=== PATIENT | female | born 1980 | race Caucasian/White ===

== ENCOUNTER → 2016-10-27 | Outpatient (CLI) | payer BC ==
[~2016-10-27] MED LIST: APIX1TAB3 PO; CYM/30 PO; DIPH-416 PO; DOCU-94 PO; IMD/2 PO; LORA-741 PO; METH5TAB2 PO; METO-157 PO; ONDA8TAB6 PO; PANT40TA PO; POLY335019 PO; POTA10CA28 PO; RXC5 PO; SENN-61 PO; SIME1CAP11 PO; SPIR50TA2 PO; TRAM-10 PO
[2016-10-27 14:41] LABS: BASO % 0.4 %; BASO ABS # 0.04 K/uL (0-0.2); COMPLETE YES; EOS % 6.8 %; HEMATOCRIT 32.3 % (37-47); IG% 0.2 %; LYMPH % 11.1 %; LYMPH ABS # 1.02 K/uL (1.2-3.4); MEAN CELL VOLUME 93.4 fL (80-100); MEAN CORPUSCULAR HEMOGLOBIN 29.2 pg (25-34); MEAN CORPUSCULAR HGB CONC 31.3 g/dl (32-36); MEAN PLATELET VOLUME 10.4 fL (7.4-10.4); NEUT % 70.5 %; PLATELET COUNT 795 K/uL (130-400); RED BLOOD COUNT 3.46 M/uL (4.2-5.4); WHITE BLOOD COUNT 9.22 K/uL (4.8-10.8)
[2016-10-27 14:49] LABS: ALT/SGPT 23 U/L (12-78); BLOOD UREA NITROGEN 21 mg/dl (7-18); BUN/CREATININE RATIO 36.3 (10-20); CALCIUM 10.2 mg/dl (8.5-10.1); CARBON DIOXIDE 25 mmol/L (21-32); CHLORIDE 105 mmol/L (98-107); CREATININE 0.59 mg/dl (0.60-1.20); GLUCOSE 101 mg/dl (70-99); POTASSIUM 4.1 mmol/L (3.5-5.1); SODIUM 138 mmol/L (136-145); TRIGLYCERIDES 104 mg/dl (0-150)
[2016-10-27 14:51] LABS: PROTHROMBIN TIME (PATIENT) 11.1 SECONDS (9.0-12.0)
[2016-10-27 14:52] LABS: ALB/GLOB RATIO 0.5 (0.9-2); ALKALINE PHOSPHATASE 251 U/L (45-117); AST/SGOT 19 U/L (15-37)
[2016-10-29 10:59] LABS: MAGNESIUM 2.4 mg/dl (1.8-2.4); PHOSPHORUS 4.3 mg/dl (2.5-4.9)
== END | disposition home or self-care (01) ==
LOC: C.LABSPEC 13:25
PROVIDERS: ATTEND Internal Medicine Pulmonary Disease
DX: C18.1 Malignant neoplasm of appendix (principal); C78.6 Secondary malignant neoplasm of retroperitoneum and peritoneum

== ENCOUNTER → 2016-11-10 | Outpatient (CLI) | payer BC ==
[2016-11-10 14:14] LABS: BASO % 0.7 %; BASO ABS # 0.06 K/uL (0-0.2); COMPLETE YES; EOS % 5.8 %; HEMATOCRIT 37.6 % (37-47); IG% 0.2 %; LYMPH % 11.1 %; LYMPH ABS # 0.96 K/uL (1.2-3.4); MEAN CELL VOLUME 92.4 fL (80-100); MEAN CORPUSCULAR HEMOGLOBIN 29.2 pg (25-34); MEAN CORPUSCULAR HGB CONC 31.6 g/dl (32-36); MEAN PLATELET VOLUME 10.3 fL (7.4-10.4); MONO % 8.6 %; NEUT % 73.6 %; PLATELET COUNT 666 K/uL (130-400); RED BLOOD COUNT 4.07 M/uL (4.2-5.4); WHITE BLOOD COUNT 8.64 K/uL (4.8-10.8)
[2016-11-10 14:22] LABS: ALT/SGPT 32 U/L (12-78); AST/SGOT 27 U/L (15-37); BLOOD UREA NITROGEN 25 mg/dl (7-18); BUN/CREATININE RATIO 33.9 (10-20); CARBON DIOXIDE 24 mmol/L (21-32); CHLORIDE 103 mmol/L (98-107); CREATININE 0.75 mg/dl (0.60-1.20); GLUCOSE 80 mg/dl (70-99); MAGNESIUM 2.2 mg/dl (1.8-2.4); POTASSIUM 4.5 mmol/L (3.5-5.1); SODIUM 137 mmol/L (136-145)
[2016-11-10 14:23] LABS: INR 1.1 (0.9-1.1); PROTHROMBIN TIME (PATIENT) 11.4 SECONDS (9.0-12.0)
[2016-11-10 14:25] LABS: ALKALINE PHOSPHATASE 231 U/L (45-117); PHOSPHORUS 4.1 mg/dl (2.5-4.9); TRIGLYCERIDES 123 mg/dl (0-150)
== END | disposition home or self-care (01) ==
LOC: C.LABSPEC 13:52
PROVIDERS: ATTEND Internal Medicine Hematology & Oncology
DX: Z85.09 Personal history of malignant neoplasm of other digestive organs (principal); C78.6 Secondary malignant neoplasm of retroperitoneum and peritoneum

== ENCOUNTER 2016-12-22 10:07 | Inpatient (IN) | payer BC ==
[~2016-12-22] VITALS: Ht 167.6 cm; Wt 57.6 kg
[2016-12-22] MEDS ORDERED: MoRPHine SULFATE 4 MG/ML 1 ML CARP\\VIAL IV STA (10:21)
[2016-12-22] MEDS ORDERED: SODIUM CHLORIDE 0.9% 1000ML 1,000 ML IV STA (10:21)
[2016-12-22] MEDS ORDERED: ONDANSETRON INJ 2 MG/ML 2 ML VIAL IV STA (10:21)
[2016-12-22] MEDS ORDERED: OPTIRAY 320 IV PRN (10:30)
[2016-12-22] MEDS ORDERED: APIX1TAB3 PO (10:47)
[2016-12-22] MEDS ORDERED: RXC5 PO (10:47)
[2016-12-22] MEDS ORDERED: LORA-741 PO (10:47)
[2016-12-22] MEDS ORDERED: SPIR50TA2 PO (10:47)
[2016-12-22] MEDS ORDERED: PANT40TA PO (10:47)
[2016-12-22] MEDS ORDERED: CYM/30 PO (10:47)
[2016-12-22] MEDS ORDERED: METO-157 PO (10:47)
[2016-12-22] MEDS ORDERED: TRAM-10 PO (10:47)
--- NOTE | 2016-12-22 11:07 | DIAGNOSTIC IMAGING REPORT ---
CHEST ONE VIEW PORTABLE CLINICAL HISTORY: Tachycardia COMPARISON STUDY: No previous studies for comparison. FINDINGS: The cardiac and mediastinal contours are normal. There is no evidence of focal pulmonary consolidation. There is no evidence of failure. No pleural effusions are visualized.[ There is a right-sided A-Port catheter. IMPRESSION: No active disease in the chest. Electronically signed by: Robbie Schumacher M.D. 12/22/2016 11:06 AM Dictated Date/Time: 12/22/2016 11:05 AM
[2016-12-22 11:30] LABS: HEMATOCRIT 35.3 % (37-47); MEAN CELL VOLUME 89.6 fL (80-100); MEAN CORPUSCULAR HEMOGLOBIN 29.9 pg (25-34); MEAN CORPUSCULAR HGB CONC 33.4 g/dl (32-36); MEAN PLATELET VOLUME 9.6 fL (7.4-10.4); PLATELET COUNT 560 K/uL (130-400); RED BLOOD COUNT 3.94 M/uL (4.2-5.4); WHITE BLOOD COUNT 2.77 K/uL (4.8-10.8)
--- NOTE | 2016-12-22 11:32 | EMERGENCY ROOM VISIT NOTE ---
History Report prepared by Sonya: Lillian Gonzalez Under the Supervision of: Dr. Umesh Pearson M.D. First contact with patient: 10:18 Chief Complaint: CONSTIPATION Stated Complaint: CONSTIPATION X 5 DAYS, N,V X 2 DAYS Nursing Triage Summary: pt to the ED with c/o constipation, last BM was on thursday and it was diarrhea. 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 Positive vomiting (20 episodes), allergic to amoxicillin. Negative falls, travel , hx of diabetes, fevers, chills, urinary symptoms. The pt's last chemotherapy treatment was 11 days ago. The pt is on Eliquis Cymbalta, oxycodone, tramadol, Lorazepam. Source of History: patient Onset: 5 days ago Timing: constant Associated Symptoms: + vomiting, No fevers, No chills, No urinary symptoms Review of Systems See HPI for pertinent positives and negatives. A total of ten systems were reviewed and were otherwise negative. 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 Surgical Problems: (1) H/O oophorectomy (2) H/O splenectomy (3) H/O wisdom tooth extraction (4) HIPEC procedure (5) History of appendectomy (6) History of hysterectomy (7) S/P colon resection Family History no pertinent family history stated Social History Smoking Status: Never Smoker Marital Status: Current/Historical Medications Scheduled Apixaban (Eliquis), 5 MG PO BID Duloxetine Hcl (Cymbalta), 30 MG PO DAILY Metoclopramide (Reglan), 10 MG PO QID Oxycodone HCl (Oxycodone HCl), 5 MG PO HS Pantoprazole (Protonix), 40 MG PO DAILY Spironolactone (Aldactone), 50 MG PO DAILY Scheduled PRN Lorazepam (Ativan), 0.5 MG PO DAILY PRN for Anxiety Tramadol (Ultram), 50 MG PO Q6 PRN for Pain Allergies Coded Allergies: POLLEN (Verified Allergy, Intermediate, SEASONAL, 12/22/16) Amoxicillin (Verified Adverse Reaction, Intermediate, GREEN DIARHHEA, 12/22) Physical Exam Vital Signs Date Time Temp Pulse Resp B/P (MAP) Pulse Ox O2 Delivery O2 Flow Rate FiO2 12/22/16 14:50 104 19 94 12/22/16 14:31 134/84 12/22/16 14:20 111 18 97 12/22/16 14:01 126/70 12/22/16 13:50 104 21 97 12/22/16 13:31 131/81 12/22/16 13:20 99 20 96 12/22/16 13:01 125/72 12/22/16 12:50 101 25 98 12/22/16 12:45 117/68 12/22/16 12:44 103 12/22/16 11:37 102 17 12/22/16 10:10 36.8 128 20 122/83 96 Room Air Physical Exam GENERAL: Awake, alert, well-appearing, NAD. Emaciated. HENT: Normocephalic, atraumatic. EYES: Normal conjunctiva. Sclera non-icteric. NECK: Supple. No nuchal rigidity. FROM. RESPIRATORY: CTAB, no rhonchi, wheezing, crackles CARDIAC: Tachycardic and regular, no MRG ABDOMEN: Soft, NTND, BS+, Pressure in RUQ epigastric and periumbilical .LLQ and LUQ tenderness to palpation. Small hard masses felt near midline incision. MSK: No chest wall TTP, no LE edema. Right chest wall chemoport no erythema or fluctuance. NEURO: GCS 15, CN 2-12 intact, moves all 4s on command SKIN: No rash or jaundice noted. Well healing vertical midline incision consistent with prior laparotomy Medical Decision & Procedures ER Provider Diagnostic Interpretation: Radiology results as stated below per my review and radiologist interpretation: CHEST ONE VIEW PORTABLE FINDINGS: The cardiac and mediastinal contours are normal. There is no evidence of focal pulmonary consolidation. There is no evidence of failure. No pleural effusions are visualized.[ There is a right-sided A-Port catheter. IMPRESSION: No active disease in the chest. Electronically signed by: Robbie Schumacher M.D. CT ABD/PELVIS IV CONTRAST ONLY FINDINGS: Lower chest: The heart is normal in size and configuration, without pericardial effusion. The lung bases and pleural spaces are clear. Liver: The contrast-enhanced liver is normal in size, contour, and attenuation. There is no intrahepatic biliary ductal dilatation. The hepatic veins and portal veins are patent. Gallbladder: Unremarkable. Spleen: Not visualized and presumed surgically absent Pancreas: No pancreatic masses are visualized. There is a suspected pancreatic divisum. The common bile duct is dilated measuring 7.9 mm. Adrenal glands: Unremarkable. Kidneys: There is mild right-sided hydronephrosis and hydroureter. Bowel: Evaluation the bowel is limited given the lack of enteric contrast. There are multiple dilated small bowel loops with air-fluid levels. The patient appears be status post a prior cecal resection. There is a transition zone at the ileocolonic anastomosis. There is a mild amount of stool within the rectosigmoid. Peritoneum: There is no intraperitoneal free air or abdominal ascites. Vasculature: The abdominal aorta is normal in course and caliber. Adenopathy: There are mildly enlarged para-aortic lymph nodes. Pelvic viscera: The patient appears be status post a prior hysterectomy. Skeletal structures: No destructive osseous lesions are seen. IMPRESSION: 1. Difficult study to interpret secondary to the lack of enteric contrast. 2. Dilated small bowel down to the level of the ileocecal colonic anastomosis. A partial small bowel obstruction is suspected 3. Absent spleen 4. Right-sided hydronephrosis and hydroureter 5. Mildly enlarged para-aortic lymph nodes Electronically signed by: Robbie Schumacher M.D. Laboratory Results 12/22/16 11:00 Red Blood Count 3.94, Mean Corpuscular Volume 89.6, Mean Corpuscular Hemoglobin 29.9, Mean Corpuscular Hemoglobin Concent 33.4, Mean Platelet Volume 9.6, Neutrophils (%) (Auto) 36.1, Lymphocytes (%) (Auto) 36.8, Monocytes (%) (Auto) 21.3, Eosinophils (%) (Auto) 4.3, Basophils (%) (Auto) 1.1, Neutrophils # (Auto ) 1.00, Lymphocytes # (Auto) 1.02, Monocytes # (Auto) 0.59, Eosinophils # (Auto ) 0.12, Basophils # (Auto) 0.03 12/22/16 11:00 Test 12/22/16 11:00 12/22/16 11:30 White Blood Count 2.77 K/uL (4.8-10.8) Red Blood Count 3.94 M/uL (4.2-5.4) Hemoglobin 11.8 g/dL (12.0-16.0) Hematocrit 35.3 % (37-47) Mean Corpuscular Volume 89.6 fL (80-100) Mean Corpuscular Hemoglobin 29.9 pg (25-34) Mean Corpuscular Hemoglobin Concent 33.4 g/dl (32-36) Platelet Count 560 K/uL (130-400) Mean Platelet Volume 9.6 fL (7.4-10.4) Neutrophils (%) (Auto) 36.1 % Lymphocytes (%) (Auto) 36.8 % Monocytes (%) (Auto) 21.3 % Eosinophils (%) (Auto) 4.3 % Basophils (%) (Auto) 1.1 % Neutrophils # (Auto) 1.00 K/uL (1.4-6.5) Lymphocytes # (Auto) 1.02 K/uL (1.2-3.4) Monocytes # (Auto) 0.59 K/uL (0.11-0.59) Eosinophils # (Auto) 0.12 K/uL (0-0.5) Basophils # (Auto) 0.03 K/uL (0-0.2) RDW Standard Deviation 55.4 fL (36.4-46.3) RDW Coefficient of Variation 16.8 % (11.5-14.5) Immature Granulocyte % (Auto) 0.4 % Immature Granulocyte # (Auto) 0.01 K/uL (0.00-0.02) Toxic Granulation 1+ Large Platelets 1+ Target Cells 1+ Echinocytes 1+ Anion Gap 12.0 mmol/L (3-11) Est Creatinine Clear Calc Drug Dose 114.8 ml/min Estimated GFR () 134.2 Estimated GFR (Non- 115.8 BUN/Creatinine Ratio 20.0 (10-20) Calcium Level 10.1 mg/dl (8.5-10.1) Total Bilirubin 0.5 mg/dl (0.2-1) Direct Bilirubin 0.2 mg/dl (0-0.2) Aspartate Amino Transf (AST/SGOT) 22 U/L (15-37) Alanine Aminotransferase (ALT/SGPT) 17 U/L (12-78) Alkaline Phosphatase 222 U/L (45-117) Total Protein 7.8 gm/dl (6.4-8.2) Albumin 3.0 gm/dl (3.4-5.0) Lipase 140 U/L (73-393) Urine Color DK YELLOW Urine Appearance CLOUDY (CLEAR) Urine pH 6.0 (4.5-7.5) Urine Specific [place] 1.029 (1.000-1.030) Urine Protein 1+ (NEG) Urine Glucose (UA) NEG (NEG) Urine Ketones 3+ (NEG) Urine Occult Blood NEG (NEG) Urine Nitrite NEG (NEG) Urine Bilirubin NEG (NEG) Urine Urobilinogen NEG (NEG) Urine Leukocyte Esterase NEG (NEG) Urine WBC (Auto) 5-10 /hpf (0-5) Urine RBC (Auto) 0-4 /hpf (0-4) Urine Hyaline Casts (Auto) 1-5 /lpf (0-5) Urine Epithelial Cells (Auto) 20-30 /lpf (0-5) Urine Bacteria (Auto) NEG (NEG) Urine Crystals CALCIUM OXALATE (NONE Urine Mucus PRESENT (NONE PRSENT) Laboratory results reviewed by me Medications Administered Medications (Trade) Dose Ordered Sig/Shani Route Start Time Stop Time Status Last Admin Dose Admin Sodium Chloride 1,000 ml @ 999 mls/hr Q1H1M STAT IV 12/22/16 10:21 12/22/16 11:21 DC 12/22/16 10:21 999 MLS/HR Morphine Sulfate (MoRPHine SULFATE INJ) 4 mg NOW STAT IV 12/22/16 10:21 12/22/16 10:24 DC 12/22/16 11:27 4 MG Ondansetron HCl (Zofran Inj) 4 mg NOW STAT IV 12/22/16 10:21 12/22/16 10:24 DC 12/22/16 11:28 4 MG Hydromorphone HCl (Dilaudid Inj) 0.5 mg NOW STAT IV 12/22/16 13:57 12/22/16 13:58 DC 12/22/16 14:19 0.5 MG ECG Indication: other (constipation) Rhythm: normal sinus (with sinua arhythmia) Findings: other (normal intervals, normal axis, no STS changes or T wave inversions) ED Course 1025: The patient was evaluated in room C8. A complete history and physical exam was performed. 1319: Consult with surgery, they will evaluate the pt. 1339: Discussed the patient's case with Lisa Lopez. The patient will be evaluated for further treatment and disposition. 1345: Upon reexamination, the patient was resting. I discussed the test results and treatment plan with her. The patient will be evaluated for further management. 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 Differential diagnosis: Etiologies such as appendicitis, diverticulitis, PUD, biliary pathology, UTI, pancreatitis, obstruction, mesenteric ischemia, aortic pathology, infections, inflammatory bowel disease, renal colic, as well as others were entertained. Patient's lab work did show mild leukopenia with an absolute neutrophil count of approximately 1000. Patient did have mild hyponatremia as well as elevated alkaline phosphatase me in. Patient's UA did have calcium crystals. Patient's CT the abdomen and pelvis was concerning for a partial small bowel obstruction. A nasogastric tube was ordered. I spoke with the PA of EGS who stated even given her complicated surgical history they are comfortable w/ helping to manage the SBO as consult. I spoke with the medicine team and agree that they would help manage the patient. Patient was admitted. Medication Reconcilliation Current Medication List: was personally reviewed by me Blood Pressure Screening Patient's blood pressure: Normal blood pressure Consults Time Called: 1315 Consulting Physician: Aidan consult Returned Call: [phone] Discussed the patient's case. Additional Consults: Time Called: 1335 Consulted Physician: Lisa Lopez Returned Call: [phone] Additional Comments: Discussed the patient's case. The patient will be evaluated for further treatment and disposition. Impression Primary Impression: Small bowel obstruction Additional Impressions: Abdominal pain Tachycardia Scribe Attestation The scribe's documentation has been prepared under my direction and personally reviewed by me in its entirety. I confirm that the note above accurately reflects all work, treatment, procedures, and medical decision making performed by me. Departure Information Dispostion Being Evaluated By Hospitalist Referrals Kevin García II MD (PCP) Patient Instructions My [facility] Problem Qualifiers Additional Impressions: Abdominal pain Abdominal location: generalized Qualified Codes: R10.84 - Generalized abdominal pain
[2016-12-22 11:48] LABS: CALCIUM 10.1 mg/dl (8.5-10.1); CREATININE 0.61 mg/dl (0.60-1.20); POTASSIUM 3.5 mmol/L (3.5-5.1)
[2016-12-22 11:48] LABS: URINE APPEARANCE CLOUDY (CLEAR); URINE COLOR DK YELLOW; URINE EPITHELIAL CELL AUTO 20-30 /lpf (0-5); URINE NITRITE NEG (NEG); URINE SPECIFIC GRAVITY 1.029 (1.000-1.030); UROBILINOGEN NEG (NEG); ZZUR CULT IF INDIC CLEAN CATCH NO
[2016-12-22 12:00] LABS: MANUAL MICROSCOPIC REQUIRED? NO; REVIEW REQ? YES; URINE BILIRUBIN NEG (NEG)
[2016-12-22 12:01] LABS: URINE MUCUS PRESENT (NONE PRSENT)
[2016-12-22 12:02] LABS: BASO % 1.1 %; BASO ABS # 0.03 K/uL (0-0.2); COMPLETE YES; ECHINOCYTES 1+; EOS % 4.3 %; IG% 0.4 %; LARGE PLATELETS 1+; LYMPH % 36.8 %; LYMPH ABS # 1.02 K/uL (1.2-3.4); MONO % 21.3 %; NEUT % 36.1 %; TARGET CELLS 1+; TOXIC GRANULATION 1+
--- NOTE | 2016-12-22 12:48 | DIAGNOSTIC IMAGING REPORT ---
CT ABD/PELVIS IV CONTRAST ONLY CLINICAL HISTORY: Colon carcinoma. History of partial colectomy. Obstipation. COMPARISON STUDY: None. TECHNIQUE: Following the IV administration of 92 mL of Optiray-320, CT scan of the abdomen and pelvis was performed from the lung bases to the proximal femurs. Images are reviewed in the axial, sagittal, and coronal planes. IV contrast was administered without complication. A dose lowering technique was utilized adhering to the principles of ALARA. CT DOSE: 287.00 mGy.cm FINDINGS: Lower chest: The heart is normal in size and configuration, without pericardial effusion. The lung bases and pleural spaces are clear. Liver: The contrast-enhanced liver is normal in size, contour, and attenuation. There is no intrahepatic biliary ductal dilatation. The hepatic veins and portal veins are patent. Gallbladder: Unremarkable. Spleen: Not visualized and presumed surgically absent Pancreas: No pancreatic masses are visualized. There is a suspected pancreatic divisum. The common bile duct is dilated measuring 7.9 mm. Adrenal glands: Unremarkable. Kidneys: There is mild right-sided hydronephrosis and hydroureter. Bowel: Evaluation the bowel is limited given the lack of enteric contrast. There are multiple dilated small bowel loops with air-fluid levels. The patient appears be status post a prior cecal resection. There is a transition zone at the ileocolonic anastomosis. There is a mild amount of stool within the rectosigmoid. Peritoneum: There is no intraperitoneal free air or abdominal ascites. Vasculature: The abdominal aorta is normal in course and caliber. Adenopathy: There are mildly enlarged para-aortic lymph nodes. Pelvic viscera: The patient appears be status post a prior hysterectomy. Skeletal structures: No destructive osseous lesions are seen. IMPRESSION: 1. Difficult study to interpret secondary to the lack of enteric contrast. 2. Dilated small bowel down to the level of the ileocecal colonic anastomosis. A partial small bowel obstruction is suspected 3. Absent spleen 4. Right-sided hydronephrosis and hydroureter 5. Mildly enlarged para-aortic lymph nodes Electronically signed by: Robbie Schumacher M.D. 12/22/2016 12:47 PM Dictated Date/Time: 12/22/2016 12:37 PM
[2016-12-22] MEDS ORDERED: HYDROmorphone INJ 0.5 MG/0.5 ML SYR IV STA (13:57)
--- NOTE | 2016-12-22 14:44 | Surgery Consultation ---
Consultation Date of Consultation: Dec 22, 2016. Attending Physician: Dr. 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 She is currently receiving chemotherapy every 2 weeks. Last chemotherapy was 11 days ago and is due this . Liana states she had a hysterectomy in April of last year in which they though she had ovarian cancer. She then had her appendix removed and her ovary removed in March of 2012 in which she was diagnosed with appendiceal cancer and then underwent HIPEC surgery in August in which she had part of her colon removed, small bowel, as well as spleen. She unfortunately developed a blood clot in the abdomen post operatively and is now on Eliquis. Liana presented to emergency department today with complaint of constipation for 5 days and vomiting (about 20 episodes). Liana states her last bowel movement was last Thursday and has not passed gas since. She states her last episode of vomiting was last evening around 8-9:00 pm after eating pudding. She states the vomiting has looked like stool. She states she has had a history of bowel obstruction since her HIPEC surgery in which she was admitted to [facility]. She denies of any surgical intervention at that time. She states she has chronic abdominal pain but noticed increasing pain with movements with this episode of constipation and vomiting. Takes Oxycodone at night and tramadol as needed for pain. She states she does not have the urge to have a bowel movement or pass any gas. Does require Colace and Senokot daily to help with bowel movements but then has to take Imodium because of diarrhea. She had a CT scan of abdomen and pelvis without contrast which showed dilated small bowel to the ileocolonic anastomosis consistent with partial small bowel obstruction. Labs revealed n/o leukocytosis H&H stable at 11.8/35.3 Currently rating her abdominal pain a 5/10. No vomiting this morning or since being in the ER. Still has no urge to have a bowel movement or pass any gas. (Tamanna Ibanez PA-C) Past Medical/Surgical History Past Medical History: 1. Appendiceal cancer 2. Blood clot (Tamanna Ibanez PA-C) Social History Smoking Status: Never Smoker Marital Status: (Tamanna Ibanez, SIXTOC) Allergies Coded Allergies: POLLEN (Verified Allergy, Intermediate, SEASONAL, 12/22/16) Amoxicillin (Verified Adverse Reaction, Intermediate, GREEN DIARHHEA, 12/22) Home Medications Scheduled Apixaban (Eliquis), 5 MG PO BID Duloxetine Hcl (Cymbalta), 30 MG PO DAILY Metoclopramide (Reglan), 10 MG PO QID Oxycodone HCl (Oxycodone HCl), 5 MG PO HS Pantoprazole (Protonix), 40 MG PO DAILY Spironolactone (Aldactone), 50 MG PO DAILY Scheduled PRN Lorazepam (Ativan), 0.5 MG PO DAILY PRN for Anxiety Tramadol (Ultram), 50 MG PO Q6 PRN for Pain Current Inpatient Medications Current Inpatient Medications Medications (Trade) Dose Ordered Sig/Shani Route Start Time Stop Time Status Last Admin Dose Admin Ioversol (Optiray 320) 100 ml UD PRN IV 12/22/16 10:30 12/26/16 10:29 (Tamanna Ibanez ., PA-C) Review of Systems Constitutional: + fatigue, No fever, No chills, No sweats Respiratory: No shortness of breath, No dyspnea on exertion Cardiovascular: No chest pain Abdomen: + pain, + nausea, + vomiting, + constipation (no bowel movement since Thursday) Genitourinary - Female: No dysuria Hematologic / Lymphatic: No abnormal bleeding/bruising Integumentary: No rash (Tamanna Ibanez ., PA-C) Physical Exam Date Time Temp Pulse Resp B/P (MAP) Pulse Ox O2 Delivery O2 Flow Rate FiO2 12/22/16 12:45 117/68 12/22/16 12:44 103 12/22/16 11:37 102 17 12/22/16 10:10 36.8 128 20 122/83 96 Room Air General Appearance: no apparent distress, + thin Head: normocephalic, atraumatic Eyes: sclerae normal ENT: hearing grossly normal Neck: trachea midline Respiratory/Chest: lungs clear, normal breath sounds, no respiratory distress, no accessory muscle use Cardiovascular: no murmur, + tachycardia Abdomen/GI: normal bowel sounds, soft (non distended, no rigidity, guarding, rebound, or peritonitis), + pertinent finding (midline laparotomy scar present, small laparoscopic scars present) Back: normal inspection Extremities/Musculoskelatal: normal inspection Neurologic/Psych: alert, normal mood/affect, oriented x 3 Skin: normal color, warm/dry, no rash (Tamanna Ibanez ., ORA) Laboratory Results Last 24 Hours Test 12/22/16 11:00 12/22/16 11:30 White Blood Count 2.77 K/uL Red Blood Count 3.94 M/uL Hemoglobin 11.8 g/dL Hematocrit 35.3 % Mean Corpuscular Volume 89.6 fL Mean Corpuscular Hemoglobin 29.9 pg Mean Corpuscular Hemoglobin Concent 33.4 g/dl Platelet Count 560 K/uL Mean Platelet Volume 9.6 fL Neutrophils (%) (Auto) 36.1 % Lymphocytes (%) (Auto) 36.8 % Monocytes (%) (Auto) 21.3 % Eosinophils (%) (Auto) 4.3 % Basophils (%) (Auto) 1.1 % Neutrophils # (Auto) 1.00 K/uL Lymphocytes # (Auto) 1.02 K/uL Monocytes # (Auto) 0.59 K/uL Eosinophils # (Auto) 0.12 K/uL Basophils # (Auto) 0.03 K/uL RDW Standard Deviation 55.4 fL RDW Coefficient of Variation 16.8 % Immature Granulocyte % (Auto) 0.4 % Immature Granulocyte # (Auto) 0.01 K/uL Toxic Granulation 1+ Large Platelets 1+ Target Cells 1+ Echinocytes 1+ Sodium Level 134 mmol/L Potassium Level 3.5 mmol/L Chloride Level 96 mmol/L Carbon Dioxide Level 26 mmol/L Anion Gap 12.0 mmol/L Blood Urea Nitrogen 12 mg/dl Creatinine 0.61 mg/dl Est Creatinine Clear Calc Drug Dose 114.8 ml/min Estimated GFR () 134.2 Estimated GFR (Non- 115.8 BUN/Creatinine Ratio 20.0 Random Glucose 89 mg/dl Calcium Level 10.1 mg/dl Total Bilirubin 0.5 mg/dl Direct Bilirubin 0.2 mg/dl Aspartate Amino Transf (AST/SGOT) 22 U/L Alanine Aminotransferase (ALT/SGPT) 17 U/L Alkaline Phosphatase 222 U/L Total Protein 7.8 gm/dl Albumin 3.0 gm/dl Lipase 140 U/L Urine Color DK YELLOW Urine Appearance CLOUDY Urine pH 6.0 Urine Specific [place] 1.029 Urine Protein 1+ Urine Glucose (UA) NEG Urine Ketones 3+ Urine Occult Blood NEG Urine Nitrite NEG Urine Bilirubin NEG Urine Urobilinogen NEG Urine Leukocyte Esterase NEG Urine WBC (Auto) 5-10 /hpf Urine RBC (Auto) 0-4 /hpf Urine Hyaline Casts (Auto) 1-5 /lpf Urine Epithelial Cells (Auto) 20-30 /lpf Urine Bacteria (Auto) NEG Urine Crystals CALCIUM OXALATE Urine Mucus PRESENT CT ABD/PELVIS IV CONTRAST ONLY CLINICAL HISTORY: Colon carcinoma. History of partial colectomy. Obstipation. COMPARISON STUDY: None. TECHNIQUE: Following the IV administration of 92 mL of Optiray-320, CT scan of the abdomen and pelvis was performed from the lung bases to the proximal femurs. Images are reviewed in the axial, sagittal, and coronal planes. IV contrast was administered without complication. A dose lowering technique was utilized adhering to the principles of ALARA. CT DOSE: 287.00 mGy.cm FINDINGS: Lower chest: The heart is normal in size and configuration, without pericardial effusion. The lung bases and pleural spaces are clear. Liver: The contrast-enhanced liver is normal in size, contour, and attenuation. There is no intrahepatic biliary ductal dilatation. The hepatic veins and portal veins are patent. Gallbladder: Unremarkable. Spleen: Not visualized and presumed surgically absent Pancreas: No pancreatic masses are visualized. There is a suspected pancreatic divisum. The common bile duct is dilated measuring 7.9 mm. Adrenal glands: Unremarkable. Kidneys: There is mild right-sided hydronephrosis and hydroureter. Bowel: Evaluation the bowel is limited given the lack of enteric contrast. There are multiple dilated small bowel loops with air-fluid levels. The patient appears be status post a prior cecal resection. There is a transition zone at the ileocolonic anastomosis. There is a mild amount of stool within the rectosigmoid. Peritoneum: There is no intraperitoneal free air or abdominal ascites. Vasculature: The abdominal aorta is normal in course and caliber. Adenopathy: There are mildly enlarged para-aortic lymph nodes. Pelvic viscera: The patient appears be status post a prior hysterectomy. Skeletal structures: No destructive osseous lesions are seen. IMPRESSION: 1. Difficult study to interpret secondary to the lack of enteric contrast. 2. Dilated small bowel down to the level of the ileocecal colonic anastomosis. A partial small bowel obstruction is suspected 3. Absent spleen 4. Right-sided hydronephrosis and hydroureter 5. Mildly enlarged para-aortic lymph nodes (Tamanna Ibanez ., PA-C) Assessment & Plan Partial SBO - vitals stable, slightly tachycardia - abdomen soft, nondistended, no guarding, rebound, or rigidity - Ct scan of abdomen and pelvis with IV contrast showing dilated small bowel loops to the level of ileocolonic anastomosis consistent with partial small bowel obstruction Plan: Recommend conservative management at this time. NPO, IV fluids, IV pain management as needed, will hold off on NGT at this time Given patient's surgical history, if conservative management does not allow progression patient will need transfer to Tertiary care for any surgical indication Recommend holding Eliquis and bridging with Heparin given blood clot history continue current medical management will continue to follow Dr. Mcclain has seen and examined patient, agrees with above. (Tamanna Ibanez ., PA-C) I interviewed and examined this patient and reviewed her labs and her radiology studies and i agree with the above note. She has had multiple abdominal procedures and now has a partial SBO. I agree with conservative management for now. If surgical intervention is necessary would recommend [facility] (Jd Mcclain M.D.)
[2016-12-22] MEDS ORDERED: ACETAMINOPHEN 325 MG TAB PO PRN (15:00)
[2016-12-22] MEDS ORDERED: LORAZEPAM 0.5 MG TAB PO PRN (16:15)
[2016-12-22 16:25] VITALS: O2SAT 95
--- NOTE | 2016-12-22 16:41 | History and Physical ---
History & Physical Date & Time of Service: Dec 22, 2016 ~ 14:30 Chief Complaint: Constipation, Nausea, Vomiting Primary Care Physician: Kevin García II MD History of Present Illness 36 year old female who presents to the ER with constipation, nausea, and vomiting. 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 Patient reports her symptoms began 5 days ago. She has not had a bowel movement in 5 days. She also has developed nausea with multiple episodes of vomiting. She reports her emesis looks like stool. She reports vomiting shortly after taking anything by mouth. She has chronic abdominal pain from her large surgery however reports pain has been worse over the past few days. Pain is located on the left and middle parts of her abdomen. She denies any worsening abdominal distention. She denies fever and chills. No chest pain or shortness of breath. She denies lightheadedness, dizziness, diaphoresis, or syncope. No urinary symptoms. In the ER, CT abd/pelvis is showing partial small bowel obstruction. Labs and vitals are stable. She was given IVF, IV morphine, IV Dilaudid, and IV Zofran. Past Medical/Surgical History Medical Problems: (1) Appendix carcinoma Status: Chronic (2) Colic vein thrombosis Status: Chronic (3) Splenic vein thrombosis Status: Chronic Surgical Problems: (1) H/O oophorectomy Status: Chronic (2) H/O splenectomy Status: Chronic (3) H/O wisdom tooth extraction Status: Chronic (4) HIPEC procedure Status: Chronic (5) History of appendectomy Status: Chronic (6) History of hysterectomy Status: Chronic (7) S/P colon resection Status: Chronic Family History FH: HTN (hypertension) MOTHER FH: colon cancer MOTHER Social History Smoking Status: Never Smoker Drug Use: none Allergies Coded Allergies: POLLEN (Verified Allergy, Intermediate, SEASONAL, 12/22/16) Adhesives (Verified Adverse Reaction, Intermediate, irritation, itchiness and reddness, 12/22/16) Amoxicillin (Verified Adverse Reaction, Intermediate, GREEN DIARHHEA, 12/22) Home Medications Scheduled Apixaban (Eliquis), 5 MG PO BID Duloxetine Hcl (Cymbalta), 30 MG PO DAILY Metoclopramide (Reglan), 10 MG PO QID Oxycodone HCl (Oxycodone HCl), 5 MG PO HS Pantoprazole (Protonix), 40 MG PO DAILY Spironolactone (Aldactone), 50 MG PO DAILY Scheduled PRN Lorazepam (Ativan), 0.5 MG PO DAILY PRN for Anxiety Tramadol (Ultram), 50 MG PO Q6 PRN for Pain Review of Systems ROS per HPI, all other systems reviewed and negative Physical Exam Vital Signs Date Time Temp Pulse Resp B/P (MAP) Pulse Ox O2 Delivery O2 Flow Rate FiO2 12/22/16 14:50 104 19 94 12/22/16 14:31 134/84 12/22/16 14:20 111 18 97 12/22/16 14:01 126/70 12/22/16 13:50 104 21 97 12/22/16 13:31 131/81 12/22/16 13:20 99 20 96 12/22/16 13:01 125/72 12/22/16 12:50 101 25 98 12/22/16 12:45 117/68 12/22/16 12:44 103 12/22/16 11:37 102 17 12/22/16 10:10 36.8 128 20 122/83 96 Room Air General Appearance: no apparent distress Head: normocephalic, atraumatic Eyes: normal inspection, sclerae normal ENT: hearing grossly normal Neck: supple, no JVD Respiratory/Chest: lungs clear, normal breath sounds, no respiratory distress Cardiovascular: regular rate, rhythm, no edema, normal peripheral pulses Abdomen/GI: soft, + tenderness (mild left sided and mid abdomen tenderness ), + abnormal bowel sounds (hyperactive in the LUQ, hypoactive in all other quadrants) Extremities/Musculoskelatal: normal inspection, no calf tenderness Neurologic/Psych: no motor/sensory deficits, alert, normal mood/affect, oriented x 3 Skin: normal color, warm/dry Diagnostics Laboratory Results Results Past 24 Hours Test 12/22/16 11:00 12/22/16 11:30 Range/Units White Blood Count 2.77 4.8-10.8 K/uL Red Blood Count 3.94 4.2-5.4 M/uL Hemoglobin 11.8 12.0-16.0 g/dL Hematocrit 35.3 37-47 % Mean Corpuscular Volume 89.6 80-100 fL Mean Corpuscular Hemoglobin 29.9 25-34 pg Mean Corpuscular Hemoglobin Concent 33.4 32-36 g/dl Platelet Count 560 130-400 K/uL Mean Platelet Volume 9.6 7.4-10.4 fL Neutrophils (%) (Auto) 36.1 % Lymphocytes (%) (Auto) 36.8 % Monocytes (%) (Auto) 21.3 % Eosinophils (%) (Auto) 4.3 % Basophils (%) (Auto) 1.1 % Neutrophils # (Auto) 1.00 1.4-6.5 K/uL Lymphocytes # (Auto) 1.02 1.2-3.4 K/uL Monocytes # (Auto) 0.59 0.11-0.59 K/uL Eosinophils # (Auto) 0.12 0-0.5 K/uL Basophils # (Auto) 0.03 0-0.2 K/uL RDW Standard Deviation 55.4 36.4-46.3 fL RDW Coefficient of Variation 16.8 11.5-14.5 % Immature Granulocyte % (Auto) 0.4 % Immature Granulocyte # (Auto) 0.01 0.00-0.02 K/uL Toxic Granulation 1+ Large Platelets 1+ Target Cells 1+ Echinocytes 1+ Sodium Level 134 136-145 mmol/L Potassium Level 3.5 3.5-5.1 mmol/L Chloride Level 96 98-107 mmol/L Carbon Dioxide Level 26 21-32 mmol/L Anion Gap 12.0 3-11 mmol/L Blood Urea Nitrogen 12 7-18 mg/dl Creatinine 0.61 0.60-1.20 mg/dl Est Creatinine Clear Calc Drug Dose 114.8 ml/min Estimated GFR () 134.2 Estimated GFR (Non- 115.8 BUN/Creatinine Ratio 20.0 10-20 Random Glucose 89 70-99 mg/dl Calcium Level 10.1 8.5-10.1 mg/dl Total Bilirubin 0.5 0.2-1 mg/dl Direct Bilirubin 0.2 0-0.2 mg/dl Aspartate Amino Transf (AST/SGOT) 22 15-37 U/L Alanine Aminotransferase (ALT/SGPT) 17 12-78 U/L Alkaline Phosphatase 222 45-117 U/L Total Protein 7.8 6.4-8.2 gm/dl Albumin 3.0 3.4-5.0 gm/dl Lipase 140 73-393 U/L Urine Color DK YELLOW Urine Appearance CLOUDY CLEAR Urine pH 6.0 4.5-7.5 Urine Specific [place] 1.029 1.000-1.030 Urine Protein 1+ NEG Urine Glucose (UA) NEG NEG Urine Ketones 3+ NEG Urine Occult Blood NEG NEG Urine Nitrite NEG NEG Urine Bilirubin NEG NEG Urine Urobilinogen NEG NEG Urine Leukocyte Esterase NEG NEG Urine WBC (Auto) 5-10 0-5 /hpf Urine RBC (Auto) 0-4 0-4 /hpf Urine Hyaline Casts (Auto) 1-5 0-5 /lpf Urine Epithelial Cells (Auto) 20-30 0-5 /lpf Urine Bacteria (Auto) NEG NEG Urine Crystals CALCIUM OXALATE NONE PRSENT Urine Mucus PRESENT NONE PRSENT Diagnostic Radiology CT ABD/PELVIS IMPRESSION: 1. Difficult study to interpret secondary to the lack of enteric contrast. 2. Dilated small bowel down to the level of the ileocecal colonic anastomosis. A partial small bowel obstruction is suspected 3. Absent spleen 4. Right-sided hydronephrosis and hydroureter 5. Mildly enlarged para-aortic lymph nodes CXR IMPRESSION: No active disease in the chest. Impression Assessment and Plan PARTIAL SBO - admit to med/surg - patient presenting with constipation, nausea, and vomiting x 5 days; CT obtained in the ED showing partial small bowel obstruction - patient with history of several abdominal surgeries and HIPEC procedure for appendicial cancer - suspect obstruction is due to adhesions - patient also reports admissions at [facility] for obstructions after surgery however has not required surgical intervention for the obstructions - conservative therapy for now with NPO, IVF, pain control - surgery consult, input appreciated APPENDICIAL CANCER, S/P HIPEC PROCEDURE - currently receiving chemo every 2 weeks (due on 12/25) and also enrolled in immunotherapy trial - follows with Dr. Jd Horton [facility] (oncology) and Dr. Ibarra [facility] David (surgeon) HX MIDDLE COLIC VEIN AND SPLENIC VEIN THROMBOSIS - on Eliquis which needs to be held in the event patient needs an invasive procedure - discussed case with Dr. Horton who advises the patient be bridged with IV Heparin DVT PROPHYLAXIS - on IV Heparin gtt DISPO - In my clinical judgment this beneficiary meets acute admission criteria, established by [facility], that includes being hospitalized through two midnights. Agree with above H and P. Briefly 36F with hx of appendicial cancer s/p HIPEC procedure August 2016 and hxo f sbo presents with constipation and nausea and vomiting for about 5 days and found to have sbo. Denies any fevers or sob. Currently resting comfortably and hemodynamically stable p/e GE not in distress Cvs s1 and s2 heard no murmurs Rs cta b/l no added sounds Abd soft bs very sluggish no distension wet wheeler non focal ext no edema a/p sbo npo, iv fluids antiemetics and iv pain meds monitor on medical floor surgery on board hx of appendical cancer s/p surgery on chemo VTE Prophylaxis VTE Risk Assessment Done? Y/N: Yes Risk Level: Moderate
[2016-12-22 17:20] VITALS: BP 118/60; PULSE 95; TEMP 36.5; Ht 167.6 cm; Wt 57.6 kg
[2016-12-22] MEDS ORDERED: HEPARIN IV LOW DOSE NO BOLUS SCH (18:00)
[2016-12-22] MEDS: MoRPHine SULFATE 4 MG/ML 1 ML CARP\\VIAL IV PRN ×2 (18:10→18:51)
[2016-12-22] MEDS: D5W AND NSS 1,000 ML IV SCH ×2 (19:11→22:50)
[2016-12-22] MEDS: HEPARIN 25,000 UNIT/500ML D5W 500 ML IV PRN ×2 (19:24→23:29)
[2016-12-22 21:49] LABS: INR 1.2 (0.9-1.1); PARTIAL THROMBOPLASTIN RATIO 1.8; PROTHROMBIN TIME (PATIENT) 12.4 SECONDS (9.0-12.0)
[2016-12-22 22:01] LABS: HEMATOCRIT 30.7 % (37-47); MEAN CORPUSCULAR HEMOGLOBIN 30.2 pg (25-34); MEAN CORPUSCULAR HGB CONC 33.6 g/dl (32-36); MEAN PLATELET VOLUME 9.4 fL (7.4-10.4); PLATELET COUNT 537 K/uL (130-400); RED BLOOD COUNT 3.41 M/uL (4.2-5.4); WHITE BLOOD COUNT 3.06 K/uL (4.8-10.8)
[2016-12-22 22:03] LABS: ACANTHOCYTES 1+; COMPLETE YES; EOSINOPHIL % 4.4 %; LARGE PLATELETS 2+; LYMPH ABS # 1.18 K/uL (1.2-3.4); LYMPHOCYTE % 38.5 %; META ABS # 0.03 K/uL (0-0); METAMYELOCYTE % 0.9 %; MYELOCYTE % 0.9 %; NEUTROPHILS % 24.6 %; SCHISTOCYTES OCCASIONAL; TOXIC GRANULATION 1+; VARIANT LYM ABS # 0.08 K/uL; VARIANT LYMPHOCYTE % 2.6 %
[2016-12-22 23:17] VITALS: BP 117/74; PULSE 101; TEMP 36.8; O2SAT 96
[2016-12-22 23:48] LABS: PARTIAL THROMBOPLASTIN RATIO 1.4
[2016-12-23] MEDS: HEPARIN 25,000 UNIT/500ML D5W 500 ML IV PRN ×4 (00:02→23:07)
[2016-12-23] MEDS: MoRPHine SULFATE 4 MG/ML 1 ML CARP\\VIAL IV PRN ×5 (00:05→22:37)
[2016-12-23] MEDS ORDERED: HEPARIN IV BOLUS 4,000 UNIT in SYRINGE 0 ML IV ONE (00:15)
[2016-12-23 06:21] LABS: HEMATOCRIT 31.6 % (37-47); MEAN CORPUSCULAR HEMOGLOBIN 28.8 pg (25-34); MEAN PLATELET VOLUME 9.5 fL (7.4-10.4); PLATELET COUNT 592 K/uL (130-400); RED BLOOD COUNT 3.51 M/uL (4.2-5.4); WHITE BLOOD COUNT 3.38 K/uL (4.8-10.8)
[2016-12-23 06:44] LABS: BUN/CREATININE RATIO 13.6 (10-20); CALCIUM 9.3 mg/dl (8.5-10.1); CREATININE 0.5 mg/dl (0.60-1.20); POTASSIUM 3.2 mmol/L (3.5-5.1)
[2016-12-23] MEDS: D5W AND NSS 1,000 ML IV SCH ×3 (06:44→22:31)
[2016-12-23 07:08] VITALS: BP 108/68; PULSE 81; TEMP 36.6; O2SAT 97
[2016-12-23 07:18] LABS: BASO % 1.5 %; BASO ABS # 0.05 K/uL (0-0.2); COMPLETE YES; ECHINOCYTES 2+; EOS % 4.7 %; IG% 1.5 %; LARGE PLATELETS 2+; LYMPH % 26.3 %; LYMPH ABS # 0.89 K/uL (1.2-3.4); MONO % 31.4 %; NEUT % 34.6 %; POLYCHROMASIA 1+; TARGET CELLS 1+; TOXIC GRANULATION 1+
[2016-12-23] MEDS: PANTOprazole SOD 40 MG TAB PO SCH ×2 (08:34→08:36)
[2016-12-23] MEDS: DULOXETINE (CYMBALTA) 30 MG CAP PO SCH ×2 (08:34→08:36)
--- NOTE | 2016-12-23 08:56 | Surgery Progress Note ---
Surgery Progress Note Date of Service Dec 23, 2016. Subjective Post OP Day: HD # 1 Having some back stiffness Abdominal bloating and pain similar to yesterday having sensation to pass flatus but nothing yet no nausea or vomiting Objective Vital Signs: Date Time Temp Pulse Resp B/P (MAP) Pulse Ox O2 Delivery O2 Flow Rate FiO2 12/23/16 07:08 36.6 81 14 108/68 (81) 97 Room Air 12/23/16 02:22 Room Air 12/22/16 23:17 36.8 101 14 117/74 (88) 96 Room Air 12/22/16 22:45 Room Air 12/22/16 17:20 36.5 95 16 118/60 Room Air 12/22/16 16:25 101 20 95 Room Air 12/22/16 16:01 120/77 12/22/16 15:55 108 12 95 12/22/16 15:31 117/74 12/22/16 15:25 107 16 96 12/22/16 15:01 127/71 12/22/16 14:55 105 11 95 12/22/16 14:50 104 19 94 12/22/16 14:31 134/84 12/22/16 14:20 111 18 97 12/22/16 14:01 126/70 12/22/16 13:50 104 21 97 12/22/16 13:31 131/81 12/22/16 13:20 99 20 96 12/22/16 13:01 125/72 12/22/16 12:50 101 25 98 12/22/16 12:45 117/68 12/22/16 12:44 103 12/22/16 11:37 102 17 12/22/16 10:10 36.8 128 20 122/83 96 Room Air General Appearance: no apparent distress, + thin Head: normocephalic, atraumatic Neck: trachea midline Respiratory/Chest: no respiratory distress, no accessory muscle use Abdomen: soft, + abnormal bowel sounds (hypoactive), + distended (mild), + tenderness (minimal, improved compared to yesterday), + pertinent finding ( midline lapartomy scar and laparoscopic scars present) Laboratory Results: Results Past 24 Hours Test 12/22/16 11:00 12/22/16 11:30 12/22/16 21:09 12/22/16 23:12 Range/Units White Blood Count 2.77 3.06 4.8-10.8 K/uL Red Blood Count 3.94 3.41 4.2-5.4 M/uL Hemoglobin 11.8 10.3 12.0-16.0 g/dL Hematocrit 35.3 30.7 37-47 % Mean Corpuscular Volume 89.6 90.0 80-100 fL Mean Corpuscular Hemoglobin 29.9 30.2 25-34 pg Mean Corpuscular Hemoglobin Concent 33.4 33.6 32-36 g/dl Platelet Count 560 537 130-400 K/uL Mean Platelet Volume 9.6 9.4 7.4-10.4 fL Neutrophils (%) (Auto) 36.1 % Lymphocytes (%) (Auto) 36.8 % Monocytes (%) (Auto) 21.3 % Eosinophils (%) (Auto) 4.3 % Basophils (%) (Auto) 1.1 % Neutrophils # (Auto) 1.00 1.4-6.5 K/uL Lymphocytes # (Auto) 1.02 1.2-3.4 K/uL Monocytes # (Auto) 0.59 0.11-0.59 K/uL Eosinophils # (Auto) 0.12 0-0.5 K/uL Basophils # (Auto) 0.03 0-0.2 K/uL RDW Standard Deviation 55.4 56.0 36.4-46.3 fL RDW Coefficient of Variation 16.8 17.0 11.5-14.5 % Immature Granulocyte % (Auto) 0.4 % Immature Granulocyte # (Auto) 0.01 0.00-0.02 K/uL Toxic Granulation 1+ 1+ Large Platelets 1+ 2+ Target Cells 1+ Echinocytes 1+ Sodium Level 134 136-145 mmol/L Potassium Level 3.5 3.5-5.1 mmol/L Chloride Level 96 98-107 mmol/L Carbon Dioxide Level 26 21-32 mmol/L Anion Gap 12.0 3-11 mmol/L Blood Urea Nitrogen 12 7-18 mg/dl Creatinine 0.61 0.60-1.20 mg/dl Est Creatinine Clear Calc Drug Dose 114.8 ml/min Estimated GFR () 134.2 Estimated GFR (Non- 115.8 BUN/Creatinine Ratio 20.0 10-20 Random Glucose 89 70-99 mg/dl Calcium Level 10.1 8.5-10.1 mg/dl Total Bilirubin 0.5 0.2-1 mg/dl Direct Bilirubin 0.2 0-0.2 mg/dl Aspartate Amino Transf (AST/SGOT) 22 15-37 U/L Alanine Aminotransferase (ALT/SGPT) 17 12-78 U/L Alkaline Phosphatase 222 45-117 U/L Total Protein 7.8 6.4-8.2 gm/dl Albumin 3.0 3.4-5.0 gm/dl Lipase 140 73-393 U/L Urine Color DK YELLOW Urine Appearance CLOUDY CLEAR Urine pH 6.0 4.5-7.5 Urine Specific [place] 1.029 1.000-1.030 Urine Protein 1+ NEG Urine Glucose (UA) NEG NEG Urine Ketones 3+ NEG Urine Occult Blood NEG NEG Urine Nitrite NEG NEG Urine Bilirubin NEG NEG Urine Urobilinogen NEG NEG Urine Leukocyte Esterase NEG NEG Urine WBC (Auto) 5-10 0-5 /hpf Urine RBC (Auto) 0-4 0-4 /hpf Urine Hyaline Casts (Auto) 1-5 0-5 /lpf Urine Epithelial Cells (Auto) 20-30 0-5 /lpf Urine Bacteria (Auto) NEG NEG Urine Crystals CALCIUM OXALATE NONE PRSENT Urine Mucus PRESENT NONE PRSENT Nucleated RBC Absolute Count (auto) 0.06 0-0 K/uL Neutrophils % (Manual) 24.6 % Lymphocytes % (Manual) 38.5 % Variant Lymphocytes % (manual) 2.6 % Monocytes % (Manual) 28.1 % Eosinophils % (Manual) 4.4 % Metamyelocytes % 0.9 % Myelocytes % 0.9 % Nucleated Red Blood Cells % 1.9 % Neutrophils # (Manual) 0.75 1.4-6.5 K/uL Total Absolute Neutrophils 0.75 1.4-6.5 K/uL Lymphocytes # (Manual) 1.18 1.2-3.4 K/uL Absolute Variant Lymphocytes 0.08 K/uL Total Absolute Lymphocytes 1.26 1.2-3.4 K/uL Monocytes # (Manual) 0.86 0.11-0.59 K/uL Eosinophils # (Manual) 0.13 0-0.5 K/uL Metamyelocytes # 0.03 0-0 K/uL Myelocytes # 0.03 0-0 K/uL Acanthocytes 1+ Schistocytes OCCASIONAL Prothrombin Time 12.4 9.0-12.0 SECONDS Prothromb Time International Ratio 1.2 0.9-1.1 Activated Partial Thromboplast Time 45.5 37.1 21.0-31.0 SECONDS Partial Thromboplastin Ratio 1.8 1.4 Test 12/23/16 06:02 Range/Units White Blood Count 3.38 4.8-10.8 K/uL Red Blood Count 3.51 4.2-5.4 M/uL Hemoglobin 10.1 12.0-16.0 g/dL Hematocrit 31.6 37-47 % Mean Corpuscular Volume 90.0 80-100 fL Mean Corpuscular Hemoglobin 28.8 25-34 pg Mean Corpuscular Hemoglobin Concent 32.0 32-36 g/dl Platelet Count 592 130-400 K/uL Mean Platelet Volume 9.5 7.4-10.4 fL Neutrophils (%) (Auto) 34.6 % Lymphocytes (%) (Auto) 26.3 % Monocytes (%) (Auto) 31.4 % Eosinophils (%) (Auto) 4.7 % Basophils (%) (Auto) 1.5 % Neutrophils # (Auto) 1.17 1.4-6.5 K/uL Lymphocytes # (Auto) 0.89 1.2-3.4 K/uL Monocytes # (Auto) 1.06 0.11-0.59 K/uL Eosinophils # (Auto) 0.16 0-0.5 K/uL Basophils # (Auto) 0.05 0-0.2 K/uL RDW Standard Deviation 56.4 36.4-46.3 fL RDW Coefficient of Variation 17.0 11.5-14.5 % Immature Granulocyte % (Auto) 1.5 % Immature Granulocyte # (Auto) 0.05 0.00-0.02 K/uL Nucleated RBC Absolute Count (auto) 0.07 0-0 K/uL Nucleated Red Blood Cells % 2.0 % Toxic Granulation 1+ Large Platelets 2+ Polychromasia 1+ Target Cells 1+ Echinocytes 2+ Activated Partial Thromboplast Time 52.7 21.0-31.0 SECONDS Partial Thromboplastin Ratio 2.0 Sodium Level 140 136-145 mmol/L Potassium Level 3.2 3.5-5.1 mmol/L Chloride Level 105 98-107 mmol/L Carbon Dioxide Level 27 21-32 mmol/L Anion Gap 8.0 3-11 mmol/L Blood Urea Nitrogen 7 7-18 mg/dl Creatinine 0.50 0.60-1.20 mg/dl Est Creatinine Clear Calc Drug Dose 140.1 ml/min Estimated GFR () 143.3 Estimated GFR (Non- 123.6 BUN/Creatinine Ratio 13.6 10-20 Random Glucose 133 70-99 mg/dl Calcium Level 9.3 8.5-10.1 mg/dl Assessment & Plan Partial SBO -vitals stable other than mild tachycardia - no nausea or vomiting - no return of bowel function as of yet - abdomen soft, mildly distended, no rigidity or guarding Plan: Continue conservative management at this time: IV fluids, NPO, and IV pain management as needed Encourage ambulation and OOB to chair when possible Low threshold for transfer to [place] if does not improve by tomorrow, discussed with Dr. Vernon continue medical management Dr. Mcclain has seen and examined patient, agrees with above
[2016-12-23] MEDS: ONDANSETRON INJ 2 MG/ML 2 ML VIAL IV PRN ×2 (09:08→17:53)
[2016-12-23 15:12] VITALS: BP 109/71; PULSE 86; TEMP 36.7; O2SAT 96
--- NOTE | 2016-12-23 16:52 | Progress Note ---
Internal Med Progress Note Date of Service: Dec 23, 2016. Provider Documentation: SUBJECTIVE: not passing gas yet has abdominal discomfort some nausea no fevers no sob OBJECTIVE: Vital Signs-as noted below Exam: General-alert and oriented. Not in distress ENT-normal hearing Neck-no neck masses Lungs-cta b/l no wheezing or crackles Heart-s1 and s2 heard regular rhythm, no murmurs Abdomen-soft bowel sounds sluggish mild tender no distension Extremities no edema no erythema Neuro-alert and oriented moves extremities Lab data as noted below. ASSESSMENT & PLAN: PARTIAL SBO presenting with constipation, nausea, and vomiting x 5 days; CT obtained in the ED showing partial small bowel obstruction History of several abdominal surgeries and HIPEC procedure for appendicial cancer Mostlikely obstruction is due to adhesions - patient also reports admissions at [facility] for obstructions after surgery however has not required surgical intervention for the obstructions On conservative therapy for now with NPO, IVF, pain control Surgery o board and appreciate inputs if no improvement by tomorrow plan to transfer to [facility]. APPENDICIAL CANCER, S/P HIPEC PROCEDURE As per H and P:"currently receiving chemo every 2 weeks (due on 12/25) and also enrolled in immunotherapy trial - follows with Dr. Jd Horton [facility] (oncology) and Dr. Ibarra [facility] David (surgeon) ' HX MIDDLE COLIC VEIN AND SPLENIC VEIN THROMBOSIS on Eliquis which is on hold in the event patient needs an invasive procedure Lisa Fernández discussed case with Dr. Horton who advises the patient be bridged with IV Heparin DVT PROPHYLAXIS on IV Heparin gtt DISPO to be determined if no improvement plan for transfer to [facility]. Vital Signs: Date Time Temp Pulse Resp B/P (MAP) Pulse Ox O2 Delivery O2 Flow Rate FiO2 12/23/16 15:12 36.7 86 17 109/71 (84) 96 Room Air 12/23/16 07:45 Room Air 12/23/16 07:08 36.6 81 14 108/68 (81) 97 Room Air 12/23/16 02:22 Room Air 12/22/16 23:17 36.8 101 14 117/74 (88) 96 Room Air 12/22/16 22:45 Room Air 12/22/16 17:20 36.5 95 16 118/60 Room Air Lab Results: Results Past 24 Hours Test 12/22/16 21:09 12/22/16 23:12 12/23/16 06:02 Range/Units White Blood Count 3.06 3.38 4.8-10.8 K/uL Red Blood Count 3.41 3.51 4.2-5.4 M/uL Hemoglobin 10.3 10.1 12.0-16.0 g/dL Hematocrit 30.7 31.6 37-47 % Mean Corpuscular Volume 90.0 90.0 80-100 fL Mean Corpuscular Hemoglobin 30.2 28.8 25-34 pg Mean Corpuscular Hemoglobin Concent 33.6 32.0 32-36 g/dl Platelet Count 537 592 130-400 K/uL Mean Platelet Volume 9.4 9.5 7.4-10.4 fL RDW Standard Deviation 56.0 56.4 36.4-46.3 fL RDW Coefficient of Variation 17.0 17.0 11.5-14.5 % Nucleated RBC Absolute Count (auto) 0.06 0.07 0-0 K/uL Neutrophils % (Manual) 24.6 % Lymphocytes % (Manual) 38.5 % Variant Lymphocytes % (manual) 2.6 % Monocytes % (Manual) 28.1 % Eosinophils % (Manual) 4.4 % Metamyelocytes % 0.9 % Myelocytes % 0.9 % Nucleated Red Blood Cells % 1.9 2.0 % Neutrophils # (Manual) 0.75 1.4-6.5 K/uL Total Absolute Neutrophils 0.75 1.4-6.5 K/uL Lymphocytes # (Manual) 1.18 1.2-3.4 K/uL Absolute Variant Lymphocytes 0.08 K/uL Total Absolute Lymphocytes 1.26 1.2-3.4 K/uL Monocytes # (Manual) 0.86 0.11-0.59 K/uL Eosinophils # (Manual) 0.13 0-0.5 K/uL Metamyelocytes # 0.03 0-0 K/uL Myelocytes # 0.03 0-0 K/uL Blood Smear Review Toxic Granulation 1+ 1+ Large Platelets 2+ 2+ Acanthocytes 1+ Schistocytes OCCASIONAL Prothrombin Time 12.4 9.0-12.0 SECONDS Prothromb Time International Ratio 1.2 0.9-1.1 Activated Partial Thromboplast Time 45.5 37.1 52.7 21.0-31.0 SECONDS Partial Thromboplastin Ratio 1.8 1.4 2.0 Neutrophils (%) (Auto) 34.6 % Lymphocytes (%) (Auto) 26.3 % Monocytes (%) (Auto) 31.4 % Eosinophils (%) (Auto) 4.7 % Basophils (%) (Auto) 1.5 % Neutrophils # (Auto) 1.17 1.4-6.5 K/uL Lymphocytes # (Auto) 0.89 1.2-3.4 K/uL Monocytes # (Auto) 1.06 0.11-0.59 K/uL Eosinophils # (Auto) 0.16 0-0.5 K/uL Basophils # (Auto) 0.05 0-0.2 K/uL Immature Granulocyte % (Auto) 1.5 % Immature Granulocyte # (Auto) 0.05 0.00-0.02 K/uL Polychromasia 1+ Target Cells 1+ Echinocytes 2+ Sodium Level 140 136-145 mmol/L Potassium Level 3.2 3.5-5.1 mmol/L Chloride Level 105 98-107 mmol/L Carbon Dioxide Level 27 21-32 mmol/L Anion Gap 8.0 3-11 mmol/L Blood Urea Nitrogen 7 7-18 mg/dl Creatinine 0.50 0.60-1.20 mg/dl Est Creatinine Clear Calc Drug Dose 140.1 ml/min Estimated GFR () 143.3 Estimated GFR (Non- 123.6 BUN/Creatinine Ratio 13.6 10-20 Random Glucose 133 70-99 mg/dl Calcium Level 9.3 8.5-10.1 mg/dl
[2016-12-23 23:46] VITALS: BP 101/63; PULSE 91; TEMP 37.1; O2SAT 94
[2016-12-24] MEDS: ONDANSETRON INJ 2 MG/ML 2 ML VIAL IV PRN ×2 (00:44→07:58)
[2016-12-24] MEDS: D5W AND NSS 1,000 ML IV SCH ×3 (06:23→22:24)
[2016-12-24 06:32] LABS: HEMATOCRIT 31.3 % (37-47); MEAN CORPUSCULAR HEMOGLOBIN 29.1 pg (25-34); MEAN CORPUSCULAR HGB CONC 31.9 g/dl (32-36); MEAN PLATELET VOLUME 9.6 fL (7.4-10.4); PLATELET COUNT 637 K/uL (130-400); RED BLOOD COUNT 3.44 M/uL (4.2-5.4); WHITE BLOOD COUNT 4.92 K/uL (4.8-10.8)
[2016-12-24 07:05] VITALS: BP 116/77; PULSE 78; TEMP 36.4; O2SAT 97
[2016-12-24] MEDS: HEPARIN 25,000 UNIT/500ML D5W 500 ML IV PRN ×5 (07:25→23:14)
[2016-12-24] MEDS: MoRPHine SULFATE 4 MG/ML 1 ML CARP\\VIAL IV PRN (08:05)
[2016-12-24 08:28] LABS: PARTIAL THROMBOPLASTIN RATIO 1.9
--- NOTE | 2016-12-24 08:37 | Surgery Progress Note ---
Surgery Progress Note Date of Service Dec 24, 2016. Subjective Post OP Day: HD # 2 + nausea passing gas (two episodes yesterday afternoon, once this morning) no bowel movement Belly still bloated and pain has not ambulated or OOB to chair Objective Vital Signs: Date Time Temp Pulse Resp B/P (MAP) Pulse Ox O2 Delivery O2 Flow Rate FiO2 12/24/16 07:05 36.4 78 14 116/77 (90) 97 Room Air 12/24/16 00:40 Room Air 12/23/16 23:46 37.1 91 14 101/63 (76) 94 Room Air 12/23/16 16:00 Room Air 12/23/16 15:12 36.7 86 17 109/71 (84) 96 Room Air General Appearance: no apparent distress, + thin Head: normocephalic, atraumatic Neck: trachea midline Respiratory/Chest: no respiratory distress, no accessory muscle use Abdomen: normal bowel sounds, soft, no organomegaly, no pulsatile mass, + distended (mild), + tenderness (of the left abdomen, no guarding, rebound, rigidity, or peritonitis), + pertinent finding (midline laparotomy scar and laparoscopic scars present) Laboratory Results: Results Past 24 Hours Test 12/24/16 06:02 12/24/16 07:53 Range/Units White Blood Count 4.92 4.8-10.8 K/uL Red Blood Count 3.44 4.2-5.4 M/uL Hemoglobin 10.0 12.0-16.0 g/dL Hematocrit 31.3 37-47 % Mean Corpuscular Volume 91.0 80-100 fL Mean Corpuscular Hemoglobin 29.1 25-34 pg Mean Corpuscular Hemoglobin Concent 31.9 32-36 g/dl RDW Standard Deviation 57.8 36.4-46.3 fL RDW Coefficient of Variation 17.3 11.5-14.5 % Platelet Count 637 130-400 K/uL Mean Platelet Volume 9.6 7.4-10.4 fL Nucleated RBC Absolute Count (auto) 0.04 0-0 K/uL Nucleated Red Blood Cells % 0.9 % Assessment & Plan Partial SBO -vitals stable other than mild tachycardia -+ nausea, no vomiting - + flatus, no bowel movement - abdomen soft, mildly distended, no rigidity or guarding Plan: Continue conservative management at this time: IV fluids, NPO, and IV pain management as needed Encourage ambulation and OOB to chair when possible, this will help with stimulating the bowel Low threshold for transfer to [place] if does not improve, discussed with Dr. Veronn continue medical management RE-evaluated with Dr. Mcclain at 4:39 pm No further flatus, no bowel movement Has not ambulated Continue conservative management Dr. Mcclain agrees with above
[2016-12-24] MEDS: DULOXETINE (CYMBALTA) 30 MG CAP PO SCH (09:00)
[2016-12-24] MEDS: PANTOprazole SOD 40 MG TAB PO SCH (09:00)
[2016-12-24 12:44] LABS: BUN/CREATININE RATIO 4.8 (10-20); CALCIUM 8.9 mg/dl (8.5-10.1); CREATININE 0.77 mg/dl (0.60-1.20); POTASSIUM 3.1 mmol/L (3.5-5.1)
[2016-12-24 15:27] VITALS: BP 119/77; PULSE 77; TEMP 36.4; O2SAT 97
--- NOTE | 2016-12-24 16:17 | Progress Note ---
Internal Med Progress Note Date of Service: Dec 24, 2016. Provider Documentation: SUBJECTIVE: passed gas today nausea and abdominal pain is better want to wait until tomorrow to see if her symptoms regarding transfer to [facility] no fevers seems comfortable OBJECTIVE: Vital Signs-as noted below Exam: General-alert and oriented. Not in distress ENT-normal hearing Neck-no neck masses Lungs-cta b/l no wheezing or crackles Heart-s1 and s2 heard regular rhythm, no murmurs Abdomen-soft bowel sounds present mild tender no distension Extremities no edema no erythema Neuro-alert and oriented moves extremities Lab data as noted below. ASSESSMENT & PLAN: PARTIAL SBO presenting with constipation, nausea, and vomiting x 5 days; CT obtained in the ED showing partial small bowel obstruction History of several abdominal surgeries and HIPEC procedure for appendicial cancer Mostlikely obstruction is due to adhesions - patient also reports admissions at [facility] for obstructions after surgery however has not required surgical intervention for the obstructions On conservative therapy for now with NPO, IVF, pain control Surgery o board and appreciate inputs slow improvement-passing gas and pain and nausea improving if no improvement by tomorrow plan to transfer to [facility]. APPENDICIAL CANCER, S/P HIPEC PROCEDURE As per H and P:"currently receiving chemo every 2 weeks (due on 12/25) and also enrolled in immunotherapy trial - follows with Dr. Jd Horton [facility] (oncology) and Dr. Ibarra [facility] David (surgeon) ' supposed to get chemo tomorrow- called at [place] regarding chemo and waiting for his call back HX MIDDLE COLIC VEIN AND SPLENIC VEIN THROMBOSIS on Eliquis which is on hold in the event patient needs an invasive procedure Lisa Fernández discussed case with Dr. Horton who advises the patient be bridged with IV Heparin DVT PROPHYLAXIS on IV Heparin gtt DISPO to be determined if no improvement plan for transfer to [facility]. Vital Signs: Date Time Temp Pulse Resp B/P (MAP) Pulse Ox O2 Delivery O2 Flow Rate FiO2 12/24/16 15:27 36.4 77 18 119/77 (91) 97 Room Air 12/24/16 07:50 Room Air 12/24/16 07:05 36.4 78 14 116/77 (90) 97 Room Air 12/24/16 00:40 Room Air 12/23/16 23:46 37.1 91 14 101/63 (76) 94 Room Air Lab Results: Results Past 24 Hours Test 12/24/16 06:02 12/24/16 07:53 Range/Units White Blood Count 4.92 4.8-10.8 K/uL Red Blood Count 3.44 4.2-5.4 M/uL Hemoglobin 10.0 12.0-16.0 g/dL Hematocrit 31.3 37-47 % Mean Corpuscular Volume 91.0 80-100 fL Mean Corpuscular Hemoglobin 29.1 25-34 pg Mean Corpuscular Hemoglobin Concent 31.9 32-36 g/dl RDW Standard Deviation 57.8 36.4-46.3 fL RDW Coefficient of Variation 17.3 11.5-14.5 % Platelet Count 637 130-400 K/uL Mean Platelet Volume 9.6 7.4-10.4 fL Nucleated RBC Absolute Count (auto) 0.04 0-0 K/uL Nucleated Red Blood Cells % 0.9 % Sodium Level 148 136-145 mmol/L Potassium Level 3.1 3.5-5.1 mmol/L Chloride Level 116 98-107 mmol/L Carbon Dioxide Level 26 21-32 mmol/L Anion Gap 6.0 3-11 mmol/L Blood Urea Nitrogen 4 7-18 mg/dl Creatinine 0.77 0.60-1.20 mg/dl Est Creatinine Clear Calc Drug Dose 91.0 ml/min Estimated GFR () 114.3 Estimated GFR (Non- 98.6 BUN/Creatinine Ratio 4.8 10-20 Random Glucose 127 70-99 mg/dl Calcium Level 8.9 8.5-10.1 mg/dl Magnesium Level 2.0 1.8-2.4 mg/dl Activated Partial Thromboplast Time 50.4 21.0-31.0 SECONDS Partial Thromboplastin Ratio 1.9
[2016-12-24] MEDS ORDERED: MoRPHine SULFATE 2 MG/ML CARP IV PRN (19:00)
[2016-12-24 21:22] LABS: PARTIAL THROMBOPLASTIN RATIO 2.2
[2016-12-24 22:43] VITALS: BP 116/72; PULSE 74; TEMP 36.3; O2SAT 97
[2016-12-25 05:27] LABS: PARTIAL THROMBOPLASTIN RATIO 1.3
[2016-12-25] MEDS: HEPARIN 25,000 UNIT/500ML D5W 500 ML IV PRN ×5 (05:59→21:09)
[2016-12-25] MEDS: D5W AND NSS 1,000 ML IV SCH ×2 (05:59→14:11)
[2016-12-25] MEDS ORDERED: HEPARIN IV BOLUS 4,000 UNIT in SYRINGE 0 ML IV ONE (06:00)
[2016-12-25 07:25] VITALS: BP 112/72; PULSE 77; TEMP 36.5; O2SAT 97
--- NOTE | 2016-12-25 09:24 | Surgery Progress Note ---
Surgery Progress Note Date of Service Dec 25, 2016. Subjective Post OP Day: HD # 3 having multiple liquid bowel movements since 8 pm last night crampy abdominal pain no nausea or vomiting no blood in stools Objective Vital Signs: Date Time Temp Pulse Resp B/P (MAP) Pulse Ox O2 Delivery O2 Flow Rate FiO2 12/25/16 08:05 Room Air 12/25/16 07:25 36.5 77 16 112/72 (85) 97 Room Air 12/25/16 00:40 Room Air 12/24/16 22:43 36.3 74 14 116/72 (87) 97 Room Air 12/24/16 16:00 Room Air 12/24/16 15:27 36.4 77 18 119/77 (91) 97 Room Air General Appearance: no apparent distress, + thin Head: normocephalic, atraumatic Neck: trachea midline Respiratory/Chest: no respiratory distress, no accessory muscle use Abdomen: soft, + distended (mild), + tenderness (generalized, no rebound, guarding, or rigidity), + pertinent finding (midline laparotomy scar and laparoscopic scars present) Laboratory Results: Results Past 24 Hours Test 12/24/16 20:45 12/25/16 05:10 Range/Units Activated Partial Thromboplast Time 56.3 33.6 21.0-31.0 SECONDS Partial Thromboplastin Ratio 2.2 1.3 Assessment & Plan Partial SBO- resolving - vitals stable ,afebrile - return of bowel function, liquids stools - No nausea or vomiting - abdomen soft, mildly distended, no rigidity or guarding Plan: Advance diet to clear liquids, if tolerates advance as tolerated Continue pain management as needed Encourage OOB to chair and ambulation continue medical management Discussed with Dr. Mcclain, rounded with Dr. Uribe
[2016-12-25] MEDS: PANTOprazole SOD 40 MG TAB PO SCH (10:12)
[2016-12-25] MEDS: DULOXETINE (CYMBALTA) 30 MG CAP PO SCH (10:12)
[2016-12-25 12:24] LABS: PARTIAL THROMBOPLASTIN RATIO 2.5
[2016-12-25 14:09] LABS: BUN/CREATININE RATIO 1.8 (10-20); CALCIUM 9.1 mg/dl (8.5-10.1); CREATININE 0.65 mg/dl (0.60-1.20); MAGNESIUM 1.6 mg/dl (1.8-2.4); PHOSPHORUS 3.1 mg/dl (2.5-4.9); POTASSIUM 2.6 mmol/L (3.5-5.1)
[2016-12-25] MEDS ORDERED: POTASSIUM CHLORIDE 20 MEQ TABCR PO ONE (15:00)
[2016-12-25] MEDS ORDERED: MAGNESIUM SULFATE 1GM / D5W 1 GM in PREMIXED IN D5W 100 ML IV STA (15:00)
[2016-12-25 15:51] VITALS: BP 131/66; PULSE 98; TEMP 36.6; O2SAT 97
--- NOTE | 2016-12-25 16:52 | Progress Note ---
Internal Med Progress Note Date of Service: Dec 25, 2016. Provider Documentation: SUBJECTIVE: having several bowel movements since last night no abdominal pain or nausea tolerating clears request to advance the diet afebrile OBJECTIVE: Vital Signs-as noted below Exam: General-alert and oriented. Not in distress ENT-normal hearing Neck-no neck masses Lungs-cta b/l no wheezing or crackles Heart-s1 and s2 heard regular rhythm, no murmurs Abdomen-soft bowel sounds present non tender no distension Extremities no edema no erythema Neuro-alert and oriented moves extremities Lab data as noted below. ASSESSMENT & PLAN: PARTIAL SBO presenting with constipation, nausea, and vomiting x 5 days; CT obtained in the ED showing partial small bowel obstruction History of several abdominal surgeries and HIPEC procedure for appendicial cancer Mostlikely obstruction is due to adhesions - patient also reports admissions at [facility] for obstructions after surgery however has not required surgical intervention for the obstructions On conservative therapy for now with NPO, IVF, pain control Surgery o board and appreciate inputs if no improvement tomorrow plan to transfer to [facility]. having bowel movements today and tolerating clears will advance diet to full liquid diet electrolyte abnormalities will replace APPENDICIAL CANCER, S/P HIPEC PROCEDURE As per H and P:"currently receiving chemo every 2 weeks (due on 12/25) and also enrolled in immunotherapy trial - follows with Dr. Jd Horton [facility] (oncology[facility] ' supposed to get chemo today- called at [place] regarding chemo and waiting for his call back HX MIDDLE COLIC VEIN AND SPLENIC VEIN THROMBOSIS on Eliquis which is on hold in the event patient needs an invasive procedure Lisa Fernández discussed case with Dr. Horton who advises the patient be bridged with IV Heparin DVT PROPHYLAXIS on IV Heparin gtt DISPO possible d/c in 1-2 days if no improvement plan for transfer to [facility]. Vital Signs: Date Time Temp Pulse Resp B/P (MAP) Pulse Ox O2 Delivery O2 Flow Rate FiO2 12/25/16 15:51 36.6 98 18 131/66 (87) 97 Room Air 12/25/16 08:05 Room Air 12/25/16 07:25 36.5 77 16 112/72 (85) 97 Room Air 12/25/16 00:40 Room Air 12/24/16 22:43 36.3 74 14 116/72 (87) 97 Room Air Lab Results: Results Past 24 Hours Test 12/24/16 20:45 12/25/16 05:10 12/25/16 11:57 12/25/16 13:09 Range/Units Activated Partial Thromboplast Time 56.3 33.6 66.1 21.0-31.0 SECONDS Partial Thromboplastin Ratio 2.2 1.3 2.5 Sodium Level 144 136-145 mmol/L Potassium Level 2.6 3.5-5.1 mmol/L Chloride Level 109 98-107 mmol/L Carbon Dioxide Level 24 21-32 mmol/L Anion Gap 11.0 3-11 mmol/L Blood Urea Nitrogen 1 7-18 mg/dl Creatinine 0.65 0.60-1.20 mg/dl Est Creatinine Clear Calc Drug Dose 107.8 ml/min Estimated GFR () 131.5 Estimated GFR (Non- 113.4 BUN/Creatinine Ratio 1.8 10-20 Random Glucose 122 70-99 mg/dl Calcium Level 9.1 8.5-10.1 mg/dl Phosphorus Level 3.1 2.5-4.9 mg/dl Magnesium Level 1.6 1.8-2.4 mg/dl
[2016-12-25] MEDS: D5NSS + 20MEQ KCL 1,000 ML IV SCH (16:53)
[2016-12-25] MEDS: POTASSIUM CHLR 10 MEQ / WTR 10 MEQ in PREMIXED WATER 100 ML IV SCH ×3 (16:54→19:07)
[2016-12-25] MEDS: MAGNESIUM OXIDE 400 MG TAB PO SCH (20:34)
[2016-12-25 22:58] VITALS: BP 114/71; PULSE 89; TEMP 36.8; O2SAT 96
[2016-12-26] MEDS: D5NSS + 20MEQ KCL 1,000 ML IV SCH ×2 (02:52→10:57)
[2016-12-26 05:16] LABS: HEMATOCRIT 28.7 % (37-47); MEAN CELL VOLUME 89.4 fL (80-100); MEAN CORPUSCULAR HEMOGLOBIN 29.6 pg (25-34); MEAN CORPUSCULAR HGB CONC 33.1 g/dl (32-36); MEAN PLATELET VOLUME 9.1 fL (7.4-10.4); PLATELET COUNT 681 K/uL (130-400); RED BLOOD COUNT 3.21 M/uL (4.2-5.4)
[2016-12-26 05:26] LABS: PARTIAL THROMBOPLASTIN RATIO 1.5
[2016-12-26 05:43] LABS: BLOOD UREA NITROGEN < 1 mg/dl (7-18); CALCIUM 8.8 mg/dl (8.5-10.1); CARBON DIOXIDE 24 mmol/L (21-32); CHLORIDE 114 mmol/L (98-107); CREATININE 0.64 mg/dl (0.60-1.20); GLUCOSE 124 mg/dl (70-99); MAGNESIUM 1.9 mg/dl (1.8-2.4); POTASSIUM 3.1 mmol/L (3.5-5.1); SODIUM 144 mmol/L (136-145)
[2016-12-26] MEDS ORDERED: HEPARIN IV BOLUS 4,000 UNIT in SYRINGE 0 ML IV ONE (06:00)
[2016-12-26] MEDS: HEPARIN 25,000 UNIT/500ML D5W 500 ML IV PRN ×3 (06:23→13:44)
[2016-12-26 07:22] VITALS: BP 119/73; PULSE 83; TEMP 36.8; O2SAT 99
[2016-12-26 07:56] LABS: ACANTHOCYTES 1+; BASO % 0.7 %; BASO ABS # 0.04 K/uL (0-0.2); COMPLETE YES; ECHINOCYTES 1+; EOS % 2.9 %; HOWELL-JOLLY BODIES 1+; HYPERSEGMENTED POLYS 1+; IG% 8.9 %; LYMPH % 20.7 %; LYMPH ABS # 1.14 K/uL (1.2-3.4); MONO % 21.8 %; TOXIC GRANULATION 1+; VACUOLIZATION 1+
[2016-12-26] MEDS ORDERED: POTASSIUM CHLORIDE 20 MEQ TABCR PO ONE (08:00)
[2016-12-26] MEDS: MAGNESIUM OXIDE 400 MG TAB PO SCH (08:45)
[2016-12-26] MEDS: PANTOprazole SOD 40 MG TAB PO SCH (08:45)
[2016-12-26] MEDS: DULOXETINE (CYMBALTA) 30 MG CAP PO SCH (08:46)
[2016-12-26] MEDS: POTASSIUM CHLR 10 MEQ / WTR 10 MEQ in PREMIXED WATER 100 ML IV SCH ×2 (08:46→09:53)
--- NOTE | 2016-12-26 09:01 | Surgery Progress Note ---
Surgery Progress Note Date of Service Dec 26, 2016. Subjective Patient examined at bedside this morning. Afebrile, vitals stable on room air, no acute events overnight. Denies pain this morning, however states abdomen feels a little bloated. Continues to have flatus, BMs are becoming less frequent. Tolerating regular diet without N/V. Ambulating and voiding without difficulty. Objective Vital Signs: Date Time Temp Pulse Resp B/P (MAP) Pulse Ox O2 Delivery O2 Flow Rate FiO2 12/26/16 08:11 Room Air 12/26/16 07:22 36.8 83 16 119/73 (88) 99 Room Air 12/26/16 00:15 Room Air 12/25/16 22:58 36.8 89 17 114/71 (85) 96 Room Air 12/25/16 15:51 36.6 98 18 131/66 (87) 97 Room Air 12/25/16 15:45 Room Air General Appearance: WD/WN, no apparent distress Head: normocephalic Neck: supple Respiratory/Chest: lungs clear, normal breath sounds, no respiratory distress Cardiovascular: regular rate, rhythm Abdomen: normal bowel sounds, non tender, soft (no rebound / guarding), + distended (mildly) Extremities: normal range of motion Laboratory Results: Results Past 24 Hours Test 12/25/16 11:57 12/25/16 13:09 12/26/16 05:06 Range/Units Activated Partial Thromboplast Time 66.1 39.3 21.0-31.0 SECONDS Partial Thromboplastin Ratio 2.5 1.5 Sodium Level 144 144 136-145 mmol/L Potassium Level 2.6 3.1 3.5-5.1 mmol/L Chloride Level 109 114 98-107 mmol/L Carbon Dioxide Level 24 24 21-32 mmol/L Anion Gap 11.0 6.0 3-11 mmol/L Blood Urea Nitrogen 1 < 1 7-18 mg/dl Creatinine 0.65 0.64 0.60-1.20 mg/dl Est Creatinine Clear Calc Drug Dose 107.8 109.4 ml/min Estimated GFR () 131.5 132.1 Estimated GFR (Non- 113.4 114.0 BUN/Creatinine Ratio 1.8 10-20 Random Glucose 122 124 70-99 mg/dl Calcium Level 9.1 8.8 8.5-10.1 mg/dl Phosphorus Level 3.1 2.5-4.9 mg/dl Magnesium Level 1.6 1.9 1.8-2.4 mg/dl White Blood Count 5.50 4.8-10.8 K/uL Red Blood Count 3.21 4.2-5.4 M/uL Hemoglobin 9.5 12.0-16.0 g/dL Hematocrit 28.7 37-47 % Mean Corpuscular Volume 89.4 80-100 fL Mean Corpuscular Hemoglobin 29.6 25-34 pg Mean Corpuscular Hemoglobin Concent 33.1 32-36 g/dl Platelet Count 681 130-400 K/uL Mean Platelet Volume 9.1 7.4-10.4 fL Neutrophils (%) (Auto) 45.0 % Lymphocytes (%) (Auto) 20.7 % Monocytes (%) (Auto) 21.8 % Eosinophils (%) (Auto) 2.9 % Basophils (%) (Auto) 0.7 % Neutrophils # (Auto) 2.47 1.4-6.5 K/uL Lymphocytes # (Auto) 1.14 1.2-3.4 K/uL Monocytes # (Auto) 1.20 0.11-0.59 K/uL Eosinophils # (Auto) 0.16 0-0.5 K/uL Basophils # (Auto) 0.04 0-0.2 K/uL RDW Standard Deviation 56.7 36.4-46.3 fL RDW Coefficient of Variation 17.3 11.5-14.5 % Immature Granulocyte % (Auto) 8.9 % Immature Granulocyte # (Auto) 0.49 0.00-0.02 K/uL Nucleated RBC Absolute Count (auto) 0.06 0-0 K/uL Nucleated Red Blood Cells % 1.1 % Hypersegmented Polys 1+ Toxic Granulation 1+ Toxic Vacuolation 1+ Bynum-[place] Bodies 1+ Echinocytes 1+ Acanthocytes 1+ Assessment & Plan Liana Farrar is a 36 year old woman with history of appendiceal carcinoma s/p HIPEC who was admitted with a partial small bowel obstruction, now resolving. Plan: Diet as tolerated Pain control as needed Encourage OOB to chair and ambulation Continue medical management per primary team Will continue to follow Leydi Uribe MD 12/26/16
--- NOTE | 2016-12-26 13:47 | Discharge Instructions ---
Discharge Instructions Date of Service Dec 26, 2016. Admission Reason for Admission: Partial Small Bowel Obstruction Discharge Discharge Diagnosis / Problem: PSBO Discharge Goals Goal(s): Decrease discomfort, Improve function Activity Recommendations Activity Limitations: resume your previous activity . Instructions / Follow-Up Instructions / Follow-Up FOLLOWUP WITH FAMILY DOCTOR IN ONE WEEK FOLLOWUP WITH ONCOLOGY SOON POSSIBLE FOR CHEMO LAB: BMP WITH MG LEVELS IN 4-5 DAYS AND FOLLOW RESULTS WITH FAMILY DOCTOR. Current Hospital Diet Patient's current hospital diet: Low Lactose Diet Discharge Diet Recommended Diet: Regular Diet, Low Lactose Diet Pending Studies Studies pending at discharge: no Laboratory Results Lipid Panel Test 11/10/16 11:45 Range/Units Triglycerides Level 123 0-150 mg/dl Medical Emergencies . Who to Call and When: Medical Emergencies: If at any time you feel your situation is an emergency, please call 911 immediately. . Non-Emergent Contact Non-Emergency issues call your: Primary Care Provider . . "Provider Documentation" section prepared by Dave Vernon. . VTE Core Measure Inpt VTE Proph given/why not?: Other Anticoagulation (IV HEPARIN)
[2016-12-26 15:03] VITALS: BP 126/79; PULSE 84; TEMP 36.6; O2SAT 97
[2016-12-26 16:33] VITALS: BP 126/79; PULSE 84; TEMP 36.6; O2SAT 97
--- NOTE | 2016-12-26 16:47 | Progress Note ---
Internal Med Progress Note Date of Service: Dec 26, 2016. Provider Documentation: SUBJECTIVE: tolerating solid food no abdominal pain or nausea afebrile diarrhea improving want to go home OBJECTIVE: Vital Signs-as noted below Exam: General-alert and oriented. Not in distress ENT-normal hearing Neck-no neck masses Lungs-cta b/l no wheezing or crackles Heart-s1 and s2 heard regular rhythm, no murmurs Abdomen-soft bowel sounds present non tender no distension Extremities no edema no erythema Neuro-alert and oriented moves extremities Lab data as noted below. ASSESSMENT & PLAN: PARTIAL SBO presenting with constipation, nausea, and vomiting x 5 days; CT obtained in the ED showing partial small bowel obstruction History of several abdominal surgeries and HIPEC procedure for appendicial cancer Mostlikely obstruction is due to adhesions - patient also reports admissions at [facility] for obstructions after surgery however has not required surgical intervention for the obstructions On conservative therapy for now with NPO, IVF, pain control Surgery o board and appreciate inputs if no improvement tomorrow plan to transfer to [facility]. having bowel movement -started with diarrhea but getting better- c diff negative tolerating solid food discharged to f/u with pcp. electrolyte abnormalities will replace APPENDICIAL CANCER, S/P HIPEC PROCEDURE As per H and P:"currently receiving chemo every 2 weeks (due on 12/25) and also enrolled in immunotherapy trial - follows with Dr. Jd Horton [facility] (oncology) and Dr. Ibarra [facility] David (surgeon) ' supposed to get chemo 12/24/16- called at [place] regarding chemo and was not called back f/u with heme/onco as soon as possible on discharge. HX MIDDLE COLIC VEIN AND SPLENIC VEIN THROMBOSIS on Eliquis which is on hold in the event patient needs an invasive procedure Lisa Fernández discussed case with Dr. Horton who advises the patient be bridged with IV Heparin discharged on eliquis discharged home Vital Signs: Date Time Temp Pulse Resp B/P (MAP) Pulse Ox O2 Delivery O2 Flow Rate FiO2 12/26/16 16:33 36.6 84 18 97 Room Air 12/26/16 15:03 36.6 84 18 126/79 (95) 97 Room Air 12/26/16 08:11 Room Air 12/26/16 07:22 36.8 83 16 119/73 (88) 99 Room Air 12/26/16 00:15 Room Air 12/25/16 22:58 36.8 89 17 114/71 (85) 96 Room Air Lab Results: Results Past 24 Hours Test 12/26/16 05:06 12/26/16 12:21 Range/Units White Blood Count 5.50 4.8-10.8 K/uL Red Blood Count 3.21 4.2-5.4 M/uL Hemoglobin 9.5 12.0-16.0 g/dL Hematocrit 28.7 37-47 % Mean Corpuscular Volume 89.4 80-100 fL Mean Corpuscular Hemoglobin 29.6 25-34 pg Mean Corpuscular Hemoglobin Concent 33.1 32-36 g/dl Platelet Count 681 130-400 K/uL Mean Platelet Volume 9.1 7.4-10.4 fL Neutrophils (%) (Auto) 45.0 % Lymphocytes (%) (Auto) 20.7 % Monocytes (%) (Auto) 21.8 % Eosinophils (%) (Auto) 2.9 % Basophils (%) (Auto) 0.7 % Neutrophils # (Auto) 2.47 1.4-6.5 K/uL Lymphocytes # (Auto) 1.14 1.2-3.4 K/uL Monocytes # (Auto) 1.20 0.11-0.59 K/uL Eosinophils # (Auto) 0.16 0-0.5 K/uL Basophils # (Auto) 0.04 0-0.2 K/uL RDW Standard Deviation 56.7 36.4-46.3 fL RDW Coefficient of Variation 17.3 11.5-14.5 % Immature Granulocyte % (Auto) 8.9 % Immature Granulocyte # (Auto) 0.49 0.00-0.02 K/uL Nucleated RBC Absolute Count (auto) 0.06 0-0 K/uL Nucleated Red Blood Cells % 1.1 % Hypersegmented Polys 1+ Toxic Granulation 1+ Toxic Vacuolation 1+ Bynum-[place] Bodies 1+ Echinocytes 1+ Acanthocytes 1+ Activated Partial Thromboplast Time 39.3 79.0 21.0-31.0 SECONDS Partial Thromboplastin Ratio 1.5 3.0 Sodium Level 144 136-145 mmol/L Potassium Level 3.1 3.5-5.1 mmol/L Chloride Level 114 98-107 mmol/L Carbon Dioxide Level 24 21-32 mmol/L Anion Gap 6.0 3-11 mmol/L Blood Urea Nitrogen < 1 7-18 mg/dl Creatinine 0.64 0.60-1.20 mg/dl Est Creatinine Clear Calc Drug Dose 109.4 ml/min Estimated GFR () 132.1 Estimated GFR (Non- 114.0 BUN/Creatinine Ratio 10-20 Random Glucose 124 70-99 mg/dl Calcium Level 8.8 8.5-10.1 mg/dl Magnesium Level 1.9 1.8-2.4 mg/dl Microbiology Results 12/26/16 C.difficile Toxin B Gene (PCR) - Final, Complete No C. difficile toxin B gene detected
--- NOTE | 2016-12-26 18:05 | Discharge Summary ---
Discharge Summary Date of Service Dec 26, 2016. Discharge Summary Admission Date: Dec 22, 2016 at 14:49 Discharge Date: Dec 26, 2016 Discharge Disposition: Home Principal Diagnosis: PSBO Secondary Diagnoses/Problems: 1) Appendix carcinoma Status: Chronic (2) Colic vein thrombosis Status: Chronic (3) Splenic vein thrombosis Status: Chronic Procedures: CT ABD/PELVIS: 1. Difficult study to interpret secondary to the lack of enteric contrast. 2. Dilated small bowel down to the level of the ileocecal colonic anastomosis. A partial small bowel obstruction is suspected 3. Absent spleen 4. Right-sided hydronephrosis and hydroureter 5. Mildly enlarged para-aortic lymph nodes Consultations: SURGERY Medication Reconciliation Continued Medications: Apixaban (Eliquis) 5 Mg Tab 5 MG PO BID Duloxetine Hcl (Cymbalta) 30 Mg Cap 30 MG PO DAILY Lorazepam (Ativan) 0.5 Mg Tab 0.5 MG PO DAILY PRN for Anxiety Metoclopramide (Reglan) 10 Mg Tab 10 MG PO QID NAUSEA Oxycodone HCl (Oxycodone HCl) 5 Mg Tab 5 MG PO HS Pantoprazole (Protonix) 40 Mg Tab 40 MG PO DAILY Spironolactone (Aldactone) 50 Mg Tab 50 MG PO DAILY Tramadol (Ultram) 50 Mg Tab 50 MG PO Q6 PRN for Pain Admission Information HPI (per Admitting provider): 36 year old female who presents to the ER with constipation, nausea, and vomiting. 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 Patient reports her symptoms began 5 days ago. She has not had a bowel movement in 5 days. She also has developed nausea with multiple episodes of vomiting. She reports her emesis looks like stool. She reports vomiting shortly after taking anything by mouth. She has chronic abdominal pain from her large surgery however reports pain has been worse over the past few days. Pain is located on the left and middle parts of her abdomen. She denies any worsening abdominal distention. She denies fever and chills. No chest pain or shortness of breath. She denies lightheadedness, dizziness, diaphoresis, or syncope. No urinary symptoms. In the ER, CT abd/pelvis is showing partial small bowel obstruction. Labs and vitals are stable. She was given IVF, IV morphine, IV Dilaudid, and IV Zofran. Physical Exam (per Admitting): General Appearance: no apparent distress Head: normocephalic, atraumatic Eyes: normal inspection, sclerae normal ENT: hearing grossly normal Neck: supple, no JVD Respiratory/Chest: lungs clear, normal breath sounds, no respiratory distress Cardiovascular: regular rate, rhythm, no edema, normal peripheral pulses Abdomen/GI: soft, + tenderness (mild left sided and mid abdomen tenderness ) , + abnormal bowel sounds (hyperactive in the LUQ, hypoactive in all other quadrants) Extremities/Musculoskelatal: normal inspection, no calf tenderness Neurologic/Psych: no motor/sensory deficits, alert, normal mood/affect, oriented x 3 Skin: normal color, warm/dry Hospital Course PARTIAL SBO presenting with constipation, nausea, and vomiting x 5 days; CT obtained in the ED showing partial small bowel obstruction History of several abdominal surgeries and HIPEC procedure for appendicial cancer Mostlikely obstruction is due to adhesions - patient also reports admissions at [facility] for obstructions after surgery however has not required surgical intervention for the obstructions On conservative therapy for now with NPO, IVF, pain control Surgery o board and appreciate inputs if no improvement tomorrow plan to transfer to [facility]. having bowel movement -started with diarrhea but getting better- c diff negative tolerating solid food discharged to f/u with pcp. electrolyte abnormalities will replace APPENDICIAL CANCER, S/P HIPEC PROCEDURE As per H and P:"currently receiving chemo every 2 weeks (due on 12/25) and also enrolled in immunotherapy trial - follows with Dr. Jd Horton [facility] (oncology) and Dr. Ibarra [facility] David (surgeon) ' supposed to get chemo 12/24/16- called at [place] regarding chemo and was not called back f/u with heme/onco as soon as possible on discharge. HX MIDDLE COLIC VEIN AND SPLENIC VEIN THROMBOSIS on Eliquis which is on hold in the event patient needs an invasive procedure Lisa Fernández discussed case with Dr. Horton who advises the patient be bridged with IV Heparin discharged on eliquis discharged home Total time spent on discharge = 35MINUTES This includes examination of the patient, discharge planning, medication reconciliation, and communication with other providers. Discharge Instructions Discharge Instructions Date of Service Dec 26, 2016. Admission Reason for Admission: Partial Small Bowel Obstruction Discharge Discharge Diagnosis / Problem: PSBO Discharge Goals Goal(s): Decrease discomfort, Improve function Activity Recommendations Activity Limitations: resume your previous activity . Instructions / Follow-Up Instructions / Follow-Up FOLLOWUP WITH FAMILY DOCTOR IN ONE WEEK FOLLOWUP WITH ONCOLOGY SOON POSSIBLE FOR CHEMO LAB: BMP WITH MG LEVELS IN 4-5 DAYS AND FOLLOW RESULTS WITH FAMILY DOCTOR. Current Hospital Diet Patient's current hospital diet: Low Lactose Diet Discharge Diet Recommended Diet: Regular Diet, Low Lactose Diet Pending Studies Studies pending at discharge: no Laboratory Results Lipid Panel Test 11/10/16 11:45 Range/Units Triglycerides Level 123 0-150 mg/dl Medical Emergencies . Who to Call and When: Medical Emergencies: If at any time you feel your situation is an emergency, please call 911 immediately. . Non-Emergent Contact Non-Emergency issues call your: Primary Care Provider . . "Provider Documentation" section prepared by Dave Vernon. . VTE Core Measure Inpt VTE Proph given/why not?: Other Anticoagulation (IV HEPARIN)
[2017-01-30] MEDS ORDERED: POLY335019 PO (14:23)
[2017-01-30] MEDS ORDERED: METH5TAB2 PO (14:23)
[2017-01-30] MEDS ORDERED: DIPH-416 PO (14:23)
[2017-01-30] MEDS ORDERED: IMD/2 PO (14:23)
[2017-01-30] MEDS ORDERED: POTA10CA28 PO (14:23)
[2017-01-30] MEDS ORDERED: ONDA8TAB6 PO (14:23)
[2017-01-30] MEDS ORDERED: DOCU-94 PO (14:23)
[2017-01-30] MEDS ORDERED: SENN-61 PO (14:23)
[2017-01-30] MEDS ORDERED: SIME1CAP11 PO (14:23)
== END 2016-12-26 16:52 | disposition home or self-care (01) | DRG 389 ==
LOC: C.EDB 10:10 → C.MSN 14:49 → ENRESERV 16:14
PROVIDERS: ADMIT Internal Medicine; ATTEND Internal Medicine
DX: K56.5 Intestinal adhesions [bands] with obstruction (postinfection) (principal); I82.891 Chronic embolism and thrombosis of other specified veins; C18.1 Malignant neoplasm of appendix; Z85.09 Personal history of malignant neoplasm of other digestive organs

== ENCOUNTER → 2017-01-05 | Outpatient (CLI) | payer BC ==
[~2017-01-05] MED LIST changes: +CEPH500C PO; +OXYB5TAB74 PO; +PHEN-876 PO
== END | disposition home or self-care (01) ==
LOC: C.LABSPEC 09:41
PROVIDERS: ATTEND Family Medicine
DX: R19.7 Diarrhea, unspecified (principal)

== ENCOUNTER → 2017-01-09 | Outpatient (CLI) | payer BC ==
[2017-01-09 15:51] LABS: BASO % 0.5 %; BASO ABS # 0.04 K/uL (0-0.2); COMPLETE YES; EOS % 2.5 %; HEMATOCRIT 37.6 % (37-47); IG% 0.5 %; LYMPH % 14.5 %; LYMPH ABS # 1.12 K/uL (1.2-3.4); MEAN CELL VOLUME 92.4 fL (80-100); MEAN CORPUSCULAR HGB CONC 33.5 g/dl (32-36); MEAN PLATELET VOLUME 9.5 fL (7.4-10.4); MONO % 14.5 %; NEUT % 67.5 %; PLATELET COUNT 631 K/uL (130-400); RED BLOOD COUNT 4.07 M/uL (4.2-5.4); WHITE BLOOD COUNT 7.71 K/uL (4.8-10.8)
[2017-01-09 16:13] LABS: ALT/SGPT 24 U/L (12-78); AMYLASE 40 U/L (25-115); BLOOD UREA NITROGEN 9 mg/dl (7-18); BUN/CREATININE RATIO 15.7 (10-20); CALCIUM 10.3 mg/dl (8.5-10.1); CARBON DIOXIDE 28 mmol/L (21-32); CHLORIDE 103 mmol/L (98-107); CREATININE 0.56 mg/dl (0.60-1.20); GLUCOSE 93 mg/dl (70-99); POTASSIUM 3.3 mmol/L (3.5-5.1); SODIUM 139 mmol/L (136-145)
[2017-01-09 16:16] LABS: ALB/GLOB RATIO 0.9 (0.9-2); ALKALINE PHOSPHATASE 215 U/L (45-117); AST/SGOT 32 U/L (15-37)
== END | disposition home or self-care (01) ==
LOC: C.LAB 14:51
PROVIDERS: ATTEND Surgery
DX: Z51.11 Encounter for antineoplastic chemotherapy (principal); Z41.8 Encounter for other procedures for purposes other than remedying health state; C18.9 Malignant neoplasm of colon, unspecified; C79.61 Secondary malignant neoplasm of right ovary; R11.0 Nausea; Z91.89 Other specified personal risk factors, not elsewhere classified; C79.89 Secondary malignant neoplasm of other specified sites; L65.9 Nonscarring hair loss, unspecified; C18.1 Malignant neoplasm of appendix

== ENCOUNTER → 2017-01-29 | Outpatient (CLI) | payer BC ==
[~2017-01-29] MED LIST changes: -CEPH500C PO; -OXYB5TAB74 PO; -PHEN-876 PO
== END | disposition home or self-care (01) ==
LOC: C.FOODA 13:17
PROVIDERS: ATTEND Family Medicine
DX: C18.1 Malignant neoplasm of appendix (principal); R63.4 Abnormal weight loss

== ENCOUNTER 2017-02-09 09:47 | Day surgery (SDC) | payer BC ==
[2017-01-30 14:24] VITALS: BMI 19.0
--- NOTE | 2017-01-30 14:52 | PAT Medication Instructions ---
Service Date Jan 30, 2017. Current Home Medication List Apixaban (Eliquis), 5 MG PO BID Diphenoxylate/Atropine (Lomotil), 1 TAB PO DAILY PRN for PRN Docusate Sodium (Colace), 1 CAP PO BID PRN for PRN Duloxetine Hcl (Cymbalta), 90 MG PO QAM Loperamide Hcl (Imodium), 2 MG PO TID PRN for PRN Lorazepam (Ativan), 0.5 MG PO DAILY PRN for Anxiety Methadone Hcl (Dolophine), 5 MG PO BID Metoclopramide (Reglan), 10 MG PO QID Ondansetron Hcl (Zofran), 8 MG PO BID PRN for Nausea Oxycodone HCl (Oxycodone HCl), 5 MG PO Q2H Pantoprazole (Protonix), 40 MG PO QAM Polyethylene Glycol 3350 (Miralax), 17 GM PO DAILY PRN for PRN Potassium Chloride (Micro-K Ext Rel), 10 MEQ PO BID Senna (Senokot), 1 TAB PO BID PRN for PRN Simethicone (Simethicone), 1 TAB PO BID PRN for PRN Spironolactone (Aldactone), 50 MG PO DAILY Tramadol (Ultram), 50 MG PO Q6 PRN for Pain Medication Instructions For Your Scheduled Surgery - Hold the following medications 5 days prior to surgery per surgeon's instructions: Apixaban (Eliquis), 5 MG PO BID - Hold the following medications the morning of surgery: Senna (Senokot), 1 TAB PO BID PRN for PRN Docusate Sodium (Colace), 1 CAP PO BID PRN for PRN Loperamide Hcl (Imodium), 2 MG PO TID PRN for PRN Simethicone (Simethicone), 1 TAB PO BID PRN for PRN Polyethylene Glycol 3350 (Miralax), 17 GM PO DAILY PRN for PRN Potassium Chloride (Micro-K Ext Rel), 10 MEQ PO BID Diphenoxylate/Atropine (Lomotil), 1 TAB PO DAILY PRN for PRN - Take the following medications the morning of surgery with a sip of water OTHERWISE NOTHING TO EAT OR DRINK AFTER MIDNIGHT: Pantoprazole (Protonix), 40 MG PO QAM Duloxetine Hcl (Cymbalta), 90 MG PO QAM Methadone Hcl (Dolophine), 5 MG PO BID (up to 4 hours prior to surgery) Oxycodone HCl (Oxycodone HCl), 5 MG PO Q2H (up to 4 hours prior to surgery) Tramadol (Ultram), 50 MG PO Q6 PRN for Pain (up to 4 hours prior to surgery) Polyethylene Glycol 3350 (Miralax), 17 GM PO DAILY PRN for PRN (advised by to take AM of surgery) Metoclopramide (Reglan), 10 MG PO QID Ondansetron Hcl (Zofran), 8 MG PO BID PRN for Nausea Lorazepam (Ativan), 0.5 MG PO DAILY PRN for Anxiety - Take the following medications as scheduled the night before surgery: Methadone Hcl (Dolophine), 5 MG PO BID Senna (Senokot), 1 TAB PO BID PRN for PRN Docusate Sodium (Colace), 1 CAP PO BID PRN for PRN Loperamide Hcl (Imodium), 2 MG PO TID PRN for PRN Simethicone (Simethicone), 1 TAB PO BID PRN for PRN Metoclopramide (Reglan), 10 MG PO QID Ondansetron Hcl (Zofran), 8 MG PO BID PRN for Nausea Oxycodone HCl (Oxycodone HCl), 5 MG PO Q2H Potassium Chloride (Micro-K Ext Rel), 10 MEQ PO BID Tramadol (Ultram), 50 MG PO Q6 PRN for Pain Lorazepam (Ativan), 0.5 MG PO DAILY PRN for Anxiety Diphenoxylate/Atropine (Lomotil), 1 TAB PO DAILY PRN for PRN If you have any questions please call us at [phone] or [phone] or [phone]
[2017-01-30 16:13] LABS: URINE COLOR DK YELLOW; URINE EPITHELIAL CELL AUTO >30 /lpf (0-5); URINE NITRITE NEG (NEG); UROBILINOGEN NEG (NEG)
[2017-01-30 16:18] LABS: MANUAL MICROSCOPIC REQUIRED? NO; REVIEW REQ? YES; URINE APPEARANCE CLEAR (CLEAR)
[2017-01-30 16:20] LABS: URINE BILIRUBIN NEG (NEG)
[2017-01-30 16:28] LABS: URINE PATH CASTS 0-3 GRANULAR CASTS /lpf (0)
[~2017-02-09] VITALS: Ht 167.6 cm; Wt 54.3 kg
[~2017-02-09 09:47] MED LIST changes: +CEFAZOLIN 2000 MG/60 ML D5W IV SCH; +LACTATED RINGER'S 1000ML 1,000 ML IV SCH; -SPIR50TA2 PO
[2017-02-09 10:15] VITALS: BP 118/56; PULSE 81; TEMP 37; O2SAT 97; Ht 167.6 cm; Wt 54.3 kg
--- NOTE | 2017-02-09 10:21 | History & Physical Bridge Note ---
H&P Re-Evaluation Bridge Note: I have examined the patient, reviewed the History & Physical and in the interval since the performance of the History & Physical I have noted the following changes of clinical significance: No changes noted
--- NOTE | 2017-02-09 10:23 | [facility] Operative Report ---
Operative Report Operative Date Feb 09, 2017. Pre-Operative Diagnosis Hydronephrosis, Peritoneal Cancer Post-Operative Diagnosis Same Procedure(s) Performed Cysto, Bilateral Retrograde, Right Ureteroscopy, Right Stent placement. Surgeon Gerardo Executive Personal Assistant Surgeon(s) None Estimated Blood Loss Minimal Findings Right area of narrowing at mid ureter, likely extrinsic with moderate hydroureteral nephrosis. No masses or lesions in pelvis. Left clear of obstruction. Specimens None Drains 6x26 Double J Right Anesthesia General Complication(s) None Disposition Recovery Room / PACU Indications Hydronephrosis. Long conversation of risks and benefits. Patient was agreeable and consented. Description of Procedure Patient was consented and brought back to the operating room. Patient was placed under anesthesia in the supine position. Patient was placed into dorsal lithotomy position. Patient was prepped and draped in the regular sterile fashion. A time out was completed. A 30degree Cystoscope was placed into the bladder and the entire bladder was examined. The UO's were identified. The left followed by the right UO was cannulized with a catheter and a retrograde pyelogram was completed. The left appeared clear of obstruction or stricture. No filling defects appreciated. The right had narrowing at the mid to distal ureter with proximal hydroureteronephrosis. A wire was then placed. A flexible ureteroscope was taken over the wire and into the pelvis. The entire pelvis was examined. No masses or lesions appreciated, The scope was slowly removed and the ureter examined. No lesions or masses in the ureter. At the mid to distal ureter near the iliac vessels a considerable narrowing was appreciated that appeared to be external compression. It was able to be easily bypassed with the scope without the need for dilation. No masses or lesions were visalized. At this point, The wire was replaced and the scope removed. With the wire in place, a 6 x 26 Double J stent was placed. It was confirmed with fluoroscopy. With the stent in place, the bladder was emptied. The scope was removed. The patient was cleaned, aroused from anesthesia, and transferred to the pacu in stable condition having tolerated the procedure well with no complications. I was present and participated in all aspects of the procedure. The patient will be monitored in the PACU until transferred. I attest to the content of the Intraoperative Record and any orders documented therein. Any exceptions are noted below.
--- NOTE | 2017-02-09 10:24 | Discharge Instructions ---
Discharge Instructions Date of Service Feb 09, 2017. Admission Reason for Admission: Hydronephrosis Discharge Discharge Diagnosis / Problem: Hydronephrosis Discharge Goals Goal(s): Decrease discomfort, Improve function Activity Recommendations Activity Limitations: resume your previous activity Lifting Limitations: none Exercise/Sports Limitations: none May Resume Sexual Activity: when tolerated . Instructions / Follow-Up Instructions / Follow-Up May have blood in urine. May have discomfort or irritation. Call with any issues or fevers. Current Hospital Diet Hospital Diet(s): Regular Diet Discharge Diet Recommended Diet: Regular Diet Procedures Procedures Performed: Cysto, Bilateral Retrograde, Right URS and Stent Pending Studies Studies pending at discharge: no Laboratory Results Lipid Panel Test 11/10/16 11:45 Range/Units Triglycerides Level 123 0-150 mg/dl Medical Emergencies . Who to Call and When: Medical Emergencies: If at any time you feel your situation is an emergency, please call 911 immediately. . Non-Emergent Contact Non-Emergency issues call your: Primary Care Provider, Urologist Call Non-Emergent contact if: you have a fever, temperature is above 101, temperature is above 101.5, your pain is not controlled, your pain is worsening . . "Provider Documentation" section prepared by Eulalio Carrillo,. . VTE Core Measure Inpt VTE Proph given/why not?: Daryn Serna, SCD's
[2017-02-09 10:45] LABS: BASO % 0.4 %; BASO ABS # 0.01 K/uL (0-0.2); EOS % 12.4 %; HEMATOCRIT 26.9 % (37-47); IG% 0.4 %; LYMPH % 26.9 %; LYMPH ABS # 0.67 K/uL (1.2-3.4); MEAN CELL VOLUME 96.4 fL (80-100); MEAN CORPUSCULAR HEMOGLOBIN 32.6 pg (25-34); MEAN PLATELET VOLUME 9.1 fL (7.4-10.4); MONO % 6.8 %; NEUT % 53.1 %; PLATELET COUNT 618 K/uL (130-400); RED BLOOD COUNT 2.79 M/uL (4.2-5.4); WHITE BLOOD COUNT 2.49 K/uL (4.8-10.8)
[2017-02-09] MEDS ORDERED: FENTANYL CITRATE INJ 50 MCG/1 ML 2 ML VIAL IV PRN (10:45)
[2017-02-09] MEDS ORDERED: ATROPINE SULFATE 0.1 MG/ML 5ML SYR IV PRN ×2 (10:45)
[2017-02-09] MEDS ORDERED: EpHEDrine SULFATE INJ 50 MG/ML AMP IV PRN ×2 (10:45)
[2017-02-09] MEDS ORDERED: ONDANSETRON INJ 2 MG/ML 2 ML VIAL IV PRN (10:45)
[2017-02-09] MEDS ORDERED: MIDAZOLAM HCL 1 MG/ML 2ML VIAL ONE (10:58)
[2017-02-09] MEDS ORDERED: DEXAMETHASONE SOD INJ 4 MG/ML VIAL ONE ×2 (10:58→11:47)
[2017-02-09] MEDS ORDERED: ONDANSETRON INJ 2 MG/ML 2 ML VIAL ONE (10:58)
[2017-02-09] MEDS ORDERED: LIDOCAINE HCL 2% 2 ML VIAL (20MG/ML) ONE (10:58)
[2017-02-09] MEDS ORDERED: PROPOFOL IV EMULSION 10 MG/ML 20 ML VIAL IV ONE (10:58)
[2017-02-09] MEDS ORDERED: FENTANYL CITRATE INJ 50 MCG/1 ML 2 ML VIAL ONE (10:58)
[2017-02-09] MEDS ORDERED: CONRAY 30% 150ML BOTTLE ONE (11:20)
[2017-02-09 11:34] LABS: COMPLETE YES; MEAN CORPUSCULAR HGB CONC 33.8 g/dl (32-36)
[2017-02-09] MEDS ORDERED: PHEN-876 PO (12:34)
[2017-02-09] MEDS ORDERED: CEPH500C PO (12:34)
[2017-02-09] MEDS ORDERED: OXYB5TAB74 PO (12:34)
[2017-02-09] MEDS ORDERED: OXYCODONE/ACETAMINOPHEN 7.5-325 TAB PO PRN (12:45)
--- NOTE | 2017-02-09 12:46 | DIAGNOSTIC IMAGING REPORT ---
RETROGRADE INCLUDES KUB HISTORY: CYSTO, B/L RETROGRADE FLUOROSCOPY TIME: 1 minute and 30 seconds. FINDINGS: 13 fluoroscopic spot images were submitted for review. Retrograde opacification of the bilateral ureters and renal collecting systems. Focal stricture within the distal right ureter. This results in right-sided hydronephrosis. A right ureteral stent was placed and appears to be good position. IMPRESSION: Fluoroscopy provided for evaluation of the distal right ureteral stricture and placement of a right ureteral stent.. Electronically signed by: Vu Sloan M.D. 02/09/2017 12:45 PM Dictated Date/Time: 02/09/2017 12:44 PM
[2017-02-09 13:15] VITALS: BP 120/64; PULSE 74; TEMP 37.1; O2SAT 100
--- NOTE | 2017-02-09 13:23 | Anesthesiology Progress Note ---
Anesthesia Post Op Note Date & Time Feb 09, 2017 at 13:23 Vital Signs Pain Intensity: 3 Vital Signs Past 12 Hours Date Time Temp Pulse Resp B/P (MAP) Pulse Ox O2 Delivery O2 Flow Rate FiO2 02/09/17 13:07 36.3 02/09/17 13:05 122/68 02/09/17 13:02 72 16 97 02/09/17 13:02 72 16 02/09/17 13:00 124/74 02/09/17 12:57 83 15 100 02/09/17 12:57 78 15 02/09/17 12:56 86 15 02/09/17 12:56 85 15 100 02/09/17 12:55 112/92 02/09/17 12:51 76 15 02/09/17 12:51 76 15 99 02/09/17 12:50 122/75 02/09/17 12:46 67 15 100 02/09/17 12:46 68 15 02/09/17 12:45 128/70 02/09/17 12:41 77 18 02/09/17 12:41 76 18 100 02/09/17 12:40 124/80 02/09/17 12:36 82 17 122/99 100 02/09/17 12:36 82 17 02/09/17 12:31 79 16 100 02/09/17 12:31 78 16 02/09/17 12:30 127/73 02/09/17 12:30 78 19 127/73 100 Oxymask 10 02/09/17 12:26 80 20 02/09/17 12:26 82 20 100 02/09/17 12:25 125/73 02/09/17 12:21 78 11 02/09/17 12:21 36.4 77 16 122/60 100 Oxymask 10 02/09/17 12:21 78 11 122/60 100 02/09/17 10:15 37.0 81 16 118/56 (76) 97 Room Air Notes Mental Status: alert / awake / arousable, participated in evaluation Pt Amnestic to Procedure: Yes Nausea / Vomiting: adequately controlled Pain: adequately controlled Airway Patency, RR, SpO2: stable & adequate BP & HR: stable & adequate Hydration State: stable & adequate Anesthetic Complications: no major complications apparent
[2017-02-09 13:45] VITALS: BP 125/73; PULSE 89; O2SAT 98
[2017-02-09 14:13] VITALS: BP 133/68; PULSE 106; TEMP 36.6; O2SAT 99
== END 2017-02-09 14:15 | disposition home or self-care (01) ==
LOC: C.ACU 09:47
PROVIDERS: ATTEND Urology
DX: N13.30 Unspecified hydronephrosis (principal); C48.2 Malignant neoplasm of peritoneum, unspecified; K21.9 Gastro-esophageal reflux disease without esophagitis; Z86.718 Personal history of other venous thrombosis and embolism; Z85.038 Personal history of other malignant neoplasm of large intestine; Z90.710 Acquired absence of both cervix and uterus; Z90.49 Acquired absence of other specified parts of digestive tract; Z80.0 Family history of malignant neoplasm of digestive organs; Z82.49 Family history of ischemic heart disease and other diseases of the circulatory system; Z83.3 Family history of diabetes mellitus

== ENCOUNTER → 2017-03-10 | Outpatient (CLI) | payer BC ==
[~2017-03-10] MED LIST changes: -CEFAZOLIN 2000 MG/60 ML D5W IV SCH; +CEPH500C PO; +DTR/5 PO; -LACTATED RINGER'S 1000ML 1,000 ML IV SCH; +PHEN-876 PO
[2017-03-10 09:32] LABS: BASO % 0.2 %; BASO ABS # 0.01 K/uL (0-0.2); EOS % 1.5 %; HEMATOCRIT 29.3 % (37-47); IG% 1.1 %; LYMPH % 29.6 %; LYMPH ABS # 1.36 K/uL (1.2-3.4); MEAN CORPUSCULAR HEMOGLOBIN 32.4 pg (25-34); MEAN CORPUSCULAR HGB CONC 32.4 g/dl (32-36); MEAN PLATELET VOLUME 10.3 fL (7.4-10.4); MONO % 14.4 %; NEUT % 53.2 %; PLATELET COUNT 583 K/uL (130-400); RED BLOOD COUNT 2.93 M/uL (4.2-5.4); WHITE BLOOD COUNT 4.59 K/uL (4.8-10.8)
[2017-03-10 09:49] LABS: ALT/SGPT 19 U/L (12-78); BLOOD UREA NITROGEN 15 mg/dl (7-18); BUN/CREATININE RATIO 15.3 (10-20); CALCIUM 9.1 mg/dl (8.5-10.1); CARBON DIOXIDE 25 mmol/L (21-32); CHLORIDE 105 mmol/L (98-107); CREATININE 0.98 mg/dl (0.60-1.20); GLUCOSE 82 mg/dl (70-99); POTASSIUM 3.8 mmol/L (3.5-5.1); SODIUM 140 mmol/L (136-145)
[2017-03-10 09:53] LABS: ALKALINE PHOSPHATASE 240 U/L (45-117); AST/SGOT 39 U/L (15-37); FERRITIN 221.4 ng/ml (8.0-388.0); TOTAL IRON BINDING CAPACITY 280 mcg/dl (250-450)
[2017-03-10 09:56] LABS: ANISOCYTOSIS PRESENT; COMPLETE YES; HOWELL-JOLLY BODIES 1+; SCHISTOCYTES 1+; TARGET CELLS 1+; TOXIC GRANULATION 1+; VACUOLIZATION 1+
== END | disposition home or self-care (01) ==
LOC: C.LAB 08:16
PROVIDERS: ATTEND Internal Medicine Hematology & Oncology
DX: Z51.11 Encounter for antineoplastic chemotherapy (principal); C79.61 Secondary malignant neoplasm of right ovary; R11.0 Nausea; Z41.8 Encounter for other procedures for purposes other than remedying health state; Z91.89 Other specified personal risk factors, not elsewhere classified; C79.89 Secondary malignant neoplasm of other specified sites; L65.9 Nonscarring hair loss, unspecified; C18.1 Malignant neoplasm of appendix; D50.9 Iron deficiency anemia, unspecified

== ENCOUNTER → 2017-04-09 | Outpatient (CLI) | payer BC ==
[~2017-04-09] MED LIST changes: +ALPR0.25 PO; +APIX1TAB PO; +CIPR-304 PO; +CRG625 PO; +CYCL10TA6 PO; +DICY20TA10 PO; +DOCU100C31 PO; +DXM/4 PO; +FNTTP25 PO; +HYDR1INJ48 IV; +IBUP600T44 PO; +LORA2CON5 PO; +MORP10SO PO; +ONDA-170 PO; -ONDA8TAB6 PO; +OXGN; +PHEN-1043 PO; +PROC10TA PO; +SIME1CAP37 PO
--- NOTE | 2017-04-10 14:34 | NUR ---
Outpatient Nutrition Assessment Date: 04/09/17 Time In: 1330, Time Out: 1440 Client Name: Liana FarrarDelmis 78 Referring Clinician: Kevin García II MD Site: Nutrition & Culinary Services Dept. at [facility] [address] Nutrition Provider: Aicha Garza, MS, RDN, CSG, LDN, CDE Subjective Info: Reason for Visit: Follow-up for weight loss Client stated Goals: decrease diarrhea & prevent further weight loss Current Eating Pattern: 1 week food log & symptom diary reviewed. Her energy, protein & fluid intake are suboptimal. Dietary Limitations: She is lactose intolerant since her HIPEC surgery & cannot tolerate large portions at meals and/or high fat food choices or high insoluble fiber foods (nuts, beans, dried fruit, etc.). She does not cook & reports her appetite to be fair, though it has improved some since initial RD visit. She c/o occ. abd pain/cramping/stomach gurgling & has diarrhea ~ 3x/day despite taking Imodium BID. Her stool is not foul smelling, is semi-solid (not watery), brown in color and occ foamy. Upon review of food log, it appears that foamy stools occur after a high fat meal. No N/V, no melena, occ. blood streaks with wiping, which client attributes to internal hemorrhoids. Stressors: CA cachexia, fear of eating d/t anticipated diarrhea, "its unpredictable"; she has returned to work FT and c/o anxiety "all the time." She also feels depressed whenever she weighs herself (weekly) at home d/t ongoing wt. loss. Objective Info: Age: 36 y.o female Ht: 66" Current Wt: 106.2# (48.2 kg) 04/09/[address] scale in RD office PMH: Appendix CA s/p CTX, PSBO, colic/splenic vein thrombosis, anemia PSH: s/p MARTIN-BSO, appy, partial colectomy, splenectomy, HIPEC Wt Hx: UBW 165# (before surgery); 127# 12/26/16 (hosp. wt), 117.8# on initial RD visit 01/29/17 Meds & OTC: Eliquis, KCl, Methadone, Imodium PRN, Lorazepam PRN, Duloxetine, Oxycodone PRN, Zofran PRN; Tramadol PRN, PPI & Simethicone PRN; she is also on Bentyl though plans on stopping d/t "it doesn't help." She had been on Megace for several weeks, though she stopped taking d/t "I don't think it was helping." RD reminded client that at our initial visit her appetite was poor; therefore some appetite improvement may be attributed to Megace. She was originally prescribed Marinol, however she never filled Rx d/t "it was too expensive, it cost $200 at the pharmacy." Labs: 03/10/17 BUN 15, Creat 0.98, K+ 3.8, Glu 82, Ca++ 9.1, Fe++ 68, TIBCF 280, transferrin 227, transferrin %sat 22, Ferritin 221.4; B12 591, Fol > 24; CEA 4.8(H), AST 39(H), ALT 19, Alk Phos 240(H), Alb 3.0(L); H/H 9.5/29.3(L), MCV WNL. Assessment: BMI = 17.1 (underweight) IBW = 130# or 59 kg (Hamwi method); Client ~ 82% IBW & 64% UBW Wt Loss = ~20# wt loss in 3 mos (16.5%=significant), overall ~ 59# loss w/in the past 8 mos (35.7%=significant). Energy Intake = < 75% compared to est. energy requirements for > 1 month NFPE findings = severe loss of subcutaneous fat seen in the orbital region + severe loss of muscle mass seen in B/L zoroastrianism region (temporalis muscle) & in the clavicle bone region (pectoralis major, deltoid, trapezius muscles), lips dry & her skin color is pale. Goal Weight: 106.2# weight maintenance Estimated Time to Reach Goal: 1 month Estimated Nutrition Needs: (based on weight from initial RD assessment 53.5 kg) 1)1600 kcal/day or 30 kcal/kg 2)80 g protein/day or 1.5 g protein/kg, (20% est. 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 Her energy intake is < 75% compared to estimated energy needs for > 1 mo. as evidenced by diet hx, significant wt loss of 16.5% in 3 mos & 35.7% in 8 mos. She also has physical signs of severe subcutaneous fat loss seen in the orbital region & severe loss of muscle mass seen in the B/L zoroastrianism & clavicle bone region. Client Plan: 1)Lactose Controlled, low insoluble fiber, high kcal/protein diet w/sml, frequent meals (make every bite count). 2)Try to consume at least 1600 kcal & 80 g protein/day via meals/snacks/nutrition supplements. 3)Avoid high FODMAP foods (handout provided) 4)Discuss re-starting an appetite stimulant with provider (handout provided) ? Oxandrolone 5)Drink min of 6 cups of fluid/day (non-caffeinated). Include an 8 oz. ONS daily (2 oz. QID). 6)Trial UNJURY protein powder supplement (flavored & unflavored sample pkts provided w/recipes) 7)Discuss use of probiotics w/provider (not gummy), i.e. Kids Culturelle chewables or indiv. Powder pkts. 8)Discuss w/GI possible repeat colonoscopy (last one > 1 year ago). 9)Discuss using pancreatic enzymes w/meals & snacks d/t suspected fat malabsorption. 10)Add a chewable MVI w/minerals daily (i.e. Flinstones) for better absorption. 11)Discuss use of 2 g fish oil supplements daily (w/EPA & DHA) w/provider to help reduce gut inflammation 12)Discuss w/GI ? increase of Imodium to TID PRN to slow GI transit time & allow for better nutrient absorption. 13)Consider TPN if the above interventions fail to prevent further wt decline x 1 mo. Goal: Maximize macronutrient & micronutrient intake to maintain body weight, prevent further loss of lean body mass and decrease frequency of diarrhea to help improve QOL. Total Time spent w/client = 70 minutes Plan for follow-up in 1 month (client to schedule appointment & obtain MD referral for follow-up MNT visit
--- NOTE | 2017-04-17 07:33 | CODING QUERY NO DIAGNOSIS ---
TREATMENT RENDERED WITHOUT A DIAGNOSIS Dr. García, To promote full compliance with coding requirements relating to patient care, physician participation is requested in all cases of talent associate uncertainty. Please assist us with providing a diagnosis/symptom for the test(s) below: A diagnosis/symptom was not documented on your Order. A valid diagnosis/symptom is required to bill all insurances. Please remember that we are unable to code a diagnosis of rule out, probable, possible, questionable, or suspected. Tests that require a diagnosis: * OTHER MNT RE-ASSESS/15 MIN (4X) (CPT CODE: 62111) DIAGNOSIS: DATE OF SERVICE: 04/09/17 Provider Signature: Date: Thank you Austin Mayberry [facility] Information Management Once completed, please kindly fax back to [phone] For questions please call [phone]
== END | disposition home or self-care (01) ==
LOC: C.FOODA 13:17
PROVIDERS: ATTEND Family Medicine
DX: R63.4 Abnormal weight loss (principal); C26.9 Malignant neoplasm of ill-defined sites within the digestive system

== ENCOUNTER → 2017-05-25 | Outpatient (CLI) | payer OTHER ==
[~2017-05-25] MED LIST changes: -ALPR0.25 PO; -CRG625 PO; -CYCL10TA6 PO; -DOCU100C31 PO; -DXM/4 PO; -HYDR1INJ48 IV; -IBUP600T44 PO; -LORA2CON5 PO; -MORP10SO PO; -ONDA-170 PO; +ONDA8TAB6 PO; -OXGN; -PHEN-1043 PO; -PROC10TA PO
[2017-05-25 13:15] LABS: BASO % 0.3 %; BASO ABS # 0.04 K/uL (0-0.2); EOS % 3.7 %; EOS ABS # 0.52 K/uL (0-0.5); HEMATOCRIT 24.9 % (37-47); HEMOGLOBIN 7.8 g/dL (12.0-16.0); IG# 0.06 K/uL (0.00-0.02); LYMPH % 4.3 %; MEAN CELL VOLUME 94.7 fL (80-100); MEAN CORPUSCULAR HEMOGLOBIN 29.7 pg (25-34); MEAN CORPUSCULAR HGB CONC 31.3 g/dl (32-36); MEAN PLATELET VOLUME 10.1 fL (7.4-10.4); MONO % 9.4 %; MONO ABS # 1.32 K/uL (0.11-0.59); NEUT % 81.9 %; NEUT ABS # 11.47 K/uL (1.4-6.5); PLATELET COUNT 790 K/uL (130-400); RED CELL DISTRIBUTION WIDTH CV 15.7 % (11.5-14.5); RED CELL DISTRIBUTION WIDTH SD 54.4 fL (36.4-46.3); WHITE BLOOD COUNT 14.01 K/uL (4.8-10.8)
[2017-05-25 15:03] LABS: ALBUMIN 2.9 gm/dl (3.4-5.0); ALT/SGPT 63 U/L (12-78); AST/SGOT 53 U/L (15-37); BLOOD UREA NITROGEN 33 mg/dl (7-18); CALCIUM 9.4 mg/dl (8.5-10.1); CARBON DIOXIDE 25 mmol/L (21-32); GLUCOSE 118 mg/dl (70-99); PHOSPHORUS 3.2 mg/dl (2.5-4.9); POTASSIUM 4.5 mmol/L (3.5-5.1); SODIUM 135 mmol/L (136-145)
[2017-05-25 15:04] LABS: ALKALINE PHOSPHATASE 601 U/L (45-117); TOTAL PROTEIN 7.3 gm/dl (6.4-8.2)
== END | disposition home or self-care (01) ==
LOC: C.LABSPEC 12:19
PROVIDERS: ATTEND Family Medicine
DX: N13.30 Unspecified hydronephrosis (principal); G89.3 Neoplasm related pain (acute) (chronic)

== ENCOUNTER → 2017-06-01 | Outpatient (CLI) | payer OTHER ==
[~2017-06-01] MED LIST changes: +CRG625 PO; +PHEN-1043 PO
[2017-06-01 14:42] LABS: INR 1.1 (0.9-1.1)
[2017-06-01 14:47] LABS: HEMATOCRIT 21.6 % (37-47); HEMOGLOBIN 6.6 g/dL (12.0-16.0); MEAN CELL VOLUME 93.9 fL (80-100); MEAN CORPUSCULAR HEMOGLOBIN 28.7 pg (25-34); MEAN CORPUSCULAR HGB CONC 30.6 g/dl (32-36); MEAN PLATELET VOLUME 9.9 fL (7.4-10.4); NUCLEATED RED BLOOD CELL ABS 0.06 K/uL (0-0); PLATELET COUNT 724 K/uL (130-400); RED CELL DISTRIBUTION WIDTH CV 15.7 % (11.5-14.5); RED CELL DISTRIBUTION WIDTH SD 53.3 fL (36.4-46.3)
[2017-06-01 14:55] LABS: BASO % 0.3 %; BASO ABS # 0.04 K/uL (0-0.2); EOS % 3.4 %; EOS ABS # 0.53 K/uL (0-0.5); IG# 0.09 K/uL (0.00-0.02); LYMPH % 5.3 %; LYMPH ABS # 0.82 K/uL (1.2-3.4); MONO ABS # 1.55 K/uL (0.11-0.59); NEUT % 80.4 %; NEUT ABS # 12.47 K/uL (1.4-6.5)
[2017-06-01 15:08] LABS: ALBUMIN 2.7 gm/dl (3.4-5.0); ALT/SGPT 35 U/L (12-78); AST/SGOT 28 U/L (15-37); BLOOD UREA NITROGEN 30 mg/dl (7-18); CALCIUM 8.7 mg/dl (8.5-10.1); CARBON DIOXIDE 27 mmol/L (21-32); CREATININE 0.62 mg/dl (0.60-1.20); GLUCOSE 103 mg/dl (70-99); POTASSIUM 4.3 mmol/L (3.5-5.1); SODIUM 135 mmol/L (136-145)
[2017-06-01 15:11] LABS: ALKALINE PHOSPHATASE 620 U/L (45-117); TOTAL PROTEIN 6.7 gm/dl (6.4-8.2)
[2017-06-02 10:05] LABS: PHOSPHORUS 3.7 mg/dl (2.5-4.9)
--- NOTE | 2017-06-08 14:06 | CODING QUERY NO DIAGNOSIS ---
TREATMENT RENDERED WITHOUT A VALID PHYSICIAN ORDER To promote full compliance with coding requirements relating to patient care, physician participation is requested in all cases of blindmaker uncertainty. Please assist us with providing a copy of the original physician order for the test(s) below: A valid physician order is required to bill all insurances. Please remember that we are unable to code a diagnosis of rule out, probable, possible, questionable, or suspected. Tests that require a physician order/diagnosis: DOS: 06/01/17 *COMPREHENSIVE METABOLIC PANEL *TRIGLYCERIDES *CBC WITH AUTO DIFFERENTIAL *PROTHROMBIN TIME PROFILE *GAMMA GLUTAMYL TRANSPEPTIDASE *MAGNESIUM *PHOSPHORUS Thank you Sherine [facility] Nutrition Information Management Once completed, please kindly fax back to [phone] For questions please call [phone]
== END | disposition home or self-care (01) ==
LOC: C.LABSPEC 13:31
PROVIDERS: ATTEND Surgery Vascular Surgery
DX: C80.1 Malignant (primary) neoplasm, unspecified (principal); Z88.0 Allergy status to penicillin

== ENCOUNTER → 2017-06-15 | Outpatient (CLI) | payer OTHER ==
[~2017-06-15] MED LIST changes: +ALPR0.25 PO; +CYCL10TA6 PO; +DOCU100C31 PO; +DXM/4 PO; +HYDR1INJ48 IV; +IBUP600T44 PO; +LORA2CON5 PO; +MORP10SO PO; +ONDA-170 PO; -ONDA8TAB6 PO; +OXGN; +PROC1TAB5 PO
[2017-06-15 14:53] LABS: BASO % 0.2 %; BASO ABS # 0.05 K/uL (0-0.2); EOS % 1.6 %; EOS ABS # 0.33 K/uL (0-0.5); HEMATOCRIT 25.8 % (37-47); HEMOGLOBIN 8.1 g/dL (12.0-16.0); IG# 0.57 K/uL (0.00-0.02); LYMPH % 5.1 %; LYMPH ABS # 1.03 K/uL (1.2-3.4); MEAN CELL VOLUME 90.5 fL (80-100); MEAN CORPUSCULAR HEMOGLOBIN 28.4 pg (25-34); MEAN CORPUSCULAR HGB CONC 31.4 g/dl (32-36); MEAN PLATELET VOLUME 10.8 fL (7.4-10.4); MONO % 9.3 %; MONO ABS # 1.88 K/uL (0.11-0.59); NUCLEATED RED BLOOD CELL ABS 0.23 K/uL (0-0); PLATELET COUNT 442 K/uL (130-400); RED CELL DISTRIBUTION WIDTH CV 15.4 % (11.5-14.5); RED CELL DISTRIBUTION WIDTH SD 50.7 fL (36.4-46.3); WHITE BLOOD COUNT 20.16 K/uL (4.8-10.8)
[2017-06-15 15:02] LABS: INR 1.2 (0.9-1.1)
[2017-06-15 15:20] LABS: ALBUMIN 2.6 gm/dl (3.4-5.0); ALT/SGPT 54 U/L (12-78); BLOOD UREA NITROGEN 29 mg/dl (7-18); CALCIUM 9.9 mg/dl (8.5-10.1); CARBON DIOXIDE 27 mmol/L (21-32); CREATININE 0.57 mg/dl (0.60-1.20); GLUCOSE 106 mg/dl (70-99); POTASSIUM 4.4 mmol/L (3.5-5.1); SODIUM 138 mmol/L (136-145)
[2017-06-15 15:35] LABS: ALKALINE PHOSPHATASE 1272 U/L (45-117); AST/SGOT 64 U/L (15-37); TOTAL PROTEIN 6.9 gm/dl (6.4-8.2)
[2017-06-16 16:10] LABS: PHOSPHORUS 4.4 mg/dl (2.5-4.9)
--- NOTE | 2017-07-24 07:04 | CODING QUERY NO DIAGNOSIS ---
Valid Physician Order Needed A valid physician order must be submitted in order to properly bill for the service(s) provided, including date of service(s), valid diagnosis, and physician signature. If these tests are done on a recurring basis the original physican order must be submitted in order to code and bill for the service(s) provided. Please fax us the original, signed physician order so that we may expedite billing to [phone] DOS 06/15/2017 CBC W/AUTOMATED DIFF MAGNESIUM PROTHROMBIN TIME TRIGLYCERIDES GGT [facility] you [facility] Information Management
== END | disposition home or self-care (01) ==
LOC: C.LABSPEC 13:45
PROVIDERS: ATTEND Internal Medicine Pulmonary Disease
DX: C80.1 Malignant (primary) neoplasm, unspecified (principal)

== ENCOUNTER → 2017-06-17 | Outpatient (CLI) | payer OTHER ==
[~2017-06-17] MED LIST changes: -ALPR0.25 PO; -CYCL10TA6 PO; -DOCU100C31 PO; -DXM/4 PO; -HYDR1INJ48 IV; -IBUP600T44 PO; -LORA2CON5 PO; -MORP10SO PO; -ONDA-170 PO; +ONDA8TAB6 PO; -OXGN; -PROC1TAB5 PO
== END | disposition home or self-care (01) ==
LOC: C.LABSPEC 11:12
PROVIDERS: ATTEND Urology
DX: C79.51 Secondary malignant neoplasm of bone (principal)

== ENCOUNTER 2017-06-19 11:47 | Inpatient (IN) | payer OTHER ==
[~2017-06-19] VITALS: Ht 170.2 cm; Wt 62.1 kg
[~2017-06-19 11:47] MED LIST changes: -APIX1TAB PO; -CIPR-304 PO; -CRG625 PO; -DICY20TA10 PO; -FNTTP25 PO; -PHEN-1043 PO; -SIME1CAP37 PO
[2017-06-19] MEDS ORDERED: SODIUM CHLORIDE 0.9% 1000ML 1,000 ML IV STA ×2 (12:20)
[2017-06-19] MEDS ORDERED: HYDROmorphone INJ 0.5 MG/0.5 ML SYR IV STA (12:20)
[2017-06-19] MEDS ORDERED: OPTIRAY 320 IV PRN (12:30)
[2017-06-19] MEDS ORDERED: FNTTP25 PO (12:51)
[2017-06-19] MEDS ORDERED: APIX1TAB PO (12:51)
[2017-06-19] MEDS ORDERED: LORA-741 PO (13:12)
[2017-06-19] MEDS ORDERED: DICY20TA10 PO (13:12)
[2017-06-19] MEDS ORDERED: CIPR-304 PO (13:12)
[2017-06-19] MEDS ORDERED: DTR/5 PO (13:12)
[2017-06-19] MEDS ORDERED: SIME1CAP37 PO (13:12)
[2017-06-19 13:21] LABS: HEMATOCRIT 26.5 % (37-47); HEMOGLOBIN 8.4 g/dL (12.0-16.0); MEAN CORPUSCULAR HEMOGLOBIN 27.9 pg (25-34); MEAN CORPUSCULAR HGB CONC 31.7 g/dl (32-36); MEAN PLATELET VOLUME 10.1 fL (7.4-10.4); NUCLEATED RED BLOOD CELL ABS 0.87 K/uL (0-0); PLATELET COUNT 317 K/uL (130-400); RED CELL DISTRIBUTION WIDTH CV 15.7 % (11.5-14.5); WHITE BLOOD COUNT 21.74 K/uL (4.8-10.8)
[2017-06-19 13:41] LABS: ALBUMIN 2.7 gm/dl (3.4-5.0); CALCIUM 10.5 mg/dl (8.5-10.1); CREATININE 0.75 mg/dl (0.60-1.20); POTASSIUM 4.1 mmol/L (3.5-5.1)
[2017-06-19 13:55] LABS: TOTAL PROTEIN 6.9 gm/dl (6.4-8.2)
[2017-06-19 13:59] LABS: BASO % 0.3 %; BASO ABS # 0.06 K/uL (0-0.2); EOS ABS # 0.21 K/uL (0-0.5); IG# 1.56 K/uL (0.00-0.02); LYMPH % 4.4 %; LYMPH ABS # 0.96 K/uL (1.2-3.4); MONO ABS # 1.95 K/uL (0.11-0.59); NEUT % 78.1 %
[2017-06-19] MEDS ORDERED: HYDROmorphone INJ 1 MG/ML SYR IV STA (13:59)
[2017-06-19] MEDS ORDERED: HYDROCODONE/ACETAMI 10/325 TAB PO STA (13:59)
[2017-06-19] MEDS ORDERED: VANCOMYCIN INJ 1,000 MG in SODIUM CHLORIDE 0.9% 250ML 250 ML IV STA (14:05)
[2017-06-19] MEDS ORDERED: METRONIDAZOLE 500MG / 100ML NSS IV STA (14:05)
[2017-06-19] MEDS ORDERED: CEFEPIME IV 1,000 MG in DEXTROSE 5% 100ML 100 ML IV STA (14:05)
--- NOTE | 2017-06-19 14:10 | EMERGENCY ROOM VISIT NOTE ---
History Report prepared by Sonya: Des Low Under the Supervision of: Dr. Umesh Pearson M.D. First contact with patient: 12:01 Chief Complaint: PAIN (GENERALIZED) Stated Complaint: BACK PAIN History of Present Illness The patient is a 37 year old white female with a past medical history of appendix cancer, colic vein thrombosis, splenic vein thrombosis, s/p oophorectomy, s/p splenectomy, s/p HIPEC procedure, s/p appendectomy, s/p hysterectomy, s/p colon resection who presents to the ED with a cc of worsening generalized pain beginning a week ago. 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 Requesting palliative pain care. Her pain is worsened with movement, eating and defecation. Patient is not currently receiving chemotherapy or radiation treatments. Positive shortness of breath exertion. Shortness of breath began about a week ago. Currently on Eliquis. Negative cough, numbness, or bowel or bladder incontinence. Last normal bowel movement was 1.5 day ago. Source of History: patient Onset: A week ago Position: other (generalized) Quality: other (pain) Timing: worsening Modifying Factors (Worsening): eating, movement, defecation Associated Symptoms: + chest pain, + SOB (with exertion, beginning one week ago), + abdominal pain, + back pain, No cough, No numbness Note: Negative: bowel or bladder incontinence. Review of Systems See HPI for pertinent positives and negatives. A total of ten systems were reviewed and were otherwise negative. 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 Surgical Problems: (1) H/O oophorectomy (2) H/O splenectomy (3) H/O wisdom tooth extraction (4) HIPEC procedure (5) History of appendectomy (6) History of hysterectomy (7) S/P colon resection Family History FH: HTN (hypertension) MOTHER FH: colon cancer MOTHER Social History Smoking Status: Never Smoker Drug Use: none Current/Historical Medications Scheduled Apixaban (Eliquis), 2.5 MG PO BID Ciprofloxacin HCl (Ciprofloxacin), 500 MG PO BID Duloxetine Hcl (Cymbalta), 90 MG PO HS Fentanyl (Fentanyl), 1 PATCH PO Q72H Lorazepam (Ativan), 0.5 MG PO HS Oxycodone HCl (Oxycodone HCl), 5 MG PO Q2H Pantoprazole (Protonix), 40 MG PO QAM Potassium Chloride (Micro-K Ext Rel), 10 MEQ PO BID Senna (Senokot), 2 TAB PO DAILY Simethicone (Simethicone Extra Strengt 125 mg), 2 CAP PO DAILY Scheduled PRN Dicyclomine Hcl (Dicyclomine Hcl), 1 TAB PO QID PRN for Diarrhea Diphenoxylate/Atropine (Lomotil), 1 TAB PO DAILY PRN for PRN Docusate Sodium (Colace), 1 CAP PO BID PRN for PRN Loperamide Hcl (Imodium), 2 MG PO TID PRN for PRN Lorazepam (Ativan), 0.5 MG PO TID PRN for Anxiety Ondansetron Hcl (Zofran), 8 MG PO BID PRN for Nausea Oxybutynin Chloride (Ditropan), 5 MG PO Q8H PRN for PRN Polyethylene Glycol 3350 (Miralax), 17 GM PO DAILY PRN for PRN Tramadol (Ultram), 50 MG PO Q6 PRN for Pain Allergies Coded Allergies: POLLEN (Verified Allergy, Intermediate, SEASONAL, 06/19/17) Adhesives (Verified Adverse Reaction, Intermediate, irritation, itchiness and reddness, 06/19/17) Amoxicillin (Verified Adverse Reaction, Intermediate, GREEN DIARHHEA, 06/19) Physical Exam Vital Signs Date Time Temp Pulse Resp B/P (MAP) Pulse Ox O2 Delivery O2 Flow Rate FiO2 06/19/17 16:38 110 06/19/17 16:20 108 18 124/74 96 Room Air 06/19/17 13:21 99 Room Air 06/19/17 12:19 132 06/19/17 12:01 37.0 130 18 130/75 99 Room Air Physical Exam GENERAL: Awake, alert, chronically ill-appearing, cachectic, NAD HENT: Normocephalic, atraumatic. EYES: Normal conjunctiva. Sclera non-icteric. NECK: Supple. No nuchal rigidity. FROM. RESPIRATORY: CTAB, no rhonchi, wheezing, crackles CARDIAC: RRR, no MRG ABDOMEN: Soft, BS+, midline incisional scars. Mild diffuse TTP. MSK: No chest wall TTP, no LE edema. Port right chest wall. PICC line LUE. NEURO: GCS 15, CN 2-12 intact, moves all 4s on command. 4/5 strength in RLE. 3/ 5 strength in LLE (decreased secondary to pain). No saddle anesthesia. SKIN: No rash or jaundice noted. Medical Decision & Procedures ER Provider Diagnostic Interpretation: Radiology results as stated below per my review and radiologist interpretation: CT ANGIOGRAPHY OF THE CHEST, PULMONARY EMBOLUS PROTOCOL FINDINGS: No pulmonary emboli are identified. The size of the heart is at the upper limits of normal. A right internal jugular [id number] is in place. A left PICC is in place. There are no enlarged thoracic lymph nodes. No consolidation is noted. There is no pneumothorax or pleural effusion. There are no suspicious pulmonary nodules. Note is made of innumerable mixed lytic and blastic lesions within the visualized skeletal structures. There is a mild pathologic fracture of the superior endplate of T9 without retropulsion. There is minimal loss of vertebral body height. Central canal is suboptimally assessed by CT but no definite epidural extension of tumor is noted. There is mild prevertebral tumor at multiple levels. Visualized portions of the upper abdomen demonstrate moderate to severe bilateral hydroureteronephrosis which is partially imaged on this exam. There is mild biliary ductal dilatation. IMPRESSION: 1. No pulmonary emboli identified. 2. Innumerable mixed lytic and blastic skeletal lesions consistent with metastatic disease. Mild T9 pathologic fracture. No retropulsion. No significant epidural extension of tumor by CT. Prevertebral tumor at multiple levels. 3. Severe right and moderate left hydronephrosis, partially imaged on this exam. 4. Mild intrahepatic biliary ductal dilatation. Electronically signed by: Alvaro Gutierrez M.D. 06/19/2017 3:[address] OF THE LUMBAR SPINE WITHOUT CONTRAST FINDINGS: Note is made of severe right and moderate left hydroureteronephrosis. Bilateral ureteral stents are partially imaged. There has been interval development of innumerable mixed lytic and blastic lesions within the visualized skeletal structures and CT of December 14, 2016. An index left sacral lesion measures 2.4 cm. Central canal is suboptimally assessed by CT but there is no definite epidural extension within the lumbar canal. There is suspected slight extension of tumor into the right S2-S3 neural foramen. No definite pathologic fractures identified. IMPRESSION: 1. Interval development of innumerable lytic and blastic skeletal lesions since CT of December 14, 2016 consistent with metastatic disease. No pathologic fracture identified. No epidural extension of tumor within the lumbar spine. Suspected slight extension of tumor into the right S2-S3 neural foramen. 2. Severe right and moderate left hydroureteronephrosis with bilateral ureteral stents partially imaged on this exam. Electronically signed by: Alvaro Gutierrez M.D. 06/19/2017 3:11 PM Laboratory Results 06/19/17 13:00 Red Blood Count 3.01, Mean Corpuscular Volume 88.0, Mean Corpuscular Hemoglobin 27.9, Mean Corpuscular Hemoglobin Concent 31.7, Mean Platelet Volume 10.1, Neutrophils (%) (Auto) 78.1, Lymphocytes (%) (Auto) 4.4, Monocytes (%) (Auto) 9.0, Eosinophils (%) (Auto) 1.0, Basophils (%) (Auto) 0.3, Neutrophils # (Auto) 17.00, Lymphocytes # (Auto) 0.96, Monocytes # (Auto) 1.95, Eosinophils # (Auto) 0.21, Basophils # (Auto) 0.06 06/19/17 13:00 Test 06/19/17 12:20 06/19/17 13:00 White Blood Count 21.74 K/uL (4.8-10.8) Red Blood Count 3.01 M/uL (4.2-5.4) Hemoglobin 8.4 g/dL (12.0-16.0) Hematocrit 26.5 % (37-47) Mean Corpuscular Volume 88.0 fL (80-100) Mean Corpuscular Hemoglobin 27.9 pg (25-34) Mean Corpuscular Hemoglobin Concent 31.7 g/dl (32-36) Platelet Count 317 K/uL (130-400) Mean Platelet Volume 10.1 fL (7.4-10.4) Neutrophils (%) (Auto) 78.1 % Lymphocytes (%) (Auto) 4.4 % Monocytes (%) (Auto) 9.0 % Eosinophils (%) (Auto) 1.0 % Basophils (%) (Auto) 0.3 % Neutrophils # (Auto) 17.00 K/uL (1.4-6.5) Lymphocytes # (Auto) 0.96 K/uL (1.2-3.4) Monocytes # (Auto) 1.95 K/uL (0.11-0.59) Eosinophils # (Auto) 0.21 K/uL (0-0.5) Basophils # (Auto) 0.06 K/uL (0-0.2) RDW Standard Deviation 51.0 fL (36.4-46.3) RDW Coefficient of Variation 15.7 % (11.5-14.5) Immature Granulocyte % (Auto) 7.2 % Immature Granulocyte # (Auto) 1.56 K/uL (0.00-0.02) Nucleated RBC Absolute Count (auto) 0.87 K/uL (0-0) Nucleated Red Blood Cells % 4.0 % Large Platelets 1+ Polychromasia 1+ Target Cells 1+ Bynum-Hyde Bodies 1+ Schistocytes OCCASIONAL Anion Gap 8.0 mmol/L (3-11) Est Creatinine Clear Calc Drug Dose 78.7 ml/min Estimated GFR () 117.2 Estimated GFR (Non- 101.1 BUN/Creatinine Ratio 47.2 (10-20) Lactic Acid Level 1.2 mmol/L (0.4-2.0) Calcium Level 10.5 mg/dl (8.5-10.1) Total Bilirubin 0.3 mg/dl (0.2-1) Aspartate Amino Transf (AST/SGOT) 71 U/L (15-37) Alanine Aminotransferase (ALT/SGPT) 61 U/L (12-78) Alkaline Phosphatase 1542 U/L (45-117) Total Protein 6.9 gm/dl (6.4-8.2) Albumin 2.7 gm/dl (3.4-5.0) Globulin 4.2 gm/dl (2.5-4.0) Albumin/Globulin Ratio 0.6 (0.9-2) Laboratory results reviewed by me Medications Administered Medications (Trade) Dose Ordered Sig/Shani Route Start Time Stop Time Status Last Admin Dose Admin Sodium Chloride 1,000 ml @ 999 mls/hr Q1H1M STAT IV 06/19/17 12:20 06/19/17 13:20 DC 06/19/17 12:20 999 MLS/HR Hydromorphone HCl (Dilaudid Inj) 0.5 mg NOW STAT IV 06/19/17 12:20 06/19/17 12:22 DC 06/19/17 13:17 0.5 MG Sodium Chloride 1,000 ml @ 999 mls/hr Q1H1M STAT IV 06/19/17 12:20 06/19/17 13:20 DC 06/19/17 12:20 999 MLS/HR Hydromorphone HCl (Dilaudid Inj) 1 mg NOW STAT IV 06/19/17 13:59 06/19/17 14:00 DC 06/19/17 14:05 1 MG Acetaminophen/ Hydrocodone Bitart (Burns 10/325 Tab) 1 tab ONE STAT PO 06/19/17 13:59 06/19/17 14:00 DC 06/19/17 15:10 1 TAB Vancomycin HCl 1000 mg/Sodium Chloride 270 ml @ 125 mls/hr NOW STAT IV 06/19/17 14:05 06/19/17 16:14 DC 06/19/17 16:22 125 MLS/HR Cefepime HCl 1000 mg/Dextrose 111 ml @ 200 mls/hr ONE STAT IV 06/19/17 14:05 06/19/17 14:38 DC 06/19/17 15:10 200 MLS/HR Metronidazole (Flagyl / Nss) 500 mg NOW STAT IV 06/19/17 14:05 06/19/17 14:06 DC 06/19/17 15:12 500 MG ECG Per My Interpretation Indication: SOB/dyspnea Rate (beats per minute): 127 Rhythm: sinus tachycardia Findings: no ectopy, other (Normal axis. Normal intervals. ) ED Course 1210: The patient was evaluated in room C4. A complete history and physical exam was performed. 1620: Upon reexamination, the patient was resting comfortably. I discussed the test results and treatment plan with her. The patient will be evaluated for further management. Medical Decision The patient is a 37 year old white female with a past medical history of appendix cancer, colic vein thrombosis, splenic vein thrombosis, s/p oophorectomy, s/p splenectomy, s/p HIPEC procedure, s/p appendectomy, s/p hysterectomy, s/p colon resection who presents to the ED with a cc of worsening generalized pain beginning a week ago. Differential diagnosis: Etiologies such as musculoskeletal, disc herniation, fracture, aortic disease, metastatic disease, cord compression, discitis, infection, renal colic, gastrointestinal, acute exacerbation of chronic back pain, sciatica, cauda equina, cardiac ischemia, aortic dissection, pulmonary embolism, pneumonia, pneumothorax, musculoskeletal, infections, pericarditis, myocarditis, esophageal rupture, gastrointestinal, as well as others were entertained. Patient was seen and evaluated the bedside. Patient does have a history of appendiceal cancer status post HI PEC procedure. Patient is a history of vein thromboses for which she is on apixaban. Patient does have a complaint of some back pain. Patient does not have any neuro deficits but difficulty w/ movements of LLE. Patient's otherwise is fairly well-appearing although is fairly tachycardic. Patient did have a CT PE protocol. Patient's blood work was also completed. Patient does have a white count of 21,000 with left shift. Patient has not had any recent chemo or radiation therapy. Patient was given broad-spectrum antibiotics and blood cultures were drawn. Also of note the patient does seek palliative care initiation given her poor prognosis. I did speak with case reviewer who is helping to facilitate this. Patient was also given 2 L of fluid and the patient was also given some pain medication. Patient does have some chronic anemia and some elevated alk phos. patient CTs were completed. Patient was noted to have numerous and increasing lytic lesions in her back. There was some protrusion into the sacrum. There is no evidence of any cauda equina at least seen on CTs with regard to lesions compressing the canal. Patient CT PE did not show any acute embolus. Given the patient's want for palliative care, leukocytosis with a possible unknown source concerning for possible sepsis the patient was admitted for further evaluation and treatment. Medication Reconcilliation Current Medication List: was personally reviewed by ut Blood Pressure Screening Patient's blood pressure: Elevated blood pressure Blood pressure disposition: Elevated BP felt to be situational Consults Time Called: 1620 Consulting Physician: Denise [facility]new [id number] Returned Call: 1630 Discussed the patient's case. The patient will be evaluated for further treatment and disposition. Impression Primary Impression: Leukocytosis Additional Impressions: Sepsis Tumor, metastatic Back pain Critical Care I have personally spent greater than 40 minutes of critical care time in the direct management of this patient. This includes bedside care, interpretation of diagnostic studies, and testing, discussion with consultants, patient, and family members, and other required patient management activities. This 40 minutes is in excess of all separately billable procedures. Scribe Attestation The scribe's documentation has been prepared under my direction and personally reviewed by me in its entirety. I confirm that the note above accurately reflects all work, treatment, procedures, and medical decision making performed by me. Departure Information Dispostion Being Evaluated By Hospitalist Kevin Joya II MD (PCP) Patient Instructions My [facility] Problem Qualifiers Primary Impression: Leukocytosis Leukocytosis type: bandemia Qualified Codes: D72.825 - Bandemia Additional Impressions: Sepsis Sepsis type: sepsis due to unspecified organism Qualified Codes: A41.9 - Sepsis, unspecified organism Back pain Back pain location: low back pain Chronicity: chronic Back pain laterality : bilateral Sciatica presence: with sciatica Sciatica laterality: bilateral sciatica Qualified Codes: M54.42 - Lumbago with sciatica, left side ; M54.41 - Lumbago with sciatica, right side; G89.29 - Other chronic pain
[2017-06-19] MEDS ORDERED: VANCOMYCIN CONSULT ACTIVE PRN (14:15)
--- NOTE | 2017-06-19 15:12 | DIAGNOSTIC IMAGING REPORT ---
CT OF THE LUMBAR SPINE WITHOUT CONTRAST CLINICAL HISTORY: Back pain. Colon cancer. COMPARISON STUDY: No previous studies for comparison. TECHNIQUE: Axial images of the lumbar spine were obtained without IV contrast. Sagittal and coronal reconstructions were viewed. FINDINGS: Note is made of severe right and moderate left hydroureteronephrosis. Bilateral ureteral stents are partially imaged. There has been interval development of innumerable mixed lytic and blastic lesions within the visualized skeletal structures and CT of December 14, 2016. An index left sacral lesion measures 2.4 cm. Central canal is suboptimally assessed by CT but there is no definite epidural extension within the lumbar canal. There is suspected slight extension of tumor into the right S2-S3 neural foramen. No definite pathologic fractures identified. IMPRESSION: 1. Interval development of innumerable lytic and blastic skeletal lesions since CT of December 14, 2016 consistent with metastatic disease. No pathologic fracture identified. No epidural extension of tumor within the lumbar spine. Suspected slight extension of tumor into the right S2-S3 neural foramen. 2. Severe right and moderate left hydroureteronephrosis with bilateral ureteral stents partially imaged on this exam. Electronically signed by: Alvaro Gutierrez M.D. 06/19/2017 3:11 PM Dictated Date/Time: 06/19/2017 2:55 PM
--- NOTE | 2017-06-19 15:28 | DIAGNOSTIC IMAGING REPORT ---
CT ANGIOGRAPHY OF THE CHEST, PULMONARY EMBOLUS PROTOCOL CLINICAL HISTORY: Chest pain, shortness of breath and tachycardia. History of thrombosis. COMPARISON STUDY: Chest radiograph December 22, 2016. TECHNIQUE: Following IV administration of 93 mL of Optiray-320, helical axial images of the chest were obtained utilizing the pulmonary embolus protocol. Maximal intensity projections and sagittal and coronal reformats were viewed on an independent 3D workstation. IV contrast was administered without complication. A dose lowering technique was utilized adhering to the principles of ALARA. FINDINGS: No pulmonary emboli are identified. The size of the heart is at the upper limits of normal. A right internal jugular [id number] is in place. A left PICC is in place. There are no enlarged thoracic lymph nodes. No consolidation is noted. There is no pneumothorax or pleural effusion. There are no suspicious pulmonary nodules. Note is made of innumerable mixed lytic and blastic lesions within the visualized skeletal structures. There is a mild pathologic fracture of the superior endplate of T9 without retropulsion. There is minimal loss of vertebral body height. Central canal is suboptimally assessed by CT but no definite epidural extension of tumor is noted. There is mild prevertebral tumor at multiple levels. Visualized portions of the upper abdomen demonstrate moderate to severe bilateral hydroureteronephrosis which is partially imaged on this exam. There is mild biliary ductal dilatation. IMPRESSION: 1. No pulmonary emboli identified. 2. Innumerable mixed lytic and blastic skeletal lesions consistent with metastatic disease. Mild T9 pathologic fracture. No retropulsion. No significant epidural extension of tumor by CT. Prevertebral tumor at multiple levels. 3. Severe right and moderate left hydronephrosis, partially imaged on this exam. 4. Mild intrahepatic biliary ductal dilatation. Electronically signed by: Alvaro Gutierrez M.D. 06/19/2017 3:27 PM Dictated Date/Time: 06/19/2017 3:13 PM
[2017-06-19] MEDS ORDERED: ENOXAPARIN 30 MG/0.3 ML SYR SQ SCH (18:30)
[2017-06-19] MEDS ORDERED: MAGNESIUM HYDROXIDE SUSP 30 ML UDC PO PRN (18:30)
[2017-06-19] MEDS ORDERED: ACETAMINOPHEN 325 MG TAB PO PRN (18:30)
[2017-06-19] MEDS ORDERED: ALUMINUM/MAGNESIUM/SIMETH (MAALOX MAX) 30 ML UDC PO PRN (18:30)
[2017-06-19] MEDS ORDERED: LOPERAMIDE HCL 2 MG CAP PO PRN (18:45)
[2017-06-19] MEDS ORDERED: OXYBUTYNIN CHLORIDE 5 MG TAB PO PRN (18:45)
[2017-06-19] MEDS ORDERED: LORAZEPAM 0.5 MG TAB PO PRN (18:45)
[2017-06-19] MEDS ORDERED: DOCUSATE SODIUM 100 MG CAP PO PRN (18:45)
[2017-06-19] MEDS ORDERED: DIPHENOXYLATE/ATROPINE 2.5/0.025MG TAB PO PRN (18:45)
[2017-06-19] MEDS ORDERED: DiphenhydrAMINE HCL 50 MG/ML VIAL IV STA (18:45)
[2017-06-19] MEDS ORDERED: NALOXONE HCL 0.4 MG/1 ML VIAL/CARP IV PRN (18:45)
[2017-06-19] MEDS ORDERED: DICYCLOMINE HCL 20 MG TAB PO PRN (18:45)
[2017-06-19] MEDS ORDERED: ONDANSETRON 8 MG TAB PO PRN (18:45)
[2017-06-19] MEDS: DOCUSATE SODIUM/SENNA 50/8.6MG TAB PO SCH (20:00)
[2017-06-19] MEDS ORDERED: POTASSIUM CHLORIDE 10 MEQ TABCR PO SCH (20:00)
[2017-06-19] MEDS: HYDROmorphone HCL 0.5MG/ML 50 ML CASSETTE IV PRN (20:08)
[2017-06-19] MEDS: CHECK FENTANYL PATCH PLACEMENT SCH (20:14)
[2017-06-19] MEDS: APIXABAN 2.5 MG TAB PO SCH (20:17)
[2017-06-19] MEDS ORDERED: LORAZEPAM 0.5 MG TAB PO SCH (21:00)
[2017-06-19] MEDS ORDERED: DULOXETINE (CYMBALTA) 30 MG CAP PO SCH (21:00)
[2017-06-19 21:15] VITALS: BP 130/76; PULSE 126; TEMP 37; O2SAT 100; BMI 18.0
--- NOTE | 2017-06-19 21:37 | History and Physical ---
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 Follows with a [facility] PCP in [place]. Patient is s/p appendectomy, hysterectomy, oophorectomy, splenectomy and colon resection. Underwent HIPEC procedure in August of 2016, additional chemo (Folfiri) and then an immunotherapy trial ending in Mar 2017. Had a repeat PET scan that showed diffuse metastatic disease in the spine. Back pain is constant and exacerbated by movement and straining. Also endorses pain in her ribs and abdomen. Follows with Dr. Horton at [facility]. Does not feel strong enough to pursue another round of chemo at this time and has been trying to enroll in hospice care for the past week without success. Goal is to get better pain control and if she regains strength , desires to try chemo again. At home, is on tylenol, oxycodone and a fentanyl for pain control. Until recently, this regimen has been sufficient. Also endorses nausea and SOB on exertion over the past week. Denies fever, chills, lightheadedness, headache, visual changes, CP, vomiting, dysuria, constipation, diarrhea or LE swelling. Receives TPN nutrition in addition to soft foods. Last BM was yesterday. Was diagnosed with a UTI on Thursday and is taking cipro. Full code. Past Medical/Surgical History Medical Problems: (1) Appendix carcinoma Status: Chronic (2) Colic vein thrombosis Status: Chronic (3) Mood disorder Status: Chronic (4) Splenic vein thrombosis Status: Chronic Surgical Problems: (1) H/O oophorectomy Status: Chronic (2) H/O splenectomy Status: Chronic (3) H/O wisdom tooth extraction Status: Chronic (4) HIPEC procedure Status: Chronic (5) History of appendectomy Status: Chronic (6) History of hysterectomy Status: Chronic (7) S/P colon resection Status: Chronic Family History FH: HTN (hypertension) MOTHER FH: colon cancer MOTHER Social History Smoking Status: Never Smoker Drug Use: none Marital Status: Housing status: lives with significant other Occupational Status: employed Allergies Coded Allergies: POLLEN (Verified Allergy, Intermediate, SEASONAL, 06/19/17) Adhesives (Verified Adverse Reaction, Intermediate, irritation, itchiness and reddness, 06/19/17) Amoxicillin (Verified Adverse Reaction, Intermediate, GREEN DIARHHEA, 06/19) Home Medications Scheduled Apixaban (Eliquis), 2.5 MG PO BID Ciprofloxacin HCl (Ciprofloxacin), 500 MG PO BID Duloxetine Hcl (Cymbalta), 90 MG PO HS Fentanyl (Fentanyl), 1 PATCH PO Q72H Lorazepam (Ativan), 0.5 MG PO HS Oxycodone HCl (Oxycodone HCl), 5 MG PO Q2H Pantoprazole (Protonix), 40 MG PO QAM Potassium Chloride (Micro-K Ext Rel), 10 MEQ PO BID Senna (Senokot), 2 TAB PO DAILY Simethicone (Simethicone Extra Strengt 125 mg), 2 CAP PO DAILY Scheduled PRN Dicyclomine Hcl (Dicyclomine Hcl), 1 TAB PO QID PRN for Diarrhea Diphenoxylate/Atropine (Lomotil), 1 TAB PO DAILY PRN for PRN Docusate Sodium (Colace), 1 CAP PO BID PRN for PRN Loperamide Hcl (Imodium), 2 MG PO TID PRN for PRN Lorazepam (Ativan), 0.5 MG PO TID PRN for Anxiety Ondansetron Hcl (Zofran), 8 MG PO BID PRN for Nausea Oxybutynin Chloride (Ditropan), 5 MG PO Q8H PRN for PRN Polyethylene Glycol 3350 (Miralax), 17 GM PO DAILY PRN for PRN Tramadol (Ultram), 50 MG PO Q6 PRN for Pain Review of Systems Ten systems reviewed and negative except as noted in the HPI. Physical Exam Vital Signs Date Time Temp Pulse Resp B/P (MAP) Pulse Ox O2 Delivery O2 Flow Rate FiO2 06/19/17 18:18 37.0 120 18 124/74 99 06/19/17 18:15 120 18 124/74 99 Room Air 06/19/17 16:38 110 06/19/17 16:20 108 18 124/74 96 Room Air 06/19/17 13:21 99 Room Air 06/19/17 12:19 132 06/19/17 12:01 37.0 130 18 130/75 99 Room Air General Appearance: + mild distress, + pertinent finding (Cachectic, ill appearing ) Head: normocephalic, atraumatic Eyes: normal inspection, PERRL, sclerae normal ENT: normal ENT inspection, hearing grossly normal, pharynx normal Neck: supple, thyroid normal, trachea midline Respiratory/Chest: chest non-tender, lungs clear, normal breath sounds, no respiratory distress, no accessory muscle use Cardiovascular: no murmur, normal peripheral pulses, + tachycardia Abdomen/GI: soft, no organomegaly, + tenderness (Diffuse TTP without guarding ) Back: normal inspection Extremities/Musculoskelatal: normal inspection, no calf tenderness, no pedal edema, + pertinent finding (PICC line in LUE. A port in chest wall. ) Neurologic/Psych: no motor/sensory deficits, alert, oriented x 3, + depressed affect Skin: normal color, warm/dry Diagnostics Laboratory Results Results Past 24 Hours Test 06/19/17 12:20 06/19/17 13:00 Range/Units White Blood Count 21.74 4.8-10.8 K/uL Red Blood Count 3.01 4.2-5.4 M/uL Hemoglobin 8.4 12.0-16.0 g/dL Hematocrit 26.5 37-47 % Mean Corpuscular Volume 88.0 80-100 fL Mean Corpuscular Hemoglobin 27.9 25-34 pg Mean Corpuscular Hemoglobin Concent 31.7 32-36 g/dl Platelet Count 317 130-400 K/uL Mean Platelet Volume 10.1 7.4-10.4 fL Neutrophils (%) (Auto) 78.1 % Lymphocytes (%) (Auto) 4.4 % Monocytes (%) (Auto) 9.0 % Eosinophils (%) (Auto) 1.0 % Basophils (%) (Auto) 0.3 % Neutrophils # (Auto) 17.00 1.4-6.5 K/uL Lymphocytes # (Auto) 0.96 1.2-3.4 K/uL Monocytes # (Auto) 1.95 0.11-0.59 K/uL Eosinophils # (Auto) 0.21 0-0.5 K/uL Basophils # (Auto) 0.06 0-0.2 K/uL RDW Standard Deviation 51.0 36.4-46.3 fL RDW Coefficient of Variation 15.7 11.5-14.5 % Immature Granulocyte % (Auto) 7.2 % Immature Granulocyte # (Auto) 1.56 0.00-0.02 K/uL Nucleated RBC Absolute Count (auto) 0.87 0-0 K/uL Nucleated Red Blood Cells % 4.0 % Large Platelets 1+ Polychromasia 1+ Target Cells 1+ Bynum-Macdona Bodies 1+ Schistocytes OCCASIONAL Sodium Level 136 136-145 mmol/L Potassium Level 4.1 3.5-5.1 mmol/L Chloride Level 102 98-107 mmol/L Carbon Dioxide Level 27 21-32 mmol/L Anion Gap 8.0 3-11 mmol/L Blood Urea Nitrogen 35 7-18 mg/dl Creatinine 0.75 0.60-1.20 mg/dl Est Creatinine Clear Calc Drug Dose 78.7 ml/min Estimated GFR () 117.2 Estimated GFR (Non- 101.1 BUN/Creatinine Ratio 47.2 10-20 Random Glucose 112 70-99 mg/dl Lactic Acid Level 1.2 0.4-2.0 mmol/L Calcium Level 10.5 8.5-10.1 mg/dl Total Bilirubin 0.3 0.2-1 mg/dl Aspartate Amino Transf (AST/SGOT) 71 15-37 U/L Alanine Aminotransferase (ALT/SGPT) 61 12-78 U/L Alkaline Phosphatase 1542 45-117 U/L Total Protein 6.9 6.4-8.2 gm/dl Albumin 2.7 3.4-5.0 gm/dl Globulin 4.2 2.5-4.0 gm/dl Albumin/Globulin Ratio 0.6 0.9-2 Microbiology Results 06/19/17 Blood Culture, Received Pending 06/19/17 Blood Culture, Received Pending Diagnostic Radiology Lumbar spine CT: IMPRESSION: 1. Interval development of innumerable lytic and blastic skeletal lesions since CT of December 14, 2016 consistent with metastatic disease. No pathologic fracture identified. No epidural extension of tumor within the lumbar spine. Suspected slight extension of tumor into the right S2-S3 neural foramen. 2. Severe right and moderate left hydroureteronephrosis with bilateral ureteral stents partially imaged on this exam. Chest/thorax CTA: IMPRESSION: 1. No pulmonary emboli identified. 2. Innumerable mixed lytic and blastic skeletal lesions consistent with metastatic disease. Mild T9 pathologic fracture. No retropulsion. No significant epidural extension of tumor by CT. Prevertebral tumor at multiple levels. 3. Severe right and moderate left hydronephrosis, partially imaged on this exam. 4. Mild intrahepatic biliary ductal dilatation. EKG Sinus tachycardia at 127 bpm. Possible Left atrial enlargement Impression Assessment and Plan Patient seen in collaboration with Dr. Taylor. Please see attending addendum for assessment and plan. ATTENDING ADDENDUM : pt seen and examined , care co-ordinated with Denise Sánchez PA-C this is an unfortunate 37 yo F with widespread metastatic appendical CA s/p surgery ,aggressive Chemo now with worsening of functional declined , admitted with intractable pain CT of lumber and Thoracic spine shows : Interval development of innumerable lytic and blastic skeletal lesions since CT of December 14, 2016 consistent with metastatic disease. 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 willing for comfort care /hospice NUTRITION : on TPN has PICC line able to eat soft food D/w pt as continuing TPN may have her ineligible for Hospice care understand , they are willing to explore hospice option accepting TPN in future if pt unable to tolerate TPN -having breathing difficulty form fluid overload ,willing to discontinue FULL CODE -needs to re addressed pt is at present Terminal with no reasonable chance for cure /recovery Life expectancy < 3 months -appropriate for Hospice pt falls into sleep in mid conversation due to pain meds will continue to have discussion with while present to address Code status DVT PROPHYLAXIS : High risk /prior hx of DVT on Eliquis DISPOSITION ; pt want to return home as soon as possible ( tomorrow afternoon ) with referral for home hospice pt is counselled due to weekend arrangements of all service for Hospice may not be possible next day -pt verbalized understanding Social service consulted to assist for Hospice care referral Estella Taylor MD Level of Care Med/Surg Resuscitation Status FULL RESUSCITATION VTE Prophylaxis VTE Risk Assessment Done? Y/N: Yes Risk Level: High Given or contraindicated: Other Anticoagulation (ELIQUIS)
[2017-06-19] MEDS ORDERED: MoRPHine SULFATE 5 MG/0.25 ML UDP PO PRN (21:45)
[2017-06-19] MEDS ORDERED: ONDANSETRON 8MG OD TAB PO PRN (21:45)
[2017-06-19] MEDS ORDERED: DiphenhydrAMINE HCL 50 MG/ML VIAL IV PRN (22:30)
--- NOTE | 2017-06-19 22:43 | Progress Note ---
Progress Note Date of Service Jun 19, 2017. Progress Note ATTENDING NOTE : D/w Pt's at bedside wants pt to be comfortable only mentions he and pt had conversation earlier when she was more lucid does not want any heroic measures /no resuscitation Pt's CODE status changed to DNR/DNI ordered for Comfort care only ordered PO Roxanol , SL Ativan PRN no Lab draws or vital checks , change of position only for comfort pt will benefit from Hospital bed and other equipment as need i.e wheel chair , home 02 Social service will be updated
[2017-06-19] MEDS ORDERED: TPN INFUSION IV SCH (23:30)
[2017-06-20] VITALS: O2SAT 100
[2017-06-20] MEDS: ONDANSETRON INJ 2 MG/ML 2 ML VIAL IV PRN ×2 (00:19→21:31)
[2017-06-20] MEDS: SODIUM CHLORIDE 0.9% 1000ML 1,000 ML IV SCH ×2 (00:19→17:24)
[2017-06-20] MEDS ORDERED: SIMETHICONE 80 MG CHEW PO SCH (08:00)
[2017-06-20] MEDS ORDERED: POLYETHYLENE (MIRALAX) 17 GM PACK PO SCH (08:00)
[2017-06-20] MEDS: DOCUSATE SODIUM/SENNA 50/8.6MG TAB PO SCH ×2 (08:00→20:18)
[2017-06-20] MEDS ORDERED: PANTOprazole SOD 40 MG TAB PO SCH (08:00)
[2017-06-20] MEDS: APIXABAN 2.5 MG TAB PO SCH (08:18)
[2017-06-20] MEDS: SENNA 8.6 MG TAB PO SCH (08:27)
[2017-06-20] MEDS: CHECK FENTANYL PATCH PLACEMENT SCH ×2 (08:33→15:21)
[2017-06-20] MEDS: HYDROmorphone HCL 0.5MG/ML 50 ML CASSETTE IV PRN (12:13)
[2017-06-20] MEDS: PANTOprazole SOD 40 MG TAB PO SCH (12:14)
--- NOTE | 2017-06-20 13:41 | Psychiatric Consultation ---
Consultation Date of Consultation Jun 20, 2017. Identifying Data 37-year-old woman with metastatic appendiceal cancer, admitted medically with intractable back and abdomen pain. We're consulted at the patient's request to talk about anxiety and depression. Information is gathered from the patient, her , and the electronic medical record, all are considered to be reliable. Chief Complaint "I have a lot of anxiety.". History of Present Illness The patient is 37-year-old woman with metastatic appendiceal cancer, treatment history is well defined in the admission history and physical. She has undergone multiple treatment modalities and has most recently been diagnosed with metastasis to her spine. She has been on chronic pain medications that over the last week or so have ceased to be effective. While here in the hospital, the patient and her have made a decision to move forward with hospice care. She requested a psychiatric consult to discuss her depression and anxiety. At the time I see the patient she is fatigued but alert and cooperative. She is attempting to eat lunch at the time of the interview. She falls asleep several times during the interview but is easily awakened. She reports that she has been struggling with a lot of anxiety relative to having to make some decisions. She finds making those decisions a difficult endeavor. As above, they recently decided to move forward with hospice care and the progress note indicates that her prognosis is poor, less than 3 months. As her condition has deteriorated, the patient says her mood is getting worse and has actually had thoughts of suicide. She had a specific thought that if there were a gun in the drawer it would be very easy to pick it up and end her life that way. She says she has no access to guns and has not moved forward with any plan or intent for suicide, not wanting to do that to her family and friends who she knows love her. She has not told her of her suicidal thoughts, not wanting to be of further burden to him. He is not present during the first portion of our interview. She said her moods have been "all over the place" from anxious, to fearful, to sad. She says that she tries to keep a happy face on for others so that they are not sad. She has a fear also that if her is required to do even more for her over time that he will abandon her. Her comes to the room jail through the interview and the patient decides that she wants to have him remain. With some help and support she is able to share with him that she has been having suicidal ideation. He is not surprised and has wondered if he would come home one day having found her to have committed suicide. He confirms that there are no guns in the home in part because he himself has been depressed in his lifetime. He worries about medications, that she could potentially overdose. She is tearful during this discussion but he is able to give her reassurance that he is going to be there with her until the end. She has a history of having had suicidal ideation in the past, after a difficult breakup several years ago, when she thought about using her car to commit suicide. We walk carefully through additional difficult points. She has a very difficult relationship with her mother. Her mother herself is going through cancer treatment with stage IV colon cancer. The patient doesn't want to burden her either but also wants to avoid any drama that mother has brought to emotional issues in the past. She does not necessarily want her mother to know the severity of her condition. They also have not specifically talked about the process of burial although they touched base recently asking the question where they would like to be buried. Although her is clearly a very quiet man and tells her that they have an understanding that they love each other and he will be there for her at all times, I gave them encouragement to talk about their secret fears with one another in order to prevent those thoughts from getting distorted. When asked what she thinks we can help her with, she says that she wants to avoid having the "dark thoughts" anymore. Past Psychiatric History Current OP Treatment: no current treatment Prior OP Treatment: therapist Access to a Gun: No Suicide Attempts: No Allergies Allergies: Coded Allergies: POLLEN (Verified Allergy, Intermediate, SEASONAL, 06/19/17) Adhesives (Verified Adverse Reaction, Intermediate, irritation, itchiness and reddness, 06/19/17) Amoxicillin (Verified Adverse Reaction, Intermediate, GREEN DIARHHEA, 06/19) Home Medications Scheduled Apixaban (Eliquis), 2.5 MG PO BID Ciprofloxacin HCl (Ciprofloxacin), 500 MG PO BID Duloxetine Hcl (Cymbalta), 90 MG PO HS Fentanyl (Fentanyl), 1 PATCH PO Q72H Lorazepam (Ativan), 0.5 MG PO HS Oxycodone HCl (Oxycodone HCl), 5 MG PO Q2H Pantoprazole (Protonix), 40 MG PO QAM Potassium Chloride (Micro-K Ext Rel), 10 MEQ PO BID Senna (Senokot), 2 TAB PO DAILY Simethicone (Simethicone Extra Strengt 125 mg), 2 CAP PO DAILY Scheduled PRN Dicyclomine Hcl (Dicyclomine Hcl), 1 TAB PO QID PRN for Diarrhea Diphenoxylate/Atropine (Lomotil), 1 TAB PO DAILY PRN for PRN Docusate Sodium (Colace), 1 CAP PO BID PRN for PRN Loperamide Hcl (Imodium), 2 MG PO TID PRN for PRN Lorazepam (Ativan), 0.5 MG PO TID PRN for Anxiety Ondansetron Hcl (Zofran), 8 MG PO BID PRN for Nausea Oxybutynin Chloride (Ditropan), 5 MG PO Q8H PRN for PRN Polyethylene Glycol 3350 (Miralax), 17 GM PO DAILY PRN for PRN Tramadol (Ultram), 50 MG PO Q6 PRN for Pain Family History FH: HTN (hypertension) MOTHER FH: colon cancer MOTHER Smoking Use Smoking Status: Never Smoker Review of Systems Constitutional: malaise, weakness Eyes: denies: no symptoms, as stated in HPI, eye pain, tearing, itching, redness, discharge, double vision, visual changes, blurred vision, photophobia, other ENT: denies: no symptoms reported, see HPI, ear pain, ear discharge, loss of hearing, tinnitus, nasal pain, nasal congestion, rhinorrhea, epistaxis, sore throat, stidor, throat swelling, mouth pain, mouth swelling, dental pain, gum swelling, other Cardiovascular: reports: palpitations, other Respiratory: denies: no symptoms reported, see HPI, cough, orthopnea, short of breath, stridor, wheezing, sputum production, cyanosis, SANCHEZ, PND, other Gastrointestinal: other (recently on TPN, now stopped with hospice care) Musculoskeletal: other (severe back pain, rated 7/10) Integumentary: denies no symptoms reported, denies see HPI, denies change in color, denies change in hair/nails, denies dryness, denies lesions, denies lumps , denies rash, denies other Neurologic: denies: no symptoms, see HPI, headache, numbness, paresthesias, pre -existing deficit, seizure, tingling, tremors, general weakness, tics, focal weakness, vertigo, lethargy, memory loss, dizziness, other Endocrine: denies: no symptoms, as stated in HPI, cold intolerance, heat intolerance, hair changes, goiter, polydipsia, polyuria, skin changes, other Hematologic / Lymphatic: denies: no symptoms, as stated in HPI, abnormal clotting, adenopathy, anemia, easy bleeding, easy bruising, gums bleeding, petechiae, other Examination Vital Signs Vital Signs Past 12 Hours Date Time Temp Pulse Resp B/P (MAP) Pulse Ox O2 Delivery O2 Flow Rate FiO2 06/20/17 08:00 Room Air Laboratory Results Last 24 Hours Test 06/19/17 20:35 Urine Color RED Urine Appearance CLOUDY Urine pH 6.5 Urine Specific Finley 1.026 Urine Protein 2+ Urine Glucose (UA) NEG Urine Ketones NEG Urine Occult Blood 3+ Urine Nitrite NEG Urine Bilirubin NEG Urine Urobilinogen NEG Urine Leukocyte Esterase SMALL Urine WBC (Auto) >30 /hpf Urine RBC (Auto) >30 /hpf Urine Hyaline Casts (Auto) 0 /lpf Urine Epithelial Cells (Auto) >30 /lpf Urine Bacteria (Auto) NEG Urine Renal Epithelial Cells /lpf Urine Yeast (Auto) Mental Examination During interview pt is: alert and oriented, cooperative Appearance: appropriately dressed, other Eye contact is: good Motor behavior is: other Speech: normal in rate, rhythm & volume Affect: tearful Mood is: depressed, anxious Thought process: goal directed Thought content: reality based without delusions Suicidal thought are: present, Plan: denied, Intent: denied Homicidal thoughts are: denied Hallucinations: denies auditory, denies visual Cognition: memory grossly intact, attention grossly intact, language grossly intact Intelligence estimated to be: average Insight: fair Judgement: fair Impression / Recommendations Impression Reasons 37-year-old woman with metastatic appendiceal cancer, admitted medically with intractable back pain. We are consulted at her request to evaluate depression and anxiety. She clearly is struggling with both and her goal in requesting to see us is to avoid having the dark suicidal thoughts in the future. To that end, I have suggested we increase her Cymbalta to 120 mg daily if she can tolerate this. This will target mood, anxiety and pain. I assisted the patient and her to talk about the suicidal thoughts, have asked her to secure the medications in their home. She also believes she would benefit from having a therapist but will need somebody who can come to her home and so I will have our liaison nurse explore what possibilities exist at this time. She has been using Ativan 0.5 mg 3 times a day when necessary for anxiety and she is concerned about using it regularly, although at this point I see no harm in doing so. We could even consider converting that Klonopin for longer duration of action, however this would likely also increase the risk for respiratory suppression. I have offered to come back to see her at her request at any time she would like. Recommendations (1) depression related to medical condition 06/20 - Although the patient is on hospice, she is requesting help with her suicidal thinking. We will increase Cymbalta to 120 mg daily to see if she can tolerate - Will ask the liaison nurse to explore therapy in her home. - I have asked the to secure all medications to avoid overdose - I am available to return at the patient's request. Dr. Cynthia Gama has personally been involved in the review of this case and development of recommendations.
[2017-06-20] MEDS ORDERED: DEXAMETHASONE 4 MG TAB PO ONE (15:00)
[2017-06-20] MEDS ORDERED: TPN/PPN CONSULT PHARMACY PRN (15:15)
[2017-06-20 16:49] VITALS: BP 111/76; PULSE 128; TEMP 36.7; O2SAT 90
--- NOTE | 2017-06-20 17:46 | Progress Note ---
Medicine Progress Note Date & Time of Visit: Jun 20, 2017 at 17:09. 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 After an initial discussion about looking into Hospice, she was thought to be just comfort measures only. However, this morning she has informed me that she still has questions that are unanswered about possible treatments, and she might still be interested in pursuing those. She was placed on a dilaudid TROUBLE LOCATER overnight which has improved her pain somewhat. She is also on a Fentanyl patch of 25mcg daily. She is on TPN every night which started 3 weeks ago for her upon discharge from [facility] where she was admitted for a "kidney issue" and received her second ureteral stent. Since that time she has had gross hematuria, and recently saw Dr. Carrillo (Urology) as outpatient this last week who put her on Ditropan and some Cipro. The ditropan has caused her severe dry mouth and she was not found to have an infection in her urine so no antibiotics were continued on admission. I have spoken with Dr. Garcia (Radiation Oncology) who will evaluate her on Thursday for palliative XRT to her spine. I have coordinated with Dr. Azar who recommends the addition of Decadron to her daily regimen to help with pain. I have consulted Urology and spoken with Dr. Carrillo regarding his plan for her. I have consulted Mental Health at the patient's own request who increased her Cymbalta to 120mg PO HS from 90mg. I also came back to the room and spoke with her answering all of his questions about the tentative plan. Objective Last 8 Hrs Date Time Temp Pulse Resp B/P (MAP) Pulse Ox O2 Delivery O2 Flow Rate FiO2 06/20/17 16:49 36.7 128 15 111/76 (88) 90 Room Air Physical Exam: GEN: cachectic, in no acute distress, alert and appropriate HEENT: NC/AT, pupils are equal bilaterally, normal sclerae, MM dry CARDIO: tachy rate, S1/2 heard without m/g/r LUNGS: CTA bilaterally, no crackles, rales or wheezes, good diaphragmatic excursion ABD: soft, non-tender, non-distended, no rebound or guarding EXTREMITY: RP and DP palpable 2+ bilat, no LE swelling or edema, extremities are warm and well-perfused N/M: limited exam because of pain. Sensation appears to be intact. Able to move extremities equally and with ease. Gait not assessed. No gross focal deficits. SKIN: warm and dry Laboratory Results: 06/19/17 13:00 Red Blood Count 3.01, Mean Corpuscular Volume 88.0, Mean Corpuscular Hemoglobin 27.9, Mean Corpuscular Hemoglobin Concent 31.7, Mean Platelet Volume 10.1, Neutrophils (%) (Auto) 78.1, Lymphocytes (%) (Auto) 4.4, Monocytes (%) (Auto) 9.0, Eosinophils (%) (Auto) 1.0, Basophils (%) (Auto) 0.3, Neutrophils # (Auto) 17.00, Lymphocytes # (Auto) 0.96, Monocytes # (Auto) 1.95, Eosinophils # (Auto) 0.21, Basophils # (Auto) 0.06 06/19/17 13:00 Test 06/19/17 13:00 06/19/17 20:35 White Blood Count 21.74 K/uL (4.8-10.8) Red Blood Count 3.01 M/uL (4.2-5.4) Hemoglobin 8.4 g/dL (12.0-16.0) Hematocrit 26.5 % (37-47) Mean Corpuscular Volume 88.0 fL (80-100) Mean Corpuscular Hemoglobin 27.9 pg (25-34) Mean Corpuscular Hemoglobin Concent 31.7 g/dl (32-36) Platelet Count 317 K/uL (130-400) Mean Platelet Volume 10.1 fL (7.4-10.4) Neutrophils (%) (Auto) 78.1 % Lymphocytes (%) (Auto) 4.4 % Monocytes (%) (Auto) 9.0 % Eosinophils (%) (Auto) 1.0 % Basophils (%) (Auto) 0.3 % Neutrophils # (Auto) 17.00 K/uL (1.4-6.5) Lymphocytes # (Auto) 0.96 K/uL (1.2-3.4) Monocytes # (Auto) 1.95 K/uL (0.11-0.59) Eosinophils # (Auto) 0.21 K/uL (0-0.5) Basophils # (Auto) 0.06 K/uL (0-0.2) RDW Standard Deviation 51.0 fL (36.4-46.3) RDW Coefficient of Variation 15.7 % (11.5-14.5) Immature Granulocyte % (Auto) 7.2 % Immature Granulocyte # (Auto) 1.56 K/uL (0.00-0.02) Nucleated RBC Absolute Count (auto) 0.87 K/uL (0-0) Nucleated Red Blood Cells % 4.0 % Large Platelets 1+ Polychromasia 1+ Target Cells 1+ [place] Bodies 1+ Schistocytes OCCASIONAL Anion Gap 8.0 mmol/L (3-11) Est Creatinine Clear Calc Drug Dose 78.7 ml/min Estimated GFR () 117.2 Estimated GFR (Non- 101.1 BUN/Creatinine Ratio 47.2 (10-20) Lactic Acid Level 1.2 mmol/L (0.4-2.0) Calcium Level 10.5 mg/dl (8.5-10.1) Total Bilirubin 0.3 mg/dl (0.2-1) Aspartate Amino Transf (AST/SGOT) 71 U/L (15-37) Alanine Aminotransferase (ALT/SGPT) 61 U/L (12-78) Alkaline Phosphatase 1542 U/L (45-117) Total Protein 6.9 gm/dl (6.4-8.2) Albumin 2.7 gm/dl (3.4-5.0) Globulin 4.2 gm/dl (2.5-4.0) Albumin/Globulin Ratio 0.6 (0.9-2) Urine Color RED Urine Appearance CLOUDY (CLEAR) Urine pH 6.5 (4.5-7.5) Urine Specific [place] 1.026 (1.000-1.030) Urine Protein 2+ (NEG) Urine Glucose (UA) NEG (NEG) Urine Ketones NEG (NEG) Urine Occult Blood 3+ (NEG) Urine Nitrite NEG (NEG) Urine Bilirubin NEG (NEG) Urine Urobilinogen NEG (NEG) Urine Leukocyte Esterase SMALL (NEG) Urine WBC (Auto) >30 /hpf (0-5) Urine RBC (Auto) >30 /hpf (0-4) Urine Hyaline Casts (Auto) 0 /lpf (0-5) Urine Epithelial Cells (Auto) >30 /lpf (0-5) Urine Bacteria (Auto) NEG (NEG) Urine Renal Epithelial Cells /lpf (0-5) Urine Yeast (Auto) (NONE PRSENT) Date/Time Source Procedure Growth Status 06/19/17 20:32 Blood Blood Culture Pending Received Last 24 Hours Test 06/19/17 20:35 Urine Color RED Urine Appearance CLOUDY Urine pH 6.5 Urine Specific [place] 1.026 Urine Protein 2+ Urine Glucose (UA) NEG Urine Ketones NEG Urine Occult Blood 3+ Urine Nitrite NEG Urine Bilirubin NEG Urine Urobilinogen NEG Urine Leukocyte Esterase SMALL Urine WBC (Auto) >30 /hpf Urine RBC (Auto) >30 /hpf Urine Hyaline Casts (Auto) 0 /lpf Urine Epithelial Cells (Auto) >30 /lpf Urine Bacteria (Auto) NEG Urine Renal Epithelial Cells /lpf Urine Yeast (Auto) Date/Time Source Procedure Growth Status 06/19/17 20:32 Blood Blood Culture Pending Received Assessment & Plan 37 yo F with 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 After an initial discussion about looking into Hospice, she was thought to be just comfort measures only. However, this morning she has informed me that she still has questions that are unanswered about possible treatments, and she might still be interested in pursuing those. She was placed on a dilaudid TROUBLE LOCATER overnight which has improved her pain somewhat. She is also on a Fentanyl patch of 25mcg daily. She is on TPN every night which started 3 weeks ago for her upon discharge from [facility] where she was admitted for a "kidney issue" and received her second ureteral stent. Since that time she has had gross hematuria, and recently saw Dr. Carrillo (Urology) as outpatient this last week who put her on Ditropan and some Cipro. The ditropan has caused her severe dry mouth and she was not found to have an infection in her urine so no antibiotics were continued on admission. I have spoken with Dr. Garcia (Radiation Oncology) who will evaluate her on Thursday am for palliative XRT to her spine. I have coordinated with Dr. Azar who recommends the addition of Decadron to her daily regimen to help with pain. I have consulted Urology and spoken with Dr. Carrillo regarding his plan for her. I have consulted Mental Health at the patient's own request who increased her Cymbalta to 120mg PO HS from 90mg. I also came back to the room and spoke with her answering all of his questions about the tentative plan. 1. Back pain in setting of spinal mets-Rad Onc consulted to consider palliative XRT, Dilaudid TROUBLE LOCATER continued WITHOUT continuous infusion of 1mg/hr, fentanyl patch removed in setting of narcotic overdosing, Decadron 4mg daily added to regimen. PT has some loose stools at baseline so will DC all scheduled laxatives and just keep a stool softener on board for now. Dr. Azar to see her on Thursday to help with pain regimen. DC'd Pain Management consult. 2. Gross hematuria-poss related to bilateral ureteral stents in setting of Elliquis. No obvious infection is present and patient not on abx as a result. No urine culture was drawn, however. Consulted Urology who had started ditropan to help control possible spasms, however, this is giving her severe dry mouth and was discontinued. [place] is in place for her comfort ([place] trauma may also be contributing to hematuria). 3. Malignant cachexia-pt has been started on TPN through her PICC line, despite having a port in place, and has opted to bring in her TPN from home while hospitalized. Pharmacy is overseeing this. Cont PO intake. Nutrition saw her and recommends considering discontinuing the TPN as it is not consistent with comfort measures. However, the patient is not wishing to be on comfort measures at this time, so will cont for now and look into it going through the port as a way to reduce infection and get the PICC removed. She has expressed that she will only take sponge baths, for instance, because she is so afraid to get the PICC wet or infected and this is definitely affecting her QOL. Cont diet per rehabilitation technician who recommends low fiber and low lactose. 4. Depression/Adjustment reaction-MH was consulted at patient's request and has increased her Cymbalta to 120mg PO HS from 90mg. 5. Anemia-poss multifactorial in setting of known malignancy (ACD) and hematuria. Going to hold Eliquis at this time and monitor closely. 6. Leukocytosis. No signs of infection at this time. Cont to monitor for now. Poss stress response. On steroids likely to increase or remain elevated. DVT proph-Eliquis held in setting of gross hematuria. Full Code Dispo: pending evaluations on Thursday. Мария Martinez DO [facility] Hospitalist Current Inpatient Medications: Current Inpatient Medications Medications (Trade) Dose Ordered Sig/Shani Route Start Time Stop Time Status Last Admin Dose Admin Ioversol (Optiray 320) 125 ml UD PRN IV 06/19/17 12:30 06/23/17 12:29 Al Hydrox/Mg Hydrox/Simethicone (Maalox Max Susp) 15 ml Q4H PRN PO 06/19/17 18:30 07/19/17 18:29 Magnesium Hydroxide (Milk Of Magnesia Susp) 30 ml Q6H PRN PO 06/19/17 18:30 07/19/17 18:29 Polyethylene (Miralax Powder Packet) 17 gm DAILY PO 06/20/17 08:00 07/20/17 08:59 06/19/17 20:14 17 GM Ondansetron HCl (Zofran Inj) 4 mg Q6H PRN IV 06/19/17 18:30 07/19/17 18:29 06/20/17 00:19 4 MG Apixaban (Eliquis Tab) 2.5 mg BID PO 06/19/17 20:00 07/19/17 20:59 06/20/17 08:18 2.5 MG Docusate Sodium (coLACE CAP) 100 mg BID PRN PO 06/19/17 18:45 07/19/17 18:44 Fentanyl (Duragesic Patch) 25 mcg Q3D@2000 TD 06/20/17 20:00 07/04/17 19:59 Senna (Senokot Tab) 17.2 mg DAILY PO 06/20/17 08:00 07/20/17 08:59 06/20/17 08:27 17.2 MG Naloxone HCl (Narcan Inj) 0.1 mg Q5M PRN IV 06/19/17 18:45 07/19/17 18:44 Hydromorphone HCl (Dilaudid Public Health Program Manager) 25 mg PRN PRN IV 06/19/17 18:45 07/03/17 18:44 06/20/17 12:13 25 MG Senna/Docusate Sodium (Senokot S Tab) 1 tab BID PO 06/19/17 20:00 07/19/17 20:59 Sodium Chloride 1,000 ml @ 15 mls/hr Q24H IV 06/19/17 18:33 07/19/17 18:32 06/20/17 00:19 15 MLS/HR Miscellaneous (Fentanyl Patch Remove & Waste) 1 ea Q3D@1959 N/A 06/20/17 19:59 07/20/17 19:58 Miscellaneous Information (Check Fentanyl Patch Placement) 1 ea QS N/A 06/20/17 00:00 07/20/17 00:00 06/20/17 15:21 1 EA Lorazepam (Ativan Tab) 1 mg Q6 PRN SL 06/19/17 21:45 07/19/17 21:44 Lorazepam (Ativan Tab) 0.5 mg Q6 PRN SL 06/19/17 22:00 07/19/17 18:44 Lorazepam (Ativan Tab) 0.5 mg HS SL 06/20/17 21:00 07/19/17 20:59 06/20/17 08:32 0.5 MG Diphenhydramine HCl (Benadryl Inj) 12.5 mg Q8 PRN IV 06/19/17 22:30 07/19/17 22:29 Simethicone (Mylicon Chew Tab) 120 mg DAILY PRN PO 06/20/17 08:00 07/20/17 08:59 Pantoprazole Sodium (Protonix Tab) 40 mg QAM PO 06/20/17 12:00 07/20/17 11:59 06/20/17 12:14 40 MG Heparin Sodium (Porcine) (Heparin 10 Unit/ ml 5 ml Flush) 5 ml PRN PRN FLUSH 06/20/17 11:45 07/20/17 11:44 Heparin Sodium (Porcine) (Heparin 100 Unit/ml 5ml Flush) 5 ml PRN PRN IV 06/20/17 11:45 07/20/17 11:44 Duloxetine HCl (Cymbalta Cap) 120 mg HS PO 06/20/17 21:00 07/20/17 20:59 Dexamethasone (Decadron Tab) 4 mg DAILY PO 06/21/17 08:00 07/21/17 07:59 Miscellaneous Information (Pharmacy Tpn/ Ppn Consult Active) 1 ea UD PRN N/A 06/20/17 15:15 07/20/17 15:14
[2017-06-20] MEDS: FENTANYL 25 MCG/HR TDSY TD SCH (19:23)
[2017-06-20 19:24] VITALS: BP 120/75; PULSE 128; TEMP 36.4; O2SAT 93
[2017-06-20] MEDS: HYDROmorphone INJ 0.5 MG/0.5 ML SYR IV PRN ×3 (19:25→21:23)
[2017-06-20] MEDS: FENTANYL PATCH REMOVE & WASTE SCH (19:52)
[2017-06-20] MEDS ORDERED: FENTANYL PATCH REMOVE & WASTE SCH (19:59)
[2017-06-20] MEDS ORDERED: FENTANYL 25 MCG/HR TDSY TD SCH (20:00)
[2017-06-20] MEDS: LORAZEPAM 0.5 MG TAB SL PRN (20:14)
[2017-06-20] MEDS: DULOXETINE HCL 60 MG CAP PO SCH (20:19)
[2017-06-20] MEDS ORDERED: TPN INFUSION IV SCH (20:30)
[2017-06-20] MEDS ORDERED: DULOXETINE HCL 60 MG CAP PO SCH (21:00)
[2017-06-20] MEDS ORDERED: LORAZEPAM 0.5 MG TAB SL SCH (21:00)
[2017-06-20] MEDS ORDERED: DULOXETINE (CYMBALTA) 30 MG CAP PO SCH (21:00)
[2017-06-20] MEDS: SIMETHICONE 80 MG CHEW PO PRN (21:31)
[2017-06-21] MEDS: CHECK FENTANYL PATCH PLACEMENT SCH ×4 (00:15→23:38)
[2017-06-21] MEDS: HYDROmorphone INJ 0.5 MG/0.5 ML SYR IV PRN ×7 (00:19→09:15)
[2017-06-21] MEDS: LORAZEPAM 1 MG TAB SL PRN ×3 (03:28→19:50)
[2017-06-21 06:14] LABS: CALCIUM 9.9 mg/dl (8.5-10.1); CREATININE 0.87 mg/dl (0.60-1.20); PHOSPHORUS 3.1 mg/dl (2.5-4.9); POTASSIUM 4.2 mmol/L (3.5-5.1)
[2017-06-21] MEDS: PANTOprazole SOD 40 MG TAB PO SCH (07:40)
[2017-06-21] MEDS: DEXAMETHASONE 4 MG TAB PO SCH (07:40)
[2017-06-21] MEDS: SENNA 8.6 MG TAB PO SCH (07:40)
[2017-06-21] MEDS: DOCUSATE SODIUM/SENNA 50/8.6MG TAB PO SCH ×2 (07:40→19:49)
[2017-06-21 07:52] VITALS: BP 124/79; PULSE 126; TEMP 36.8; O2SAT 91
[2017-06-21] MEDS ORDERED: POLYETHYLENE (MIRALAX) 17 GM PACK PO PRN (08:00)
[2017-06-21] MEDS: SIMETHICONE 80 MG CHEW PO PRN ×2 (08:11→19:50)
[2017-06-21 11:12] VITALS: BP 130/82; PULSE 124; TEMP 36.5; O2SAT 90
--- NOTE | 2017-06-21 12:28 | Progress Note ---
Medicine Progress Note Date & Time of Visit: Jun 21, 2017 at 12:18. 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 After an initial discussion about looking into Hospice, she was thought to be just comfort measures only. However, she was made full code as she is still trying to pursue treatments. She was placed on a dilaudid DRAWING BOX TENDER overnight which improved her pain but was too high a dose and was decreased w removal of her Fentanyl patch. This was replaced when she woke up more and pain was uncontrolled overnight but is improving this morning. Eliquis was stopped in setting of anemia and gross hematuria. She is otherwise pretty drowsy from the pain and not making much sense at the moment but appears comfortable. Objective Last 8 Hrs Date Time Temp Pulse Resp B/P (MAP) Pulse Ox O2 Delivery O2 Flow Rate FiO2 06/21/17 11:12 36.5 124 14 130/82 (98) 90 Room Air 06/21/17 08:00 Room Air 06/21/17 07:52 36.8 126 18 124/79 (94) 91 Room Air Physical Exam: GEN: cachectic, in no acute distress, easily arousable but sleepy from medications. HEENT: NC/AT, pupils are equal bilaterally, normal sclerae, MM dry but improved from yesterday CARDIO: tachy rate, S1/2 heard without m/g/r LUNGS: CTA bilaterally, no crackles, rales or wheezes, good diaphragmatic excursion ABD: soft, non-tender, non-distended, no rebound or guarding EXTREMITY: RP and DP palpable 2+ bilat, no LE swelling or edema, extremities are warm and well-perfused N/M: limited exam because of pain. Sensation intact. Able to bend knees but has to use her hands to worm picker her legs. 4/5 strength in legs bilaterally. Gait not assessed. No gross focal deficits. SKIN: warm and dry Laboratory Results: 06/19/17 13:00 Red Blood Count 3.01, Mean Corpuscular Volume 88.0, Mean Corpuscular Hemoglobin 27.9, Mean Corpuscular Hemoglobin Concent 31.7, Mean Platelet Volume 10.1, Neutrophils (%) (Auto) 78.1, Lymphocytes (%) (Auto) 4.4, Monocytes (%) (Auto) 9.0, Eosinophils (%) (Auto) 1.0, Basophils (%) (Auto) 0.3, Neutrophils # (Auto) 17.00, Lymphocytes # (Auto) 0.96, Monocytes # (Auto) 1.95, Eosinophils # (Auto) 0.21, Basophils # (Auto) 0.06 06/21/17 04:57 Test 06/19/17 13:00 06/19/17 20:35 06/21/17 04:57 White Blood Count 21.74 K/uL (4.8-10.8) Red Blood Count 3.01 M/uL (4.2-5.4) Hemoglobin 8.4 g/dL (12.0-16.0) Hematocrit 26.5 % (37-47) Mean Corpuscular Volume 88.0 fL (80-100) Mean Corpuscular Hemoglobin 27.9 pg (25-34) Mean Corpuscular Hemoglobin Concent 31.7 g/dl (32-36) Platelet Count 317 K/uL (130-400) Mean Platelet Volume 10.1 fL (7.4-10.4) Neutrophils (%) (Auto) 78.1 % Lymphocytes (%) (Auto) 4.4 % Monocytes (%) (Auto) 9.0 % Eosinophils (%) (Auto) 1.0 % Basophils (%) (Auto) 0.3 % Neutrophils # (Auto) 17.00 K/uL (1.4-6.5) Lymphocytes # (Auto) 0.96 K/uL (1.2-3.4) Monocytes # (Auto) 1.95 K/uL (0.11-0.59) Eosinophils # (Auto) 0.21 K/uL (0-0.5) Basophils # (Auto) 0.06 K/uL (0-0.2) RDW Standard Deviation 51.0 fL (36.4-46.3) RDW Coefficient of Variation 15.7 % (11.5-14.5) Immature Granulocyte % (Auto) 7.2 % Immature Granulocyte # (Auto) 1.56 K/uL (0.00-0.02) Nucleated RBC Absolute Count (auto) 0.87 K/uL (0-0) Nucleated Red Blood Cells % 4.0 % Large Platelets 1+ Polychromasia 1+ Target Cells 1+ [place] Bodies 1+ Schistocytes OCCASIONAL Lactic Acid Level 1.2 mmol/L (0.4-2.0) Total Bilirubin 0.3 mg/dl (0.2-1) Aspartate Amino Transf (AST/SGOT) 71 U/L (15-37) Alanine Aminotransferase (ALT/SGPT) 61 U/L (12-78) Alkaline Phosphatase 1542 U/L (45-117) Total Protein 6.9 gm/dl (6.4-8.2) Albumin 2.7 gm/dl (3.4-5.0) Globulin 4.2 gm/dl (2.5-4.0) Albumin/Globulin Ratio 0.6 (0.9-2) Urine Color RED Urine Appearance CLOUDY (CLEAR) Urine pH 6.5 (4.5-7.5) Urine Specific [place] 1.026 (1.000-1.030) Urine Protein 2+ (NEG) Urine Glucose (UA) NEG (NEG) Urine Ketones NEG (NEG) Urine Occult Blood 3+ (NEG) Urine Nitrite NEG (NEG) Urine Bilirubin NEG (NEG) Urine Urobilinogen NEG (NEG) Urine Leukocyte Esterase SMALL (NEG) Urine WBC (Auto) >30 /hpf (0-5) Urine RBC (Auto) >30 /hpf (0-4) Urine Hyaline Casts (Auto) 0 /lpf (0-5) Urine Epithelial Cells (Auto) >30 /lpf (0-5) Urine Bacteria (Auto) NEG (NEG) Urine Renal Epithelial Cells /lpf (0-5) Urine Yeast (Auto) (NONE PRSENT) Anion Gap 7.0 mmol/L (3-11) Est Creatinine Clear Calc Drug Dose 72.1 ml/min Estimated GFR () 97.9 Estimated GFR (Non- 84.5 BUN/Creatinine Ratio 53.1 (10-20) Calcium Level 9.9 mg/dl (8.5-10.1) Phosphorus Level 3.1 mg/dl (2.5-4.9) Magnesium Level 2.3 mg/dl (1.8-2.4) Triglycerides Level 129 mg/dl (0-150) Date/Time Source Procedure Growth Status 06/19/17 20:32 Blood Blood Culture - Preliminary NO GROWTH TO DATE. 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 After an initial discussion about looking into Hospice, she was thought to be just comfort measures only. However, she was made full code as she is still trying to pursue treatments. She was placed on a dilaudid DRAWING BOX TENDER overnight which improved her pain but was too high a dose and was decreased w removal of her Fentanyl patch. This was replaced when she woke up more and pain was uncontrolled overnight but is improving this morning. Eliquis was stopped in setting of anemia and gross hematuria. She is otherwise pretty drowsy from the pain and not making much sense at the moment but appears comfortable. 1. Back pain in setting of spinal mets-Rad Onc consulted to consider palliative XRT tomorrow morning, Dilaudid DRAWING BOX TENDER, Fentanyl patch, Decardron. Palliative to see her in am. 2. Gross hematuria-poss related to bilateral ureteral stents in setting of Eliquis. No obvious infection is present and patient not on abx as a result. No urine culture was drawn, however. Consulted Urology who had started ditropan to help control possible spasms, however, this is giving her severe dry mouth and was discontinued. [place] is in place for her comfort ([place] trauma may also be contributing to hematuria). will cont to monitor off Eliquis. 3. 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 Pharmacy is overseeing this. Cont PO intake as tolerated. 4. Depression/Adjustment reaction-MH was consulted at patient's request and has increased her Cymbalta to 120mg PO HS from 90mg. They are also settting her up with mobile psych visits at home. Appreciate involvement. 5. Anemia-poss multifactorial in setting of known malignancy (ACD) and hematuria. Cont to hold Eliquis at this time and monitor closely. 6. Leukocytosis. No signs of infection at this time. Cont to monitor for now. Poss stress response. On steroids likely to increase or remain elevated. DVT proph-Eliquis held in setting of gross hematuria. Full Code Dispo: pending evaluations on Thursday. [facility] Consultants: Urology-[facility] Onc-Jose Ferreira-Doe Current Inpatient Medications: Current Inpatient Medications Medications (Trade) Dose Ordered Sig/Shani Route Start Time Stop Time Status Last Admin Dose Admin Ioversol (Optiray 320) 125 ml UD PRN IV 06/19/17 12:30 06/23/17 12:29 Al Hydrox/Mg Hydrox/Simethicone (Maalox Max Susp) 15 ml Q4H PRN PO 06/19/17 18:30 07/19/17 18:29 Magnesium Hydroxide (Milk Of Magnesia Susp) 30 ml Q6H PRN PO 06/19/17 18:30 07/19/17 18:29 Ondansetron HCl (Zofran Inj) 4 mg Q6H PRN IV 06/19/17 18:30 07/19/17 18:29 06/20/17 21:31 4 MG Apixaban (Eliquis Tab) 2.5 mg BID PO 06/19/17 20:00 07/19/17 20:59 Future Hold 06/20/17 08:18 2.5 MG Docusate Sodium (coLACE CAP) 100 mg BID PRN PO 06/19/17 18:45 07/19/17 18:44 Senna (Senokot Tab) 17.2 mg DAILY PO 06/20/17 08:00 07/20/17 08:59 06/21/17 07:40 17.2 MG Naloxone HCl (Narcan Inj) 0.1 mg Q5M PRN IV 06/19/17 18:45 07/19/17 18:44 Hydromorphone HCl (Dilaudid Wheat Farmer) 25 mg PRN PRN IV 06/19/17 18:45 07/03/17 18:44 06/20/17 12:13 25 MG Senna/Docusate Sodium (Senokot S Tab) 1 tab BID PO 06/19/17 20:00 07/19/17 20:59 06/21/17 07:40 1 TAB Sodium Chloride 1,000 ml @ 15 mls/hr Q24H IV 06/19/17 18:33 07/19/17 18:32 06/20/17 00:19 15 MLS/HR Lorazepam (Ativan Tab) 1 mg Q6 PRN SL 06/19/17 21:45 07/19/17 21:44 06/21/17 09:14 1 MG Lorazepam (Ativan Tab) 0.5 mg Q6 PRN SL 06/19/17 22:00 07/19/17 18:44 06/20/17 20:14 0.5 MG Diphenhydramine HCl (Benadryl Inj) 12.5 mg Q8 PRN IV 06/19/17 22:30 07/19/17 22:29 06/20/17 21:18 12.5 MG Simethicone (Mylicon Chew Tab) 120 mg DAILY PRN PO 06/20/17 08:00 07/20/17 08:59 06/21/17 08:11 120 MG Pantoprazole Sodium (Protonix Tab) 40 mg QAM PO 06/20/17 12:00 07/20/17 11:59 06/21/17 07:40 40 MG Heparin Sodium (Porcine) (Heparin 10 Unit/ ml 5 ml Flush) 5 ml PRN PRN FLUSH 06/20/17 11:45 07/20/17 11:44 06/21/17 09:14 5 ML Heparin Sodium (Porcine) (Heparin 100 Unit/ml 5ml Flush) 5 ml PRN PRN IV 06/20/17 11:45 07/20/17 11:44 Duloxetine HCl (Cymbalta Cap) 120 mg HS PO 06/20/17 21:00 07/20/17 20:59 06/20/17 20:19 120 MG Dexamethasone (Decadron Tab) 4 mg DAILY PO 06/21/17 08:00 07/21/17 07:59 06/21/17 07:40 4 MG Miscellaneous Information (Pharmacy Tpn/ Ppn Consult Active) 1 ea UD PRN N/A 06/20/17 15:15 07/20/17 15:14 Polyethylene (Miralax Powder Packet) 17 gm DAILY PRN PO 06/21/17 08:00 07/20/17 08:59 Fentanyl (Duragesic Patch) 25 mcg Q3D@2000 TD 06/20/17 20:00 07/04/17 19:59 06/20/17 19:23 25 MCG Miscellaneous (Fentanyl Patch Remove & Waste) 1 ea Q3D@1959 N/A 06/20/17 19:59 07/20/17 19:58 Miscellaneous Information (Check Fentanyl Patch Placement) 1 ea QS N/A 06/21/17 00:00 07/21/17 00:00 06/21/17 07:41 1 EA Hydromorphone HCl (Dilaudid Inj) 0.5 mg Q30M PRN IV 06/20/17 19:15 07/04/17 19:14 06/21/17 09:15 0.5 MG
[2017-06-21 15:56] VITALS: BP 130/84; PULSE 123; TEMP 36.6; O2SAT 93
[2017-06-21] MEDS: SODIUM CHLORIDE 0.9% 1000ML 1,000 ML IV SCH (17:44)
--- NOTE | 2017-06-21 18:49 | Urology Consultation ---
History General Date of Service: Jun 21, 2017. 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 Had stents placed in [place] approx 1 month ago. 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 Grove in place now and clearing urine. Dark pink. No clots. Draining well. No major pain. Has severe bone pain being addressed here. Deconditioned and cachetic. Laboratory Labs were reviewed and are within normal limits unless listed below. Labs are available in the chart and at [facility] Problem List Medical Problems: (1) Anemia Status: Acute (2) Back pain Status: Acute (3) Dehydration Status: Acute (4) Leukocytosis Status: Acute (5) Sepsis Status: Acute (6) Tumor, metastatic Status: Acute Past History cancer, pyelonephritis, STD Past Surgical History: colectomy, other (stents) Family History FH: HTN (hypertension) MOTHER FH: colon cancer MOTHER Social History Hx Tobacco Use In Past Year?: No Marital status: Housing status: lives with significant other Occupation status: employed Allergies Coded Allergies: POLLEN (Verified Allergy, Intermediate, SEASONAL, 06/19/17) Adhesives (Verified Adverse Reaction, Intermediate, irritation, itchiness and reddness, 06/19/17) Amoxicillin (Verified Adverse Reaction, Intermediate, GREEN DIARHHEA, 06/19) Medications Home Medications: Home Meds and Scripts Medications Dose Route/Sig Max Daily Dose Days Date Category Dose Instructions Ciprofloxacin (Ciprofloxacin HCl) 500 Mg Tab 500 Mg PO BID 06/19/17 Reported Ditropan (Oxybutynin Chloride) 5 Mg Tab 5 Mg PO Q8H PRN 06/19/17 Reported Dicyclomine Hcl 20 Mg Tab 1 Tab PO QID PRN 06/19/17 Reported Simethicone Extra Strengt 125 mg (Simethicone) 1 Cap Cap 2 Cap PO DAILY 06/19/17 Reported Ativan (Lorazepam) 0.5 Mg Tab 0.5 Mg PO HS 06/19/17 Reported Fentanyl 25 Mcg Tdsy 1 Patch PO Q72H 06/19/17 Reported Eliquis (Apixaban) 2.5 Mg Tab 2.5 Mg PO BID 06/19/17 Reported Miralax (Polyethylene Glycol 3350) 1 17 Gm PO DAILY PRN 01/30/17 Reported Imodium (Loperamide HCl) 2 Mg Cap 2 Mg PO TID PRN 01/30/17 Reported Senokot (Senna) 8.6 Mg Tab 2 Tab PO DAILY 01/30/17 Reported Colace (Docusate Sodium) 100 Mg Cap 1 Cap PO BID PRN 01/30/17 Reported Zofran (Ondansetron HCl) 8 Mg Tab 8 Mg PO BID PRN 01/30/17 Reported Lomotil (Diphenoxylate HCl/Atropine) Tab 1 Tab PO DAILY PRN 01/30/17 Reported Micro-K Ext Rel (Potassium Chloride) 10 Meq Capcr 10 Meq PO BID 01/30/17 Reported Ativan (Lorazepam) 0.5 Mg Tab 0.5 Mg PO TID PRN 12/22/16 Reported Cymbalta (Duloxetine Hcl) 30 Mg Cap 90 Mg PO HS 12/22/16 Reported Oxycodone HCl 5 Mg Tab 5 Mg PO Q2H 12/22/16 Reported ABDOMINAL PAIN Ultram (Tramadol HCl) 50 Mg Tab 50 Mg PO Q6 PRN 12/22/16 Reported Protonix (Pantoprazole Sodium) 40 Mg Tab 40 Mg PO QAM 12/22/16 Reported Inpatient Medications: Current Inpatient Medications Medications (Trade) Dose Ordered Sig/Shani Route Start Time Stop Time Status Last Admin Dose Admin Ioversol (Optiray 320) 125 ml UD PRN IV 06/19/17 12:30 06/23/17 12:29 Al Hydrox/Mg Hydrox/Simethicone (Maalox Max Susp) 15 ml Q4H PRN PO 06/19/17 18:30 07/19/17 18:29 Magnesium Hydroxide (Milk Of Magnesia Susp) 30 ml Q6H PRN PO 06/19/17 18:30 07/19/17 18:29 Ondansetron HCl (Zofran Inj) 4 mg Q6H PRN IV 06/19/17 18:30 07/19/17 18:29 06/20/17 21:31 4 MG Apixaban (Eliquis Tab) 2.5 mg BID PO 06/19/17 20:00 07/19/17 20:59 Future Hold 06/20/17 08:18 2.5 MG Docusate Sodium (coLACE CAP) 100 mg BID PRN PO 06/19/17 18:45 07/19/17 18:44 Senna (Senokot Tab) 17.2 mg DAILY PO 06/20/17 08:00 07/20/17 08:59 06/21/17 07:40 17.2 MG Naloxone HCl (Narcan Inj) 0.1 mg Q5M PRN IV 06/19/17 18:45 07/19/17 18:44 Hydromorphone HCl (Dilaudid Field Services Analyst) 25 mg PRN PRN IV 06/19/17 18:45 07/03/17 18:44 06/20/17 12:13 25 MG Senna/Docusate Sodium (Senokot S Tab) 1 tab BID PO 06/19/17 20:00 07/19/17 20:59 06/21/17 07:40 1 TAB Sodium Chloride 1,000 ml @ 15 mls/hr Q24H IV 06/19/17 18:33 07/19/17 18:32 06/20/17 00:19 15 MLS/HR Lorazepam (Ativan Tab) 1 mg Q6 PRN SL 06/19/17 21:45 07/19/17 21:44 06/21/17 09:14 1 MG Lorazepam (Ativan Tab) 0.5 mg Q6 PRN SL 06/19/17 22:00 07/19/17 18:44 06/20/17 20:14 0.5 MG Diphenhydramine HCl (Benadryl Inj) 12.5 mg Q8 PRN IV 06/19/17 22:30 07/19/17 22:29 06/20/17 21:18 12.5 MG Simethicone (Mylicon Chew Tab) 120 mg DAILY PRN PO 06/20/17 08:00 07/20/17 08:59 06/21/17 08:11 120 MG Pantoprazole Sodium (Protonix Tab) 40 mg QAM PO 06/20/17 12:00 07/20/17 11:59 06/21/17 07:40 40 MG Heparin Sodium (Porcine) (Heparin 10 Unit/ ml 5 ml Flush) 5 ml PRN PRN FLUSH 06/20/17 11:45 07/20/17 11:44 06/21/17 09:14 5 ML Heparin Sodium (Porcine) (Heparin 100 Unit/ml 5ml Flush) 5 ml PRN PRN IV 06/20/17 11:45 07/20/17 11:44 Duloxetine HCl (Cymbalta Cap) 120 mg HS PO 06/20/17 21:00 07/20/17 20:59 06/20/17 20:19 120 MG Dexamethasone (Decadron Tab) 4 mg DAILY PO 06/21/17 08:00 07/21/17 07:59 06/21/17 07:40 4 MG Miscellaneous Information (Pharmacy Tpn/ Ppn Consult Active) 1 ea UD PRN N/A 06/20/17 15:15 07/20/17 15:14 Polyethylene (Miralax Powder Packet) 17 gm DAILY PRN PO 06/21/17 08:00 07/20/17 08:59 Fentanyl (Duragesic Patch) 25 mcg Q3D@2000 TD 06/20/17 20:00 07/04/17 19:59 06/20/17 19:23 25 MCG Miscellaneous (Fentanyl Patch Remove & Waste) 1 ea Q3D@1959 N/A 06/20/17 19:59 07/20/17 19:58 Miscellaneous Information (Check Fentanyl Patch Placement) 1 ea QS N/A 06/21/17 00:00 07/21/17 00:00 06/21/17 17:06 1 EA Hydromorphone HCl (Dilaudid Inj) 0.5 mg Q30M PRN IV 06/20/17 19:15 07/04/17 19:14 06/21/17 09:15 0.5 MG Review of Systems Review of Systems All Other Systems: Reviewed and Negative Additional Comments: All reviewed. Pertinent values in HPI Physical Exam Vital Signs: Vital Signs Past 12 Hours Date Time Temp Pulse Resp B/P (MAP) Pulse Ox O2 Delivery O2 Flow Rate FiO2 06/21/17 16:00 Room Air 06/21/17 15:56 36.6 123 16 130/84 (99) 93 Room Air 06/21/17 11:12 36.5 124 14 130/82 (98) 90 Room Air 06/21/17 08:00 Room Air 06/21/17 07:52 36.8 126 18 124/79 (94) 91 Room Air Physical Exam: General Appearance: WD/WN, no apparent distress, + cachetic Eyes: bilateral eyes normal inspection ENT: normal ENT inspection, hearing grossly normal, pharynx normal Neck: supple, no JVD Respiratory/Chest: no respiratory distress, no accessory muscle use Cardiovascular: regular rate, rhythm Gastrointestinal: Abdomen: diffuse Bladder: normal bladder Extremities: normal range of motion, non-tender, normal inspection, no pedal edema, no calf tenderness Neurologic/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 Met Appendiceal Ca 2. Bone Mets 3. Gross Hematuria 4. Bilateral Obstructive Uropathy, likely external compression. Currently tolerating catheter and stents. Maximizing drainage. Long conversation with patient. Discussed options. Patient dealing with major pain issues. Discussed options to make catheters more tolerable. Patient states she is okay now from bladder end. 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 Will need to have catheter/stents changed regularly at this time. Is considering treatment options vs comfort options. Will follow. Plan to see as outpatient. Call if any new issues or concerns. Imaging and labs reviewed by myself.
[2017-06-21 19:23] VITALS: BP 121/76; PULSE 124; TEMP 36.5; O2SAT 93
[2017-06-21] MEDS: DULOXETINE HCL 60 MG CAP PO SCH (19:50)
[2017-06-21] MEDS ORDERED: TPN INFUSION IV SCH (21:00)
[2017-06-22] VITALS (14 sets, daily range): BP systolic 122–145; BP diastolic 78–97; PULSE 92–139; TEMP 36.4–36.9; O2SAT 89–96; BMI 19.9
[2017-06-22 06:29] LABS: INR 1.2 (0.9-1.1)
[2017-06-22 06:39] LABS: HEMATOCRIT 20.6 % (37-47); HEMOGLOBIN 6.6 g/dL (12.0-16.0); MEAN CORPUSCULAR HEMOGLOBIN 28.2 pg (25-34); MEAN PLATELET VOLUME 10.8 fL (7.4-10.4); NUCLEATED RED BLOOD CELL ABS 1.94 K/uL (0-0); PLATELET COUNT 274 K/uL (130-400); RED CELL DISTRIBUTION WIDTH CV 16.6 % (11.5-14.5); RED CELL DISTRIBUTION WIDTH SD 53.3 fL (36.4-46.3); WHITE BLOOD COUNT 35.78 K/uL (4.8-10.8)
[2017-06-22 06:41] LABS: CALCIUM 10.9 mg/dl (8.5-10.1); CREATININE 0.87 mg/dl (0.60-1.20); POTASSIUM 4.2 mmol/L (3.5-5.1)
[2017-06-22] MEDS: ONDANSETRON INJ 2 MG/ML 2 ML VIAL IV PRN (07:25)
[2017-06-22] MEDS: HYDROmorphone INJ 0.5 MG/0.5 ML SYR IV PRN ×4 (07:32→14:10)
[2017-06-22] MEDS: CHECK FENTANYL PATCH PLACEMENT SCH ×2 (07:34→20:43)
[2017-06-22] MEDS ORDERED: MAGNESIUM CITRATE 296 ML/BTL PO SCH (08:00)
[2017-06-22] MEDS: HYDROmorphone HCL 0.5MG/ML 50 ML CASSETTE IV PRN (08:03)
--- NOTE | 2017-06-22 09:30 | Progress Note ---
Progress Note Date of Service Jun 22, 2017. Progress Note Attempted to see pt this morning, but she was at radiation. Will try to see her tomorrow. Call for worsening issues.
[2017-06-22] MEDS: DEXAMETHASONE 4 MG TAB PO SCH (12:04)
[2017-06-22] MEDS: SENNA 8.6 MG TAB PO SCH (12:05)
[2017-06-22] MEDS: PANTOprazole SOD 40 MG TAB PO SCH (12:05)
[2017-06-22] MEDS: DOCUSATE SODIUM/SENNA 50/8.6MG TAB PO SCH ×2 (12:05→20:42)
[2017-06-22] MEDS ORDERED: ACETAMINOPHEN 325 MG TAB PO ONE (15:15)
--- NOTE | 2017-06-22 15:28 | Palliative Care Consultation ---
Consultation Date of Consultation: Jun 22, 2017. Requesting Physician: Dr Martinez Attending Physician: Dr Martinez Reason for Consultation: Assist with decision making and pain management History of Present Illness Pt is a 37 yo dx with appendiceal carcinoma in 2014. Pt has been seeing Dr Horton in [place]. Spoke with office - she was last seen on 06/11 - was given option of Hospice vs palliative chemo with one of the "mabs" and possibly start Xgeva for her bone mets. Reviewed scans done here in Nov and on this admission - she has marked increase in bone mets in all axial bones. Pt placed on Dilaudid STORE DIRECTOR for pain - pt's pain control has improved , but she is having significant sedation . Pt is confused and had trouble relaying history. Discussed treatment with Dr Martinez regarding hypercalcemia, anemia and pain. Pt stated she had been tried on methadone before and it did not help - she stated she was on it for 2 weeks - doubt she was titrated to a dose that would control her pain in such a short period of time. Reviewed chart, labs and scans. not at bedside at this time. Pt with a h /o suicidal ideation and was seen by Psych . Would appreciate Rad Onc and Hem/Onc input regarding treatment options and expected effectiveness. Would require several weeks to titrate methadone to a level that would control her pain. Pt required 11.7 mg of IV Dilaudid in the past 24 hours - approx equivalent of 234 mg of PO morphine. Plan to meet with pt and and further discuss prognosis and treatment options . Past Medical/Surgical History Medical History: Appendiceal ca - dx 2014, h/o suicidal ideation Surgical History: MARTIN/BSO, splenectomy, appendectomy, colon resection, HIPEC therapy, ureteral stent Family History + for cancer in her mother and HTN Social History Smoking Status: Never Smoker History of Alcohol Use: Yes (rare) Drug Use: none Marital Status: Housing Status: lives with significant other Occupation Status: employed no children Review of Systems Musculoskeletal: + problem reported (back pain) Female : + problem reported (hematuria) Neurologic: + problem reported (sedation due to pain meds) Psychiatric: + anxiety, + problem reported (h/o suicidal ideation) Heme: + problem reported (anemia) Allergies Coded Allergies: POLLEN (Verified Allergy, Intermediate, SEASONAL, 06/19/17) Adhesives (Verified Adverse Reaction, Intermediate, irritation, itchiness and reddness, 06/19/17) Amoxicillin (Verified Adverse Reaction, Intermediate, GREEN DIARHHEA, 06/19) Medications Current Inpatient Medications Medications (Trade) Dose Ordered Sig/Shani Route Start Time Stop Time Status Last Admin Dose Admin Ioversol (Optiray 320) 125 ml UD PRN IV 06/19/17 12:30 06/23/17 12:29 Al Hydrox/Mg Hydrox/Simethicone (Maalox Max Susp) 15 ml Q4H PRN PO 06/19/17 18:30 07/19/17 18:29 Magnesium Hydroxide (Milk Of Magnesia Susp) 30 ml Q6H PRN PO 06/19/17 18:30 07/19/17 18:29 Ondansetron HCl (Zofran Inj) 4 mg Q6H PRN IV 06/19/17 18:30 07/19/17 18:29 06/22/17 07:25 4 MG Apixaban (Eliquis Tab) 2.5 mg BID PO 06/19/17 20:00 07/19/17 20:59 Future Hold 06/20/17 08:18 2.5 MG Docusate Sodium (coLACE CAP) 100 mg BID PRN PO 06/19/17 18:45 07/19/17 18:44 Senna (Senokot Tab) 17.2 mg DAILY PO 06/20/17 08:00 07/20/17 08:59 06/22/17 12:05 17.2 MG Naloxone HCl (Narcan Inj) 0.1 mg Q5M PRN IV 06/19/17 18:45 07/19/17 18:44 Hydromorphone HCl (Dilaudid Hat Stock Laminating Machine Operator) 25 mg PRN PRN IV 06/19/17 18:45 07/03/17 18:44 06/22/17 08:03 25 MG Senna/Docusate Sodium (Senokot S Tab) 1 tab BID PO 06/19/17 20:00 07/19/17 20:59 06/22/17 12:05 1 TAB Sodium Chloride 1,000 ml @ 15 mls/hr Q24H IV 06/19/17 18:33 07/19/17 18:32 06/20/17 00:19 15 MLS/HR Lorazepam (Ativan Tab) 1 mg Q6 PRN SL 06/19/17 21:45 07/19/17 21:44 06/21/17 19:50 1 MG Lorazepam (Ativan Tab) 0.5 mg Q6 PRN SL 06/19/17 22:00 07/19/17 18:44 06/20/17 20:14 0.5 MG Diphenhydramine HCl (Benadryl Inj) 12.5 mg Q8 PRN IV 06/19/17 22:30 07/19/17 22:29 06/20/17 21:18 12.5 MG Simethicone (Mylicon Chew Tab) 120 mg DAILY PRN PO 06/20/17 08:00 07/20/17 08:59 06/21/17 19:50 120 MG Pantoprazole Sodium (Protonix Tab) 40 mg QAM PO 06/20/17 12:00 07/20/17 11:59 06/22/17 12:05 40 MG Heparin Sodium (Porcine) (Heparin 10 Unit/ ml 5 ml Flush) 5 ml PRN PRN FLUSH 06/20/17 11:45 07/20/17 11:44 06/22/17 10:31 5 ML Heparin Sodium (Porcine) (Heparin 100 Unit/ml 5ml Flush) 5 ml PRN PRN IV 06/20/17 11:45 07/20/17 11:44 Duloxetine HCl (Cymbalta Cap) 120 mg HS PO 06/20/17 21:00 07/20/17 20:59 06/21/17 19:50 120 MG Dexamethasone (Decadron Tab) 4 mg DAILY PO 06/21/17 08:00 07/21/17 07:59 06/22/17 12:04 4 MG Miscellaneous Information (Pharmacy Tpn/ Ppn Consult Active) 1 ea UD PRN N/A 06/20/17 15:15 07/20/17 15:14 Polyethylene (Miralax Powder Packet) 17 gm DAILY PRN PO 06/21/17 08:00 07/20/17 08:59 Fentanyl (Duragesic Patch) 25 mcg Q3D@1999 TD 06/20/17 20:00 07/04/17 19:59 06/20/17 19:23 25 MCG Miscellaneous (Fentanyl Patch Remove & Waste) 1 ea Q3D@1958 N/A 06/20/17 19:59 3/26/18 19:58 Miscellaneous Information (Check Fentanyl Patch Placement) 1 ea QS N/A 06/21/17 00:00 07/21/17 00:00 06/22/17 07:34 1 EA Hydromorphone HCl (Dilaudid Inj) 0.5 mg Q30M PRN IV 06/20/17 19:15 07/04/17 19:14 06/22/17 14:10 0.5 MG Physical Exam Date Time Temp Pulse Resp B/P (MAP) Pulse Ox O2 Delivery O2 Flow Rate FiO2 06/22/17 11:09 36.6 133 18 143/92 (109) 89 06/22/17 10:39 139 143/92 (109) 06/22/17 10:02 Room Air 06/22/17 07:39 36.4 135 18 133/97 (109) 92 Room Air 06/22/17 00:00 Room Air 06/21/17 20:00 Room Air 06/21/17 19:23 36.5 124 19 121/76 (91) 93 Room Air 06/21/17 16:00 Room Air 06/21/17 15:56 36.6 123 16 130/84 (99) 93 Room Air General Appearance: no apparent distress, + pertinent finding (drowsy, would doze off mid sentence, easily aroused) Eyes: EOMI ENT: hearing grossly normal Neck: supple Respiratory: no respiratory distress Cardiovascular: regular rate, rhythm Musculoskeletal: normal tone Neurologic/Psychiatric: + pertinent finding (drowsy) Skin: + pallor Laboratory Results Last 24 Hours Test 06/22/17 06:03 White Blood Count 35.78 K/uL Red Blood Count 2.34 M/uL Hemoglobin 6.6 g/dL Hematocrit 20.6 % Mean Corpuscular Volume 88.0 fL Mean Corpuscular Hemoglobin 28.2 pg Mean Corpuscular Hemoglobin Concent 32.0 g/dl Platelet Count 274 K/uL Mean Platelet Volume 10.8 fL RDW Standard Deviation 53.3 fL RDW Coefficient of Variation 16.6 % Nucleated RBC Absolute Count (auto) 1.94 K/uL Neutrophils % (Manual) 89.8 % Lymphocytes % (Manual) 0.9 % Monocytes % (Manual) 3.7 % Metamyelocytes % 3.7 % Myelocytes % 1.9 % Nucleated Red Blood Cells % 5.4 % Neutrophils # (Manual) 32.13 K/uL Total Absolute Neutrophils 32.13 K/uL Lymphocytes # (Manual) 0.32 K/uL Total Absolute Lymphocytes 0.32 K/uL Monocytes # (Manual) 1.32 K/uL Metamyelocytes # 1.32 K/uL Myelocytes # 0.68 K/uL Polychromasia 1+ Target Cells 1+ [place] Bodies OCCASIONAL Schistocytes OCCASIONAL Prothrombin Time 12.9 SECONDS Prothromb Time International Ratio 1.2 Sodium Level 141 mmol/L Potassium Level 4.2 mmol/L Chloride Level 110 mmol/L Carbon Dioxide Level 22 mmol/L Anion Gap 9.0 mmol/L Blood Urea Nitrogen 46 mg/dl Creatinine 0.87 mg/dl Est Creatinine Clear Calc Drug Dose 79.6 ml/min Estimated GFR () 97.9 Estimated GFR (Non- 84.5 BUN/Creatinine Ratio 53.7 Random Glucose 141 mg/dl Calcium Level 10.9 mg/dl Assessment & Plan Palliative Performance Scale: 40 % (1) Back pain Status: Acute Assessment & Plan: Had been well controlled until approx 1 week ago on Fentanyl patch at 25 mcg and prn 5 mg oxycodone - now on Dilaudid IV - required 11.7mg in the past 24 hours. Will consider trasition to methadone if pt's prognosis is more than a few weeks (2) Tumor, metastatic Status: Acute Assessment & Plan: Increase in bony mets on CT scan (3) Appendix carcinoma Status: Chronic Assessment & Plan: Diagnosed in 2014 - ? if pt would want palliative chemo (4) Hypercalcemia of malignancy Status: Acute Assessment & Plan: Dr Horton had planned on starting Xgeva - will have Hem/ Onc weigh in on this, IV hydration planned. 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 Will cont to follow and plan to meet with .
--- NOTE | 2017-06-22 15:58 | Radiation Oncology Consult ---
Radiation Oncology Consult Date / Reason Jun 22, 2017. Diagnosis (1) Tumor, metastatic Additional Notes: Increase in bony mets on CT scan (2) Appendix carcinoma Stage: IV History of Present Illness I am seeing Ms. Reyes in consultation at the request of Dr. Martinez. ECOG PS: 3 Ms. Reyes is a 37-year-old female who presents with metastatic appendiceal cancer. 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 Salazar. The patient was treated with FOLFOX chemotherapy and unfortunately suffered a recurrence in March 2016. Subsequently, the patient was diagnosed with multiple recurrences and treated with FOLFIRI chemotherapy as well. More recently, the patient did have a CT of the chest on 05/14/2017 which revealed new multiple lytic lesions within the thoracolumbar spine. She also had an MRI of the pelvis on 05/14/2017 which revealed bony metastatic disease and right hydronephrosis. The patient did subsequently have a stent placed due to right hydronephrosis. The patient was apparently scheduled to undergo treatment with immunotherapy underneath the supervision of Dr. Corrales (notes unavailable). The patient has been having difficulty with pain control and presented to the emergency room at [facility] and was admitted due to poor pain control. We are now seeing the patient in consultation to discuss role of radiation therapy. Please note that many outside records were unavailable at the time of consultation. Our department is in the process of obtaining on the previous medical records. The patient denied any previous radiation therapy. Past History Past Medical/Surgical History: Eating Disorders, Anxiety, Reflux, Cancer, Depression Social History Smoking Status: Never Smoker Hx Tobacco Use In Past Year?: No Do You Dip or Chew Tobacco: No Hx Alcohol Use: Yes (rare) Hx Substance Use : No Allergies Coded Allergies: POLLEN (Verified Allergy, Intermediate, SEASONAL, 06/19/17) Adhesives (Verified Adverse Reaction, Intermediate, irritation, itchiness and reddness, 06/19/17) Amoxicillin (Verified Adverse Reaction, Intermediate, GREEN DIARHHEA, 06/19) Home Medications Scheduled Apixaban (Eliquis), 2.5 MG PO BID Ciprofloxacin HCl (Ciprofloxacin), 500 MG PO BID Duloxetine Hcl (Cymbalta), 90 MG PO HS Fentanyl (Fentanyl), 1 PATCH PO Q72H Lorazepam (Ativan), 0.5 MG PO HS Oxycodone HCl (Oxycodone HCl), 5 MG PO Q2H Pantoprazole (Protonix), 40 MG PO QAM Potassium Chloride (Micro-K Ext Rel), 10 MEQ PO BID Senna (Senokot), 2 TAB PO DAILY Simethicone (Simethicone Extra Strengt 125 mg), 2 CAP PO DAILY Scheduled PRN Dicyclomine Hcl (Dicyclomine Hcl), 1 TAB PO QID PRN for Diarrhea Diphenoxylate/Atropine (Lomotil), 1 TAB PO DAILY PRN for PRN Docusate Sodium (Colace), 1 CAP PO BID PRN for PRN Loperamide Hcl (Imodium), 2 MG PO TID PRN for PRN Lorazepam (Ativan), 0.5 MG PO TID PRN for Anxiety Ondansetron Hcl (Zofran), 8 MG PO BID PRN for Nausea Oxybutynin Chloride (Ditropan), 5 MG PO Q8H PRN for PRN Polyethylene Glycol 3350 (Miralax), 17 GM PO DAILY PRN for PRN Tramadol (Ultram), 50 MG PO Q6 PRN for Pain Review of Systems Ear/Hearing: Ear Side: Bilateral Hearing Ability: Normal Hearing Aid: None Edema: Present?: No Location Body Site Modifier: Bilateral Sexuality-Female: Patient ?: Unknown Physical Exam Height: 5 (Feet) 7.00 (Inches) 170.2 (Centimeters) 1.7018 (Meters) Weight: 126 (Pounds) 12.2 (Ounces) 57.500 (Kilograms) 00033.000 (Grams) Date Time Temp Pulse Resp B/P (MAP) Pulse Ox O2 Delivery O2 Flow Rate FiO2 06/22/17 14:51 36.4 130 18 145/97 (113) 92 06/22/17 11:09 36.6 133 18 143/92 (109) 89 06/22/17 10:39 139 143/92 (109) 06/22/17 10:02 Room Air 06/22/17 07:39 36.4 135 18 133/97 (109) 92 Room Air 06/22/17 00:00 Room Air 06/21/17 20:00 Room Air 06/21/17 19:23 36.5 124 19 121/76 (91) 93 Room Air 06/21/17 16:00 Room Air General Appearance: + moderate distress, + cachetic Head: normocephalic Eyes: normal inspection ENT: normal ENT inspection Neck: supple, no adenopathy Respiratory/Chest: chest non-tender, lungs clear, normal breath sounds, no respiratory distress Cardiovascular: regular rate, rhythm, no edema, no gallop, no JVD, no murmur Back: normal inspection Neurologic/Psych: campaign consultant II-XII nml as tested, alert, oriented x 3 Pain Management Patient Reports Pain: Yes Side: Bilateral Pain Location: Generalized Patient Preferred Pain Scale: 0 - 10 Initial Pain Intensity: 8.0 Level of Consciousness: Spontaneously Alert Relief Measures: Medication - Injection Pain Medication Comment: Extra dilaudid bolus given this am. Pain Intervention: See [facility] Pain Management Plan Refer to inpatient medication list. Laboratory Laboratory Results: were reviewed Pathology Pathology Results: were reviewed Imaging Imaging Studies: were reviewed Imaging Comments Patient: ALEXIS REYES Address1: [address] [place] [address] Rec: [id number] Address2: Acct ID: [id number] [facility] Zip: [place] [address] Date: 1980 Sex: F Room/Bed: Ref Phy: Kevin García II MD SC: STEVIE Att Phy: Report #: [id number] Kimberly Phy: Kevin García II MD Test: LSWO Admit Phy: Foster Parent: PAM Interpreting Phy: Alvaro Gutierrez MD Diagnosis: BACK PAIN Ordering Phy: Umesh Pearson M.D. Service Date: 06/19/17 Admit Date: 06/19/17 MNE: [id number] CONF: DICTATED BY: Alvaro Gutierrez MD]] CC: Umesh Pearson M.D. McAleer, Lawrence J., II MD Endcc: [~ rep ct add3]] CT OF THE LUMBAR SPINE WITHOUT CONTRAST CLINICAL HISTORY: Back pain. Colon cancer. COMPARISON STUDY: No previous studies for comparison. TECHNIQUE: Axial images of the lumbar spine were obtained without IV contrast. Sagittal and coronal reconstructions were viewed. FINDINGS: Note is made of severe right and moderate left hydroureteronephrosis. Bilateral ureteral stents are partially imaged. There has been interval development of innumerable mixed lytic and blastic lesions within the visualized skeletal structures and CT of December 14, 2016. An index left sacral lesion measures 2.4 cm. Central canal is suboptimally assessed by CT but there is no definite epidural extension within the lumbar canal. There is suspected slight extension of tumor into the right S2-S3 neural foramen. No definite pathologic fractures identified. IMPRESSION: 1. Interval development of innumerable lytic and blastic skeletal lesions since CT of December 14, 2016 consistent with metastatic disease. No pathologic fracture identified. No epidural extension of tumor within the lumbar spine. Suspected slight extension of tumor into the right S2-S3 neural foramen. 2. Severe right and moderate left hydroureteronephrosis with bilateral ureteral stents partially imaged on this exam. Patient: ALEXIS REYES Address1: [address] [facility] Rec: [id number] Address2: Acct ID: [id number] [facility] Zip: [place] [address] Date: 1980 Sex: F Room/Bed: Ref Phy: Kevin García II MD SC: [email or web address] Att Phy: Report #: [id number] Kimberly Phy: Kevin García II MD Test: CXPEA Admit Phy: Foster Parent: PAM Interpreting Phy: Alvaro Gutierrez MD Diagnosis: BACK PAIN Ordering Phy: Umesh Pearson M.D. Service Date: 06/19/17 Admit Date: 06/19/17 MNE: [id number] CONF: DICTATED BY: Alvaro Gutierrez MD]] CC: Umesh Pearson M.D. McAleer, Lawrence J., II MD Endcc: [~ rep ct add3]] CT ANGIOGRAPHY OF THE CHEST, PULMONARY EMBOLUS PROTOCOL CLINICAL HISTORY: Chest pain, shortness of breath and tachycardia. History of thrombosis. COMPARISON STUDY: Chest radiograph December 22, 2016. TECHNIQUE: Following IV administration of 93 mL of Optiray-320, helical axial images of the chest were obtained utilizing the pulmonary embolus protocol. Maximal intensity projections and sagittal and coronal reformats were viewed on an independent 3D workstation. IV contrast was administered without complication. A dose lowering technique was utilized adhering to the principles of ALARA. FINDINGS: No pulmonary emboli are identified. The size of the heart is at the upper limits of normal. A right internal jugular [id number]-[id number]-Ogbl is in place. A left PICC is in place. There are no enlarged thoracic lymph nodes. No consolidation is noted. There is no pneumothorax or pleural effusion. There are no suspicious pulmonary nodules. Note is made of innumerable mixed lytic and blastic lesions within the visualized skeletal structures. There is a mild pathologic fracture of the superior endplate of T9 without retropulsion. There is minimal loss of vertebral body height. Central canal is suboptimally assessed by CT but no definite epidural extension of tumor is noted. There is mild prevertebral tumor at multiple levels. Visualized portions of the upper abdomen demonstrate moderate to severe bilateral hydroureteronephrosis which is partially imaged on this exam. There is mild biliary ductal dilatation. IMPRESSION: 1. No pulmonary emboli identified. 2. Innumerable mixed lytic and blastic skeletal lesions consistent with metastatic disease. Mild T9 pathologic fracture. No retropulsion. No significant epidural extension of tumor by CT. Prevertebral tumor at multiple levels. 3. Severe right and moderate left hydronephrosis, partially imaged on this exam. 4. Mild intrahepatic biliary ductal dilatation. Assessment & Recommendations Ms. Reyes is a 37-year-old female with metastatic appendiceal cancer to multiple bones. She is having extensive pain with poor pain control. We have recommended palliative external beam radiation therapy to her thoracic/lumbar spine and sacrum. We have explained the indications, alternatives, benefits, risks and side effects of radiation therapy. We have explained the most common side effects including but are not limited to skin erythema, skin break down, hair loss, fibrosis, adhesion development, radiation pneumonitis, rib and bone fracture, heart failure and heart disease, esophagitis, bowel obstruction, urinary symptoms, thyroid disorders, mucositis, nauesea, vomiting, diarrhea, anemia, fatigue and development of secondary malignancy. Women may also have early onset ovarian failure leading to premature menopause and may experience infertility issues depending on her age. We have explained the CT simulation process and treatment planning. We explained what to expect before, during and after treatment on a regular basis. The patient understands and would be willing to consent to treatment. We did explain the indications, alternatives, benefits, risks and side effects of external beam radiation therapy to the sacrum. We did explain the most common side effects including, but not limited to, skin erythema, skin breakdown , hyperpigmentation, telangiectasia, wound complications, perianal fistula development, fistula formation, bowel obstruction, bowel perforation, vaginal dryness, vaginal stenosis, dyspareunia, dysuria, increased urinary frequency, urgency, diarrhea, constipation, melena, hematochezia, hematuria, radiation cystitis, radiation proctitis, fatigue, decreased blood counts, wound complications from surgery, rectal incontinence, secondary malignancy development. We did explain the procedures and daily process of radiation therapy. The patient understands and would be willing to consent to treatment. We have explained the indications, alternatives, benefits, risks and side effects of radiation therapy to the abdomen. We have explained the most common side effects including but are not limited to skin erythema, skin break down, hair loss, fibrosis, adhesion development, radiation pneumonitis, rib and bone fracture, renal failure, kidney disease, liver disease, liver failure, bowel obstruction, bowel perforation, urinary symptoms, nausea, vomiting, diarrhea, spinal cord myelopathy, anemia, fatigue and development of secondary malignancy. Women may also have early onset ovarian failure leading to premature menopause and may experience infertility issues depending on her age. We have explained the CT simulation process and treatment planning. We explained what to expect before, during and after treatment on a regular basis. The patient understands and would be willing to consent to treatment. The patient had multiple questions which were answered to their full satisfaction. Thank you for allowing us to participate in the care of this patient. This chart was completed in part utilizing [employer] Speech Voice Recognition software. Attempts were made to minimize the grammatical errors, random word insertions, pronoun errors and incomplete sentences. Any formal questions or concerns about the content, text or information contained within the body of this dictation should be directly addressed to the provider for clarification. Deacon Garcia MD Department of Radiation Oncology [facility] Total Time In Consultation I spent 30 minutes examining and counseling the patient. I spent 15 minutes completing this note. PAMELA
[2017-06-22] MEDS ORDERED: ZOLEDRONIC ACID INJ 4 MG in SODIUM CHLORIDE 0.9% 100ML 100 ML IV ONE (16:00)
[2017-06-22] MEDS: SODIUM CHLORIDE 0.9% 1000ML 1,000 ML IV SCH (17:28)
--- NOTE | 2017-06-22 19:52 | Medical Consult ---
Consultation Date of Consultation: Jun 22, 2017. 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 Date of consultation: 06/22/2017. I do not have her records for the review about the previous diagnostic workup and treatment that she received, she is also somewhat drowsy and so I could not obtain good history from her, I reviewed her records from [facility]. HPI: 37-year-old female, a case of appendiceal carcinoma (April,), she had surgical intervention at that time by Dr. Salazar. She then had FOLFOX chemotherapy. She follows a medical oncologist in [place] ( Dr. Horton). Unfortunately she had a recurrent disease in March,. She says that she had at least the 3 surgical intervention, the last one was in Aug, 2016 and she had HIPEC procedure at [facility] Received additional chemotherapy for about 6 months with FOLFIRI, last cycle of chemotherapy received in February,. She did not have any bony metastatic disease at that time until recently. She says that she had some imaging study,? PET-CT scan and found to have bony metastatic disease early 2017. History of thrombotic complications on oral anticoagulant with Eliquis which is on hold because of ongoing hematuria. She had bilateral hydronephrosis, S/P ureteric stent placement. She came to [facility] on 06/19/2017 because of increasing back pain, she says that for the last 1 year she lives in [facility], now found to have extensive thoracic, lumbar and the sacral bony metastatic disease, presently she is receiving hydromorphone CLAIMS ASSOCIATE. Recently she was diagnosed UTI and the taking ciprofloxacin. When I saw her at bedside, she was by herself, feeling quite weak and tired, appears to be drowsy, she could not provide me more detailed information about the diagnostic workup or the treatment that she received, increasing back pain present, no leg edema, hematuria present, no bleeding from any sites, tiredness present, feeling quite weak and tired. REVIEW OF SYSTEMS: I could not obtain detailed review of system from her, otherwise it is listed above. 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 S/P colon resection. Social history: For the last 1 year or so she was in the [place] area. Her works at the [employer], she has no children, nonsmoker, denies any ETOH abuse. Family history: Not significant. Medications: Please review her chart for detailed list of medications. She was on fentanyl patch at 25 mcg and oxycodone for the breakthrough pain before this hospitalization. -Presently she is receiving IV hydromorphone CLAIMS ASSOCIATE. Decadron 4 mg daily. Cymbalta, fentanyl patch at 25 mcg. On exam: - Alert and oriented x3 what she is somewhat drowsy, thin built woman, she is in some pain,. - HEENT: no icterus, no pallor, Throat: Normal. - Neck: No palpable cervical lymphadenopathy. - Chest: Mild distention of the abdomen present. - Abdomen: soft, nontender, no hepatomegaly, no splenomegaly. - No focal neuro deficit. - Extremities: no finger clubbing, no leg edema. Lab: -WBC 37438, H&H of 8.4/26.5, Platelet count of 3 in 17,000 (06/19/2017) -WBC 73110, H&H of 6.6/20.6, Platelet count of 274,000. -immature WBCs including nucleated red blood cells noted. -BUN/Creat: 46/0.8, - calcium level --> 9.9(06/21/2017)--> 10.9 (06/22/2007) -AST 71, ALT 61, alkaline phosphatase 1000 find 42, Total bilirubin: 0.3, albumin 2.7. -CA 125 level--> 23 (January,) B12 level--> 591 (February,) Imaging: -CT scan of the abdomen pelvis done on 12/22/2016--> dilated small-bowel, possible partial small-bowel obstruction noted, splenectomy noted, right hydronephrosis hydroureter noted, mildly enlarged para-aortic lymph nodes noted. -CT scan of chest done on 06/19/2017--> no evidence of pulmonary emboli, multiple blastic and lytic lesions noted, mild T9 pathologic fracture noted, no significant epidural extension noted. Mild intrahepatic biliary ductal dilatation noted -Lumbar spine CT scan done on 06/19/2017--> interval development of innumerable lytic and blastic bone lesions, no pathological fracture identified, no epidural extension noted, suspected slight extension of the tumor into the right S2-S3 foramina noted, severe right and moderate left hydronephrosis with bilateral ureteral stent noted. ASSESSMENT AND PLAN: 37-year-old the female, a case of initial adenocarcinoma, initially diagnosed in early 2015, S/P the surgical intervention, she then received about 6 months of chemotherapy with FOLFOX, unfortunately she had a recurrent disease in March,, had additional 2 surgical intervention, the last one was done in Aug, 2016 at [facility] with HIPEC, she then received additional chemotherapy for about 6 months in the form of FOLFIRI which was completed in February, under the guidance of Dr. Horton in [facility], I do not have any of those records for the review regarding the diagnostic workup, histopathological findings and the treatment that she received but as per the patient she also had a PET-CT scan few weeks back which showed some bony metastatic disease, she is having some mild back pain, on fentanyl patch at 25 mcg and oxycodone for the breakthrough pain but now she is admitted for increasing back pain, presently she is on hydromorphone CLAIMS ASSOCIATE, imaging studies done during this time shows extensive bony lesions involving the thoracic, lumbar spine, she also has bilateral hydronephrosis, she had bilateral ureteric stent placement earlier, has hematuria, she was on anticoagulant treatment in the past but nowadays she is off the anticoagulant treatment because of ongoing bleeding complications, significant declining performed status noted. I called her at [phone], he was not available to provide me some more information about her case. Today 's she was seen by radiation oncology Dr. Garcia, they have started her on palliative radiation treatment to the symptomatic thoracic and lumbar spine including the sacral lesion. I reviewed her blood workup, hemoglobin level dropped down to around 6.6 g/dL, she will receive blood transfusion support soon. Also noticed to have new hypercalcemia which is related to the multiple bony lesions, spoke with the hospitalist earlier, recommended to give her 1 dose of Zometa at 4 mg, she received that today. She also has elevated white blood cell count, which could be related recent steroid therapy and also bone marrow infiltrative process with leukemoid reaction (has immature WBCs and nucleated red blood cells), I am expecting cytopenias in her case with significant bone/bone marrow involvement and with the radiation treatment. Unfortunately her disease has progressed quite rapidly in the last the few months, she had received FOLFOX and FOLFIRI chemotherapy significant declining performed status noted. I would not consider for any kind of systemic treatment based on her current situation unless it improves in the next few weeks.Dr. Horton is planning for some kind of immunotherapy earlier in her case. Overall prognosis remains poor. If her clinical condition does not improve, supportive and symptomatic treatment with hospice would be appropriate. Thanks for the consultation Dr. Otf Garcia Hem/Onc (This note was completed using the dictation program Fluency Direct. As such, there may be misspellings, word substitutions, or other variations that should not change the essence of the clinical content of this encounter note. If there is need for further clarification, please direct questions to the provider listed above.) Past Medical/Surgical History Medical Problems: (1) Anemia Status: Acute (2) Back pain Status: Acute (3) Dehydration Status: Acute (4) Leukocytosis Status: Acute (5) Sepsis Status: Acute (6) Tumor, metastatic Status: Acute Family History FH: HTN (hypertension) MOTHER FH: colon cancer MOTHER Social History Smoking Status: Never Smoker Drug Use: none Marital Status: Occupation Status: employed Allergies Coded Allergies: POLLEN (Verified Allergy, Intermediate, SEASONAL, 06/19/17) Adhesives (Verified Adverse Reaction, Intermediate, irritation, itchiness and reddness, 06/19/17) Amoxicillin (Verified Adverse Reaction, Intermediate, GREEN DIARHHEA, 06/19) Current Inpatient Medications Current Inpatient Medications Medications (Trade) Dose Ordered Sig/Shani Route Start Time Stop Time Status Last Admin Dose Admin Ioversol (Optiray 320) 125 ml UD PRN IV 06/19/17 12:30 06/23/17 12:29 Al Hydrox/Mg Hydrox/Simethicone (Maalox Max Susp) 15 ml Q4H PRN PO 06/19/17 18:30 07/19/17 18:29 Magnesium Hydroxide (Milk Of Magnesia Susp) 30 ml Q6H PRN PO 06/19/17 18:30 07/19/17 18:29 Ondansetron HCl (Zofran Inj) 4 mg Q6H PRN IV 06/19/17 18:30 07/19/17 18:29 06/22/17 07:25 4 MG Apixaban (Eliquis Tab) 2.5 mg BID PO 06/19/17 20:00 07/19/17 20:59 Future Hold 06/20/17 08:18 2.5 MG Docusate Sodium (coLACE CAP) 100 mg BID PRN PO 06/19/17 18:45 07/19/17 18:44 Senna (Senokot Tab) 17.2 mg DAILY PO 06/20/17 08:00 07/20/17 08:59 06/22/17 12:05 17.2 MG Naloxone HCl (Narcan Inj) 0.1 mg Q5M PRN IV 06/19/17 18:45 07/19/17 18:44 Hydromorphone HCl (Dilaudid [place]) 25 mg PRN PRN IV 06/19/17 18:45 07/03/17 18:44 06/22/17 08:03 25 MG Senna/Docusate Sodium (Senokot S Tab) 1 tab BID PO 06/19/17 20:00 07/19/17 20:59 06/22/17 12:05 1 TAB Sodium Chloride 1,000 ml @ 15 mls/hr Q24H IV 06/19/17 18:33 07/19/17 18:32 06/22/17 17:28 15 MLS/HR Lorazepam (Ativan Tab) 1 mg Q6 PRN SL 06/19/17 21:45 07/19/17 21:44 06/21/17 19:50 1 MG Lorazepam (Ativan Tab) 0.5 mg Q6 PRN SL 06/19/17 22:00 07/19/17 18:44 06/20/17 20:14 0.5 MG Diphenhydramine HCl (Benadryl Inj) 12.5 mg Q8 PRN IV 06/19/17 22:30 07/19/17 22:29 06/20/17 21:18 12.5 MG Simethicone (Mylicon Chew Tab) 120 mg DAILY PRN PO 06/20/17 08:00 07/20/17 08:59 06/21/17 19:50 120 MG Pantoprazole Sodium (Protonix Tab) 40 mg QAM PO 06/20/17 12:00 07/20/17 11:59 06/22/17 12:05 40 MG Heparin Sodium (Porcine) (Heparin 10 Unit/ ml 5 ml Flush) 5 ml PRN PRN FLUSH 06/20/17 11:45 07/20/17 11:44 06/22/17 10:31 5 ML Heparin Sodium (Porcine) (Heparin 100 Unit/ml 5ml Flush) 5 ml PRN PRN IV 06/20/17 11:45 07/20/17 11:44 Duloxetine HCl (Cymbalta Cap) 120 mg HS PO 06/20/17 21:00 07/20/17 20:59 06/21/17 19:50 120 MG Dexamethasone (Decadron Tab) 4 mg DAILY PO 06/21/17 08:00 07/21/17 07:59 06/22/17 12:04 4 MG Miscellaneous Information (Pharmacy Tpn/ Ppn Consult Active) 1 ea UD PRN N/A 06/20/17 15:15 07/20/17 15:14 Polyethylene (Miralax Powder Packet) 17 gm DAILY PRN PO 06/21/17 08:00 07/20/17 08:59 Fentanyl (Duragesic Patch) 25 mcg Q3D@2000 TD 06/20/17 20:00 07/04/17 19:59 06/20/17 19:23 25 MCG Miscellaneous (Fentanyl Patch Remove & Waste) 1 ea Q3D@1959 N/A 06/20/17 19:59 07/20/17 19:58 Miscellaneous Information (Check Fentanyl Patch Placement) 1 ea QS N/A 06/21/17 00:00 07/21/17 00:00 06/22/17 07:34 1 EA Hydromorphone HCl (Dilaudid Inj) 0.5 mg Q30M PRN IV 06/20/17 19:15 07/04/17 19:14 06/22/17 14:10 0.5 MG Physical Exam Date Time Temp Pulse Resp B/P (MAP) Pulse Ox O2 Delivery O2 Flow Rate FiO2 06/22/17 19:45 36.9 92 20 132/86 (101) 94 Room Air 06/22/17 16:20 92 Room Air 06/22/17 16:13 36.4 130 18 145/97 92 06/22/17 14:51 36.4 130 18 145/97 (113) 92 06/22/17 11:09 36.6 133 18 143/92 (109) 89 06/22/17 10:39 139 143/92 (109) 06/22/17 10:02 Room Air 06/22/17 07:39 36.4 135 18 133/97 (109) 92 Room Air 06/22/17 00:00 Room Air 06/21/17 20:00 Room Air Laboratory Results Last 24 Hours Test 06/22/17 06:03 White Blood Count 35.78 K/uL Red Blood Count 2.34 M/uL Hemoglobin 6.6 g/dL Hematocrit 20.6 % Mean Corpuscular Volume 88.0 fL Mean Corpuscular Hemoglobin 28.2 pg Mean Corpuscular Hemoglobin Concent 32.0 g/dl Platelet Count 274 K/uL Mean Platelet Volume 10.8 fL RDW Standard Deviation 53.3 fL RDW Coefficient of Variation 16.6 % Nucleated RBC Absolute Count (auto) 1.94 K/uL Neutrophils % (Manual) 89.8 % Lymphocytes % (Manual) 0.9 % Monocytes % (Manual) 3.7 % Metamyelocytes % 3.7 % Myelocytes % 1.9 % Nucleated Red Blood Cells % 5.4 % Neutrophils # (Manual) 32.13 K/uL Total Absolute Neutrophils 32.13 K/uL Lymphocytes # (Manual) 0.32 K/uL Total Absolute Lymphocytes 0.32 K/uL Monocytes # (Manual) 1.32 K/uL Metamyelocytes # 1.32 K/uL Myelocytes # 0.68 K/uL Polychromasia 1+ Target Cells 1+ Bynum-[place] Bodies OCCASIONAL Schistocytes OCCASIONAL Prothrombin Time 12.9 SECONDS Prothromb Time International Ratio 1.2 Sodium Level 141 mmol/L Potassium Level 4.2 mmol/L Chloride Level 110 mmol/L Carbon Dioxide Level 22 mmol/L Anion Gap 9.0 mmol/L Blood Urea Nitrogen 46 mg/dl Creatinine 0.87 mg/dl Est Creatinine Clear Calc Drug Dose 79.6 ml/min Estimated GFR () 97.9 Estimated GFR (Non- 84.5 BUN/Creatinine Ratio 53.7 Random Glucose 141 mg/dl Calcium Level 10.9 mg/dl
[2017-06-22] MEDS ORDERED: ACETAMINOPHEN 325 MG TAB ONE (20:35)
[2017-06-22] MEDS: DULOXETINE HCL 60 MG CAP PO SCH (20:42)
[2017-06-22] MEDS ORDERED: TPN INFUSION IV SCH (21:00)
--- NOTE | 2017-06-22 23:22 | Progress Note ---
Medicine Progress Note Date & Time of Visit: Jun 22, 2017 at 15:19. 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 Back pain appears more controlled although she reports that it hurts. She is not eating much at this point and appears frustrated. Starting XRT today Objective Last 8 Hrs Date Time Temp Pulse Resp B/P (MAP) Pulse Ox O2 Delivery O2 Flow Rate FiO2 06/22/17 14:51 36.4 130 18 145/97 (113) 92 06/22/17 11:09 36.6 133 18 143/92 (109) 89 06/22/17 10:39 139 143/92 (109) 06/22/17 10:02 Room Air 06/22/17 07:39 36.4 135 18 133/97 (109) 92 Room Air Physical Exam: GEN: cachectic, in no acute distress, easily arousable but sleepy from medications. HEENT: NC/AT, pupils are equal bilaterally, normal sclerae, MM dry but improved from yesterday CARDIO: tachy rate, S1/2 heard without m/g/r LUNGS: CTA bilaterally, no crackles, rales or wheezes, good diaphragmatic excursion ABD: soft, non-tender, non-distended, no rebound or guarding EXTREMITY: RP and DP palpable 2+ bilat, no LE swelling or edema, extremities are warm and well-perfused N/M: limited exam because of pain. Sensation intact. Able to bend knees but has to use her hands to excelsior picker her legs. 4/5 strength in legs bilaterally. Gait not assessed. No gross focal deficits. SKIN: warm and dry Laboratory Results: 06/22/17 06:03 Red Blood Count 2.34, Mean Corpuscular Volume 88.0, Mean Corpuscular Hemoglobin 28.2, Mean Corpuscular Hemoglobin Concent 32.0, Mean Platelet Volume 10.8 06/22/17 06:03 Test 06/19/17 13:00 06/19/17 20:35 06/21/17 04:57 06/22/17 06:03 Immature Granulocyte % (Auto) 7.2 % White Blood Count 21.74 K/uL (4.8-10.8) 35.78 K/uL (4.8-10.8) Red Blood Count 3.01 M/uL (4.2-5.4) 2.34 M/uL (4.2-5.4) Hemoglobin 8.4 g/dL (12.0-16.0) 6.6 g/dL (12.0-16.0) Hematocrit 26.5 % (37-47) 20.6 % (37-47) Mean Corpuscular Volume 88.0 fL (80-100) 88.0 fL (80-100) Mean Corpuscular Hemoglobin 27.9 pg (25-34) 28.2 pg (25-34) Mean Corpuscular Hemoglobin Concent 31.7 g/dl (32-36) 32.0 g/dl (32-36) Platelet Count 317 K/uL (130-400) 274 K/uL (130-400) Mean Platelet Volume 10.1 fL (7.4-10.4) 10.8 fL (7.4-10.4) Neutrophils (%) (Auto) 78.1 % Lymphocytes (%) (Auto) 4.4 % Monocytes (%) (Auto) 9.0 % Eosinophils (%) (Auto) 1.0 % Basophils (%) (Auto) 0.3 % Neutrophils # (Auto) 17.00 K/uL (1.4-6.5) Lymphocytes # (Auto) 0.96 K/uL (1.2-3.4) Monocytes # (Auto) 1.95 K/uL (0.11-0.59) Eosinophils # (Auto) 0.21 K/uL (0-0.5) Basophils # (Auto) 0.06 K/uL (0-0.2) Immature Granulocyte # (Auto) 1.56 K/uL (0.00-0.02) Large Platelets 1+ Lactic Acid Level 1.2 mmol/L (0.4-2.0) Total Bilirubin 0.3 mg/dl (0.2-1) Aspartate Amino Transf (AST/SGOT) 71 U/L (15-37) Alanine Aminotransferase (ALT/SGPT) 61 U/L (12-78) Alkaline Phosphatase 1542 U/L (45-117) Total Protein 6.9 gm/dl (6.4-8.2) Albumin 2.7 gm/dl (3.4-5.0) Globulin 4.2 gm/dl (2.5-4.0) Albumin/Globulin Ratio 0.6 (0.9-2) Urine Color RED Urine Appearance CLOUDY (CLEAR) Urine pH 6.5 (4.5-7.5) Urine Specific [place] 1.026 (1.000-1.030) Urine Protein 2+ (NEG) Urine Glucose (UA) NEG (NEG) Urine Ketones NEG (NEG) Urine Occult Blood 3+ (NEG) Urine Nitrite NEG (NEG) Urine Bilirubin NEG (NEG) Urine Urobilinogen NEG (NEG) Urine Leukocyte Esterase SMALL (NEG) Urine WBC (Auto) >30 /hpf (0-5) Urine RBC (Auto) >30 /hpf (0-4) Urine Hyaline Casts (Auto) 0 /lpf (0-5) Urine Epithelial Cells (Auto) >30 /lpf (0-5) Urine Bacteria (Auto) NEG (NEG) Urine Renal Epithelial Cells /lpf (0-5) Urine Yeast (Auto) (NONE PRSENT) Phosphorus Level 3.1 mg/dl (2.5-4.9) Magnesium Level 2.3 mg/dl (1.8-2.4) Triglycerides Level 129 mg/dl (0-150) RDW Standard Deviation 53.3 fL (36.4-46.3) RDW Coefficient of Variation 16.6 % (11.5-14.5) Nucleated RBC Absolute Count (auto) 1.94 K/uL (0-0) Neutrophils % (Manual) 89.8 % Lymphocytes % (Manual) 0.9 % Monocytes % (Manual) 3.7 % Metamyelocytes % 3.7 % Myelocytes % 1.9 % Nucleated Red Blood Cells % 5.4 % Neutrophils # (Manual) 32.13 K/uL (1.4-6.5) Total Absolute Neutrophils 32.13 K/uL (1.4-6.5) Lymphocytes # (Manual) 0.32 K/uL (1.2-3.4) Total Absolute Lymphocytes 0.32 K/uL (1.2-3.4) Monocytes # (Manual) 1.32 K/uL (0.11-0.59) Metamyelocytes # 1.32 K/uL (0-0) Myelocytes # 0.68 K/uL (0-0) Polychromasia 1+ Target Cells 1+ [place]yn[place] Bodies OCCASIONAL Schistocytes OCCASIONAL Prothrombin Time 12.9 SECONDS (9.0-12.0) Prothromb Time International Ratio 1.2 (0.9-1.1) Anion Gap 9.0 mmol/L (3-11) Est Creatinine Clear Calc Drug Dose 79.6 ml/min Estimated GFR () 97.9 Estimated GFR (Non- 84.5 BUN/Creatinine Ratio 53.7 (10-20) Calcium Level 10.9 mg/dl (8.5-10.1) Date/Time Source Procedure Growth Status 06/19/17 20:32 Blood Blood Culture - Preliminary NO GROWTH TO DATE. Resulted Last 24 Hours Test 06/22/17 06:03 White Blood Count 35.78 K/uL Red Blood Count 2.34 M/uL Hemoglobin 6.6 g/dL Hematocrit 20.6 % Mean Corpuscular Volume 88.0 fL Mean Corpuscular Hemoglobin 28.2 pg Mean Corpuscular Hemoglobin Concent 32.0 g/dl Platelet Count 274 K/uL Mean Platelet Volume 10.8 fL RDW Standard Deviation 53.3 fL RDW Coefficient of Variation 16.6 % Nucleated RBC Absolute Count (auto) 1.94 K/uL Neutrophils % (Manual) 89.8 % Lymphocytes % (Manual) 0.9 % Monocytes % (Manual) 3.7 % Metamyelocytes % 3.7 % Myelocytes % 1.9 % Nucleated Red Blood Cells % 5.4 % Neutrophils # (Manual) 32.13 K/uL Total Absolute Neutrophils 32.13 K/uL Lymphocytes # (Manual) 0.32 K/uL Total Absolute Lymphocytes 0.32 K/uL Monocytes # (Manual) 1.32 K/uL Metamyelocytes # 1.32 K/uL Myelocytes # 0.68 K/uL Polychromasia 1+ Target Cells 1+ Bynum-[place] Bodies OCCASIONAL Schistocytes OCCASIONAL Prothrombin Time 12.9 SECONDS Prothromb Time International Ratio 1.2 Sodium Level 141 mmol/L Potassium Level 4.2 mmol/L Chloride Level 110 mmol/L Carbon Dioxide Level 22 mmol/L Anion Gap 9.0 mmol/L Blood Urea Nitrogen 46 mg/dl Creatinine 0.87 mg/dl Est Creatinine Clear Calc Drug Dose 79.6 ml/min Estimated GFR () 97.9 Estimated GFR (Non- 84.5 BUN/Creatinine Ratio 53.7 Random Glucose 141 mg/dl Calcium Level 10.9 mg/dl Assessment & Plan 37 yo F with 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 Back pain appears more controlled although she reports that it hurts. She is not eating much at this point and appears frustrated. Starting XRT today 1. Back pain in setting of spinal mets-Rad Onc consulted to consider palliative XRT, cont Dilaudid DEVELOPMENT TEAM LEAD, Fentanyl patch, Decadron. Apprec palliative recs. 2. Gross hematuria-poss related to bilateral ureteral stents in setting of Eliquis. No obvious infection is present and patient not on abx as a result. No urine culture was drawn, however. Consulted Urology who had started ditropan to help control possible spasms, however, this is giving her severe dry mouth and was discontinued. [place] is in place for her comfort ([place] trauma may also be contributing to hematuria). will cont to monitor off Eliquis. 3. 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 Pharmacy is overseeing this. Cont PO intake as tolerated. 4. Depression/Adjustment reaction- was consulted at patient's request and has increased her Cymbalta to 120mg PO HS from 90mg. They are also setting her up with mobile psych visits at home. Appreciate involvement. 5. Anemia-poss multifactorial in setting of known malignancy (ACD) and hematuria. Cont to hold Eliquis at this time and monitor closely. Blood -2 units ordered for tonight 6. Leukocytosis. No signs of infection at this time. Cont to monitor for now. Poss stress response. On steroids likely to increase or remain elevated. Discussed with Onc who also feels this is related to a combination of steroids and bony invasion. 7. Hypercalcemia-giving blood and will assess volume status prior to starting any IVF. Zometa given today based on Silviano beck's wishes. DVT proph-Eliquis held in setting of gross hematuria. Full Code Dispo: pending evaluations on Thursday. DO Daniel Manley Hospitalist Consultants: Urology-Gerardo -[place] [facility] Onc-Jose Palliative-[facility] Current Inpatient Medications: Current Inpatient Medications Medications (Trade) Dose Ordered Sig/Shani Route Start Time Stop Time Status Last Admin Dose Admin Ioversol (Optiray 320) 125 ml UD PRN IV 06/19/17 12:30 06/23/17 12:29 Al Hydrox/Mg Hydrox/Simethicone (Maalox Max Susp) 15 ml Q4H PRN PO 06/19/17 18:30 07/19/17 18:29 Magnesium Hydroxide (Milk Of Magnesia Susp) 30 ml Q6H PRN PO 06/19/17 18:30 07/19/17 18:29 Ondansetron HCl (Zofran Inj) 4 mg Q6H PRN IV 06/19/17 18:30 07/19/17 18:29 06/22/17 07:25 4 MG Apixaban (Eliquis Tab) 2.5 mg BID PO 06/19/17 20:00 07/19/17 20:59 Future Hold 06/20/17 08:18 2.5 MG Docusate Sodium (coLACE CAP) 100 mg BID PRN PO 06/19/17 18:45 07/19/17 18:44 Senna (Senokot Tab) 17.2 mg DAILY PO 06/20/17 08:00 07/20/17 08:59 06/22/17 12:05 17.2 MG Naloxone HCl (Narcan Inj) 0.1 mg Q5M PRN IV 06/19/17 18:45 07/19/17 18:44 Hydromorphone HCl (Dilaudid Tire Trucker) 25 mg PRN PRN IV 06/19/17 18:45 07/03/17 18:44 06/22/17 08:03 25 MG Senna/Docusate Sodium (Senokot S Tab) 1 tab BID PO 06/19/17 20:00 07/19/17 20:59 06/22/17 12:05 1 TAB Sodium Chloride 1,000 ml @ 15 mls/hr Q24H IV 06/19/17 18:33 07/19/17 18:32 06/20/17 00:19 15 MLS/HR Lorazepam (Ativan Tab) 1 mg Q6 PRN SL 06/19/17 21:45 07/19/17 21:44 06/21/17 19:50 1 MG Lorazepam (Ativan Tab) 0.5 mg Q6 PRN SL 06/19/17 22:00 07/19/17 18:44 06/20/17 20:14 0.5 MG Diphenhydramine HCl (Benadryl Inj) 12.5 mg Q8 PRN IV 06/19/17 22:30 07/19/17 22:29 06/20/17 21:18 12.5 MG Simethicone (Mylicon Chew Tab) 120 mg DAILY PRN PO 06/20/17 08:00 07/20/17 08:59 06/21/17 19:50 120 MG Pantoprazole Sodium (Protonix Tab) 40 mg QAM PO 06/20/17 12:00 07/20/17 11:59 06/22/17 12:05 40 MG Heparin Sodium (Porcine) (Heparin 10 Unit/ ml 5 ml Flush) 5 ml PRN PRN FLUSH 06/20/17 11:45 07/20/17 11:44 06/22/17 10:31 5 ML Heparin Sodium (Porcine) (Heparin 100 Unit/ml 5ml Flush) 5 ml PRN PRN IV 06/20/17 11:45 07/20/17 11:44 Duloxetine HCl (Cymbalta Cap) 120 mg HS PO 06/20/17 21:00 07/20/17 20:59 06/21/17 19:50 120 MG Dexamethasone (Decadron Tab) 4 mg DAILY PO 06/21/17 08:00 07/21/17 07:59 06/22/17 12:04 4 MG Miscellaneous Information (Pharmacy Tpn/ Ppn Consult Active) 1 ea UD PRN N/A 06/20/17 15:15 07/20/17 15:14 Polyethylene (Miralax Powder Packet) 17 gm DAILY PRN PO 06/21/17 08:00 07/20/17 08:59 Fentanyl (Duragesic Patch) 25 mcg Q3D@1999 TD 06/20/17 20:00 07/04/17 19:59 06/20/17 19:23 25 MCG Miscellaneous (Fentanyl Patch Remove & Waste) 1 ea Q3D@1959 N/A 06/20/17 19:59 07/20/17 19:58 Miscellaneous Information (Check Fentanyl Patch Placement) 1 ea QS N/A 06/21/17 00:00 07/21/17 00:00 06/22/17 07:34 1 EA Hydromorphone HCl (Dilaudid Inj) 0.5 mg Q30M PRN IV 06/20/17 19:15 07/04/17 19:14 06/22/17 14:10 0.5 MG
[2017-06-23] VITALS (11 sets, daily range): BP systolic 121–152; BP diastolic 76–99; PULSE 102–123; TEMP 36.4–36.8; O2SAT 93–97
[2017-06-23 06:36] LABS: HEMATOCRIT 28.4 % (37-47); HEMOGLOBIN 9.4 g/dL (12.0-16.0); MEAN CELL VOLUME 86.9 fL (80-100); MEAN CORPUSCULAR HEMOGLOBIN 28.7 pg (25-34); MEAN CORPUSCULAR HGB CONC 33.1 g/dl (32-36); MEAN PLATELET VOLUME 11.7 fL (7.4-10.4); NUCLEATED RED BLOOD CELL ABS 1.72 K/uL (0-0); PLATELET COUNT 182 K/uL (130-400); RED CELL DISTRIBUTION WIDTH CV 15.5 % (11.5-14.5); WHITE BLOOD COUNT 31.17 K/uL (4.8-10.8)
[2017-06-23 06:45] LABS: CREATININE 0.81 mg/dl (0.60-1.20)
[2017-06-23 06:46] LABS: ALBUMIN 2.2 gm/dl (3.4-5.0); CALCIUM 8.7 mg/dl (8.5-10.1); POTASSIUM 3.8 mmol/L (3.5-5.1)
[2017-06-23] MEDS: CHECK FENTANYL PATCH PLACEMENT SCH ×3 (07:33→14:58)
[2017-06-23] MEDS: DOCUSATE SODIUM/SENNA 50/8.6MG TAB PO SCH ×2 (07:33→21:33)
[2017-06-23] MEDS: SENNA 8.6 MG TAB PO SCH (07:33)
[2017-06-23] MEDS: DEXAMETHASONE 4 MG TAB PO SCH (07:33)
[2017-06-23] MEDS: PANTOprazole SOD 40 MG TAB PO SCH (07:33)
[2017-06-23] MEDS: HYDROmorphone INJ 0.5 MG/0.5 ML SYR IV PRN (07:39)
--- NOTE | 2017-06-23 09:16 | Progress Note ---
Progress Note Date of Service Jun 23, 2017. Progress Note Attempted to see pt this again morning, but she was at radiation. Will try to see her again tomorrow. Call for worsening issues.
--- NOTE | 2017-06-23 13:26 | Progress Note ---
Internal Med Progress Note Date of Service: Jun 23, 2017. Provider Documentation: SUBJECTIVE: Seen and examined at bedside States having abd pain and back pain which is worse with minimal movement Poor oral intake Denies chest pain Family at bedside Got Palliative radiation therapy OBJECTIVE: Vital Signs-as noted below Physical Exam: General Appearance:Thin, no apparent distress Head: normocephalic, Atraumatic Eyes: normal inspection, EOMI, PERRL Neck: supple, Trachea midline Respiratory/Chest: Normal breath sounds, CTA Cardiovascular: S1, S2, +Tachycardia, No murmur Abdomen/GI:Soft, tender, Bowel sounds present Extremities/Musculoskelatal:normal inspection, no edema Neurologic/Psych:AAOX3, grossly no focal neurological deficits Skin: normal color, warm Lab data as noted below. 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 Back pain in setting of spinal mets 2/2 Stage IV appendiceal Cancer S/P Chemotherapy, Surgery Hypercalcemia: secondary to mets Appreciate Oncology, Radiation Oncology help Continue Palliative radiation therapy Pain control Continue Dilaudid MAINTENANCE FITTER, Fentanyl patch, Decadron Appreciate palliative Care recommendations Follows with Dr. 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 Needs follow up as outpatient upon discharge Anemia: Likely secondary to malignancy and hematuria hold Eliquis Monitor Hb DVT Px: Eliquis held 2/2 hematuria Code Status: DNR Disposition: To be determined Overall Poor prognosis Vital Signs: Date Time Temp Pulse Resp B/P (MAP) Pulse Ox O2 Delivery O2 Flow Rate FiO2 06/23/17 11:18 36.6 110 20 149/99 (116) 95 06/23/17 08:00 Room Air 06/23/17 07:16 36.8 109 18 142/87 (105) 95 06/23/17 03:27 36.6 111 18 137/91 94 06/23/17 02:50 36.6 110 18 136/89 94 06/23/17 01:50 36.8 112 19 144/93 94 06/23/17 00:50 36.7 105 17 136/83 97 06/23/17 00:40 Room Air 06/23/17 00:20 36.7 108 17 134/82 96 06/23/17 00:05 36.8 102 17 121/76 97 06/22/17 23:51 36.8 111 18 138/84 96 06/22/17 23:30 36.6 111 18 130/85 96 06/22/17 22:30 36.8 111 19 131/83 94 06/22/17 22:00 36.7 110 18 126/80 96 06/22/17 21:30 36.7 119 17 125/78 96 06/22/17 21:15 36.6 123 18 132/83 96 06/22/17 20:55 36.6 121 18 122/81 93 06/22/17 19:45 36.9 92 20 132/86 (101) 94 Room Air 06/22/17 16:20 92 Room Air 06/22/17 16:13 36.4 130 18 145/97 92 06/22/17 14:51 36.4 130 18 145/97 (113) 92 Lab Results: Results Past 24 Hours Test 06/23/17 05:39 Range/Units White Blood Count 31.17 4.8-10.8 K/uL Red Blood Count 3.27 4.2-5.4 M/uL Hemoglobin 9.4 12.0-16.0 g/dL Hematocrit 28.4 37-47 % Mean Corpuscular Volume 86.9 80-100 fL Mean Corpuscular Hemoglobin 28.7 25-34 pg Mean Corpuscular Hemoglobin Concent 33.1 32-36 g/dl RDW Standard Deviation 49.0 36.4-46.3 fL RDW Coefficient of Variation 15.5 11.5-14.5 % Platelet Count 182 130-400 K/uL Mean Platelet Volume 11.7 7.4-10.4 fL Nucleated RBC Absolute Count (auto) 1.72 0-0 K/uL Nucleated Red Blood Cells % 5.5 % Sodium Level 141 136-145 mmol/L Potassium Level 3.8 3.5-5.1 mmol/L Chloride Level 110 98-107 mmol/L Carbon Dioxide Level 21 21-32 mmol/L Anion Gap 10.0 3-11 mmol/L Blood Urea Nitrogen 48 7-18 mg/dl Creatinine 0.81 0.60-1.20 mg/dl Est Creatinine Clear Calc Drug Dose 85.5 ml/min Estimated GFR () 106.8 Estimated GFR (Non- 92.1 BUN/Creatinine Ratio 60.0 10-20 Random Glucose 157 70-99 mg/dl Calcium Level 8.7 8.5-10.1 mg/dl Phosphorus Level 3.0 2.5-4.9 mg/dl Magnesium Level 1.8 1.8-2.4 mg/dl Albumin 2.2 3.4-5.0 gm/dl Triglycerides Level 181 0-150 mg/dl
[2017-06-23] MEDS: ONDANSETRON INJ 2 MG/ML 2 ML VIAL IV PRN (14:11)
--- NOTE | 2017-06-23 16:08 | Palliative Care Progress Note ---
Palliative Care Progress Note Date of Service Jun 23, 2017. Subjective Pt evaluation today including: conversation w/ patient, conversation w/ family , physical exam, chart review, lab review, conversation w/ clinical consultant, review of inpatient medication list Pain: 8/10 - drops to a 5/10 after TIMBER SELECTOR bolus PO Intake: poor Voiding: osorio catheter in place and friend at bedside Spoke with at length out side of room. Review of Systems Constitutional: No fever, No chills Eyes: No worsening of vision ENT: No hearing loss Respiratory: No cough Cardiac: No chest pain Abdomen: + pain (Lower abd pain, + BM this am) Musculoskeletal: + problem reported (+ back pain) Female : + hematuria Neurologic: + weakness Endo: + fatigue Skin: + problem reported (pale) Objective Vital Signs Date Time Temp Pulse Resp B/P (MAP) Pulse Ox O2 Delivery O2 Flow Rate FiO2 06/23/17 11:18 36.6 110 20 149/99 (116) 95 06/23/17 08:00 Room Air 06/23/17 07:16 36.8 109 18 142/87 (105) 95 06/23/17 03:27 36.6 111 18 137/91 94 06/23/17 02:50 36.6 110 18 136/89 94 06/23/17 01:50 36.8 112 19 144/93 94 06/23/17 00:50 36.7 105 17 136/83 97 06/23/17 00:40 Room Air 06/23/17 00:20 36.7 108 17 134/82 96 06/23/17 00:05 36.8 102 17 121/76 97 06/22/17 23:51 36.8 111 18 138/84 96 06/22/17 23:30 36.6 111 18 130/85 96 06/22/17 22:30 36.8 111 19 131/83 94 06/22/17 22:00 36.7 110 18 126/80 96 06/22/17 21:30 36.7 119 17 125/78 96 06/22/17 21:15 36.6 123 18 132/83 96 06/22/17 20:55 36.6 121 18 122/81 93 06/22/17 19:45 36.9 92 20 132/86 (101) 94 Room Air 06/22/17 16:20 92 Room Air 06/22/17 16:13 36.4 130 18 145/97 92 Physical Exam General Appearance: + mild distress (with movement, comfortable at rest, more alert, smiling at times) Eyes: EOMI ENT: hearing grossly normal Neck: supple Respiratory/Chest: no respiratory distress Cardiovascular: regular rate, rhythm Abdomen: + distended, + guarding, + tenderness, + pertinent finding (poor BS) Extremities: no pedal edema Neurologic/Psychiatric: alert Skin: + pallor Laboratory Results Last 24 Hours Test 06/23/17 05:39 White Blood Count 31.17 K/uL Red Blood Count 3.27 M/uL Hemoglobin 9.4 g/dL Hematocrit 28.4 % Mean Corpuscular Volume 86.9 fL Mean Corpuscular Hemoglobin 28.7 pg Mean Corpuscular Hemoglobin Concent 33.1 g/dl RDW Standard Deviation 49.0 fL RDW Coefficient of Variation 15.5 % Platelet Count 182 K/uL Mean Platelet Volume 11.7 fL Nucleated RBC Absolute Count (auto) 1.72 K/uL Nucleated Red Blood Cells % 5.5 % Sodium Level 141 mmol/L Potassium Level 3.8 mmol/L Chloride Level 110 mmol/L Carbon Dioxide Level 21 mmol/L Anion Gap 10.0 mmol/L Blood Urea Nitrogen 48 mg/dl Creatinine 0.81 mg/dl Est Creatinine Clear Calc Drug Dose 85.5 ml/min Estimated GFR () 106.8 Estimated GFR (Non- 92.1 BUN/Creatinine Ratio 60.0 Random Glucose 157 mg/dl Calcium Level 8.7 mg/dl Phosphorus Level 3.0 mg/dl Magnesium Level 1.8 mg/dl Albumin 2.2 gm/dl Triglycerides Level 181 mg/dl Assessment and Plan (1) Back pain Status: Acute Assessment & Plan: On Fentanyl + Dilaudid TIMBER SELECTOR - received 13.0 mg IV Dilaudid in past 24 hours - required 11.7 prior 24 hours. Pt more alert today, less sedated. 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 Pt tearful and mention her dad ... - did not finish sentence, did not press for details. Gave pt and info on using methadone in cancer pain. Will see what pt's pain med requirements are after several doses of XRT and determine if pain can be controlled on Fentanyl + prn oxy. Spoke at length with outside of room , after initial visit with pt - he acknowledged difficulty discussing certain subjects with pt. His brother works for a Hospice agency and has arranged for bereavement counselor to meet with pt on . stated he does not even know if pt would want to be cremated or buried. He also stated that pt would not let him see or handle her medical bills. He acknowledged that they are both protecting each other emotionally. Asked to have Hospice counselor bring in the 5 Wishes Booklet, that may allow pt to address issues she is not able to verbalize. Provided support to - he will look into FML policy at his work and think about what friends and family may be available to help care for her if she is able to go home. He reported that Hospice would not be able to accept her on TPN and that she would in < 2 weeks without it. Pt's mother has metastatic cancer - diagnosed right before pt was diagnosed - she has not told her mother about her cancer. Pt 's family is from [place] and 's family is from [place]. Will cont to follow pt's pain med requirements - expect TIMBER SELECTOR requirement to decrease as effect of XRT is realized. Will cont to provide support to pt and . Palliative Performance Scale: 40 % Continued [facility] stay due to: inadequate oral pain control Discharge planning: uncertain Counseling and Coordination Total time 70 min with > 50 % of time spent at bedside with pt and discussing pain management and discussing care plans with outside of room.
[2017-06-23] MEDS: SODIUM CHLORIDE 0.9% 1000ML 1,000 ML IV SCH (17:48)
[2017-06-23] MEDS: HYDROmorphone HCL 0.5MG/ML 50 ML CASSETTE IV PRN (19:20)
[2017-06-23] MEDS ORDERED: NON-FORMULARY MEDICATION SCH (20:15)
[2017-06-23 20:24] LABS: HEMATOCRIT 30.4 % (37-47); HEMOGLOBIN 9.9 g/dL (12.0-16.0)
[2017-06-23] MEDS ORDERED: TPN INFUSION IV SCH (21:00)
[2017-06-23] MEDS: DULOXETINE HCL 60 MG CAP PO SCH (21:30)
[2017-06-23] MEDS: LORAZEPAM 0.5 MG TAB SL PRN (21:42)
[2017-06-23] MEDS: FENTANYL 25 MCG/HR TDSY TD SCH (21:48)
[2017-06-23] MEDS: FENTANYL PATCH REMOVE & WASTE SCH (22:00)
[2017-06-24] VITALS (8 sets, daily range): BP systolic 117–146; BP diastolic 73–99; PULSE 116–134; TEMP 36.5–36.8; O2SAT 94–96
[2017-06-24] MEDS: CHECK FENTANYL PATCH PLACEMENT SCH ×3 (01:54→16:03)
[2017-06-24] MEDS: HYDROmorphone INJ 0.5 MG/0.5 ML SYR IV PRN ×5 (04:04→16:01)
[2017-06-24] MEDS: SIMETHICONE 80 MG CHEW PO PRN (04:18)
[2017-06-24 06:59] LABS: HEMATOCRIT 30.2 % (37-47); HEMOGLOBIN 9.7 g/dL (12.0-16.0); MEAN CELL VOLUME 87.8 fL (80-100); MEAN CORPUSCULAR HEMOGLOBIN 28.2 pg (25-34); MEAN CORPUSCULAR HGB CONC 32.1 g/dl (32-36); RED CELL DISTRIBUTION WIDTH CV 16.5 % (11.5-14.5); RED CELL DISTRIBUTION WIDTH SD 52.6 fL (36.4-46.3); WHITE BLOOD COUNT 32.63 K/uL (4.8-10.8)
[2017-06-24 07:07] LABS: CALCIUM 8.1 mg/dl (8.5-10.1); CREATININE 0.69 mg/dl (0.60-1.20); POTASSIUM 3.8 mmol/L (3.5-5.1)
[2017-06-24] MEDS: LORAZEPAM 0.5 MG TAB SL PRN ×2 (07:14→20:49)
[2017-06-24 07:49] LABS: NUCLEATED RED BLOOD CELL ABS 2.63 K/uL (0-0); PLATELET COUNT 133 K/uL (130-400)
[2017-06-24] MEDS: DOCUSATE SODIUM/SENNA 50/8.6MG TAB PO SCH ×2 (08:10→20:44)
[2017-06-24] MEDS: SENNA 8.6 MG TAB PO SCH (08:10)
[2017-06-24] MEDS: PANTOprazole SOD 40 MG TAB PO SCH (08:10)
[2017-06-24] MEDS: DEXAMETHASONE 4 MG TAB PO SCH (08:10)
[2017-06-24] MEDS: ONDANSETRON INJ 2 MG/ML 2 ML VIAL IV PRN (08:13)
[2017-06-24] MEDS ORDERED: PHENAZOPYRIDINE HCL 200 MG TAB PO PRN (08:45)
[2017-06-24] MEDS ORDERED: LIDOCAINE HCL 2% JELLY 30 ML TUBE EXT PRN (08:45)
--- NOTE | 2017-06-24 09:26 | Progress Note ---
Subjective Date of Service: Jun 24, 2017. Subjective Pt evaluation today including: conversation w/ patient, chart review, lab review Voiding: osorio catheter in place (patent, draining light morales colored urine ) 37 yo female with metastatic appendiceal carcinoma. Pt reports abdominal and spine pain this morning. Also notes a discomfort from her catheter. Leg band and stat lock removed as they were bothering her. She did not tolerate oxybutynin well d/t dry mouth. Problem List Medical Problems: (1) Anemia Status: Acute (2) Back pain Status: Acute (3) Dehydration Status: Acute (4) Leukocytosis Status: Acute (5) Sepsis Status: Acute (6) Tumor, metastatic Status: Acute Review of Systems Constitutional: No fever, No chills Respiratory: No shortness of breath Cardiac: No chest pain Abdomen: + pain, + nausea, No vomiting Musculoskeletal: + problem reported (pain along spine) Heme: No abnormal bleeding/bruising Objective Vital Signs Date Time Temp Pulse Resp B/P (MAP) Pulse Ox O2 Delivery O2 Flow Rate FiO2 06/24/17 07:23 36.6 126 20 144/97 (113) 95 06/24/17 04:48 36.7 122 20 145/96 (112) 96 Room Air 06/24/17 00:05 Room Air 06/23/17 23:32 36.8 123 20 152/97 (115) 93 Room Air 06/23/17 20:06 36.6 119 20 146/92 (110) 95 Room Air 06/23/17 20:00 Room Air 06/23/17 16:05 36.4 110 20 148/95 (112) 95 Room Air 06/23/17 16:00 Room Air 06/23/17 11:18 36.6 110 20 149/99 (116) 95 Physical Exam General Appearance: no apparent distress, + thin Eyes: normal inspection ENT: hearing grossly normal Neck: no JVD Respiratory/Chest: no respiratory distress, no accessory muscle use Cardiovascular: no JVD Extremities: normal inspection Neurologic/Psychiatric: alert, normal mood/affect, oriented x 3 Skin: normal color Laboratory Results Last 24 Hours Test 06/23/17 19:58 06/24/17 05:52 Hemoglobin 9.9 g/dL 9.7 g/dL Hematocrit 30.4 % 30.2 % White Blood Count 32.63 K/uL Red Blood Count 3.44 M/uL Mean Corpuscular Volume 87.8 fL Mean Corpuscular Hemoglobin 28.2 pg Mean Corpuscular Hemoglobin Concent 32.1 g/dl Platelet Count 133 K/uL RDW Standard Deviation 52.6 fL RDW Coefficient of Variation 16.5 % Nucleated RBC Absolute Count (auto) 2.63 K/uL Neutrophils % (Manual) 84.5 % Lymphocytes % (Manual) 0.9 % Monocytes % (Manual) 3.4 % Metamyelocytes % 6.0 % Myelocytes % 5.2 % Nucleated Red Blood Cells % 8.4 % Neutrophils # (Manual) 27.57 K/uL Total Absolute Neutrophils 27.57 K/uL Lymphocytes # (Manual) 0.29 K/uL Total Absolute Lymphocytes 0.29 K/uL Monocytes # (Manual) 1.11 K/uL Metamyelocytes # 1.96 K/uL Myelocytes # 1.70 K/uL Platelet Estimate DECREASED Giant Platelets 1+ [place] Bodies OCCASIONAL Echinocytes 1+ Schistocytes 1+ Sodium Level 141 mmol/L Potassium Level 3.8 mmol/L Chloride Level 110 mmol/L Carbon Dioxide Level 22 mmol/L Anion Gap 9.0 mmol/L Blood Urea Nitrogen 48 mg/dl Creatinine 0.69 mg/dl Est Creatinine Clear Calc Drug Dose 100.3 ml/min Estimated GFR () 128.0 Estimated GFR (Non- 110.4 BUN/Creatinine Ratio 70.1 Random Glucose 145 mg/dl Calcium Level 8.1 mg/dl Assessment and Plan 1. Met Appendiceal Ca 2. Bone Mets 3. Gross Hematuria 4. Bilateral Obstructive Uropathy, likely external compression. Pt noting some discomfort from osorio catheter. Will try adding in Pyridium for bladder discomfort as well as lidocaine jelly around osorio for discomfort. If pt continues to desire treatment for cancer, will need osorio changed qmonthly. Stents will need changed in 2-3 months as well. F/u pending pt's disease progression and plans. If planning for hospice, would only plan for osorio catheter changes. Will continue to follow along with primary service. Continued [facility] stay due to: inadequate oral pain control Discharge planning: uncertain
[2017-06-24] MEDS ORDERED: CARVEDILOL 6.25 MG TAB PO ONE (14:50)
[2017-06-24] MEDS ORDERED: SODIUM CHLORIDE 0.9% 1000ML 500 ML IV ONE (15:00)
--- NOTE | 2017-06-24 15:05 | Progress Note ---
Internal Med Progress Note Date of Service: Jun 24, 2017. Provider Documentation: SUBJECTIVE: Seen and examined at bedside Currently feels sleepy (Likely secondary to pain meds) States having abd pain and nausea this morning Pain is better after radiation therapy today Poor oral intake Denies chest pain No new complaints OBJECTIVE: Vital Signs-as noted below Physical Exam: General Appearance:Thin, no apparent distress Head: normocephalic, Atraumatic Eyes: normal inspection, EOMI, PERRL Neck: supple, Trachea midline Respiratory/Chest: Normal breath sounds, CTA Cardiovascular: S1, S2, +Tachycardia, No murmur Abdomen/GI:Soft, tender, Bowel sounds present Extremities/Musculoskelatal:normal inspection, no edema Neurologic/Psych:AAOX3, grossly no focal neurological deficits Skin: normal color, warm Lab data as noted below. 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 Needs follow up as outpatient upon discharge Anemia: Likely secondary to malignancy and hematuria hold Eliquis Monitor Hb DVT Px: Eliquis held 2/2 hematuria Code Status: DNR Disposition: To be determined Overall Poor prognosis Vital Signs: Date Time Temp Pulse Resp B/P (MAP) Pulse Ox O2 Delivery O2 Flow Rate FiO2 06/24/17 11:09 36.5 134 20 146/99 (115) 94 06/24/17 08:00 95 Room Air 06/24/17 07:23 36.6 126 20 144/97 (113) 95 06/24/17 04:48 36.7 122 20 145/96 (112) 96 Room Air 06/24/17 00:05 Room Air 06/23/17 23:32 36.8 123 20 152/97 (115) 93 Room Air 06/23/17 20:06 36.6 119 20 146/92 (110) 95 Room Air 06/23/17 20:00 Room Air 06/23/17 16:05 36.4 110 20 148/95 (112) 95 Room Air 06/23/17 16:00 Room Air Lab Results: Results Past 24 Hours Test 06/23/17 19:58 06/24/17 05:52 Range/Units Hemoglobin 9.9 9.7 12.0-16.0 g/dL Hematocrit 30.4 30.2 37-47 % White Blood Count 32.63 4.8-10.8 K/uL Red Blood Count 3.44 4.2-5.4 M/uL Mean Corpuscular Volume 87.8 80-100 fL Mean Corpuscular Hemoglobin 28.2 25-34 pg Mean Corpuscular Hemoglobin Concent 32.1 32-36 g/dl Platelet Count 133 130-400 K/uL RDW Standard Deviation 52.6 36.4-46.3 fL RDW Coefficient of Variation 16.5 11.5-14.5 % Nucleated RBC Absolute Count (auto) 2.63 0-0 K/uL Neutrophils % (Manual) 84.5 % Lymphocytes % (Manual) 0.9 % Monocytes % (Manual) 3.4 % Metamyelocytes % 6.0 % Myelocytes % 5.2 % Nucleated Red Blood Cells % 8.4 % Neutrophils # (Manual) 27.57 1.4-6.5 K/uL Total Absolute Neutrophils 27.57 1.4-6.5 K/uL Lymphocytes # (Manual) 0.29 1.2-3.4 K/uL Total Absolute Lymphocytes 0.29 1.2-3.4 K/uL Monocytes # (Manual) 1.11 0.11-0.59 K/uL Metamyelocytes # 1.96 0-0 K/uL Myelocytes # 1.70 0-0 K/uL Platelet Estimate DECREASED Giant Platelets 1+ [place] Bodies OCCASIONAL Echinocytes 1+ Schistocytes 1+ Sodium Level 141 136-145 mmol/L Potassium Level 3.8 3.5-5.1 mmol/L Chloride Level 110 98-107 mmol/L Carbon Dioxide Level 22 21-32 mmol/L Anion Gap 9.0 3-11 mmol/L Blood Urea Nitrogen 48 7-18 mg/dl Creatinine 0.69 0.60-1.20 mg/dl Est Creatinine Clear Calc Drug Dose 100.3 ml/min Estimated GFR () 128.0 Estimated GFR (Non- 110.4 BUN/Creatinine Ratio 70.1 10-20 Random Glucose 145 70-99 mg/dl Calcium Level 8.1 8.5-10.1 mg/dl
[2017-06-24] MEDS: SODIUM CHLORIDE 0.9% 1000ML 1,000 ML IV SCH (18:33)
[2017-06-24] MEDS: DULOXETINE HCL 60 MG CAP PO SCH (20:45)
[2017-06-24] MEDS: CARVEDILOL 6.25 MG TAB PO SCH (20:49)
[2017-06-24] MEDS ORDERED: TPN INFUSION IV SCH (21:00)
[2017-06-25] VITALS (7 sets, daily range): BP systolic 107–131; BP diastolic 69–82; PULSE 101–128; TEMP 36.6–37.1; O2SAT 94–98
[2017-06-25] MEDS: CHECK FENTANYL PATCH PLACEMENT SCH ×3 (00:30→16:06)
[2017-06-25] MEDS: HYDROmorphone HCL 0.5MG/ML 50 ML CASSETTE IV PRN (01:10)
[2017-06-25] MEDS: HYDROmorphone INJ 0.5 MG/0.5 ML SYR IV PRN ×5 (03:27→16:09)
[2017-06-25 06:11] LABS: MEAN CORPUSCULAR HGB CONC 32.9 g/dl (32-36); NUCLEATED RED BLOOD CELL ABS 2.43 K/uL (0-0)
[2017-06-25 06:28] LABS: HEMATOCRIT 24.6 % (37-47); HEMOGLOBIN 8.1 g/dL (12.0-16.0); MEAN CELL VOLUME 86.3 fL (80-100); MEAN CORPUSCULAR HEMOGLOBIN 28.4 pg (25-34); RED CELL DISTRIBUTION WIDTH SD 53.6 fL (36.4-46.3); WHITE BLOOD COUNT 27.97 K/uL (4.8-10.8)
[2017-06-25] MEDS: ONDANSETRON INJ 2 MG/ML 2 ML VIAL IV PRN (06:30)
[2017-06-25] MEDS: LORAZEPAM 0.5 MG TAB SL PRN ×3 (06:34→23:18)
[2017-06-25 06:39] LABS: CALCIUM 7.7 mg/dl (8.5-10.1); CREATININE 0.51 mg/dl (0.60-1.20)
[2017-06-25 06:43] LABS: PLATELET COUNT 91 K/uL (130-400)
[2017-06-25] MEDS: DOCUSATE SODIUM/SENNA 50/8.6MG TAB PO SCH ×2 (07:58→20:11)
[2017-06-25] MEDS: DEXAMETHASONE 4 MG TAB PO SCH (07:58)
[2017-06-25] MEDS: CARVEDILOL 6.25 MG TAB PO SCH ×2 (07:58→20:11)
[2017-06-25] MEDS: SENNA 8.6 MG TAB PO SCH (07:58)
[2017-06-25] MEDS: PANTOprazole SOD 40 MG TAB PO SCH (07:58)
--- NOTE | 2017-06-25 08:02 | Progress Note ---
Subjective Date of Service: Jun 25, 2017. Subjective Pt evaluation today including: conversation w/ patient, chart review, lab review Voiding: osorio catheter in place (patent, draining morales colored urine ) 37 yo female with metastatic appendiceal cancer and resultant bilateral hydronephrosis s/p stent placement. Pt continues to have pain this morning. She does feel the lidocaine jelly may have helped with osorio discomfort, although it does not look like it has been administered from the med list. She is questioning her ultimate plan as she says she thought she was at the end , but now she is just lying around in pain and doesn't know what to do. She says this isn't for her. Problem List Medical Problems: (1) Anemia Status: Acute (2) Back pain Status: Acute (3) Dehydration Status: Acute (4) Leukocytosis Status: Acute (5) Sepsis Status: Acute (6) Tumor, metastatic Status: Acute Review of Systems Constitutional: No fever, No chills Respiratory: No shortness of breath Cardiac: No chest pain Abdomen: + pain, + nausea, No vomiting Musculoskeletal: + problem reported (pain along spine ) Heme: No abnormal bleeding/bruising Objective Vital Signs Date Time Temp Pulse Resp B/P (MAP) Pulse Ox O2 Delivery O2 Flow Rate FiO2 06/25/17 04:00 36.6 112 20 131/81 (98) 97 Room Air 06/25/17 00:00 Room Air 06/24/17 23:33 36.8 116 18 127/73 (91) 94 Room Air 06/24/17 19:15 36.8 123 18 117/78 (91) 95 Room Air 06/24/17 16:00 94 Room Air 06/24/17 15:01 36.8 125 18 138/88 (105) 94 Room Air 06/24/17 11:09 36.5 134 20 146/99 (115) 94 06/24/17 08:00 95 Room Air Physical Exam General Appearance: + mild distress Eyes: normal inspection ENT: hearing grossly normal Neck: no JVD Respiratory/Chest: no respiratory distress, no accessory muscle use Cardiovascular: no JVD Extremities: normal inspection Neurologic/Psychiatric: alert, normal mood/affect, oriented x 3 Skin: normal color Laboratory Results Last 24 Hours Test 06/25/17 06:01 White Blood Count 27.97 K/uL Red Blood Count 2.85 M/uL Hemoglobin 8.1 g/dL Hematocrit 24.6 % Mean Corpuscular Volume 86.3 fL Mean Corpuscular Hemoglobin 28.4 pg Mean Corpuscular Hemoglobin Concent 32.9 g/dl Platelet Count 91 K/uL RDW Standard Deviation 53.6 fL RDW Coefficient of Variation 17.0 % Nucleated RBC Absolute Count (auto) 2.43 K/uL Neutrophils % (Manual) 84.0 % Lymphocytes % (Manual) 7.0 % Monocytes % (Manual) 9.0 % Nucleated Red Blood Cells % 8.7 % Neutrophils # (Manual) 23.49 K/uL Total Absolute Neutrophils 23.49 K/uL Lymphocytes # (Manual) 1.96 K/uL Total Absolute Lymphocytes 1.96 K/uL Monocytes # (Manual) 2.52 K/uL Schistocytes 1+ Sodium Level 142 mmol/L Potassium Level 4.0 mmol/L Chloride Level 111 mmol/L Carbon Dioxide Level 26 mmol/L Anion Gap 5.0 mmol/L Blood Urea Nitrogen 41 mg/dl Creatinine 0.51 mg/dl Est Creatinine Clear Calc Drug Dose 135.8 ml/min Estimated GFR () 141.4 Estimated GFR (Non- 122.0 BUN/Creatinine Ratio 79.1 Random Glucose 139 mg/dl Calcium Level 7.7 mg/dl Assessment and Plan 1. Met Appendiceal Ca 2. Bone Mets 3. Gross Hematuria 4. Bilateral Obstructive Uropathy, likely external compression. Pt would like to discuss hospice services again. I have requested to her RN to reach out to Dr. Azar and Dr. Lizama to come in and have another end of life group discussion with the pt and her per the pt's requests to help facilitate the pt's desires. Continue to plan for osorio change qmonthly. Uncertain the timing of last osorio change. Would also need stents changed in 2-3 months if pt continues to with treatments. Continued [facility] stay due to: inadequate oral pain control Discharge planning: uncertain
--- NOTE | 2017-06-25 15:24 | Progress Note ---
Internal Med Progress Note Date of Service: Jun 25, 2017. Provider Documentation: SUBJECTIVE: Seen and examined at bedside Discussed with patient and palliative care in detail Patient prefers to be stop radiation therapy She would like to continue TPN and other medications for now Continues to have significant abdominal and back pain Reports having BM today Poor oral intake Denies chest pain, sob Poor Prognosis OBJECTIVE: Vital Signs-as noted below Physical Exam: General Appearance:Thin, no apparent distress Head: normocephalic, Atraumatic Eyes: normal inspection, EOMI, PERRL Neck: supple, Trachea midline Respiratory/Chest: Normal breath sounds, CTA Cardiovascular: S1, S2, +Tachycardia, No murmur Abdomen/GI:Soft, tender, Bowel sounds present Extremities/Musculoskelatal:normal inspection, no edema Neurologic/Psych:AAOX3, grossly no focal neurological deficits Skin: normal color, warm Lab data as noted below. 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 Horton in [facility] Received 1 dose of Zometa for hypercalcemia Continue TPN for now as per patient's wishes Leukocytosis likely secondary to steroids and bone mets, trending down Overall prognosis is poor Discussed with Dr.Nilesh Garcia on 06/24/[address]Veeral Garcia that patient prefers to discontinue radiation therapy Discussed with patient and Palliative Care today and patient admits to discontinue radiation therapy Gross hematuria: B/L Obstructive Uropathy S/P stents Hematuria likely 2/2 B/L ureteral stents and Eliquis use Eliquis on hold Urology following added Pyridium to help with spasms Monitor Hb S/P 2 units PRBC Needs [place] changed every month and stents changed in 2-3 months if planned for treatment for cancer HTN Tachycardia continue coreg Not on meds at home 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 Needs follow up as outpatient upon discharge Anemia: Likely secondary to malignancy and hematuria hold Eliquis Monitor Hb DVT Px: Eliquis held 05/29 hematuria Code Status: DNR Disposition: To be determined Overall Poor prognosis Vital Signs: Date Time Temp Pulse Resp B/P (MAP) Pulse Ox O2 Delivery O2 Flow Rate FiO2 06/25/17 15:09 36.8 118 18 108/69 (82) 94 Room Air 06/25/17 12:31 36.8 124 18 121/78 (92) 94 Room Air 06/25/17 08:30 Room Air 06/25/17 08:02 36.9 128 14 131/82 (98) 94 Room Air 06/25/17 08:00 94 Room Air 06/25/17 04:00 36.6 112 20 131/81 (98) 97 Room Air 06/25/17 00:00 Room Air 06/24/17 23:33 36.8 116 18 127/73 (91) 94 Room Air 06/24/17 19:15 36.8 123 18 117/78 (91) 95 Room Air 06/24/17 16:00 94 Room Air Lab Results: Results Past 24 Hours Test 06/25/17 06:01 Range/Units White Blood Count 27.97 4.8-10.8 K/uL Red Blood Count 2.85 4.2-5.4 M/uL Hemoglobin 8.1 12.0-16.0 g/dL Hematocrit 24.6 37-47 % Mean Corpuscular Volume 86.3 80-100 fL Mean Corpuscular Hemoglobin 28.4 25-34 pg Mean Corpuscular Hemoglobin Concent 32.9 32-36 g/dl Platelet Count 91 130-400 K/uL RDW Standard Deviation 53.6 36.4-46.3 fL RDW Coefficient of Variation 17.0 11.5-14.5 % Nucleated RBC Absolute Count (auto) 2.43 0-0 K/uL Neutrophils % (Manual) 84.0 % Lymphocytes % (Manual) 7.0 % Monocytes % (Manual) 9.0 % Nucleated Red Blood Cells % 8.7 % Neutrophils # (Manual) 23.49 1.4-6.5 K/uL Total Absolute Neutrophils 23.49 1.4-6.5 K/uL Lymphocytes # (Manual) 1.96 1.2-3.4 K/uL Total Absolute Lymphocytes 1.96 1.2-3.4 K/uL Monocytes # (Manual) 2.52 0.11-0.59 K/uL Schistocytes 1+ Sodium Level 142 136-145 mmol/L Potassium Level 4.0 3.5-5.1 mmol/L Chloride Level 111 98-107 mmol/L Carbon Dioxide Level 26 21-32 mmol/L Anion Gap 5.0 3-11 mmol/L Blood Urea Nitrogen 41 7-18 mg/dl Creatinine 0.51 0.60-1.20 mg/dl Est Creatinine Clear Calc Drug Dose 135.8 ml/min Estimated GFR () 141.4 Estimated GFR (Non- 122.0 BUN/Creatinine Ratio 79.1 10-20 Random Glucose 139 70-99 mg/dl Calcium Level 7.7 8.5-10.1 mg/dl
--- NOTE | 2017-06-25 16:54 | Palliative Care Progress Note ---
Palliative Care Progress Note Date of Service Jun 25, 2017. Subjective Pt evaluation today including: conversation w/ patient, conversation w/ family , physical exam, chart review, lab review, conversation w/ loss prevention consultant, review of inpatient medication list Pain: 12/04 - pt gave herself PRACTICING DERMATOLOGIST bolus with some improvement PO Intake: poor, does take some liquids Voiding: osorio catheter in place (gross hematuria) Pt seen for several minutes alone and then arrived. Spoke with staff from [facility] who were there to see pt. Returned to room with Dr Lizama later to speak with pt alone. Review of Systems Constitutional: No fever Eyes: No worsening of vision ENT: No hearing loss Respiratory: No cough Cardiac: No chest pain Abdomen: No pain (diffuse, improved from 2 days ago, + BM this am) Musculoskeletal: No joint pain Female : + hematuria Neurologic: + weakness Psychiatric: + problem reported (pt appropriate given her illness) Endo: + fatigue Skin: + new/changing skin lesions Objective Vital Signs Date Time Temp Pulse Resp B/P (MAP) Pulse Ox O2 Delivery O2 Flow Rate FiO2 06/25/17 15:09 36.8 118 18 108/69 (82) 94 Room Air 06/25/17 12:31 36.8 124 18 121/78 (92) 94 Room Air 06/25/17 08:30 Room Air 06/25/17 08:02 36.9 128 14 131/82 (98) 94 Room Air 06/25/17 08:00 94 Room Air 06/25/17 04:00 36.6 112 20 131/81 (98) 97 Room Air 06/25/17 00:00 Room Air 06/24/17 23:33 36.8 116 18 127/73 (91) 94 Room Air 06/24/17 19:15 36.8 123 18 117/78 (91) 95 Room Air Physical Exam General Appearance: no apparent distress, + pertinent finding (slightly drowsy after PRACTICING DERMATOLOGIST bolus) Eyes: EOMI ENT: hearing grossly normal Neck: supple Respiratory/Chest: lungs clear Cardiovascular: regular rate, rhythm Abdomen: + distended, + tenderness (less tender with light palpation) Extremities: normal range of motion Neurologic/Psychiatric: + pertinent finding (slightly drowsy) Skin: + pallor Laboratory Results Last 24 Hours Test 06/25/17 06:01 White Blood Count 27.97 K/uL Red Blood Count 2.85 M/uL Hemoglobin 8.1 g/dL Hematocrit 24.6 % Mean Corpuscular Volume 86.3 fL Mean Corpuscular Hemoglobin 28.4 pg Mean Corpuscular Hemoglobin Concent 32.9 g/dl Platelet Count 91 K/uL RDW Standard Deviation 53.6 fL RDW Coefficient of Variation 17.0 % Nucleated RBC Absolute Count (auto) 2.43 K/uL Neutrophils % (Manual) 84.0 % Lymphocytes % (Manual) 7.0 % Monocytes % (Manual) 9.0 % Nucleated Red Blood Cells % 8.7 % Neutrophils # (Manual) 23.49 K/uL Total Absolute Neutrophils 23.49 K/uL Lymphocytes # (Manual) 1.96 K/uL Total Absolute Lymphocytes 1.96 K/uL Monocytes # (Manual) 2.52 K/uL Schistocytes 1+ Sodium Level 142 mmol/L Potassium Level 4.0 mmol/L Chloride Level 111 mmol/L Carbon Dioxide Level 26 mmol/L Anion Gap 5.0 mmol/L Blood Urea Nitrogen 41 mg/dl Creatinine 0.51 mg/dl Est Creatinine Clear Calc Drug Dose 135.8 ml/min Estimated GFR () 141.4 Estimated GFR (Non- 122.0 BUN/Creatinine Ratio 79.1 Random Glucose 139 mg/dl Calcium Level 7.7 mg/dl Assessment and Plan (1) Back pain Status: Acute Assessment & Plan: Would recommend starting a continuous rate of IV Dilaudid at 0.2 mg/hr, may use current bolus settings or decrease bolus dose . Continue Fentanyl patch and Decadron for bone pain Pt receiving XRT to spine - pt stated and confirmed that she wanted to stop XRT - it's too painful for her (2) Tumor, metastatic Status: Acute Assessment & Plan: Rapidly progressing bone mets with resultant hypercalcemia (3) Appendix carcinoma Status: Chronic Assessment & Plan: No further chemo planned (4) Hypercalcemia of malignancy Status: Acute Assessment & Plan: Calcium level decreasing after Zometa on 06/22 - Ca++ today 7.7 , alb 2.2 - corrected Ca++ - 9.14 (5) Anemia Status: Acute Assessment & Plan: Hgb dropping due to ongoing hematuria - pt will consider whether or not to have more transfusions. 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 Hospice may not be able to continue TPN. Her calcium is decreasing , but with continued bone mets will start to rise again at some point and her continued hematuria may require transfusion. Discussed keeping disease " at bay" vs going home to enjoy family and friends with the realization that her time is short - likely weeks. Certain discussions have not taken place between pt and - they are both trying not to burden each other. Will cont to provide support and help pt and come to terms with prognosis and move forward with EOL care. Palliative Performance Scale: 40 % Continued [facility] stay due to: inadequate oral pain control Discharge planning: uncertain Counseling and Coordination Total time > 65 min with > 50 % of time spent at bedside with pt and discussing prognosis and treatment options.
[2017-06-25] MEDS: SODIUM CHLORIDE 0.9% 1000ML 1,000 ML IV SCH (17:30)
--- NOTE | 2017-06-25 18:17 | Hematology/Oncology Prog Note ---
Hematology/Onc Progress Note Date of Service Jun 25, 2017. 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 I reviewed her blood workup done in the last few days, polymorphonuclear leukocytosis noted, now platelet count dropped down to around 91,000 one thousand, hemoglobin level also dropped down to around 8.1 g/dL, she received 2 units of PRBC on 06/22/2017 when her hemoglobin level dropped down to around 6 g/ dL. She also received 1 dose of Zometa on 06/22/2017, now her calcium level is on the lower side around 7.7 with albumin level of 2.2. Normal kidney function test noted. Based on her clinical condition and the declining performed status and progression of the disease, I would not consider for additional systemic chemotherapy for metastatic appendiceal cancer. I also expecting further drop in her blood counts, mainly hemoglobin because of ongoing hematuria and platelet count because of bone/bone marrow involvement. Hi white blood cell count may persist with cancer diagnosis (leukemoid reaction) as well as on a steroid therapy. Also discussed with them regarding the role of hospice that can be considered in her case to provide comfort care at home, she is thinking about what hospice can help her and what services would not be covered under the hospice care. Overall prognosis remains poor. Will follow up. Dr. Otf Garcia Hem/Onc Vital Signs Vital Signs Past 12 Hours Date Time Temp Pulse Resp B/P (MAP) Pulse Ox O2 Delivery O2 Flow Rate FiO2 06/25/17 16:00 Room Air 06/25/17 15:09 36.8 118 18 108/69 (82) 94 Room Air 06/25/17 12:31 36.8 124 18 121/78 (92) 94 Room Air 06/25/17 08:30 Room Air 06/25/17 08:02 36.9 128 14 131/82 (98) 94 Room Air 06/25/17 08:00 94 Room Air
[2017-06-25] MEDS: DULOXETINE HCL 60 MG CAP PO SCH (20:12)
[2017-06-25] MEDS ORDERED: TPN INFUSION IV SCH (21:00)
[2017-06-26] VITALS (7 sets, daily range): BP systolic 110–124; BP diastolic 68–74; PULSE 101–114; TEMP 36.6–36.8; O2SAT 98–99; Ht 170.2 cm; Wt 62.1 kg
[2017-06-26] MEDS: CHECK FENTANYL PATCH PLACEMENT SCH ×3 (00:59→16:11)
[2017-06-26] MEDS: ONDANSETRON INJ 2 MG/ML 2 ML VIAL IV PRN (03:38)
[2017-06-26] MEDS: CARVEDILOL 6.25 MG TAB PO SCH (07:37)
[2017-06-26] MEDS: DOCUSATE SODIUM/SENNA 50/8.6MG TAB PO SCH (07:37)
[2017-06-26] MEDS: SENNA 8.6 MG TAB PO SCH (07:37)
[2017-06-26] MEDS: PANTOprazole SOD 40 MG TAB PO SCH (07:37)
[2017-06-26] MEDS: DEXAMETHASONE 4 MG TAB PO SCH (07:37)
[2017-06-26 09:33] LABS: CALCIUM 7.9 mg/dl (8.5-10.1); CREATININE 0.51 mg/dl (0.60-1.20); POTASSIUM 3.9 mmol/L (3.5-5.1)
[2017-06-26] MEDS: HYDROmorphone HCL 0.5MG/ML 50 ML CASSETTE IV PRN ×2 (09:33→13:08)
[2017-06-26 09:45] LABS: HEMATOCRIT 22.2 % (37-47); HEMOGLOBIN 7.3 g/dL (12.0-16.0); MEAN CELL VOLUME 86.7 fL (80-100); MEAN CORPUSCULAR HEMOGLOBIN 28.5 pg (25-34); MEAN CORPUSCULAR HGB CONC 32.9 g/dl (32-36); NUCLEATED RED BLOOD CELL ABS 2.12 K/uL (0-0); PLATELET COUNT 74 K/uL (130-400); RED CELL DISTRIBUTION WIDTH CV 17.1 % (11.5-14.5); RED CELL DISTRIBUTION WIDTH SD 53.6 fL (36.4-46.3); WHITE BLOOD COUNT 27.51 K/uL (4.8-10.8)
--- NOTE | 2017-06-26 10:25 | Progress Note ---
Subjective Date of Service: Jun 26, 2017. Subjective Pt evaluation today including: conversation w/ patient, chart review, lab review Voiding: osorio catheter in place (patent, draining yellow urine ) 37 yo female with metastatic appendiceal carcinoma. Pt continues to have pain this morning. States the osorio catheter "feels like a zebra." She wants to go home, but does not understand why she can't go home on TPN. Problem List Medical Problems: (1) Anemia Status: Acute (2) Back pain Status: Acute (3) Dehydration Status: Acute (4) Leukocytosis Status: Acute (5) Sepsis Status: Acute (6) Tumor, metastatic Status: Acute Review of Systems Abdomen: + pain, + nausea Musculoskeletal: + problem reported (back pain ) Pt lethargic. Difficulty holding a conversation and answering questions. Objective Vital Signs Date Time Temp Pulse Resp B/P (MAP) Pulse Ox O2 Delivery O2 Flow Rate FiO2 06/26/17 08:24 36.8 114 20 120/70 (87) 99 06/26/17 08:00 99 Room Air 06/26/17 04:20 36.8 110 20 124/74 (91) 99 Room Air 06/26/17 00:43 36.8 110 20 120/73 (89) 98 Room Air 06/26/17 00:00 Room Air 06/25/17 20:10 101 16 107/71 (83) 98 Room Air 06/25/17 20:08 37.1 109 18 118/75 (89) 95 Room Air 06/25/17 16:00 Room Air 06/25/17 15:09 36.8 118 18 108/69 (82) 94 Room Air 06/25/17 12:31 36.8 124 18 121/78 (92) 94 Room Air Physical Exam General Appearance: no apparent distress Eyes: normal inspection ENT: hearing grossly normal Neck: no JVD Respiratory/Chest: no respiratory distress, no accessory muscle use Cardiovascular: no JVD Extremities: normal inspection Neurologic/Psychiatric: alert, normal mood/affect, oriented x 3 Skin: normal color Laboratory Results Last 24 Hours Test 06/26/17 08:32 White Blood Count 27.51 K/uL Red Blood Count 2.56 M/uL Hemoglobin 7.3 g/dL Hematocrit 22.2 % Mean Corpuscular Volume 86.7 fL Mean Corpuscular Hemoglobin 28.5 pg Mean Corpuscular Hemoglobin Concent 32.9 g/dl RDW Standard Deviation 53.6 fL RDW Coefficient of Variation 17.1 % Platelet Count 74 K/uL Nucleated RBC Absolute Count (auto) 2.12 K/uL Nucleated Red Blood Cells % 7.7 % Platelet Estimate DECREASED Sodium Level 140 mmol/L Potassium Level 3.9 mmol/L Chloride Level 110 mmol/L Carbon Dioxide Level 23 mmol/L Anion Gap 7.0 mmol/L Blood Urea Nitrogen 38 mg/dl Creatinine 0.51 mg/dl Est Creatinine Clear Calc Drug Dose 145.5 ml/min Estimated GFR () 141.4 Estimated GFR (Non- 122.0 BUN/Creatinine Ratio 75.4 Random Glucose 151 mg/dl Calcium Level 7.9 mg/dl Assessment and Plan 1. Met Appendiceal Ca 2. Bone Mets 3. Gross Hematuria 4. Bilateral Obstructive Uropathy, likely external compression. Pt has discontinued radiation. Would like to go home with hospice, but is upset that she may not be able to return home with TPN. Hematuria improved. Continue to plan for osorio change qmonthly. Can be changed by hospice nursing if she returns home. Would also need stents changed in 2-3 months if pt continues with treatment of cancer. No further management at this time Recall PRN issues. Thanks for allowing us to participate in this pt's care. Continued [facility] stay due to: inadequate oral pain control Discharge planning: uncertain
[2017-06-26] MEDS ORDERED: HYDROmorphone/NSS 100MG/100ML 100 ML IV SCH (12:00)
--- NOTE | 2017-06-26 12:12 | Palliative Care Progress Note ---
Palliative Care Progress Note Date of Service Jun 26, 2017. Subjective Pt evaluation today including: conversation w/ patient, conversation w/ family , physical exam, chart review, lab review, conversation w/ oim consultant, review of inpatient medication list Pain: 7/10 PO Intake: poor for solids, fair for liquids Voiding: osorio catheter in place Met with pt and , pt would like to go home today if possible. reports [facility] is to take care of DME. I can assist with SYSTEMS TECHNOLOGIST orders for Hospice. Spoke with case management. Review of Systems Constitutional: No fever, No chills Eyes: No worsening of vision ENT: No hearing loss Respiratory: No cough Cardiac: No chest pain Abdomen: + pain (slight improvememt after BM) Female : + hematuria Neurologic: + weakness Endo: + fatigue Objective Vital Signs Date Time Temp Pulse Resp B/P (MAP) Pulse Ox O2 Delivery O2 Flow Rate FiO2 06/26/17 08:24 36.8 114 20 120/70 (87) 99 06/26/17 08:00 99 Room Air 06/26/17 04:20 36.8 110 20 124/74 (91) 99 Room Air 06/26/17 00:43 36.8 110 20 120/73 (89) 98 Room Air 06/26/17 00:00 Room Air 06/25/17 20:10 101 16 107/71 (83) 98 Room Air 06/25/17 20:08 37.1 109 18 118/75 (89) 95 Room Air 06/25/17 16:00 Room Air 06/25/17 15:09 36.8 118 18 108/69 (82) 94 Room Air 06/25/17 12:31 36.8 124 18 121/78 (92) 94 Room Air Physical Exam General Appearance: + mild distress (due to pain - gave pt bolus button to push ) ENT: hearing grossly normal Neck: supple Respiratory/Chest: no respiratory distress Cardiovascular: regular rate, rhythm Abdomen: + distended Extremities: normal range of motion Neurologic/Psychiatric: + pertinent finding (slightly drowsy due to pain meds) Skin: + pallor Laboratory Results Last 24 Hours Test 06/26/17 08:32 White Blood Count 27.51 K/uL Red Blood Count 2.56 M/uL Hemoglobin 7.3 g/dL Hematocrit 22.2 % Mean Corpuscular Volume 86.7 fL Mean Corpuscular Hemoglobin 28.5 pg Mean Corpuscular Hemoglobin Concent 32.9 g/dl RDW Standard Deviation 53.6 fL RDW Coefficient of Variation 17.1 % Platelet Count 74 K/uL Nucleated RBC Absolute Count (auto) 2.12 K/uL Nucleated Red Blood Cells % 7.7 % Platelet Estimate DECREASED Sodium Level 140 mmol/L Potassium Level 3.9 mmol/L Chloride Level 110 mmol/L Carbon Dioxide Level 23 mmol/L Anion Gap 7.0 mmol/L Blood Urea Nitrogen 38 mg/dl Creatinine 0.51 mg/dl Est Creatinine Clear Calc Drug Dose 145.5 ml/min Estimated GFR () 141.4 Estimated GFR (Non- 122.0 BUN/Creatinine Ratio 75.4 Random Glucose 151 mg/dl Calcium Level 7.9 mg/dl Assessment and Plan (1) Back pain Status: Acute Assessment & Plan: Pain worse this am - SYSTEMS TECHNOLOGIST to start 0.2 mg Dilaudid SYSTEMS TECHNOLOGIST, cont current bolus settings. Pt does not want any further XRT. 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 Palliative Performance Scale: 40 % Continued [facility] stay due to: inadequate oral pain control Discharge planning: home with Hospice Counseling and Coordination Total time - 35 min with > 50% fo time spent with pt and and coordinating care.
[2017-06-26] MEDS ORDERED: NURSING VERBAL MED ORDER ONE ×2 (12:45→16:15)
[2017-06-26] MEDS ORDERED: HYDROmorphone INJ 1 MG/ML SYR IV PRN (16:30)
--- NOTE | 2017-06-26 17:19 | Progress Note ---
Internal Med Progress Note Date of Service: Jun 26, 2017. Provider Documentation: SUBJECTIVE: Seen and examined at bedside Discussed with patient and palliative care in detail Continues to have significant abdominal and back pain Poor oral intake Denies chest pain, sob Poor Prognosis Patient prefers to be discharged home with Hospice services OBJECTIVE: Vital Signs-as noted below Physical Exam: General Appearance:Thin, no apparent distress Head: normocephalic, Atraumatic Eyes: normal inspection, EOMI, PERRL Neck: supple, Trachea midline Respiratory/Chest: Normal breath sounds, CTA Cardiovascular: S1, S2, +Tachycardia, No murmur Abdomen/GI:Soft, tender, Bowel sounds present Extremities/Musculoskelatal:normal inspection, no edema Neurologic/Psych:AAOX3, grossly no focal neurological deficits Skin: normal color, warm Lab data as noted below. 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 Horton in [facility] Received 1 dose of Zometa for hypercalcemia Continue TPN for now as per patient's wishes Leukocytosis likely secondary to steroids and bone mets, trending down Overall prognosis is poor Discussed with Dr.Nilesh Garcia on multiple occasions Discussed with Dr.Veeral Garcia that patient prefers to discontinue radiation therapy Discussed with patient and Palliative Care today and patient admits to discontinue radiation therapy and preferred to be discharged home with hospice services and to discontinue further cancer treatments Gross hematuria: B/L Obstructive Uropathy S/P stents Hematuria likely 2/2 B/L ureteral stents and Eliquis use Eliquis on hold Urology following added Pyridium to help with spasms Monitor Hb S/P 2 units PRBC Needs [place] changed every month and stents changed in 2-3 months if planned for treatment for cancer in future HTN Tachycardia continue coreg Not on meds at home 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 Needs follow up as outpatient upon discharge Anemia: Likely secondary to malignancy and hematuria hold Eliquis Monitor Hb DVT Px: Eliquis held 05/29 hematuria Code Status: DNR Disposition: Overall Poor prognosis Planned to be discharged home with Home Hospice Follow up with your Hospice Physician for further management Vital Signs: Date Time Temp Pulse Resp B/P (MAP) Pulse Ox O2 Delivery O2 Flow Rate FiO2 06/26/17 16:00 Room Air 06/26/17 14:57 36.7 101 18 113/72 (86) 98 06/26/17 14:54 36.8 114 20 99 Room Air 06/26/17 11:00 36.6 112 18 110/68 (82) 98 06/26/17 08:24 36.8 114 20 120/70 (87) 99 06/26/17 08:00 99 Room Air 06/26/17 04:20 36.8 110 20 124/74 (91) 99 Room Air 06/26/17 00:43 36.8 110 20 120/73 (89) 98 Room Air 06/26/17 00:00 Room Air 06/25/17 20:10 101 16 107/71 (83) 98 Room Air 06/25/17 20:08 37.1 109 18 118/75 (89) 95 Room Air Lab Results: Results Past 24 Hours Test 06/26/17 08:32 Range/Units White Blood Count 27.51 4.8-10.8 K/uL Red Blood Count 2.56 4.2-5.4 M/uL Hemoglobin 7.3 12.0-16.0 g/dL Hematocrit 22.2 37-47 % Mean Corpuscular Volume 86.7 80-100 fL Mean Corpuscular Hemoglobin 28.5 25-34 pg Mean Corpuscular Hemoglobin Concent 32.9 32-36 g/dl RDW Standard Deviation 53.6 36.4-46.3 fL RDW Coefficient of Variation 17.1 11.5-14.5 % Platelet Count 74 130-400 K/uL Nucleated RBC Absolute Count (auto) 2.12 0-0 K/uL Nucleated Red Blood Cells % 7.7 % Platelet Estimate DECREASED Sodium Level 140 136-145 mmol/L Potassium Level 3.9 3.5-5.1 mmol/L Chloride Level 110 98-107 mmol/L Carbon Dioxide Level 23 21-32 mmol/L Anion Gap 7.0 3-11 mmol/L Blood Urea Nitrogen 38 7-18 mg/dl Creatinine 0.51 0.60-1.20 mg/dl Est Creatinine Clear Calc Drug Dose 145.5 ml/min Estimated GFR () 141.4 Estimated GFR (Non- 122.0 BUN/Creatinine Ratio 75.4 10-20 Random Glucose 151 70-99 mg/dl Calcium Level 7.9 8.5-10.1 mg/dl
[2017-06-26] MEDS: LORAZEPAM 1 MG TAB SL PRN (17:24)
[2017-06-26] MEDS ORDERED: CRG625 PO (17:28)
[2017-06-26] MEDS ORDERED: PHEN-1043 PO (17:28)
--- NOTE | 2017-06-26 17:30 | Discharge Summary ---
Discharge Summary Date of Service Jun 26, 2017. Discharge Summary Admission Date: Jun 19, 2017 at 16:29 Discharge Date: Jun 26, 2017 Discharge Disposition: Home (with Hospice Services) Principal Diagnosis: Metastatic Appendiceal cancer Procedures: CTA: 1. No pulmonary emboli identified. 2. Innumerable mixed lytic and blastic skeletal lesions consistent with metastatic disease. Mild T9 pathologic fracture. No retropulsion. No significant epidural extension of tumor by CT. Prevertebral tumor at multiple levels. 3. Severe right and moderate left hydronephrosis, partially imaged on this exam. 4. Mild intrahepatic biliary ductal dilatation. Lumbar CT: 1. Interval development of innumerable lytic and blastic skeletal lesions since CT of December 14, 2016 consistent with metastatic disease. No pathologic fracture identified. No epidural extension of tumor within the lumbar spine. Suspected slight extension of tumor into the right S2-S3 neural foramen. 2. Severe right and moderate left hydroureteronephrosis with bilateral ureteral stents partially imaged on this exam. Consultations: Urology-[facility] Onc-[facility] Palliative-[facility] Oncology-[facility] Pending Studies/Follow-Up: Follow up with your Hospice Physician for further management Medication Reconciliation New Medications: Carvedilol (Carvedilol) 6.25 Mg Tab 6.25 MG PO BID for 30 Days, #60 TAB Phenazopyridine HCl (Phenazopyridine HCl) 200 Mg Tab 200 MG PO TID PRN for Bladder pain for 30 Days, #90 TAB Continued Medications: Dicyclomine Hcl (Dicyclomine Hcl) 20 Mg Tab 1 TAB PO QID PRN for Diarrhea Diphenoxylate/Atropine (Lomotil) Tab 1 TAB PO DAILY PRN for PRN Docusate Sodium (Colace) 100 Mg Cap 1 CAP PO BID PRN for PRN Duloxetine Hcl (Cymbalta) 30 Mg Cap 90 MG PO HS Fentanyl (Fentanyl) 25 Mcg Tdsy 1 PATCH PO Q72H Loperamide Hcl (Imodium) 2 Mg Cap 2 MG PO TID PRN for PRN Lorazepam (Ativan) 0.5 Mg Tab 0.5 MG PO TID PRN for Anxiety Lorazepam (Ativan) 0.5 Mg Tab 0.5 MG PO HS Ondansetron Hcl (Zofran) 8 Mg Tab 8 MG PO BID PRN for Nausea Oxybutynin Chloride (Ditropan) 5 Mg Tab 5 MG PO Q8H PRN for PRN Oxycodone HCl (Oxycodone HCl) 5 Mg Tab 5 MG PO Q2H ABDOMINAL PAIN Pantoprazole (Protonix) 40 Mg Tab 40 MG PO QAM Polyethylene Glycol 3350 (Miralax) 1 Pow Pow 17 GM PO DAILY PRN for PRN Potassium Chloride (Micro-K Ext Rel) 10 Meq Capcr 10 MEQ PO BID Senna (Senokot) 8.6 Mg Tab 2 TAB PO DAILY Simethicone (Simethicone Extra Strengt 125 mg) 1 Cap Cap 2 CAP PO DAILY Tramadol (Ultram) 50 Mg Tab 50 MG PO Q6 PRN for Pain Discontinued Medications: Apixaban (Eliquis) 2.5 Mg Tab 2.5 MG PO BID Ciprofloxacin HCl (Ciprofloxacin) 500 Mg Tab 500 MG PO BID Admission Information HPI (per Admitting provider): This is a 37yo F with a PMH of metastatic appendiceal cancer (abdomen, spine) and 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 Follows with a [facility] PCP in [place]. Patient is s/p appendectomy, hysterectomy, oophorectomy, splenectomy and colon resection. Underwent HIPEC procedure in August of 2016, additional chemo (Folfiri) and then an immunotherapy trial ending in Mar 2017. Had a repeat PET scan that showed diffuse metastatic disease in the spine. Back pain is constant and exacerbated by movement and straining. Also endorses pain in her ribs and abdomen. [facility] Does not feel strong enough to pursue another round of chemo at this time and has been trying to enroll in hospice care for the past week without success. Goal is to get better pain control and if she regains strength , desires to try chemo again. At home, is on tylenol, oxycodone and a fentanyl for pain control. Until recently, this regimen has been sufficient. Also endorses nausea and SOB on exertion over the past week. Denies fever, chills, lightheadedness, headache, visual changes, CP, vomiting, dysuria, constipation, diarrhea or LE swelling. Receives TPN nutrition in addition to soft foods. Last BM was yesterday. Was diagnosed with a UTI on Thursday and is taking cipro. Full code. Physical Exam (per Admitting): General Appearance: + mild distress, + pertinent finding (Cachectic, ill appearing ) Head: normocephalic, atraumatic Eyes: normal inspection, PERRL, sclerae normal ENT: normal ENT inspection, hearing grossly normal, pharynx normal Neck: supple, thyroid normal, trachea midline Respiratory/Chest: chest non-tender, lungs clear, normal breath sounds, no respiratory distress, no accessory muscle use Cardiovascular: no murmur, normal peripheral pulses, + tachycardia Abdomen/GI: soft, no organomegaly, + tenderness (Diffuse TTP without guarding ) Back: normal inspection Extremities/Musculoskelatal: normal inspection, no calf tenderness, no pedal edema, + pertinent finding (PICC line in LUE. A port in chest wall. 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 Horton in [facility] Received 1 dose of Zometa for hypercalcemia Continue TPN for now as per patient's wishes Leukocytosis likely secondary to steroids and bone mets, trending down Overall prognosis is poor Discussed with Dr.Nilesh Garcia on multiple occasions Discussed with Dr.Veeral Garcia that patient prefers to discontinue radiation therapy Discussed with patient and Palliative Care today and patient admits to discontinue radiation therapy and preferred to be discharged home with hospice services and to discontinue further cancer treatments Gross hematuria: B/L Obstructive Uropathy S/P stents Hematuria likely 2/2 B/L ureteral stents and Eliquis use Eliquis on hold Urology following added Pyridium to help with spasms Monitor Hb S/P 2 units PRBC Needs [place] changed every month and stents changed in 2-3 months if planned for treatment for cancer in future HTN Tachycardia continue coreg Not on meds at home 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 Needs follow up as outpatient upon discharge Anemia: Likely secondary to malignancy and hematuria hold Eliquis Monitor Hb DVT Px: Eliquis held / hematuria Code Status: DNR Disposition: Overall Poor prognosis Planned to be discharged home with Home Hospice Follow up with your Hospice Physician for further management Total time spent on discharge = This includes examination of the patient, discharge planning, medication reconciliation, and communication with other providers. Discharge Instructions Discharge Instructions Date of Service Jun 26, 2017. Admission Reason for Admission: Tumor, Metastatic Discharge Discharge Diagnosis / Problem: Metastatic Appendiceal cancer Discharge Goals Goal(s): Decrease discomfort, Improve function Activity Recommendations Activity Limitations: resume your previous activity Exercise/Sports Limitations: as tolerated . Instructions / Follow-Up Instructions / Follow-Up Follow up with your Hospice Physician for further management Current Hospital Diet Patient's current hospital diet: Low Fiber Diet, Low Lactose Diet Discharge Diet Recommended Diet: Regular Diet Pending Studies Studies pending at discharge: no Laboratory Results Lipid Panel Test 06/23/17 05:39 Range/Units Triglycerides Level 181 H 0-150 mg/dl Medical Emergencies . Who to Call and When: Medical Emergencies: If at any time you feel your situation is an emergency, please call 911 immediately. . Non-Emergent Contact Non-Emergency issues call your: Primary Care Provider, Oncologist Call Non-Emergent contact if: you have a fever, your pain is not controlled, your pain is worsening, your pain is unusual for you, your pain is concerning you, you have any medication questions Seek immediate medical attention if your symptoms reoccur or worsen . . "Provider Documentation" section prepared by Alfie Lizama. . <Electronically signed by Alfie Lizama MD> Signed: 06/26/17 8007 Signed: The status of this report is Signed * If report status is Draft, the document has not been finalized by the responsible provider.
[2017-06-26] MEDS ORDERED: DEXTROSE 10% 1,000 ML IV PRN (21:00)
[2017-06-26] MEDS ORDERED: CUSTOM CENTRAL PN 1 BAG IV SCH (21:00)
== END 2017-06-26 17:30 | disposition hospice, home (50) | DRG 543 ==
LOC: EDBD 11:47 → C.EDC 11:48 → C.4E 16:29 → ENRESERV 17:57
PROVIDERS: ADMIT Hospitalist; ATTEND Internal Medicine
PROC: 3E0336Z Introduction of Nutritional Substance into Peripheral Vein, Percutaneous Approach (ICD-10-PCS; principal; 2017-06-19)
DX: C79.51 Secondary malignant neoplasm of bone (principal); C79.89 Secondary malignant neoplasm of other specified sites; Z51.5 Encounter for palliative care; M84.58XA Pathological fracture in neoplastic disease, other specified site, initial encounter for fracture; N13.8 Other obstructive and reflux uropathy; N39.0 Urinary tract infection, site not specified; N13.30 Unspecified hydronephrosis; R64 Cachexia; G89.3 Neoplasm related pain (acute) (chronic); Z85.038 Personal history of other malignant neoplasm of large intestine; Z86.718 Personal history of other venous thrombosis and embolism; Z90.722 Acquired absence of ovaries, bilateral; Z90.81 Acquired absence of spleen; Z88.1 Allergy status to other antibiotic agents; Z90.710 Acquired absence of both cervix and uterus; I10 Essential (primary) hypertension; D63.0 Anemia in neoplastic disease; R31.0 Gross hematuria; E83.52 Hypercalcemia; F43.20 Adjustment disorder, unspecified; E86.0 Dehydration; T45.515A Adverse effect of anticoagulants, initial encounter; Y92.009 Unspecified place in unspecified non-institutional (private) residence as the place of occurrence of the external cause

== ENCOUNTER 2017-07-20 05:07 | Inpatient (IN) | payer OTHER ==
[2017-07-20] VITALS (14 sets, daily range): BP systolic 107–125; BP diastolic 61–82; PULSE 109–120; TEMP 36.2–36.8; O2SAT 98–100; BMI 18.4
[~2017-07-20] VITALS: Ht 167.6 cm; Wt 55.0 kg
[~2017-07-20 05:07] MED LIST changes: -APIX1TAB3 PO; -CEPH500C PO; +CRG625 PO; +DICY20TA10 PO; +FNTTP25 PO; -METH5TAB2 PO; -METO-157 PO; +ONDA-170 PO; -ONDA8TAB6 PO; +PHEN-1043 PO; -PHEN-876 PO; -SIME1CAP11 PO; +SIME1CAP37 PO
[2017-07-20] MEDS ORDERED: ONDANSETRON INJ 2 MG/ML 2 ML VIAL ONE (05:22)
[2017-07-20] MEDS ORDERED: SODIUM CHLORIDE 0.9% 1000ML 1,000 ML IV STA (05:58)
--- NOTE | 2017-07-20 05:59 | EMERGENCY ROOM VISIT NOTE ---
History Report prepared by Sonya: Asaf Quintana Under the Supervision of: Dr. April Barone D.O. First contact with patient: 05:11 Chief Complaint: NEURO SYMPTOMS Stated Complaint: NEURO SYMPTOMS History of Present Illness The patient is a 37 year old female who presents to the Emergency Room brought in by EMS with complaints of general episodic fall one hour PHTHALIC ACID PURIFIER. The patient has metastatic appendiceal cancer and is on hospice care. Per , the patient normally gets up three times a night to use the bathroom and she normally stumbles once or twice. However, the patient seemed like she was struggling in bed and when she went to get up to use the bathroom, she collapsed onto the floor. Per EMS, the patient had a leftward gaze. The states that he was able to get the patient back into the bed, though he noticed that her mouth was drooping on one side and he reapplied her oxygen. He asked the nursing staff to evaluate her. Per hospice nurse, the patient was complaining of neck pain and was given more pain medication. The states that the patient became more unresponsive. The patient has a Dilaudid pump and receives 0.2 mg hourly. Per hospice nurse, the patient also has a Fentanyl patch and Roxanol 5 mg as needed. The patient notes head pain, neck pain, rib pain, and abdominal pain. Per hospice nurse, the patient has complained of abdominal pain, rib pain, and right-sided neck pain in the past, though most of her pain is in her back due to spasms. Per , the patient has not made much sense for the past month at baseline. She normally drinks well, though she has not been eating well. Per , the patient wants limited intervention. The patient does not want to be kept alive on life support. When asked if he wants a CT scan, the patients felt it was unnecessary. HPI is limited secondary to patient's condition. Source of History: patient, spouse/significant other, EMS, nursing staff ( hospice nurse) Onset: one hour ago Position: other (general) Quality: other (fall) Timing: other (episodic) Associated Symptoms: + headache (head pain), + neck pain, + abdominal pain, + back pain Note: Notes leftward gaze and facial droop. Notes rib pain. Review of Systems ROS is limited secondary to patient's condition. Past Medical & Surgical Medical Problems: (1) Appendix carcinoma (2) Colic vein thrombosis (3) depression related to medical condition (4) Mood disorder (5) Splenic vein thrombosis Surgical Problems: (1) H/O oophorectomy (2) H/O splenectomy (3) H/O wisdom tooth extraction (4) HIPEC procedure (5) History of appendectomy (6) History of hysterectomy (7) S/P colon resection Family History FH: HTN (hypertension) MOTHER FH: colon cancer MOTHER Social History Smoking Status: Never Smoker Smokeless Tobacco Use: No Alcohol Use: none Drug Use: none Marital Status: Housing Status: other (hospice care) Occupation Status: unemployed Current/Historical Medications Scheduled Carvedilol (Carvedilol), 6.25 MG PO BID Dexamethasone (Decadron), 4 MG PO BID Duloxetine Hcl (Cymbalta), 60 MG PO HS Fentanyl (Fentanyl), 1 PATCH PO Q72H Home O2 Therapy (Oxygen), 2 LITERS NA PRN Hydromorphone HCl (Dilaudid), MG IV UD Lorazepam (Lorazepam), 0.5 ML PO HS Pantoprazole (Protonix), 40 MG PO QAM Potassium Chloride (Micro-K Ext Rel), 10 MEQ PO BID Scheduled PRN Alprazolam (Xanax), 0.25 MG PO Q4 PRN for Anxiety Cyclobenzaprine Hcl (Flexeril), 10 MG PO TID PRN for Muscle Spasms Dicyclomine Hcl (Dicyclomine Hcl), 1 TAB PO QID PRN for Diarrhea Diphenoxylate/Atropine (Lomotil), 2.5 MG PO DAILY PRN for Diarrhea Docusate Sodium (Docusate Sodium), 1 CAP PO BID PRN for Constipation Ibuprofen (Motrin), 600 MG PO q 6-8 hr PRN for Pain Loperamide Hcl (Imodium), 2 MG PO TID PRN for Diarrhea Lorazepam (Ativan), 0.5 MG PO TID PRN for Anxiety Morphine Sulfate (Morphine Sulfate), 10 MG PO Q4 PRN for Pain Oxybutynin Chloride (Ditropan), 5 MG PO Q8H PRN for bladder spasms Polyethylene Glycol 3350 (Miralax), 17 GM PO DAILY PRN for Constipation Prochlorperazine Maleate (Compazine), 10 MG PO Q6H PRN for Nausea or Vomiting Senna (Senokot), 2 TAB PO DAILY PRN for Constipation Simethicone (Simethicone Extra Strengt 125 mg), 2 CAP PO Q6 PRN for abdominal distention Allergies Coded Allergies: POLLEN (Verified Allergy, Intermediate, SEASONAL, 06/19/17) Adhesives (Verified Adverse Reaction, Intermediate, irritation, itchiness and reddness, 06/19/17) Amoxicillin (Verified Adverse Reaction, Intermediate, GREEN DIARHHEA, 06/19) Physical Exam Vital Signs Date Time Temp Pulse Resp B/P (MAP) Pulse Ox O2 Delivery O2 Flow Rate FiO2 07/20/17 06:35 125 16 113/76 96 Room Air 07/20/17 05:25 36.4 115 16 109/64 100 Nasal Cannula 2.0 07/20/17 05:19 115 Physical Exam General: Semi-responsive. HEENT: Head - normocephalic and atraumatic Pupils are equal, round, and reactive to light. Extraocular eye muscles are intact, and sclera are anicteric. Nose - moist nasal mucosa without discharge. Mouth - moist buccal mucosa. Oropharynx is nonerythematous and there is no tonsillar exudate or edema noted. Neck: Supple; no JVD, nuchal rigidity, cervical lymphadenopathy. Chest: Severe pain with palpation over right lateral rib cage. Heart: Tachycardic rate and regular rhythm. There is a normal S1 and S2 with no murmurs, clicks, or gallops appreciated. Lungs: Clear to auscultation bilaterally with no wheezes, rales, or rhonchi. Abdomen: Soft, completely nontender, distended, with good bowel sounds. There are no palpable pulsatile masses or hepatosplenomegaly. There is no guarding, rigidity, or rebound noted. Extremities: No evidence of cyanosis, clubbing, or edema. There are easily palpable peripheral pulses. Skin: Extremely pale and dry with poor turgor. Neuro: The patient is semi-responsive. She will not follow commands. She will open her eyes to loud verbal stimuli. She does seem to move all 4 extremities. Medical Decision & Procedures Laboratory Results 07/20/17 05:20 07/20/17 05:20 Test 07/20/17 05:20 Red Blood Count 0.97 M/uL (4.2-5.4) Mean Corpuscular Volume 93.8 fL (80-100) Mean Corpuscular Hemoglobin 28.9 pg (25-34) Mean Corpuscular Hemoglobin Concent 30.8 g/dl (32-36) Nucleated RBC Absolute Count (auto) 6.73 K/uL (0-0) Nucleated Red Blood Cells % 44.2 % Anion Gap 10.0 mmol/L (3-11) Est Creatinine Clear Calc Drug Dose 99.0 ml/min Estimated GFR () 131.9 Estimated GFR (Non- 113.8 BUN/Creatinine Ratio 36.3 (10-20) Calcium Level 7.9 mg/dl (8.5-10.1) Laboratory results per my review. Medications Administered Medications (Trade) Dose Ordered Sig/Shani Route Start Time Stop Time Status Last Admin Dose Admin Ondansetron HCl (Zofran Inj) 4 mg STK-MED ONCE .ROUTE 07/20/17 05:22 07/20/17 05:23 DC 07/20/17 05:25 4 MG Sodium Chloride 1,000 ml @ 250 mls/hr Q4H STAT IV 07/20/17 05:58 07/20/17 09:57 07/20/17 06:08 250 MLS/HR Procedure 0522: Ordered Zofran 4 mg IV 0558: Ordered Sodium Chloride 1,000 ml @ 250 mls/hr IV. ED Course 0509: Past medical records reviewed. 0526: The patient was evaluated in room B7. A complete history and physical exam was performed. Laboratory studies were drawn as above. 0522: Ordered Zofran 4 mg IV. I had an extensive conversation with the patient' s and hospice nurse who were at the bedside. 0558: Ordered Sodium Chloride 1,000 ml @ 250 mls/hr IV. 0555: I spoke with Dr. Gamboa, [facility] hospitalist. We discussed the patient's case. The patient will be evaluated by the [facility] for further management. He states that he will pass along the patient's case to day shift. 0624: I reassessed the patient at this time. She is resting comfortably. Her vitals are stable. 0703: I reassessed the patient at this time. I discussed the results and treatment plan with the patient's . I answered all pertaining questions that he had. He expressed understanding and verbalized agreement. He is contemplating allowing the patient to have a blood transfusion. Medical Decision The patient is a 37 year old female who presents to the ED with an episodic fall. Differential diagnosis includes intracranial bleeding, metastatic cancer to the brain, hypoglycemia, severe anemia, and dehydration. Lab results showed: Hgb 2.8 Platelet count 11 Glucose 117 Elevated BUN consistent with dehydration This is a 37-year-old female patient with history of metastatic cancer from appendiceal cancer on hospice care. The patient had an episode of collapse at home. Following this episode, she was semi-responsive. The and hospice nurse cared for her and she seemed to have some improved response to oxygen and stimulation but they requested transport to the emergency department. The patient was hemodynamically stable upon arrival here in the emergency department. However, the patient's hemoglobin has dropped down to 2.8 and certainly could account for the patient's weakness. It also seems that the patient may have had an acute neurological event as the felt she has some facial droop, an episode of staring off to the left, and she became less responsive. We talked about performing a CT scan of the brain for diagnostic purposes but the was not in favor of this if there were no potential treatments for what could be found. We also spent some time talking about whether or not to transfuse her with packed red blood cells. The continues to think about this and decide. He will discuss this with the admitting hospitalist. The patient's MANAGER PRODUCT DESIGN pump is still in place. Medication Reconcilliation Current Medication List: was personally reviewed by me Blood Pressure Screening Patient's blood pressure: Normal blood pressure Consults Time Called: 0548 Consulting Physician[facility] Returned Call: [phone] I [facility] We discussed the patient's case. The patient will be evaluated by the [facility] for further management. He states that he will pass along the patient's case to day shift. Impression Primary Impression: Anemia Additional Impressions: Dehydration Weakness Scribe Attestation The scribe's documentation has been prepared under my direction and personally reviewed by me in its entirety. I confirm that the note above accurately reflects all work, treatment, procedures, and medical decision making performed by me. Departure Information Dispostion Being Evaluated By Hospitalist Referrals Kevin García II MD (PCP) Patient Instructions My [facility] Problem Qualifiers Primary Impression: Anemia Anemia type: unspecified type Qualified Codes: D64.9 - Anemia, unspecified
[2017-07-20] MEDS ORDERED: LORA2CON5 PO (06:04)
[2017-07-20] MEDS ORDERED: DOCU100C31 PO (06:06)
[2017-07-20] MEDS ORDERED: DXM/4 PO (06:06)
[2017-07-20] MEDS ORDERED: CYCL10TA6 PO (06:06)
[2017-07-20] MEDS ORDERED: IBUP600T44 PO (06:07)
[2017-07-20] MEDS ORDERED: ALPR0.25 PO (06:08)
[2017-07-20] MEDS ORDERED: OXGN (06:08)
[2017-07-20] MEDS ORDERED: MORP10SO PO (06:17)
[2017-07-20] MEDS ORDERED: PROC1TAB5 PO (06:18)
[2017-07-20] MEDS ORDERED: HYDR1INJ48 IV (06:21)
[2017-07-20 06:34] LABS: CALCIUM 7.9 mg/dl (8.5-10.1); CREATININE 0.63 mg/dl (0.60-1.20); POTASSIUM 4.6 mmol/L (3.5-5.1)
[2017-07-20 06:57] LABS: MEAN CORPUSCULAR HGB CONC 30.8 g/dl (32-36)
[2017-07-20 07:10] LABS: HEMATOCRIT 9.1 % (37-47); HEMOGLOBIN 2.8 g/dL (12.0-16.0); MEAN CELL VOLUME 93.8 fL (80-100); MEAN CORPUSCULAR HEMOGLOBIN 28.9 pg (25-34); NUCLEATED RED BLOOD CELL ABS 6.73 K/uL (0-0); PLATELET COUNT 11 K/uL (130-400); WHITE BLOOD COUNT 15.23 K/uL (4.8-10.8)
[2017-07-20] MEDS ORDERED: ONDANSETRON INJ 2 MG/ML 2 ML VIAL IV PRN (08:30)
[2017-07-20] MEDS ORDERED: SENNA 8.6 MG TAB PO PRN (08:30)
[2017-07-20] MEDS ORDERED: DOCUSATE SODIUM 100 MG CAP PO PRN (08:30)
[2017-07-20] MEDS ORDERED: NON-FORMULARY MEDICATION (Polyethylene Glycol 3350 (Miralax) 17 GM) PO PRN (08:30)
[2017-07-20] MEDS ORDERED: ALUMINUM/MAGNESIUM/SIMETH (MAALOX MAX) 30 ML UDC PO PRN (08:30)
[2017-07-20] MEDS ORDERED: ACETAMINOPHEN 325 MG TAB PO PRN (08:30)
[2017-07-20] MEDS ORDERED: DIPHENOXYLATE/ATROPINE 2.5/0.025MG TAB PO PRN (08:30)
[2017-07-20] MEDS ORDERED: CYCLOBENZAPRINE HCL 10 MG TAB PO PRN (08:30)
[2017-07-20] MEDS ORDERED: LOPERAMIDE HCL 2 MG CAP PO PRN (08:30)
[2017-07-20] MEDS ORDERED: POLYETHYLENE (MIRALAX) 17 GM PACK PO PRN (08:30)
[2017-07-20] MEDS ORDERED: D5W AND NSS 1,000 ML IV SCH (10:00)
[2017-07-20] MEDS: CARVEDILOL 6.25 MG TAB PO SCH ×2 (10:00→20:00)
[2017-07-20] MEDS: DEXAMETHASONE 4 MG TAB PO SCH ×2 (10:00→20:00)
[2017-07-20] MEDS: POTASSIUM CHLORIDE 10 MEQ TABCR PO SCH ×2 (10:00→20:00)
[2017-07-20] MEDS ORDERED: ACETAMINOPHEN SOLN 650MG/20.3 ML UDC PO SCH (10:00)
[2017-07-20] MEDS: PANTOprazole SOD 40 MG TAB PO SCH (10:00)
[2017-07-20] MEDS ORDERED: NON-FORMULARY MEDICATION SCH (11:00)
[2017-07-20] MEDS: FENTANYL 25 MCG/HR TDSY TD SCH (11:07)
[2017-07-20] MEDS ORDERED: FENTANYL PATCH REMOVE & WASTE STA (11:28)
[2017-07-20] MEDS ORDERED: NALOXONE HCL 0.4 MG/1 ML VIAL/CARP IV PRN (11:30)
[2017-07-20] MEDS: HYDROmorphone HCL 0.5MG/ML 50 ML CASSETTE IV PRN (12:30)
[2017-07-20] MEDS: SODIUM CHLORIDE 0.9% 1000ML 1,000 ML IV SCH (12:30)
--- NOTE | 2017-07-20 12:37 | Medical Consult ---
Consultation Date of Consultation: Jul 20, 2017. Attending Physician: Dave Vernon MD Reason for Consultation: "Anemia and metastatic cancer" History of Present Illness Ms. Farrar is a 37 yo F known to the consulting Medical Oncology Service as we were consulted last hospitalization for this patient. Primary medical oncologist however is Dr. Horton with [facility]. The [facility] records are not available for review at the time of this consult. 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 She had a surgical procedure by Dr. Salazar and then had adjuvant FOLFOX therapy. She had recurrent disease in March 2016 and reportedly has had 3 further surgical procedures with the last August 2016. She also had HIPEC. She subsequently received palliative FOLFIRI which completed in February 2017. In early 2017 she was noted to have bone metastasis. She also has a history of VTE (celiac and splenic vein thrombosis) and was on Eliquis, but this was held previously due to hematuria. She was brought to [facility] last evening after she attempted to get out of bed. She was on her way to use the bathroom. She apparently had a leftward gaze per EMS. The also reported in the emergency room notes that she had drooping of 1 side of her face. The patient is on significant pain medication including fentanyl patch, and Dilaudid PRODUCTIVITY ENGINEER. Apparently aggressive workup with CT scan was deferred by the . She has been ordered 3 units PRBC with 1 unit transfusing currently. Additional history obtained from the patient's at beside, due to the acuity of patient's situation she could not provide much additional history. He states over the past 1 week she has been progressively declining in energy and also "speaking nonsense." She has chronic hematuria, is s/p ureteral stent previously, states no change in baseline with this. She has not had melena or hematochezia. She tried to use bathroom last evening and apparently fell, awaking . She had left sided facial droop. EMS was called and they reported leftward gaze. She states currently her left side is weak. Her denies dyspnea, cough. She has poor appetite, nothing new. Intermittent issues with "stomach upset and nausea." She has been on hospice care since last hospitalization in May 2017. She has not seen her primary medical oncologist since last hospitalization. Past Medical/Surgical History Medical Problems: (1) Anemia Status: Acute (2) Anemia Status: Acute (3) Back pain Status: Acute (4) Dehydration Status: Acute (5) Dehydration Status: Acute (6) Leukocytosis Status: Acute (7) Sepsis Status: Acute (8) Tumor, metastatic Permanent Comment: Metastasis to the thoracic, lumbar, sacral areas. Radiation stopped after 4 treatments at the patient's request. Status: Acute (9) Weakness Status: Acute Family History FH: HTN (hypertension) MOTHER FH: colon cancer MOTHER Social History Smoking Status: Never Smoker Smokeless Tobacco Use: No Drug Use: none Marital Status: Housing Status: other (hospice care) Occupation Status: unemployed Allergies Coded Allergies: POLLEN (Verified Allergy, Intermediate, SEASONAL, 06/19/17) Adhesives (Verified Adverse Reaction, Intermediate, irritation, itchiness and reddness, 06/19/17) Amoxicillin (Verified Adverse Reaction, Intermediate, GREEN DIARHHEA, 06/19) Current Inpatient Medications Current Inpatient Medications Medications (Trade) Dose Ordered Sig/Shani Route Start Time Stop Time Status Last Admin Dose Admin Acetaminophen (Tylenol Tab) 650 mg Q4H PRN PO 07/20/17 08:30 08/19/17 08:29 Al Hydrox/Mg Hydrox/Simethicone (Maalox Max Susp) 15 ml Q4H PRN PO 07/20/17 08:30 08/19/17 08:29 Polyethylene (Miralax Powder Packet) 17 gm DAILY PRN PO 07/20/17 08:30 08/19/17 08:29 Ondansetron HCl (Zofran Inj) 4 mg Q6H PRN IV 07/20/17 08:30 08/19/17 08:29 Alprazolam (Xanax Tab) 0.25 mg Q4 PRN PO 07/20/17 08:30 08/19/17 08:29 Carvedilol (Coreg Tab) 6.25 mg BID PO 07/20/17 10:00 08/19/17 09:59 Cyclobenzaprine HCl (Flexeril Tab) 10 mg TID PRN PO 07/20/17 08:30 08/19/17 08:29 Diphenoxylate HCl/ Atropine (Lomotil Tab) 1 tab DAILY PRN PO 07/20/17 08:30 08/19/17 08:29 Docusate Sodium (coLACE CAP) 100 mg BID PRN PO 07/20/17 08:30 08/19/17 08:29 Duloxetine HCl (Cymbalta Cap) 60 mg HS PO 07/20/17 21:00 08/19/17 20:59 Fentanyl (Duragesic Patch) 25 mcg Q72H TD 07/20/17 10:00 08/03/17 09:59 Loperamide HCl (Imodium Cap) 2 mg TID PRN PO 07/20/17 08:30 08/19/17 08:29 Oxybutynin Chloride (Ditropan Tab) 5 mg Q8H PRN PO 07/20/17 08:30 08/19/17 08:29 Pantoprazole Sodium (Protonix Tab) 40 mg QAM PO 07/20/17 10:00 08/19/17 09:59 Potassium Chloride (Klor-Con M10) 10 meq BID PO 07/20/17 10:00 08/19/17 09:59 Senna (Senokot Tab) 17.2 mg DAILY PRN PO 07/20/17 08:30 08/19/17 08:29 Miscellaneous Information (Order Awaiting Action) 1 ea QS N/A 07/20/17 16:00 08/19/17 15:59 Dextrose/Sodium Chloride 1,000 ml @ 50 mls/hr Q20H IV 07/20/17 10:00 08/19/17 09:59 Acetaminophen (Tylenol Soln) 650 mg TODAY@1000 PO 07/20/17 10:00 07/20/17 18:00 Dexamethasone (Decadron Tab) 4 mg BID PO 07/20/17 10:00 08/19/17 09:59 Lorazepam (Ativan Tab) 0.5 mg TID PRN PO 07/20/17 21:00 08/19/17 20:59 Morphine Sulfate (Roxanol Oral Soln) 10 mg Q4 PRN PO 07/20/17 08:45 08/19/17 08:44 Miscellaneous (Fentanyl Patch Remove & Waste) 1 ea Q3D N/A 07/23/17 09:59 08/22/17 09:58 Miscellaneous Information (Check Fentanyl Patch Placement) 1 ea QS N/A 07/20/17 16:00 08/19/17 15:59 Review of Systems Constitutional: + weakness, + fatigue Respiratory: No shortness of breath, No dyspnea on exertion, No dyspnea at rest Cardiovascular: No chest pain, No edema Abdomen: + pain, + nausea, No GI bleeding Genitourinary - Female: + hematuria Neurologic: + weakness, + problem reported (see HPI) Physical Exam Date Time Temp Pulse Resp B/P (MAP) Pulse Ox O2 Delivery O2 Flow Rate FiO2 07/20/17 10:25 36.7 115 16 116/72 100 07/20/17 09:49 36.6 120 22 113/68 (83) 100 Nasal Cannula 4.0 07/20/17 09:28 117 12 105/64 98 07/20/17 09:16 113 07/20/17 08:20 117 12 115/73 90 Nasal Cannula 4.0 07/20/17 07:41 Nasal Cannula 4.0 07/20/17 07:15 115 15 118/58 90 Nasal Cannula 4.0 07/20/17 06:35 125 16 113/76 96 Room Air 07/20/17 05:25 36.4 115 16 109/64 100 Nasal Cannula 2.0 07/20/17 05:19 115 General Appearance: + mild distress, + cachetic ENT: hearing grossly normal Respiratory/Chest: lungs clear, normal breath sounds Cardiovascular: + tachycardia Extremities/Musculoskelatal: no calf tenderness Neurologic/Psych: + motor weakness Skin: + pallor Laboratory Results Last 24 Hours Test 07/20/17 05:20 White Blood Count 15.23 K/uL Red Blood Count 0.97 M/uL Hemoglobin 2.8 g/dL Hematocrit 9.1 % Mean Corpuscular Volume 93.8 fL Mean Corpuscular Hemoglobin 28.9 pg Mean Corpuscular Hemoglobin Concent 30.8 g/dl Platelet Count 11 K/uL Nucleated RBC Absolute Count (auto) 6.73 K/uL Nucleated Red Blood Cells % 44.2 % Platelet Estimate SIGNIFIC DECREASED Sodium Level 140 mmol/L Potassium Level 4.6 mmol/L Chloride Level 111 mmol/L Carbon Dioxide Level 19 mmol/L Anion Gap 10.0 mmol/L Blood Urea Nitrogen 23 mg/dl Creatinine 0.63 mg/dl Est Creatinine Clear Calc Drug Dose 99.0 ml/min Estimated GFR () 131.9 Estimated GFR (Non- 113.8 BUN/Creatinine Ratio 36.3 Random Glucose 117 mg/dl Calcium Level 7.9 mg/dl Assessment & Plan 1. 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 Severe anemia 3. Severe thrombocytopenia 4. Hematuria, chronic 5. Stroke-like symptoms in past 24 hrs * Patient has been on hospice since last hospitalization in May 2017 * intending to continue hospice/palliative care at this time * and family members were questioning what the CT of head would accomplish- informed them in my opinion the CT scan would be confirming what is suspected at this time, but that therapeutic antithrombotics and antiplatelets would not be indicated with current H+H and PLT levels * stated he wanted to CT scans canceled, told him that is his right and that would let primary service know as well * Patient is receiving 1 unit PRBC currently- 2 more planned, likely will need all 3, per Dr. Garcia he advises diuretic therapy to avoid fluid overload in her case * Recommended to recheck CBC after 3rd unit * In respect to thrombocytopenia and hematuria, hematuria has been chronic and reportedly stable; discussed with Dr. Garcia- not advising for PLT transfusion with current goals of care being directed toward comfort care * /hospice are going to come up with plan about PRN supportive PRBC transfusions outpatient, to try to avoid hospitalization, or ultimately perhaps forgoing prn PRBC and allow disease to take its course * Discussed with family that bone marrow is replaced with metastatic tumor and that the pancytopenia is not going to improve * The and family verbalized understanding of the recommendations * Dr. Garcia was called at the time of the visit and he concurs with the above plan Thanks for the consult. Dr. Garcia is attending medical oncologist- please see his addendum. I performed history and physical examination of the patient. I have discussed the patient's case, impression and plan with Tatiana Gutiérrez PA-C. Her note reflects my findings and plan. In summary, she is 37-year-old female, a case of stage IV appendiceal carcinoma initially diagnosed in April,, S/P resection and chemotherapy (FOLFOX), had recurrent disease in April 11, had 3 additional surgical intervention, received FOLFIRI chemotherapy, last cycle received somewhere in February,. Noticed to have bone mets disease in early 2017, history of thrombotic complications involving the celiac and splenic vein but because of ongoing hematuria anticoagulation is contraindicated, she was admitted at [facility] in May,, I saw her for the 1st time during that time, please see my note during that consultation visit for detailed information about the diagnostic workup and treatment that she received, she was enrolled in the home hospice in May,, receiving hydromorphone PRODUCTIVITY ENGINEER, fentanyl patch and other supportive symptomatic, now admitted for symptomatic anemia, thrombocytopenia, ongoing hematuria present, she did not have Grove 's catheter earlier when she was at home, now she has Grove 's catheter, ECOG 4, may have alert possible CV stroke or masses involving the brain but looking at her overall clinical condition, decided not to proceed with any kind of aggressive diagnostic workup, she will receive blood transfusion support, no other bleeding site other than hematuria, will not transfuse platelets at this time, continue with other supportive and symptomatic treatment including pain management and then she will be discharged at home with the home hospice services. Oral prognosis remains poor and patient 's family members are aware about that. Dr. Otf Garcia Hem/Onc (This note was completed using the dictation program Fluency Direct. As such, there may be misspellings, word substitutions, or other variations that should not change the essence of the clinical content of this encounter note. If there is need for further clarification, please direct questions to the provider listed above.)
--- NOTE | 2017-07-20 14:26 | HISTORY & PHYSICAL EXAMINATION ---
DATE OF ADMISSION: 07/20/2017 CHIEF COMPLAINT: Status post fall. 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 The patient is status post appendectomy, hysterectomy, oophorectomy, splenectomy and colon resection, underwent HIPEC procedure in 08/2006, had chemotherapy and then immunotherapy trial ending 03/2017. After that, PET scan done showed diffuse metastatic disease to spine. Has severe back pain, used to follow up with Dr. Horton at [facility] in [place] and the patient was here in the hospital in the last week of May and first week of June. At that time, she was converted to hospice care. She also had ureteral stents in April and she has chronic hematuria from that but no plans for any further intervention. The patient's lives with her and hospice case nurse checks on her.Since last admission as patient was started on Dilaudid pump for pain control, says she is mostly foggy, on and off she can talk.As per she is eating okay and she can go to bathroom on her own but feeling very weak lately. Denies any blood in the stools or black stools. As per , today morning when she got up from the bed to go to the bathroom, she became stiff and she fell and he helped her back to the bed and he thought that she may have some facial droop on the left side and some weakness and he called the hospice nurse and at that time it was decided to come to the ER. In the ER, initially refused to have a CT of the head because it is no point doing it as we are not going to treat anyway. Her hemoglobin was found to be 2.8. The is agreeable for blood transfusion at this time. The patient can tell her name but could not answer any other questions. Blood pressure is okay. Some small bruise on the left side of the neck. The patient was DNI before but right now the do not want any CPR, so the patient will be DNR. Hospice is revoked at this time as the patient is getting admitted. PAST MEDICAL HISTORY: As mentioned above. PAST SURGICAL HISTORY: Status post oophorectomy, splenectomy, history of wisdom tooth extraction, HIPEC procedure, history of appendectomy, hysterectomy and colon resection. FAMILY HISTORY: Significant for mother had hypertension, father had colon cancer, mother had colon cancer. SOCIAL HISTORY: No smoking history. No drug use. , lives with her . REVIEW OF SYSTEMS: Review of systems unobtainable at this time as the patient is confused. MEDICATIONS AT HOME: The patient is on dicyclomine one tablet p.o. q.i.d. p.r.n. for diarrhea, Ativan 0.5 mg t.i.d. p.r.n., Compazine 10 mg p.o. q. 6 hours p.r.n., Dilaudid CERTIFIED NUTRITIONIST pump, Xanax 0.25 mg p.o. q. 4 hours p.r.n., Coreg 6.25 mg p.o. b.i.d., Flexeril 10 mg p.o. t.i.d. p.r.n., Decadron 4 mg p.o. b.i.d., Lomotil 2.5 mg p.o. daily p.r.n., Colace 100 mg p.o. b.i.d. p.r.n., Cymbalta 60 mg p.o. at bedtime, fentanyl 25 mg 1 patch q. 72 hours, oxygen 2 liters, Imodium 2 mg p.o. t.i.d. p.r.n. diarrhea, Ativan 2 mg p.o. at bedtime, morphine sulfate 5 mL p.o. q. 4 hours p.r.n., Ditropan 5 mg p.o. q. 8 hours p.r.n., Protonix 40 mg p.o. daily, MiraLax 17 grams p.o. daily p.r.n., potassium chloride 10 mEq p.o. b.i.d., Senokot 2 tablets p.o. daily p.r.n., simethicone 1 capsule p.o. q. 6 hours p.r.n. PHYSICAL EXAMINATION: GENERAL: The patient is weak and frail, somewhat lethargic, oriented to name only. VITAL SIGNS: Temperature 36.4, pulse 117, respiratory rate 12, blood pressure 115/73, oxygen 90% on 4 liters. HEENT: Pallor present, no icterus. Pupils equal, round, react to light. NECK: No JVD, no carotid bruit. Some slight bluish discoloration on the right side of the neck. No obvious swelling seen. CARDIOVASCULAR: S1, S2 heard. Tachycardia. No murmurs. RESPIRATORY: Normal AP diameter. No accessory muscle use. No wheezing, no crackles. ABDOMEN: Soft. Bowel sounds present. Nontender. No distention. CENTRAL NERVOUS SYSTEM: Drowsy and lethargic, oriented to name only, does not obey commands. EXTREMITIES: No edema, no erythema. LABORATORY DATA: WBC 15, hemoglobin 2.8, hematocrit 9.1, platelets 11. Sodium 140, potassium 4.6, chloride 111, CO2 of 19, BUN 23, creatinine 0.6, calcium 7.9, glucose 117. ASSESSMENT AND PLAN: This is a 37-year-old female who has metastatic stage IV appendical cancer, is on hospice care, presents with fall and lethargy. 1. Fall and lethargy. The patient has metastatic stage IV appendiceal cancer, currently on hospice care, on Dilaudid pump. As per her , since she was discharged last time and was started on pain medication, she is mostly foggy, on and off she can talk and she is eating a regular food, but today she fell and thought patient had facial droop and thought patient may having stoke and brought patient to ER. Currently could not do complete neuro exam as patient oriented to name only and not obeying commands. Initially, refused CAT scan of the head as we are not going to treat it anyway because of her low counts, but right now he is okay getting CT of the head and neck to see what is going on. We will admit to medical floor. The patient will be DNR. 2. Profound anemia and thrombocytopenia from metastatic cancer. The patient has no obvious signs of bleeding . Mostlikely anemia to be the cause of the fall today. is agreeable for blood transfusions, signed a consent. We will give 3 units of PRBCs and monitor the labs. Consult hematology/oncology for further recommendations. 3. Chronic pain from her cancer. Continue her home pain medications and Dilaudid CERTIFIED NUTRITIONIST pump and morphine p.r.n. 4. History of high blood pressure. Continue Coreg. 5. History of hematuria, history of obstructive uropathy, status post stents. Eliquis was stopped last admission and no further interventions planned. 6. Malignant cachexia. Currently eating regular diet at home. 7. History of depression and adjustment reaction, on Cymbalta. 8. Deep venous thrombosis prophylaxis. SCDs as the patient has thrombocytopenia and anemia. Code status DNR. 9. Disposition: Admit to medical floor. Overall progress is very poor. MTDD
[2017-07-20] MEDS: CHECK FENTANYL PATCH PLACEMENT SCH ×2 (16:00→23:52)
[2017-07-20] MEDS: DULOXETINE (CYMBALTA) 30 MG CAP PO SCH (21:00)
[2017-07-20] MEDS ORDERED: LORAZEPAM 0.5 MG TAB PO PRN (21:00)
[2017-07-21] VITALS (11 sets, daily range): BP systolic 104–112; BP diastolic 63–73; PULSE 105–118; TEMP 36.2–36.9; O2SAT 97–100; BMI 18.4
[2017-07-21] MEDS: SODIUM CHLORIDE 0.9% 1000ML 1,000 ML IV SCH ×2 (02:30→10:44)
[2017-07-21] MEDS ORDERED: NURSING DECISION MEDICATION ORDER SCH ×2 (02:45→06:00)
[2017-07-21 06:20] LABS: CALCIUM 7.9 mg/dl (8.5-10.1); CREATININE 0.58 mg/dl (0.60-1.20); POTASSIUM 4.2 mmol/L (3.5-5.1)
[2017-07-21 06:41] LABS: HEMATOCRIT 22.3 % (37-47); MEAN CELL VOLUME 84.8 fL (80-100); MEAN CORPUSCULAR HEMOGLOBIN 30.4 pg (25-34); MEAN CORPUSCULAR HGB CONC 35.9 g/dl (32-36); NUCLEATED RED BLOOD CELL ABS 5.59 K/uL (0-0); PLATELET COUNT 6 K/uL (130-400); RED CELL DISTRIBUTION WIDTH CV 15.1 % (11.5-14.5); WHITE BLOOD COUNT 11.85 K/uL (4.8-10.8)
[2017-07-21] MEDS: PANTOprazole SOD 40 MG TAB PO SCH (08:48)
[2017-07-21] MEDS: CARVEDILOL 6.25 MG TAB PO SCH ×2 (08:48→20:07)
[2017-07-21] MEDS: CHECK FENTANYL PATCH PLACEMENT SCH ×3 (08:48→23:47)
[2017-07-21] MEDS: DEXAMETHASONE 4 MG TAB PO SCH ×2 (08:48→20:07)
[2017-07-21] MEDS: POTASSIUM CHLORIDE 10 MEQ TABCR PO SCH ×2 (08:49→20:08)
--- NOTE | 2017-07-21 13:00 | Palliative Care Consultation ---
Consultation Date of Consultation: Jul 21, 2017. Requesting Physician: Dr. Vernon Attending Physician: Dr Vernon Reason for Consultation: Review goals of care History of Present Illness Patient is a 37-year-old female known to me from her prior admission on June 19 - June 26. Patient has appendiceal cancer diagnosed in 2014, now with extensive bone metastases. On her last admission pain was controlled with a Dilaudid COMPUTER TECH and patient was discharged home with hospice. brought the patient to the emergency room yesterday after a fall at home with increased pain. In the emergency room patient was noted to have a hemoglobin of 2.8 a platelet count of 11,000. decided to have patient transfused, she received 3 units of packed cells, her posttransfusion hemoglobin is 8.0. Her platelets dropped from 11,000-6000 and patient is having platelets hung at the time of my exam. present at bedside as well as other friends and family. Patient does not remember any events leading up to this hospitalization. Patient continuing to have hematuria, may be due to her ureteral stent. Discussed with patient and that they need to decide what to do when her hemoglobin drops again as it likely will with her ongoing hematuria. Patient revoked hospice for this hospitalization, both patient and understand the only way to get home on a Dilaudid COMPUTER TECH is under hospice care. Patient is alert, cheerful, no acute distress. She does have upper extremity shakiness due to weakness. Discussed with patient and that they need to determine what her goals of care are and discuss with [facility] to see what hospice is able to accommodate as far as their goals. Past Medical/Surgical History Medical History: Appendiceal cancer diagnosed in 2014, hematuria. Surgical History: MARTIN/BSO, splenectomy, appendectomy, colon resection, HIPEC therapy, ureteral stent Family History Positive for cancer and hypertension Social History Smoking Status: Never Smoker History of Alcohol Use: No Drug Use: none Marital Status: Housing Status: lives with significant other Occupation Status: unemployed Patient and will be celebrating their first wedding anniversary on July 26. Review of Systems Constitutional: No fever Eyes: No worsening of vision ENT: No hearing loss Respiratory: No cough Abdomen: + pain (Controlled with fentanyl patch and COMPUTER TECH) Musculoskeletal: + problem reported (Generalized weakness) Female : + hematuria Neurologic: + memory loss, + weakness Psychiatric: No depression symptoms Heme: + abnormal bleeding/bruising (Hematuria) Endo: + fatigue Skin: + problem reported (Pallor resolved after transfusion) Allergies Coded Allergies: POLLEN (Verified Allergy, Intermediate, SEASONAL, 06/19/17) Adhesives (Verified Adverse Reaction, Intermediate, irritation, itchiness and reddness, 06/19/17) Amoxicillin (Verified Adverse Reaction, Intermediate, GREEN DIARHHEA, 06/19) Medications Current Inpatient Medications Medications (Trade) Dose Ordered Sig/Shani Route Start Time Stop Time Status Last Admin Dose Admin Acetaminophen (Tylenol Tab) 650 mg Q4H PRN PO 07/20/17 08:30 08/19/17 08:29 07/21/17 12:01 650 MG Al Hydrox/Mg Hydrox/Simethicone (Maalox Max Susp) 15 ml Q4H PRN PO 07/20/17 08:30 08/19/17 08:29 Polyethylene (Miralax Powder Packet) 17 gm DAILY PRN PO 07/20/17 08:30 08/19/17 08:29 Ondansetron HCl (Zofran Inj) 4 mg Q6H PRN IV 07/20/17 08:30 08/19/17 08:29 Alprazolam (Xanax Tab) 0.25 mg Q4 PRN PO 07/20/17 08:30 08/19/17 08:29 Carvedilol (Coreg Tab) 6.25 mg BID PO 07/20/17 10:00 08/19/17 09:59 07/21/17 08:48 6.25 MG Cyclobenzaprine HCl (Flexeril Tab) 10 mg TID PRN PO 07/20/17 08:30 08/19/17 08:29 Diphenoxylate HCl/ Atropine (Lomotil Tab) 1 tab DAILY PRN PO 07/20/17 08:30 08/19/17 08:29 Docusate Sodium (coLACE CAP) 100 mg BID PRN PO 07/20/17 08:30 08/19/17 08:29 Duloxetine HCl (Cymbalta Cap) 60 mg HS PO 07/20/17 21:00 08/19/17 20:59 Fentanyl (Duragesic Patch) 25 mcg Q72H TD 07/20/17 10:00 08/03/17 09:59 07/20/17 11:07 25 MCG Loperamide HCl (Imodium Cap) 2 mg TID PRN PO 07/20/17 08:30 08/19/17 08:29 Oxybutynin Chloride (Ditropan Tab) 5 mg Q8H PRN PO 07/20/17 08:30 08/19/17 08:29 Pantoprazole Sodium (Protonix Tab) 40 mg QAM PO 07/20/17 10:00 08/19/17 09:59 07/21/17 08:48 40 MG Potassium Chloride (Klor-Con M10) 10 meq BID PO 07/20/17 10:00 08/19/17 09:59 07/21/17 08:49 10 MEQ Senna (Senokot Tab) 17.2 mg DAILY PRN PO 07/20/17 08:30 08/19/17 08:29 Miscellaneous Information (Order Awaiting Action) 1 ea QS N/A 07/20/17 16:00 08/19/17 15:59 Dexamethasone (Decadron Tab) 4 mg BID PO 07/20/17 10:00 08/19/17 09:59 07/21/17 08:48 4 MG Lorazepam (Ativan Tab) 0.5 mg TID PRN PO 07/20/17 21:00 08/19/17 20:59 Morphine Sulfate (Roxanol Oral Soln) 10 mg Q4 PRN PO 07/20/17 08:45 08/19/17 08:44 Miscellaneous (Fentanyl Patch Remove & Waste) 1 ea Q3D N/A 07/23/17 09:59 08/22/17 09:58 Miscellaneous Information (Check Fentanyl Patch Placement) 1 ea QS N/A 07/20/17 16:00 08/19/17 15:59 07/21/17 08:48 1 EA Hydromorphone HCl (Dilaudid Pasteurizing Supervisor) PT RECEIVES 0.2MG... PRN PRN IV 07/20/17 11:30 08/03/17 11:29 07/20/17 12:30 25 MG Naloxone HCl (Narcan Inj) 0.1 mg Q5M PRN IV 07/20/17 11:30 08/19/17 11:29 Physical Exam Date Time Temp Pulse Resp B/P (MAP) Pulse Ox O2 Delivery O2 Flow Rate FiO2 07/21/17 12:16 36.7 105 16 105/68 99 4.0 07/21/17 11:16 36.6 111 18 108/72 (84) 97 Nasal Cannula 07/21/17 08:00 100 Nasal Cannula 3.0 07/21/17 07:50 36.6 118 20 112/72 (85) 100 Room Air 07/21/17 00:23 36.4 117 20 110/73 (85) 98 Nasal Cannula 3.0 07/20/17 23:50 Nasal Cannula 3.0 07/20/17 18:10 36.2 116 18 117/79 99 4.0 07/20/17 18:10 36.3 109 18 121/82 99 4.0 07/20/17 17:10 36.2 110 18 116/77 100 4.0 07/20/17 16:55 36.5 112 18 120/78 100 4.0 07/20/17 16:40 36.8 112 18 125/82 100 3.0 07/20/17 16:00 99 Nasal Cannula 4.0 07/20/17 13:15 36.2 109 14 107/70 07/20/17 13:09 36.2 109 18 107/69 100 4.0 General Appearance: no apparent distress Eyes: EOMI ENT: hearing grossly normal Neck: supple Respiratory: no respiratory distress Cardiovascular: + tachycardia Abdomen: non tender Musculoskeletal: normal tone, pertinent finding (Generalized weakness) Neurologic/Psychiatric: alert Skin: warm/dry Laboratory Results Last 24 Hours Test 07/21/17 05:43 White Blood Count 11.85 K/uL Red Blood Count 2.63 M/uL Hemoglobin 8.0 g/dL Hematocrit 22.3 % Mean Corpuscular Volume 84.8 fL Mean Corpuscular Hemoglobin 30.4 pg Mean Corpuscular Hemoglobin Concent 35.9 g/dl Platelet Count 6 K/uL RDW Standard Deviation 44.0 fL RDW Coefficient of Variation 15.1 % Nucleated RBC Absolute Count (auto) 5.59 K/uL Neutrophils % (Manual) 86.9 % Lymphocytes % (Manual) 0.9 % Metamyelocytes % 9.4 % Myelocytes % 2.8 % Nucleated Red Blood Cells % 47.2 % Neutrophils # (Manual) 10.30 K/uL Total Absolute Neutrophils 10.30 K/uL Lymphocytes # (Manual) 0.11 K/uL Total Absolute Lymphocytes 0.11 K/uL Metamyelocytes # 1.11 K/uL Myelocytes # 0.33 K/uL Toxic Granulation 2+ Dohle Bodies 1+ Platelet Estimate SIGNIFIC DECREASED Pappenheimer Bodies 1+ Schistocytes 1+ Sodium Level 142 mmol/L Potassium Level 4.2 mmol/L Chloride Level 114 mmol/L Carbon Dioxide Level 20 mmol/L Anion Gap 8.0 mmol/L Blood Urea Nitrogen 18 mg/dl Creatinine 0.58 mg/dl Est Creatinine Clear Calc Drug Dose 107.5 ml/min Estimated GFR () 135.5 Estimated GFR (Non- 116.9 BUN/Creatinine Ratio 30.8 Random Glucose 113 mg/dl Calcium Level 7.9 mg/dl Magnesium Level 2.4 mg/dl Assessment & Plan Palliative Performance Scale: 40 % (1) Palliative care encounter Assessment & Plan: Discuss treatment options, patient has been aware that they will require home hospice care in order to return home on a Dilaudid COMPUTER TECH for pain control. Patient has been to meet with [facility] hospice to discuss goals of care (2) Weakness Status: Acute Assessment & Plan: Improved after transfusion (3) Anemia Status: Acute Assessment & Plan: Due to continuous hematuria, requiring transfusion of 3 units Patient has been aware of patient's prognosis. Would suspect that their upcoming first year wedding anniversary played a role in deciding to transfuse. Discussed with patient and that they need to meet with hospice to determine if there goals are congruent with hospice care. Patient and also aware that to return home with a Dilaudid COMPUTER TECH will require hospice care. Counseling and Coordination Total time 50 minutes with greater than 50% of the time spent at bedside discussing treatment options, goals of care, and hospice with patient and
--- NOTE | 2017-07-21 13:10 | Hematology/Oncology Prog Note ---
Hematology/Onc Progress Note Date of Service Jul 21, 2017. Subjective Patient was rounded on at beside with her , sister and cousin present. She was much more lucid today and talkative. She states her left arm is not weak like it was on admission. She has no new complaints, continue to require O2 supplementation. She denies cough. She has diffuse musculoskeletal pain related to bony mets, she is on Fentanyl patch and Dilaudid SLIP COVER SEWER with adequate control. She is eating and drinking. She does not think she had BM today. Her /family think she may have more blood than usual in [place] catheter. Review of Systems: Constitutional: + weakness, + fatigue, No fever Respiratory: No cough, No shortness of breath Cardiovascular: No edema Musculoskeletal: + see HPI Female : + hematuria Vital Signs Vital Signs Past 12 Hours Date Time Temp Pulse Resp B/P (MAP) Pulse Ox O2 Delivery O2 Flow Rate FiO2 07/21/17 12:50 36.7 112 16 109/65 98 4.0 07/21/17 12:35 36.9 108 16 104/63 98 4.0 07/21/17 12:16 36.7 105 16 105/68 99 4.0 07/21/17 11:16 36.6 111 18 108/72 (84) 97 Nasal Cannula 07/21/17 08:00 100 Nasal Cannula 3.0 07/21/17 07:50 36.6 118 20 112/72 (85) 100 Room Air Physical Exam Constitutional: Level of Distress: NAD, chronically ill ENMT: hearing grossly normal Lungs: Auscuitation: breath sounds normal, no rhonchi Cardiovascular: Heart Auscultation: RRR Abdomen: Bowel Sounds: normal Inspection & Palpation: non-distended, no tenderness, guarding & rebound Extremities: no edema Laboratory Last 24 Hours Test 07/21/17 05:43 White Blood Count 11.85 K/uL Red Blood Count 2.63 M/uL Hemoglobin 8.0 g/dL Hematocrit 22.3 % Mean Corpuscular Volume 84.8 fL Mean Corpuscular Hemoglobin 30.4 pg Mean Corpuscular Hemoglobin Concent 35.9 g/dl Platelet Count 6 K/uL RDW Standard Deviation 44.0 fL RDW Coefficient of Variation 15.1 % Nucleated RBC Absolute Count (auto) 5.59 K/uL Neutrophils % (Manual) 86.9 % Lymphocytes % (Manual) 0.9 % Metamyelocytes % 9.4 % Myelocytes % 2.8 % Nucleated Red Blood Cells % 47.2 % Neutrophils # (Manual) 10.30 K/uL Total Absolute Neutrophils 10.30 K/uL Lymphocytes # (Manual) 0.11 K/uL Total Absolute Lymphocytes 0.11 K/uL Metamyelocytes # 1.11 K/uL Myelocytes # 0.33 K/uL Toxic Granulation 2+ Dohle Bodies 1+ Platelet Estimate SIGNIFIC DECREASED Pappenheimer Bodies 1+ Schistocytes 1+ Sodium Level 142 mmol/L Potassium Level 4.2 mmol/L Chloride Level 114 mmol/L Carbon Dioxide Level 20 mmol/L Anion Gap 8.0 mmol/L Blood Urea Nitrogen 18 mg/dl Creatinine 0.58 mg/dl Est Creatinine Clear Calc Drug Dose 107.5 ml/min Estimated GFR () 135.5 Estimated GFR (Non- 116.9 BUN/Creatinine Ratio 30.8 Random Glucose 113 mg/dl Calcium Level 7.9 mg/dl Magnesium Level 2.4 mg/dl Assessment & Plan 1. 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 Severe anemia 3. Severe thrombocytopenia 4. Hematuria, chronic 5. Probable TIA/CVA, not confirmed by imaging * Patient may be having increase in hematuria in [place] bag, suggested a PLT transfusion to increase in short term, discussed that thrombocytopenia probably worsened with hemodilution from 3 PRBCs received yesterday * Patient/ are still undecided if they are going to pursue supportive transfusions while on hospice, but they understand the benefits vs risks of continued supportive transfusions and that ultimately the disease will take its course * Hgb had appropriate response to 3 units PRBC, up to 8 g/dL today * Patient agreeable to PLT transfusion today- informed Dr. Vernon * Patient having some bleeding from nares likely from O2, Dr. Vernon said he would order humidified O2 * Patient requesting nasal spray too * Continue to monitor CBC while hospitalized * Ultimate goal is to limit hospital stay to stabilization and return home to hospice care See Dr. Garcia's addendum.
--- NOTE | 2017-07-21 15:37 | Progress Note ---
Internal Med Progress Note Date of Service: Jul 21, 2017. Provider Documentation: SUBJECTIVE: alert and awake today appetite improved having nose bleed has chronic pain gets sob family in room and asking when she can walk OBJECTIVE: Vital Signs-as noted below Exam: General-alert and awake. frail. not in distress ENT-epistaxis Neck-no neck masses Lungs-cta b/l no wheezing or crackles Heart-s1 and s2 heard tachycardia no murmurs Abdomen-soft bowel sounds present mild diffuse discomfort Extremities-no edema no erythema Neuro-alert and awake moves extremities Lab data as noted below. ASSESSMENT & PLAN: This is a 37-year-old female who has metastatic stage IV appendical cancer, is on hospice care, presents with fall and lethargy. 1. Fall and lethargy. The patient has metastatic stage IV appendiceal cancer, currently on hospice care, on Dilaudid pump. As per her , since she was discharged last time and was started on pain medication, she is mostly foggy, on and off she can talk and she is eating a regular food, but today she fell and thought patient had facial droop and thought patient may having stoke and brought patient to ER. Currently could not do complete neuro exam as patient oriented to name only and not obeying commands. Initially, refused CAT scan of the head as we are not going to treat it anyway because of her low counts, but right now he is okay getting CT of the head and neck to see what is going on. We will admit to medical floor. The patient will be DNR. 07/21/17 mental status improved appetite improved appreciate heme/onco and palliative care inputs to decide about going back to hospice on discharge 2. Profound anemia and thrombocytopenia from metastatic cancer. The patient has no obvious signs of bleeding . Mostlikely anemia to be the cause of the fall today. is agreeable for blood transfusions, signed a consent. We will give 3 units of PRBCs and monitor the labs. Consult hematology/oncology for further recommendations.hb 2.8 and platelets 11 on presentation 07/21/17 s/p 3units prbc. hb 8.0 today. platelets 6 today and having epistaxis and hematuria. Transfusing one platelet pheresis today as per heme/onco recommendations. 3. Chronic pain from her cancer. Continue her home pain medications and Dilaudid RING PACKER pump and morphine p.r.n.continue same. 4. History of high blood pressure. Continue Coreg. 5. History of hematuria, history of obstructive uropathy, status post stents. Eliquis was stopped last admission and no further interventions planned. having hematuria. will monitor. 6. Malignant cachexia. Currently eating regular diet at home. 7. History of depression and adjustment reaction, on Cymbalta. 8. Deep venous thrombosis prophylaxis. SCDs as the patient has thrombocytopenia and anemia. Code status DNR. 9. Disposition: Monitor on medical floor. Overall progress is very poor. social service for d/c planning Vital Signs: Date Time Temp Pulse Resp B/P (MAP) Pulse Ox O2 Delivery O2 Flow Rate FiO2 07/21/17 15:07 36.2 111 18 107/67 (80) 99 Nasal Cannula 4.0 07/21/17 13:25 36.5 114 18 105/64 100 07/21/17 12:50 36.7 112 16 109/65 98 4.0 07/21/17 12:35 36.9 108 16 104/63 98 4.0 07/21/17 12:16 36.7 105 16 105/68 99 4.0 07/21/17 11:16 36.6 111 18 108/72 (84) 97 Nasal Cannula 07/21/17 08:00 100 Nasal Cannula 3.0 07/21/17 07:50 36.6 118 20 112/72 (85) 100 Room Air 07/21/17 00:23 36.4 117 20 110/73 (85) 98 Nasal Cannula 3.0 07/20/17 23:50 Nasal Cannula 3.0 07/20/17 18:10 36.2 116 18 117/79 99 4.0 07/20/17 18:10 36.3 109 18 121/82 99 4.0 07/20/17 17:10 36.2 110 18 116/77 100 4.0 07/20/17 16:55 36.5 112 18 120/78 100 4.0 07/20/17 16:40 36.8 112 18 125/82 100 3.0 07/20/17 16:00 99 Nasal Cannula 4.0 Lab Results: Results Past 24 Hours Test 07/21/17 05:43 Range/Units White Blood Count 11.85 4.8-10.8 K/uL Red Blood Count 2.63 4.2-5.4 M/uL Hemoglobin 8.0 12.0-16.0 g/dL Hematocrit 22.3 37-47 % Mean Corpuscular Volume 84.8 80-100 fL Mean Corpuscular Hemoglobin 30.4 25-34 pg Mean Corpuscular Hemoglobin Concent 35.9 32-36 g/dl Platelet Count 6 130-400 K/uL RDW Standard Deviation 44.0 36.4-46.3 fL RDW Coefficient of Variation 15.1 11.5-14.5 % Nucleated RBC Absolute Count (auto) 5.59 0-0 K/uL Neutrophils % (Manual) 86.9 % Lymphocytes % (Manual) 0.9 % Metamyelocytes % 9.4 % Myelocytes % 2.8 % Nucleated Red Blood Cells % 47.2 % Neutrophils # (Manual) 10.30 1.4-6.5 K/uL Total Absolute Neutrophils 10.30 1.4-6.5 K/uL Lymphocytes # (Manual) 0.11 1.2-3.4 K/uL Total Absolute Lymphocytes 0.11 1.2-3.4 K/uL Metamyelocytes # 1.11 0-0 K/uL Myelocytes # 0.33 0-0 K/uL Toxic Granulation 2+ Dohle Bodies 1+ Platelet Estimate SIGNIFIC DECREASED Pappenheimer Bodies 1+ Schistocytes 1+ Sodium Level 142 136-145 mmol/L Potassium Level 4.2 3.5-5.1 mmol/L Chloride Level 114 98-107 mmol/L Carbon Dioxide Level 20 21-32 mmol/L Anion Gap 8.0 3-11 mmol/L Blood Urea Nitrogen 18 7-18 mg/dl Creatinine 0.58 0.60-1.20 mg/dl Est Creatinine Clear Calc Drug Dose 107.5 ml/min Estimated GFR () 135.5 Estimated GFR (Non- 116.9 BUN/Creatinine Ratio 30.8 10-20 Random Glucose 113 70-99 mg/dl Calcium Level 7.9 8.5-10.1 mg/dl Magnesium Level 2.4 1.8-2.4 mg/dl
[2017-07-21 17:29] LABS: HEMATOCRIT 20.3 % (37-47); HEMOGLOBIN 7.1 g/dL (12.0-16.0); MEAN CELL VOLUME 84.9 fL (80-100); MEAN CORPUSCULAR HEMOGLOBIN 29.7 pg (25-34); MEAN PLATELET VOLUME 9.1 fL (7.4-10.4); NUCLEATED RED BLOOD CELL ABS 4.43 K/uL (0-0); PLATELET COUNT 50 K/uL (130-400); RED CELL DISTRIBUTION WIDTH CV 15.9 % (11.5-14.5); RED CELL DISTRIBUTION WIDTH SD 46.2 fL (36.4-46.3)
[2017-07-21] MEDS: HYDROmorphone HCL 0.5MG/ML 50 ML CASSETTE IV PRN (18:24)
[2017-07-21] MEDS: DULOXETINE (CYMBALTA) 30 MG CAP PO SCH (20:07)
[2017-07-21] MEDS: SIMETHICONE 80 MG CHEW PO PRN (23:35)
[2017-07-21] MEDS: ALPRAZOLAM 0.25 MG TAB PO PRN (23:37)
[2017-07-22 07:08] LABS: CALCIUM 7.8 mg/dl (8.5-10.1); CREATININE 0.53 mg/dl (0.60-1.20); POTASSIUM 4.3 mmol/L (3.5-5.1)
[2017-07-22 07:18] LABS: HEMATOCRIT 20.1 % (37-47); HEMOGLOBIN 6.8 g/dL (12.0-16.0); MEAN CELL VOLUME 85.9 fL (80-100); MEAN CORPUSCULAR HEMOGLOBIN 29.1 pg (25-34); MEAN CORPUSCULAR HGB CONC 33.8 g/dl (32-36); NUCLEATED RED BLOOD CELL ABS 3.68 K/uL (0-0); PLATELET COUNT 23 K/uL (130-400); RED CELL DISTRIBUTION WIDTH CV 16.5 % (11.5-14.5); RED CELL DISTRIBUTION WIDTH SD 48.9 fL (36.4-46.3); WHITE BLOOD COUNT 10.45 K/uL (4.8-10.8)
[2017-07-22 07:35] VITALS: BP 118/79; PULSE 98; TEMP 36.3; O2SAT 96
[2017-07-22] MEDS: POTASSIUM CHLORIDE 10 MEQ TABCR PO SCH ×2 (08:19→20:00)
[2017-07-22] MEDS: DEXAMETHASONE 4 MG TAB PO SCH ×2 (08:19→20:00)
[2017-07-22] MEDS: CHECK FENTANYL PATCH PLACEMENT SCH ×3 (08:19→23:05)
[2017-07-22] MEDS: CARVEDILOL 6.25 MG TAB PO SCH ×2 (08:20→20:00)
[2017-07-22] MEDS: PANTOprazole SOD 40 MG TAB PO SCH (08:21)
[2017-07-22 10:29] VITALS: O2SAT 96
[2017-07-22 11:29] VITALS: BP 110/71; PULSE 93; TEMP 36.6; O2SAT 96
[2017-07-22] MEDS: SODIUM CHLORIDE 0.9% 1000ML 1,000 ML IV SCH (11:45)
--- NOTE | 2017-07-22 12:48 | Hematology/Oncology Prog Note ---
Hematology/Onc Progress Note Date of Service Jul 22, 2017. Subjective Patient was rounded on at beside with her present. She is off O2 supplementation. She has no breathing complaints. 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 She took Senna this AM, has yet to have BM. She did eat breakfast. PT to evaluate patient. Review of Systems: Constitutional: + weakness Respiratory: No shortness of breath Abdomen: + constipation Female : + hematuria Vital Signs Vital Signs Past 12 Hours Date Time Temp Pulse Resp B/P (MAP) Pulse Ox O2 Delivery O2 Flow Rate FiO2 07/22/17 11:29 36.6 93 18 110/71 (84) 96 07/22/17 10:29 96 Room Air 07/22/17 07:35 36.3 98 20 118/79 (92) 96 2.0 Physical Exam Constitutional: Level of Distress: NAD, chronically ill ENMT: hearing grossly normal Lungs: Auscuitation: breath sounds normal, no rhonchi Cardiovascular: Heart Auscultation: RRR Abdomen: Bowel Sounds: normal Inspection & Palpation: no tenderness, guarding & rebound, distended Laboratory Last 24 Hours Test 07/21/17 16:46 07/22/17 05:18 White Blood Count 11.70 K/uL 10.45 K/uL Red Blood Count 2.39 M/uL 2.34 M/uL Hemoglobin 7.1 g/dL 6.8 g/dL Hematocrit 20.3 % 20.1 % Mean Corpuscular Volume 84.9 fL 85.9 fL Mean Corpuscular Hemoglobin 29.7 pg 29.1 pg Mean Corpuscular Hemoglobin Concent 35.0 g/dl 33.8 g/dl Platelet Count 50 K/uL 23 K/uL Mean Platelet Volume 9.1 fL RDW Standard Deviation 46.2 fL 48.9 fL RDW Coefficient of Variation 15.9 % 16.5 % Nucleated RBC Absolute Count (auto) 4.43 K/uL 3.68 K/uL Neutrophils % (Manual) 90.1 % 99.1 % Lymphocytes % (Manual) 0.9 % 0.0 % Monocytes % (Manual) 0.9 % Eosinophils % (Manual) 0.9 % Basophils % (Manual) 0.9 % Metamyelocytes % 3.6 % 0.9 % Myelocytes % 2.7 % Nucleated Red Blood Cells % 37.8 % 35.2 % Neutrophils # (Manual) 10.54 K/uL 10.36 K/uL Total Absolute Neutrophils 10.54 K/uL 10.36 K/uL Lymphocytes # (Manual) 0.11 K/uL Total Absolute Lymphocytes 0.11 K/uL 0.00 K/uL Monocytes # (Manual) 0.11 K/uL Eosinophils # (Manual) 0.11 K/uL Basophils # (Manual) 0.11 K/uL Metamyelocytes # 0.42 K/uL 0.09 K/uL Myelocytes # 0.32 K/uL Toxic Granulation 2+ 2+ Dohle Bodies 1+ Platelet Estimate DECREASED DECREASED Pappenheimer Bodies 1+ 1+ Schistocytes 1+ 1+ Spherocytes 1+ Sodium Level 139 mmol/L Potassium Level 4.3 mmol/L Chloride Level 111 mmol/L Carbon Dioxide Level 20 mmol/L Anion Gap 7.0 mmol/L Blood Urea Nitrogen 16 mg/dl Creatinine 0.53 mg/dl Est Creatinine Clear Calc Drug Dose 117.7 ml/min Estimated GFR () 139.6 Estimated GFR (Non- 120.4 BUN/Creatinine Ratio 29.9 Random Glucose 144 mg/dl Calcium Level 7.8 mg/dl Magnesium Level 2.4 mg/dl Assessment & Plan 1. 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 Severe anemia 3. Severe thrombocytopenia 4. Hematuria, chronic 5. Probable TIA/CVA, not confirmed by imaging 6. Constipation * Patient responded to PLT transfusion yesterday with PLT at 50K range after, down to 20K range today * Patient/ are still undecided if they are going to pursue supportive transfusions while on hospice, but they understand the benefits vs risks of continued supportive transfusions and that ultimately the disease will take its course * Hgb had appropriate response to 3 units PRBC, was up to 8 g/dL, at 6.8 today * No PRBC ordered yet today, will check another CBC this afternoon, if continues to downtrend, recommend another unit PRBC based on patient/family wanting to continue transfusion * Continue to monitor CBC while hospitalized * Patient took Senna today for constipation, advised patient she also has PRN Miralax and Colace too * Ultimate goal is to limit hospital stay to stabilization and return home to hospice care See Dr. Garcia's addendum.
[2017-07-22 14:17] LABS: MEAN CORPUSCULAR HGB CONC 34.2 g/dl (32-36)
[2017-07-22 14:26] LABS: PLATELET COUNT 14 K/uL (130-400)
[2017-07-22 14:30] LABS: HEMATOCRIT 20.2 % (37-47); HEMOGLOBIN 6.9 g/dL (12.0-16.0); MEAN CORPUSCULAR HEMOGLOBIN 29.4 pg (25-34); RED CELL DISTRIBUTION WIDTH CV 16.6 % (11.5-14.5); RED CELL DISTRIBUTION WIDTH SD 48.9 fL (36.4-46.3)
[2017-07-22 16:00] VITALS: BP 108/70; PULSE 96; TEMP 36.6; O2SAT 95
[2017-07-22 20:00] VITALS: BP 128/83; PULSE 88; TEMP 36.6; O2SAT 97
[2017-07-22] MEDS: DULOXETINE (CYMBALTA) 30 MG CAP PO SCH (21:00)
[2017-07-23] VITALS (11 sets, daily range): BP systolic 103–124; BP diastolic 70–79; PULSE 69–103; TEMP 36.4–36.8; O2SAT 92–97
[2017-07-23] MEDS ORDERED: LEVALBUTEROL/IPRATROPIUM NEB INH STA (03:30)
[2017-07-23] MEDS ORDERED: LEVALBUTEROL/IPRATROPIUM NEB INH PRN (03:30)
[2017-07-23] MEDS ORDERED: IPRATROPIUM BROMIDE NEB SOLN 0.02% 2.5 ML VIAL INH STA (04:00)
[2017-07-23] MEDS ORDERED: LEVALBUTEROL 1.25MG/0.5ML NEB INH STA (04:00)
[2017-07-23] MEDS ORDERED: LEVALBUTEROL 1.25MG/0.5ML NEB INH PRN (04:15)
[2017-07-23] MEDS ORDERED: IPRATROPIUM BROMIDE NEB SOLN 0.02% 2.5 ML VIAL INH PRN (04:15)
[2017-07-23 04:26] LABS: CALCIUM 7.8 mg/dl (8.5-10.1); CREATININE 0.47 mg/dl (0.60-1.20); POTASSIUM 4.4 mmol/L (3.5-5.1)
[2017-07-23 04:35] LABS: MEAN CORPUSCULAR HGB CONC 35.4 g/dl (32-36)
[2017-07-23 04:38] LABS: PLATELET COUNT 9 K/uL (130-400)
[2017-07-23 04:41] LABS: TOTAL PROTEIN 5.5 gm/dl (6.4-8.2)
[2017-07-23 04:47] LABS: HEMATOCRIT 23.7 % (37-47); HEMOGLOBIN 8.4 g/dL (12.0-16.0); MEAN CELL VOLUME 85.9 fL (80-100); MEAN CORPUSCULAR HEMOGLOBIN 30.4 pg (25-34); RED CELL DISTRIBUTION WIDTH CV 15.6 % (11.5-14.5); RED CELL DISTRIBUTION WIDTH SD 47.3 fL (36.4-46.3); WHITE BLOOD COUNT 6.19 K/uL (4.8-10.8)
[2017-07-23 04:48] LABS: NUCLEATED RED BLOOD CELL ABS 2.51 K/uL (0-0)
--- NOTE | 2017-07-23 04:48 | Progress Note ---
Internal Med Progress Note Date of Service: Jul 23, 2017. Provider Documentation: Made aware by RN of respiratory distress in a.m., dry cough. O2 sats 80s at one point Possible aspiration risk as per RN given lethargic episodes noted inpatient secondary to narcosis. CXR as per my interpretation atelectasis, hilar fullness, possible infiltrate left, AP Acute hypoxemic respiratory failure secondary to HCAP possible aspiration pneumonia No sepsis Supplemental O2 Baseline ABG Nebs, IV Solu-Medrol 1 dose IV Clindamycin Aspiration precautions for now Will relay to AM provider. Vital Signs: Date Time Temp Pulse Resp B/P (MAP) Pulse Ox O2 Delivery O2 Flow Rate FiO2 07/23/17 07:39 36.4 103 18 124/79 (94) 97 Nasal Cannula 5.5 07/23/17 06:18 96 18 95 Nasal Cannula 2.0 07/23/17 04:00 36.6 69 24 121/76 (91) 92 Nasal Cannula 2.0 07/23/17 03:45 92 Nasal Cannula 2.0 07/23/17 03:25 92 18 95 Nasal Cannula 2.0 07/23/17 00:00 97 Room Air 07/22/17 20:00 36.6 88 16 128/83 (98) 97 Room Air 07/22/17 20:00 97 Room Air 07/22/17 16:00 36.6 96 18 108/70 (83) 95 Room Air 07/22/17 14:49 Room Air 07/22/17 11:29 36.6 93 18 110/71 (84) 96 Lab Results: Results Past 24 Hours Test 07/22/17 13:49 07/23/17 03:42 07/23/17 05:53 Range/Units White Blood Count 9.60 6.19 4.8-10.8 K/uL Red Blood Count 2.35 2.76 4.2-5.4 M/uL Hemoglobin 6.9 8.4 12.0-16.0 g/dL Hematocrit 20.2 23.7 37-47 % Mean Corpuscular Volume 86.0 85.9 80-100 fL Mean Corpuscular Hemoglobin 29.4 30.4 25-34 pg Mean Corpuscular Hemoglobin Concent 34.2 35.4 32-36 g/dl Platelet Count 14 9 130-400 K/uL RDW Standard Deviation 48.9 47.3 36.4-46.3 fL RDW Coefficient of Variation 16.6 15.6 11.5-14.5 % Nucleated RBC Absolute Count (auto) 3.10 2.51 0-0 K/uL Neutrophils % (Manual) 91.5 90.9 % Lymphocytes % (Manual) 0.0 1.8 % Monocytes % (Manual) 1.9 1.8 % Metamyelocytes % 4.7 3.7 % Myelocytes % 1.9 1.8 % Nucleated Red Blood Cells % 32.3 40.6 % Neutrophils # (Manual) 8.78 5.63 1.4-6.5 K/uL Total Absolute Neutrophils 8.78 5.63 1.4-6.5 K/uL Total Absolute Lymphocytes 0.00 0.11 1.2-3.4 K/uL Monocytes # (Manual) 0.18 0.11 0.11-0.59 K/uL Metamyelocytes # 0.45 0.23 0-0 K/uL Myelocytes # 0.18 0.11 0-0 K/uL Toxic Granulation 2+ 2+ Dohle Bodies 1+ Platelet Estimate SIGNIFIC DECREASED SIGNIFIC DECREASED Giant Platelets 1+ 1+ Pappenheimer Bodies 2+ 1+ Schistocytes 1+ 1+ Lymphocytes # (Manual) 0.11 1.2-3.4 K/uL Sodium Level 137 136-145 mmol/L Potassium Level 4.4 3.5-5.1 mmol/L Chloride Level 111 98-107 mmol/L Carbon Dioxide Level 19 21-32 mmol/L Anion Gap 7.0 3-11 mmol/L Blood Urea Nitrogen 18 7-18 mg/dl Creatinine 0.47 0.60-1.20 mg/dl Est Creatinine Clear Calc Drug Dose 132.7 ml/min Estimated GFR () 145.2 Estimated GFR (Non- 125.3 BUN/Creatinine Ratio 37.2 10-20 Random Glucose 124 70-99 mg/dl Calcium Level 7.8 8.5-10.1 mg/dl Magnesium Level 2.3 1.8-2.4 mg/dl Total Bilirubin 0.6 0.2-1 mg/dl Aspartate Amino Transf (AST/SGOT) 45 15-37 U/L Alanine Aminotransferase (ALT/SGPT) 35 12-78 U/L Alkaline Phosphatase 1600 45-117 U/L Total Protein 5.5 6.4-8.2 gm/dl Albumin 2.0 3.4-5.0 gm/dl Globulin 3.5 2.5-4.0 gm/dl Albumin/Globulin Ratio 0.6 0.9-2 Arterial Blood pH 7.43 7.35-7.45 Arterial Blood Partial Pressure CO2 31 35-46 mmHg Arterial Blood Partial Pressure O2 62 80-95 mm/Hg Arterial Blood HCO3 20 19-24 mmol/L Arterial Blood Oxygen Saturation 89.7 90-95 % Arterial Blood Base Excess -4.0 -9-1.8 mEq/L Arterial Blood Gas Delivery 5L Trae Test POS POS
[2017-07-23] MEDS ORDERED: METHYLPREDNISOLONE IV 20 MG in SYRINGE 0 ML IV STA ×2 (04:49→05:22)
[2017-07-23] MEDS ORDERED: DOCUSATE SODIUM/SENNA 50/8.6MG TAB PO ONE (04:49)
[2017-07-23] MEDS ORDERED: POLYETHYLENE (MIRALAX) 17 GM PACK PO ONE (04:52)
[2017-07-23] MEDS ORDERED: LACTULOSE SYRUP 20 GM/30 ML UDC PO ONE (05:00)
[2017-07-23] MEDS ORDERED: CLINDAMYCIN IV 600 MG in DEXTROSE 5% 50ML 50 ML IV ONE (05:00)
[2017-07-23] MEDS ORDERED: FUROSEMIDE INJ 20 MG in SYRINGE 0 ML IV STA (05:15)
[2017-07-23] MEDS ORDERED: FUROSEMIDE 40 MG/4 ML VIAL IV STA (05:21)
[2017-07-23] MEDS ORDERED: ALBUT/IPRATROP 3MG/0.5MG NEB 3 ML VIAL INH STA (05:50)
--- NOTE | 2017-07-23 06:06 | DIAGNOSTIC IMAGING REPORT ---
CHEST ONE VIEW PORTABLE CLINICAL HISTORY: resp distress dyspnea COMPARISON STUDY: 12/22/2016 FINDINGS: Parenchymal infiltrate left lung base. Lungs otherwise appear clear. There is a central catheter in superior vena cava. Bilateral ureteral stents are present. IMPRESSION: Infiltrate left base. The above report was generated using voice recognition software. It may contain grammatical, syntax or spelling errors. Electronically signed by: Jd Warner M.D. 07/23/2017 6:05 AM Dictated Date/Time: 07/23/2017 6:04 AM
[2017-07-23] MEDS ORDERED: METHYLNALTREXONE BROMIDE INJ 12 MG/0.6 ML SYR SQ ONE (06:45)
[2017-07-23] MEDS ORDERED: CLINDAMYCIN CONSULT ACTIVE PRN (08:00)
[2017-07-23] MEDS: PANTOprazole SOD 40 MG TAB PO SCH (08:51)
[2017-07-23] MEDS: LACTOBACILLUS ACIDOPHILUS (FLORANEX) TAB PO SCH ×3 (08:51→17:31)
[2017-07-23] MEDS: DEXAMETHASONE 4 MG TAB PO SCH ×2 (08:52→20:54)
[2017-07-23] MEDS: CARVEDILOL 6.25 MG TAB PO SCH ×2 (08:52→20:58)
[2017-07-23] MEDS: POTASSIUM CHLORIDE 10 MEQ TABCR PO SCH ×2 (08:53→20:54)
[2017-07-23] MEDS: CHECK FENTANYL PATCH PLACEMENT SCH ×2 (08:53→16:00)
[2017-07-23] MEDS: FENTANYL 25 MCG/HR TDSY TD SCH (09:04)
[2017-07-23] MEDS: FENTANYL PATCH REMOVE & WASTE SCH (09:05)
--- NOTE | 2017-07-23 09:07 | Progress Note ---
Internal Med Progress Note Date of Service: Jul 22, 2017. Provider Documentation: SUBJECTIVE: alert and awake eating ok has back pain not moved bowels yet afebrile d/w and understands terminal stage f cancer and considering [facility] but want to talk to hospice before he makes the decision OBJECTIVE: Vital Signs-as noted below Exam: General-alert and awake. frail. not in distress ENT-epistaxis Neck-no neck masses Lungs-cta b/l no wheezing or crackles Heart-s1 and s2 heard tachycardia no murmurs Abdomen-soft bowel sounds present mild diffuse discomfort Extremities-no edema no erythema Neuro-alert and awake moves extremities Lab data as noted below. ASSESSMENT & PLAN: This is a 37-year-old female who has metastatic stage IV appendical cancer, is on hospice care, presents with fall and lethargy. 1. Fall and lethargy. The patient has metastatic stage IV appendiceal cancer, currently on hospice care, on Dilaudid pump. As per her , since she was discharged last time and was started on pain medication, she is mostly foggy, on and off she can talk and she is eating a regular food, but today she fell and thought patient had facial droop and thought patient may having stoke and brought patient to ER. Currently could not do complete neuro exam as patient oriented to name only and not obeying commands. Initially, refused CAT scan of the head as we are not going to treat it anyway because of her low counts, but right now he is okay getting CT of the head and neck to see what is going on. We will admit to medical floor. The patient will be DNR. 07/21/17 mental status improved appetite improved appreciate heme/onco and palliative care inputs to decide about going back to hospice on discharge 07/22/17 alert and awake and talking plan for hospice care 2. Profound anemia and thrombocytopenia from metastatic cancer. The patient has no obvious signs of bleeding . Mostlikely anemia to be the cause of the fall today. is agreeable for blood transfusions, signed a consent. We will give 3 units of PRBCs and monitor the labs. Consult hematology/oncology for further recommendations.hb 2.8 and platelets 11 on presentation 07/21/17 s/p 3units prbc. hb 8.0 today. platelets 6 today and having epistaxis and hematuria. Transfusing one platelet pheresis today as per heme/onco recommendations. 07/22/18 hb 6.9 and platelets 14. heme/onco transfusing one more ubnit of prbc. to discuss about the futility of transfusions plan for in [facility] hospice care. 3. Chronic pain from her cancer. 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 4. History of high blood pressure. Continue Coreg. 5. History of hematuria, history of obstructive uropathy, status post stents. Eliquis was stopped last admission and no further interventions planned. having hematuria. will monitor. 6. Malignant cachexia. Currently eating regular diet . 7. History of depression and adjustment reaction, on Cymbalta. 8. Deep venous thrombosis prophylaxis. SCDs as the patient has thrombocytopenia and anemia. Code status DNR. 9. Disposition: Monitor on medical floor. Overall progress is very poor. social service for d/c planning plan for in patient hospice Vital Signs: Date Time Temp Pulse Resp B/P (MAP) Pulse Ox O2 Delivery O2 Flow Rate FiO2 07/23/17 15:16 36.6 83 20 110/72 (85) 95 Nasal Cannula 4.0 07/23/17 14:47 80 18 96 Nasal Cannula 2.0 07/23/17 11:08 36.6 90 22 103/70 (81) 94 Nasal Cannula 4.0 07/23/17 09:00 Nasal Cannula 4.0 07/23/17 07:39 36.4 103 18 124/79 (94) 97 Nasal Cannula 5.5 07/23/17 06:18 96 18 95 Nasal Cannula 2.0 07/23/17 04:00 36.6 69 24 121/76 (91) 92 Nasal Cannula 2.0 07/23/17 03:45 92 Nasal Cannula 2.0 07/23/17 03:25 92 18 95 Nasal Cannula 2.0 07/23/17 00:00 97 Room Air 07/22/17 20:00 36.6 88 16 128/83 (98) 97 Room Air 07/22/17 20:00 97 Room Air 07/22/17 16:00 36.6 96 18 108/70 (83) 95 Room Air Lab Results: Results Past 24 Hours Test 07/23/17 03:42 07/23/17 05:53 Range/Units White Blood Count 6.19 4.8-10.8 K/uL Red Blood Count 2.76 4.2-5.4 M/uL Hemoglobin 8.4 12.0-16.0 g/dL Hematocrit 23.7 37-47 % Mean Corpuscular Volume 85.9 80-100 fL Mean Corpuscular Hemoglobin 30.4 25-34 pg Mean Corpuscular Hemoglobin Concent 35.4 32-36 g/dl Platelet Count 9 130-400 K/uL RDW Standard Deviation 47.3 36.4-46.3 fL RDW Coefficient of Variation 15.6 11.5-14.5 % Nucleated RBC Absolute Count (auto) 2.51 0-0 K/uL Neutrophils % (Manual) 90.9 % Lymphocytes % (Manual) 1.8 % Monocytes % (Manual) 1.8 % Metamyelocytes % 3.7 % Myelocytes % 1.8 % Nucleated Red Blood Cells % 40.6 % Neutrophils # (Manual) 5.63 1.4-6.5 K/uL Total Absolute Neutrophils 5.63 1.4-6.5 K/uL Lymphocytes # (Manual) 0.11 1.2-3.4 K/uL Total Absolute Lymphocytes 0.11 1.2-3.4 K/uL Monocytes # (Manual) 0.11 0.11-0.59 K/uL Metamyelocytes # 0.23 0-0 K/uL Myelocytes # 0.11 0-0 K/uL Toxic Granulation 2+ Platelet Estimate SIGNIFIC DECREASED Giant Platelets 1+ Pappenheimer Bodies 1+ Schistocytes 1+ Sodium Level 137 136-145 mmol/L Potassium Level 4.4 3.5-5.1 mmol/L Chloride Level 111 98-107 mmol/L Carbon Dioxide Level 19 21-32 mmol/L Anion Gap 7.0 3-11 mmol/L Blood Urea Nitrogen 18 7-18 mg/dl Creatinine 0.47 0.60-1.20 mg/dl Est Creatinine Clear Calc Drug Dose 132.7 ml/min Estimated GFR () 145.2 Estimated GFR (Non- 125.3 BUN/Creatinine Ratio 37.2 10-20 Random Glucose 124 70-99 mg/dl Calcium Level 7.8 8.5-10.1 mg/dl Magnesium Level 2.3 1.8-2.4 mg/dl Total Bilirubin 0.6 0.2-1 mg/dl Aspartate Amino Transf (AST/SGOT) 45 15-37 U/L Alanine Aminotransferase (ALT/SGPT) 35 12-78 U/L Alkaline Phosphatase 1600 45-117 U/L Total Protein 5.5 6.4-8.2 gm/dl Albumin 2.0 3.4-5.0 gm/dl Globulin 3.5 2.5-4.0 gm/dl Albumin/Globulin Ratio 0.6 0.9-2 Arterial Blood pH 7.43 7.35-7.45 Arterial Blood Partial Pressure CO2 31 35-46 mmHg Arterial Blood Partial Pressure O2 62 80-95 mm/Hg Arterial Blood HCO3 20 19-24 mmol/L Arterial Blood Oxygen Saturation 89.7 90-95 % Arterial Blood Base Excess -4.0 -9-1.8 mEq/L Arterial Blood Gas Delivery 5L Trae Test POS POS
[2017-07-23] MEDS: SIMETHICONE 80 MG CHEW PO PRN ×2 (09:18→21:59)
[2017-07-23] MEDS: HYDROmorphone HCL 0.5MG/ML 50 ML CASSETTE IV PRN (11:19)
[2017-07-23] MEDS: SODIUM CHLORIDE 0.9% 1000ML 1,000 ML IV SCH (11:24)
[2017-07-23] MEDS: CLINDAMYCIN IV 600 MG in DEXTROSE 5% 50ML 50 ML IV SCH ×2 (11:26→17:28)
[2017-07-23] MEDS ORDERED: LEVALBUTEROL/IPRATROPIUM NEB INH SCH (12:00)
[2017-07-23] MEDS: IPRATROPIUM BROMIDE NEB SOLN 0.02% 2.5 ML VIAL INH SCH ×2 (14:45→19:39)
[2017-07-23] MEDS: LEVALBUTEROL 1.25MG/0.5ML NEB INH SCH ×2 (14:45→19:39)
--- NOTE | 2017-07-23 15:38 | Progress Note ---
Internal Med Progress Note Date of Service: Jul 23, 2017. Provider Documentation: SUBJECTIVE: alert and awake last night aspirated on liquids has some cough afebrile breathing is ok does not like liquid diet and wants to advance the diet ok for comfort feeding likes to have transfusions if needed OBJECTIVE: Vital Signs-as noted below Exam: General-alert and awake. frail. not in distress ENT-epistaxis Neck-no neck masses Lungs-cta b/l no wheezing or crackles Heart-s1 and s2 heard tachycardia no murmurs Abdomen-soft bowel sounds present mild diffuse discomfort Extremities-no edema no erythema Neuro-alert and awake moves extremities Lab data as noted below. ASSESSMENT & PLAN: This is a 37-year-old female who has metastatic stage IV appendical cancer, is on hospice care, presents with fall and lethargy. 1. Fall and lethargy. The patient has metastatic stage IV appendiceal cancer, currently on hospice care, on Dilaudid pump. As per her , since she was discharged last time and was started on pain medication, she is mostly foggy, on and off she can talk and she is eating a regular food, but today she fell and thought patient had facial droop and thought patient may having stoke and brought patient to ER. Currently could not do complete neuro exam as patient oriented to name only and not obeying commands. Initially, refused CAT scan of the head as we are not going to treat it anyway because of her low counts, but right now he is okay getting CT of the head and neck to see what is going on. We will admit to medical floor. The patient will be DNR. 07/21/17 mental status improved appetite improved appreciate heme/onco and palliative care inputs to decide about going back to hospice on discharge 07/22/17 alert and awake and talking plan for hospice care 07/23/17 plan for inpatient hospice care patient and wants to transfusions if needed- explained [facility] care we may stop checking labs but says they want the patient o be in hospital to get transfusions as needed. 2. Profound anemia and thrombocytopenia from metastatic cancer. The patient has no obvious signs of bleeding . Mostlikely anemia to be the cause of the fall today. is agreeable for blood transfusions, signed a consent. We will give 3 units of PRBCs and monitor the labs. Consult hematology/oncology for further recommendations.hb 2.8 and platelets 11 on presentation 07/21/17 s/p 3units prbc. hb 8.0 today. platelets 6 today and having epistaxis and hematuria. Transfusing one platelet pheresis today as per heme/onco recommendations. 07/22/18 hb 6.9 and platelets 14. heme/onco transfusing one more ubnit of prbc. to discuss about the futility of transfusions plan for in [facility] hospice care. 07/23/17 hb 8.4 platelets 9 today d/w no transfusions today unless any signs of obvious bleeding f/u labs in am 3.Aspiration last night cxr LLL infiltrate on clindamycin- continue same for now. patient likes to advance diet patient and family ok for comfort feeding. 4. Chronic pain from her cancer. 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 seems to be controlled 5. History of high blood pressure. Continue Coreg. 6. History of hematuria, history of obstructive uropathy, status post stents. Eliquis was stopped last admission and no further interventions planned. having hematuria. will monitor. 7. Malignant cachexia. Currently eating regular diet . 8. History of depression and adjustment reaction, on Cymbalta. 9. Deep venous thrombosis prophylaxis. SCDs as the patient has thrombocytopenia and anemia. Code status DNR. 10. Disposition: Monitor on medical floor. Overall progress is very poor. social service for d/c planning plan for inpatient hospice Vital Signs: Date Time Temp Pulse Resp B/P (MAP) Pulse Ox O2 Delivery O2 Flow Rate FiO2 07/23/17 15:16 36.6 83 20 110/72 (85) 95 Nasal Cannula 4.0 07/23/17 14:47 80 18 96 Nasal Cannula 2.0 07/23/17 11:08 36.6 90 22 103/70 (81) 94 Nasal Cannula 4.0 07/23/17 09:00 Nasal Cannula 4.0 07/23/17 07:39 36.4 103 18 124/79 (94) 97 Nasal Cannula 5.5 07/23/17 06:18 96 18 95 Nasal Cannula 2.0 07/23/17 04:00 36.6 69 24 121/76 (91) 92 Nasal Cannula 2.0 07/23/17 03:45 92 Nasal Cannula 2.0 07/23/17 03:25 92 18 95 Nasal Cannula 2.0 07/23/17 00:00 97 Room Air 07/22/17 20:00 36.6 88 16 128/83 (98) 97 Room Air 07/22/17 20:00 97 Room Air 07/22/17 16:00 36.6 96 18 108/70 (83) 95 Room Air Lab Results: Results Past 24 Hours Test 07/23/17 03:42 07/23/17 05:53 Range/Units White Blood Count 6.19 4.8-10.8 K/uL Red Blood Count 2.76 4.2-5.4 M/uL Hemoglobin 8.4 12.0-16.0 g/dL Hematocrit 23.7 37-47 % Mean Corpuscular Volume 85.9 80-100 fL Mean Corpuscular Hemoglobin 30.4 25-34 pg Mean Corpuscular Hemoglobin Concent 35.4 32-36 g/dl Platelet Count 9 130-400 K/uL RDW Standard Deviation 47.3 36.4-46.3 fL RDW Coefficient of Variation 15.6 11.5-14.5 % Nucleated RBC Absolute Count (auto) 2.51 0-0 K/uL Neutrophils % (Manual) 90.9 % Lymphocytes % (Manual) 1.8 % Monocytes % (Manual) 1.8 % Metamyelocytes % 3.7 % Myelocytes % 1.8 % Nucleated Red Blood Cells % 40.6 % Neutrophils # (Manual) 5.63 1.4-6.5 K/uL Total Absolute Neutrophils 5.63 1.4-6.5 K/uL Lymphocytes # (Manual) 0.11 1.2-3.4 K/uL Total Absolute Lymphocytes 0.11 1.2-3.4 K/uL Monocytes # (Manual) 0.11 0.11-0.59 K/uL Metamyelocytes # 0.23 0-0 K/uL Myelocytes # 0.11 0-0 K/uL Toxic Granulation 2+ Platelet Estimate SIGNIFIC DECREASED Giant Platelets 1+ Pappenheimer Bodies 1+ Schistocytes 1+ Sodium Level 137 136-145 mmol/L Potassium Level 4.4 3.5-5.1 mmol/L Chloride Level 111 98-107 mmol/L Carbon Dioxide Level 19 21-32 mmol/L Anion Gap 7.0 3-11 mmol/L Blood Urea Nitrogen 18 7-18 mg/dl Creatinine 0.47 0.60-1.20 mg/dl Est Creatinine Clear Calc Drug Dose 132.7 ml/min Estimated GFR () 145.2 Estimated GFR (Non- 125.3 BUN/Creatinine Ratio 37.2 10-20 Random Glucose 124 70-99 mg/dl Calcium Level 7.8 8.5-10.1 mg/dl Magnesium Level 2.3 1.8-2.4 mg/dl Total Bilirubin 0.6 0.2-1 mg/dl Aspartate Amino Transf (AST/SGOT) 45 15-37 U/L Alanine Aminotransferase (ALT/SGPT) 35 12-78 U/L Alkaline Phosphatase 1600 45-117 U/L Total Protein 5.5 6.4-8.2 gm/dl Albumin 2.0 3.4-5.0 gm/dl Globulin 3.5 2.5-4.0 gm/dl Albumin/Globulin Ratio 0.6 0.9-2 Arterial Blood pH 7.43 7.35-7.45 Arterial Blood Partial Pressure CO2 31 35-46 mmHg Arterial Blood Partial Pressure O2 62 80-95 mm/Hg Arterial Blood HCO3 20 19-24 mmol/L Arterial Blood Oxygen Saturation 89.7 90-95 % Arterial Blood Base Excess -4.0 -9-1.8 mEq/L Arterial Blood Gas Delivery 5L Trae Test POS POS
--- NOTE | 2017-07-23 17:35 | Palliative Care Progress Note ---
Palliative Care Progress Note Date of Service Jul 23, 2017. Subjective Pt evaluation today including: conversation w/ patient, conversation w/ family , physical exam, conversation w/ transformation consultant Pain: Well-controlled on current meds PO Intake: Poor, coughs even with ice chips Voiding: osorio catheter in place (Gross hematuria) Patient is fatigued, awake, able to make her needs known. Patient is very shaky and weak, having difficulty texting on her phone. Patient's stated he is surprised she still "with us" when he observes how weak she is. Review of Systems Constitutional: No fever, No chills Eyes: No worsening of vision ENT: No hearing loss Respiratory: + cough (With p.o. ice chips) Cardiac: No chest pain Abdomen: + pain (Pain under adequate control) Female : + hematuria Neurologic: + memory loss Psychiatric: No anxiety Heme: + abnormal bleeding/bruising Endo: + fatigue Skin: No rash Objective Vital Signs Date Time Temp Pulse Resp B/P (MAP) Pulse Ox O2 Delivery O2 Flow Rate FiO2 07/23/17 15:16 36.6 83 20 110/72 (85) 95 Nasal Cannula 4.0 07/23/17 14:47 80 18 96 Nasal Cannula 2.0 07/23/17 11:08 36.6 90 22 103/70 (81) 94 Nasal Cannula 4.0 07/23/17 09:00 Nasal Cannula 4.0 07/23/17 07:39 36.4 103 18 124/79 (94) 97 Nasal Cannula 5.5 07/23/17 06:18 96 18 95 Nasal Cannula 2.0 07/23/17 04:00 36.6 69 24 121/76 (91) 92 Nasal Cannula 2.0 07/23/17 03:45 92 Nasal Cannula 2.0 07/23/17 03:25 92 18 95 Nasal Cannula 2.0 07/23/17 00:00 97 Room Air 07/22/17 20:00 36.6 88 16 128/83 (98) 97 Room Air 07/22/17 20:00 97 Room Air Physical Exam General Appearance: no apparent distress Eyes: EOMI ENT: hearing grossly normal Neck: supple Respiratory/Chest: no respiratory distress Cardiovascular: regular rate, rhythm Abdomen: soft Extremities: no pedal edema Neurologic/Psychiatric: + pertinent finding (Awake, doses off quickly) Skin: + pallor Laboratory Results Last 24 Hours Test 07/23/17 03:42 07/23/17 05:53 White Blood Count 6.19 K/uL Red Blood Count 2.76 M/uL Hemoglobin 8.4 g/dL Hematocrit 23.7 % Mean Corpuscular Volume 85.9 fL Mean Corpuscular Hemoglobin 30.4 pg Mean Corpuscular Hemoglobin Concent 35.4 g/dl Platelet Count 9 K/uL RDW Standard Deviation 47.3 fL RDW Coefficient of Variation 15.6 % Nucleated RBC Absolute Count (auto) 2.51 K/uL Neutrophils % (Manual) 90.9 % Lymphocytes % (Manual) 1.8 % Monocytes % (Manual) 1.8 % Metamyelocytes % 3.7 % Myelocytes % 1.8 % Nucleated Red Blood Cells % 40.6 % Neutrophils # (Manual) 5.63 K/uL Total Absolute Neutrophils 5.63 K/uL Lymphocytes # (Manual) 0.11 K/uL Total Absolute Lymphocytes 0.11 K/uL Monocytes # (Manual) 0.11 K/uL Metamyelocytes # 0.23 K/uL Myelocytes # 0.11 K/uL Toxic Granulation 2+ Platelet Estimate SIGNIFIC DECREASED Giant Platelets 1+ Pappenheimer Bodies 1+ Schistocytes 1+ Sodium Level 137 mmol/L Potassium Level 4.4 mmol/L Chloride Level 111 mmol/L Carbon Dioxide Level 19 mmol/L Anion Gap 7.0 mmol/L Blood Urea Nitrogen 18 mg/dl Creatinine 0.47 mg/dl Est Creatinine Clear Calc Drug Dose 132.7 ml/min Estimated GFR () 145.2 Estimated GFR (Non- 125.3 BUN/Creatinine Ratio 37.2 Random Glucose 124 mg/dl Calcium Level 7.8 mg/dl Magnesium Level 2.3 mg/dl Total Bilirubin 0.6 mg/dl Aspartate Amino Transf (AST/SGOT) 45 U/L Alanine Aminotransferase (ALT/SGPT) 35 U/L Alkaline Phosphatase 1600 U/L Total Protein 5.5 gm/dl Albumin 2.0 gm/dl Globulin 3.5 gm/dl Albumin/Globulin Ratio 0.6 Arterial Blood pH 7.43 Arterial Blood Partial Pressure CO2 31 mmHg Arterial Blood Partial Pressure O2 62 mm/Hg Arterial Blood HCO3 20 mmol/L Arterial Blood Oxygen Saturation 89.7 % Arterial Blood Base Excess -4.0 mEq/L Arterial Blood Gas Delivery 5L Trae Test POS Assessment and Plan (1) Palliative care encounter Assessment & Plan: was discussing with case management and hospice the possibility of inpatient hospice care, I would suspect they may need to forego any further transfusions. Has been not sure if transfusions would be a " comfort measure". (2) Weakness Status: Acute Assessment & Plan: Increasing, now patient has signs of aspiration with ice chips (3) Anemia Status: Acute Palliative Performance Scale: 30 % Continued [facility] stay due to: multiple IV medications needed Discharge planning: uncertain Counseling and Coordination Total time spent 35 minutes with greater than 50% of the time spent at bedside discussing care options and plan of care with patient and
[2017-07-23] MEDS: DULOXETINE (CYMBALTA) 30 MG CAP PO SCH (20:55)
[2017-07-23] MEDS: ALPRAZOLAM 0.25 MG TAB PO PRN (22:00)
[2017-07-24] VITALS (7 sets, daily range): BP systolic 106–116; BP diastolic 64–74; PULSE 67–115; TEMP 36.3–36.8; O2SAT 95–97
[2017-07-24] MEDS: CLINDAMYCIN IV 600 MG in DEXTROSE 5% 50ML 50 ML IV SCH ×4 (00:35→17:05)
[2017-07-24] MEDS: LEVALBUTEROL 1.25MG/0.5ML NEB INH SCH (01:44)
[2017-07-24] MEDS: IPRATROPIUM BROMIDE NEB SOLN 0.02% 2.5 ML VIAL INH SCH (01:44)
[2017-07-24 05:37] LABS: HEMATOCRIT 22.9 % (37-47); MEAN CELL VOLUME 86.1 fL (80-100); MEAN CORPUSCULAR HEMOGLOBIN 30.1 pg (25-34); MEAN CORPUSCULAR HGB CONC 34.9 g/dl (32-36); NUCLEATED RED BLOOD CELL ABS 2.13 K/uL (0-0); PLATELET COUNT 8 K/uL (130-400); RED CELL DISTRIBUTION WIDTH CV 15.8 % (11.5-14.5); RED CELL DISTRIBUTION WIDTH SD 48.2 fL (36.4-46.3); WHITE BLOOD COUNT 10.22 K/uL (4.8-10.8)
[2017-07-24 05:48] LABS: CALCIUM 8.1 mg/dl (8.5-10.1); CREATININE 0.57 mg/dl (0.60-1.20); POTASSIUM 4.8 mmol/L (3.5-5.1)
[2017-07-24] MEDS: CHECK FENTANYL PATCH PLACEMENT SCH ×3 (08:13→15:03)
[2017-07-24] MEDS: PANTOprazole SOD 40 MG TAB PO SCH (08:14)
[2017-07-24] MEDS: DOCUSATE SODIUM/SENNA 50/8.6MG TAB PO SCH ×2 (08:14→19:49)
[2017-07-24] MEDS: DEXAMETHASONE 4 MG TAB PO SCH ×2 (08:14→19:51)
[2017-07-24] MEDS: CARVEDILOL 6.25 MG TAB PO SCH ×2 (08:15→19:50)
[2017-07-24] MEDS: LACTOBACILLUS ACIDOPHILUS (FLORANEX) TAB PO SCH ×3 (08:15→17:06)
[2017-07-24] MEDS: POTASSIUM CHLORIDE 10 MEQ TABCR PO SCH ×2 (08:25→19:51)
--- NOTE | 2017-07-24 12:27 | Hematology/Oncology Prog Note ---
Hematology/Onc Progress Note Date of Service Jul 24, 2017. Subjective Patient was rounded on at beside with her present. She remains off O2 supplementation. She denies dyspnea. 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 She did eat breakfast. She has BM yesterday, no melena or hematochezia. Her epistaxis has stopped since O2 discontinued. Review of Systems: Constitutional: + weakness, + fatigue Respiratory: No shortness of breath Abdomen: + constipation, No GI bleeding Female : + hematuria Vital Signs Vital Signs Past 12 Hours Date Time Temp Pulse Resp B/P (MAP) Pulse Ox O2 Delivery O2 Flow Rate FiO2 07/24/17 11:02 36.6 78 22 114/74 (87) 97 Room Air 07/24/17 08:15 Room Air 07/24/17 07:47 36.5 115 20 110/66 (81) 96 Room Air 07/24/17 01:44 75 18 96 Room Air Physical Exam Constitutional: Level of Distress: NAD, chronically ill ENMT: hearing grossly normal Lungs: Respiratory Effort: no dyspnea Laboratory Last 24 Hours Test 07/24/17 05:08 White Blood Count 10.22 K/uL Red Blood Count 2.66 M/uL Hemoglobin 8.0 g/dL Hematocrit 22.9 % Mean Corpuscular Volume 86.1 fL Mean Corpuscular Hemoglobin 30.1 pg Mean Corpuscular Hemoglobin Concent 34.9 g/dl Platelet Count 8 K/uL RDW Standard Deviation 48.2 fL RDW Coefficient of Variation 15.8 % Nucleated RBC Absolute Count (auto) 2.13 K/uL Neutrophils % (Manual) 92.1 % Lymphocytes % (Manual) 1.0 % Monocytes % (Manual) 3.9 % Metamyelocytes % 2.0 % Myelocytes % 1.0 % Nucleated Red Blood Cells % 20.8 % Neutrophils # (Manual) 9.41 K/uL Total Absolute Neutrophils 9.41 K/uL Lymphocytes # (Manual) 0.10 K/uL Total Absolute Lymphocytes 0.10 K/uL Monocytes # (Manual) 0.40 K/uL Metamyelocytes # 0.20 K/uL Myelocytes # 0.10 K/uL Toxic Granulation 2+ Platelet Estimate SIGNIFIC DECREASED Giant Platelets 1+ Pappenheimer Bodies 1+ Acanthocytes 1+ Sodium Level 136 mmol/L Potassium Level 4.8 mmol/L Chloride Level 108 mmol/L Carbon Dioxide Level 21 mmol/L Anion Gap 7.0 mmol/L Blood Urea Nitrogen 21 mg/dl Creatinine 0.57 mg/dl Est Creatinine Clear Calc Drug Dose 109.4 ml/min Estimated GFR () 136.3 Estimated GFR (Non- 117.6 BUN/Creatinine Ratio 36.8 Random Glucose 123 mg/dl Calcium Level 8.1 mg/dl Magnesium Level 2.4 mg/dl Assessment & Plan 1. 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 Severe anemia 3. Severe thrombocytopenia 4. Hematuria, chronic 5. Probable TIA/CVA, not confirmed by imaging 6. Constipation * Patient/ pursuing inpatient hospice option * Reviewed current Hgb/PLT, 8 g/dL, 8K today * Hematuria from ureteral stents remains stable * Epistaxis ceased * No bowel bleeding per patient * Advised patient/ to not check CBC regularly at this point- that could be checked if she developed new onset anemia symptoms or significant new bleeding and they wanted to transfuse * They understand her pancytopenia from tumor replacement of marrow is not going to improve * patient/ questioned about need for exchange of ureteral stents as she is due now, counseled that would not advised at this time * Focus on comfort measures Dr. Garcia is the attending medical oncologist.
[2017-07-24] MEDS: SODIUM CHLORIDE 0.9% 1000ML 1,000 ML IV SCH (13:52)
--- NOTE | 2017-07-24 16:42 | Progress Note ---
Internal Med Progress Note Date of Service: Jul 24, 2017. Provider Documentation: SUBJECTIVE: somewhat upset that she is not home with family for alyssa has chronic pain eating ok' denies sob in room likes to get up from bed to move her bowels OBJECTIVE: Vital Signs-as noted below Exam: General-alert and awake. frail. not in distress ENT-epistaxis Neck-no neck masses Lungs-cta b/l no wheezing or crackles Heart-s1 and s2 heard tachycardia no murmurs Abdomen-soft bowel sounds present mild diffuse discomfort Extremities-no edema no erythema Neuro-alert and awake moves extremities Lab data as noted below. ASSESSMENT & PLAN: This is a 37-year-old female who has metastatic stage IV appendical cancer, is on hospice care, presents with fall and lethargy. 1. Fall and lethargy. The patient has metastatic stage IV appendiceal cancer, currently on hospice care, on Dilaudid pump. As per her , since she was discharged last time and was started on pain medication, she is mostly foggy, on and off she can talk and she is eating a regular food, but today she fell and thought patient had facial droop and thought patient may having stoke and brought patient to ER. Currently could not do complete neuro exam as patient oriented to name only and not obeying commands. Initially, refused CAT scan of the head as we are not going to treat it anyway because of her low counts, but right now he is okay getting CT of the head and neck to see what is going on. We will admit to medical floor. The patient will be DNR. 07/21/17 mental status improved appetite improved appreciate heme/onco and palliative care inputs to decide about going back to hospice on discharge 07/22/17 alert and awake and talking plan for hospice care 07/23/17 plan for inpatient hospice care patient and wants to transfusions if [facility]- [facility] we may stop checking labs but says they want the patient o be in hospital to get transfusions as needed. 07/24/17 plan for inpatient hospice care appreciate heme/onco and palliative care inputs 2. Profound anemia and thrombocytopenia from metastatic cancer. The patient has no obvious signs of bleeding . Mostlikely anemia to be the cause of the fall today. is agreeable for blood transfusions, signed a consent. We will give 3 units of PRBCs and monitor the labs. Consult hematology/oncology for further recommendations.hb 2.8 and platelets 11 on presentation 07/21/17 s/p 3units prbc. hb 8.0 today. platelets 6 today and having epistaxis and hematuria. Transfusing one platelet pheresis today as per heme/onco recommendations. 07/22/18 hb 6.9 and platelets 14. heme/onco transfusing one more ubnit of prbc. to discuss about the futility of transfusions plan for in [facility] hosp[facility] care. 07/23/17 hb 8.4 platelets 9 today d/w no transfusions today unless any signs of obvious bleeding f/u labs in am 07/24/17 hb 8.0 platelets 8.0 3.Aspiration last night cxr LLL infiltrate on clindamycin- continue same for now. patient likes to advance diet patient and family ok for comfort feeding. stable 4. Chronic pain from her cancer. 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 seems to be controlled 5. History of high blood pressure. Continue Coreg. 6. History of hematuria, history of obstructive uropathy, status post stents. Eliquis was stopped last admission and no further interventions planned. having hematuria. will monitor. 7. Malignant cachexia. Currently eating regular diet . 8. History of depression and adjustment reaction, on Cymbalta. 9. Deep venous thrombosis prophylaxis. SCDs as the patient has thrombocytopenia and anemia. Code status DNR. 10. Disposition: Monitor on medical floor. Overall progress is very poor. social service for d/c planning plan for inpatient hospice Vital Signs: Date Time Temp Pulse Resp B/P (MAP) Pulse Ox O2 Delivery O2 Flow Rate FiO2 07/24/17 15:51 36.6 76 18 116/64 (81) 95 Room Air 07/24/17 15:05 Room Air 07/24/17 11:02 36.6 78 22 114/74 (87) 97 Room Air 07/24/17 08:15 Room Air 07/24/17 07:47 36.5 115 20 110/66 (81) 96 Room Air 07/24/17 01:44 75 18 96 Room Air 07/24/17 00:00 97 Room Air 07/23/17 19:26 36.8 76 18 113/76 (88) 96 Room Air Lab Results: Results Past 24 Hours Test 07/24/17 05:08 Range/Units White Blood Count 10.22 4.8-10.8 K/uL Red Blood Count 2.66 4.2-5.4 M/uL Hemoglobin 8.0 12.0-16.0 g/dL Hematocrit 22.9 37-47 % Mean Corpuscular Volume 86.1 80-100 fL Mean Corpuscular Hemoglobin 30.1 25-34 pg Mean Corpuscular Hemoglobin Concent 34.9 32-36 g/dl Platelet Count 8 130-400 K/uL RDW Standard Deviation 48.2 36.4-46.3 fL RDW Coefficient of Variation 15.8 11.5-14.5 % Nucleated RBC Absolute Count (auto) 2.13 0-0 K/uL Neutrophils % (Manual) 92.1 % Lymphocytes % (Manual) 1.0 % Monocytes % (Manual) 3.9 % Metamyelocytes % 2.0 % Myelocytes % 1.0 % Nucleated Red Blood Cells % 20.8 % Neutrophils # (Manual) 9.41 1.4-6.5 K/uL Total Absolute Neutrophils 9.41 1.4-6.5 K/uL Lymphocytes # (Manual) 0.10 1.2-3.4 K/uL Total Absolute Lymphocytes 0.10 1.2-3.4 K/uL Monocytes # (Manual) 0.40 0.11-0.59 K/uL Metamyelocytes # 0.20 0-0 K/uL Myelocytes # 0.10 0-0 K/uL Toxic Granulation 2+ Platelet Estimate SIGNIFIC DECREASED Giant Platelets 1+ Pappenheimer Bodies 1+ Acanthocytes 1+ Sodium Level 136 136-145 mmol/L Potassium Level 4.8 3.5-5.1 mmol/L Chloride Level 108 98-107 mmol/L Carbon Dioxide Level 21 21-32 mmol/L Anion Gap 7.0 3-11 mmol/L Blood Urea Nitrogen 21 7-18 mg/dl Creatinine 0.57 0.60-1.20 mg/dl Est Creatinine Clear Calc Drug Dose 109.4 ml/min Estimated GFR () 136.3 Estimated GFR (Non- 117.6 BUN/Creatinine Ratio 36.8 10-20 Random Glucose 123 70-99 mg/dl Calcium Level 8.1 8.5-10.1 mg/dl Magnesium Level 2.4 1.8-2.4 mg/dl
--- NOTE | 2017-07-24 17:07 | Palliative Care Progress Note ---
Palliative Care Progress Note Date of Service Jul 24, 2017. Subjective Pt evaluation today including: conversation w/ patient, physical exam, chart review, lab review Pain: Well-controlled on current meds PO Intake: Poor Voiding: osorio catheter in place (Hematuria) Went to see patient, was not present, patient had 2 friends in the room. Patient was eating an orange without any signs or symptoms of aspiration or coughing. Patient received a platelet transfusion on 07/21 which brought her platelet count up to 50,000, platelet count this morning was 8000. Patient's hemoglobin today is 8.0. Provided support to patient, patient was alert and conversational, and in a good mood . Review of Systems Constitutional: No fever Eyes: No worsening of vision ENT: No hearing loss Respiratory: No cough Cardiac: No chest pain Abdomen: + pain (Patient stated was adequately controlled) Musculoskeletal: No swelling Female : No dysuria Neurologic: + weakness Psychiatric: No anxiety Heme: + abnormal bleeding/bruising (Hematuria) Endo: + fatigue Skin: + problem reported (Pale) Objective Vital Signs Date Time Temp Pulse Resp B/P (MAP) Pulse Ox O2 Delivery O2 Flow Rate FiO2 07/24/17 15:51 36.6 76 18 116/64 (81) 95 Room Air 07/24/17 15:05 Room Air 07/24/17 11:02 36.6 78 22 114/74 (87) 97 Room Air 07/24/17 08:15 Room Air 07/24/17 07:47 36.5 115 20 110/66 (81) 96 Room Air 07/24/17 01:44 75 18 96 Room Air 07/24/17 00:00 97 Room Air 07/23/17 19:26 36.8 76 18 113/76 (88) 96 Room Air Physical Exam General Appearance: no apparent distress Eyes: EOMI ENT: hearing grossly normal Neck: supple Respiratory/Chest: no respiratory distress Cardiovascular: regular rate, rhythm Abdomen: + distended (Grossly unchanged) Neurologic/Psychiatric: alert Skin: + pallor Laboratory Results Last 24 Hours Test 07/24/17 05:08 White Blood Count 10.22 K/uL Red Blood Count 2.66 M/uL Hemoglobin 8.0 g/dL Hematocrit 22.9 % Mean Corpuscular Volume 86.1 fL Mean Corpuscular Hemoglobin 30.1 pg Mean Corpuscular Hemoglobin Concent 34.9 g/dl Platelet Count 8 K/uL RDW Standard Deviation 48.2 fL RDW Coefficient of Variation 15.8 % Nucleated RBC Absolute Count (auto) 2.13 K/uL Neutrophils % (Manual) 92.1 % Lymphocytes % (Manual) 1.0 % Monocytes % (Manual) 3.9 % Metamyelocytes % 2.0 % Myelocytes % 1.0 % Nucleated Red Blood Cells % 20.8 % Neutrophils # (Manual) 9.41 K/uL Total Absolute Neutrophils 9.41 K/uL Lymphocytes # (Manual) 0.10 K/uL Total Absolute Lymphocytes 0.10 K/uL Monocytes # (Manual) 0.40 K/uL Metamyelocytes # 0.20 K/uL Myelocytes # 0.10 K/uL Toxic Granulation 2+ Platelet Estimate SIGNIFIC DECREASED Giant Platelets 1+ Pappenheimer Bodies 1+ Acanthocytes 1+ Sodium Level 136 mmol/L Potassium Level 4.8 mmol/L Chloride Level 108 mmol/L Carbon Dioxide Level 21 mmol/L Anion Gap 7.0 mmol/L Blood Urea Nitrogen 21 mg/dl Creatinine 0.57 mg/dl Est Creatinine Clear Calc Drug Dose 109.4 ml/min Estimated GFR () 136.3 Estimated GFR (Non- 117.6 BUN/Creatinine Ratio 36.8 Random Glucose 123 mg/dl Calcium Level 8.1 mg/dl Magnesium Level 2.4 mg/dl Assessment and Plan (1) Palliative care encounter Assessment & Plan: Provided support and encouragement to patient (2) Weakness Status: Acute Assessment & Plan: Continues to have significant weakness, is no longer able to care for her at home (3) Anemia Status: Acute Assessment & Plan: Patient continues to have gross hematuria, hemoglobin today is 8.0. Platelets have dropped to 8K. Patient is a 37-year-old female with end-stage appendiceal cancer with metastases to spine. Pain is well controlled with current medications, no adjustment recommended. Patient continues to have gross hematuria, transfusions may be futile given her thrombocytopenia. Wish to have a discussion with the however he is not present today at bedside. In past discussions with , he wanted to continue transfusions and platelets , will continue to provide support to him regarding further care. Palliative Performance Scale: 30 % Continued [facility] stay due to: multiple IV medications needed Discharge planning: uncertain Counseling and Coordination Total time spent 25 minutes with greater than 50% of the time spent with patient at bedside.
[2017-07-24] MEDS: DULOXETINE (CYMBALTA) 30 MG CAP PO SCH (19:50)
[2017-07-25] MEDS: CLINDAMYCIN IV 600 MG in DEXTROSE 5% 50ML 50 ML IV SCH ×4 (00:08→17:25)
[2017-07-25] MEDS: CHECK FENTANYL PATCH PLACEMENT SCH ×3 (00:10→15:55)
[2017-07-25] MEDS: HYDROmorphone HCL 0.5MG/ML 50 ML CASSETTE IV PRN (05:32)
[2017-07-25 06:06] LABS: CALCIUM 7.5 mg/dl (8.5-10.1); CREATININE 0.49 mg/dl (0.60-1.20); POTASSIUM 4.2 mmol/L (3.5-5.1)
[2017-07-25 06:17] LABS: HEMATOCRIT 20.6 % (37-47); HEMOGLOBIN 6.9 g/dL (12.0-16.0); MEAN CORPUSCULAR HEMOGLOBIN 29.5 pg (25-34); MEAN CORPUSCULAR HGB CONC 33.5 g/dl (32-36); NUCLEATED RED BLOOD CELL ABS 1.99 K/uL (0-0); PLATELET COUNT 12 K/uL (130-400); RED CELL DISTRIBUTION WIDTH CV 15.8 % (11.5-14.5); RED CELL DISTRIBUTION WIDTH SD 49.6 fL (36.4-46.3); WHITE BLOOD COUNT 9.74 K/uL (4.8-10.8)
[2017-07-25 07:38] VITALS: BP 104/67; PULSE 80; TEMP 36.5; O2SAT 96
[2017-07-25] MEDS: DOCUSATE SODIUM/SENNA 50/8.6MG TAB PO SCH ×2 (07:46→21:08)
[2017-07-25] MEDS: PANTOprazole SOD 40 MG TAB PO SCH (07:46)
[2017-07-25] MEDS: DEXAMETHASONE 4 MG TAB PO SCH ×2 (07:46→21:08)
[2017-07-25] MEDS: CARVEDILOL 6.25 MG TAB PO SCH ×2 (07:46→21:08)
[2017-07-25] MEDS: LACTOBACILLUS ACIDOPHILUS (FLORANEX) TAB PO SCH ×4 (07:46→18:07)
[2017-07-25] MEDS: POTASSIUM CHLORIDE 10 MEQ TABCR PO SCH ×3 (07:47→21:09)
[2017-07-25 11:58] VITALS: BP 106/66; PULSE 67; TEMP 36.7; O2SAT 94
[2017-07-25] MEDS: SODIUM CHLORIDE 0.9% 1000ML 1,000 ML IV SCH (13:29)
--- NOTE | 2017-07-25 16:20 | Progress Note ---
Internal Med Progress Note Date of Service: Jul 25, 2017. Provider Documentation: SUBJECTIVE: eating ok afebrile pain is ok want to home and see her family and cats still having hematuria OBJECTIVE: Vital Signs-as noted below Exam: General-alert and awake. frail. not in distress ENT-epistaxis Neck-no neck masses Lungs-cta b/l no wheezing or crackles Heart-s1 and s2 heard tachycardia no murmurs Abdomen-soft bowel sounds present mild diffuse discomfort Extremities-no edema no erythema Neuro-alert and awake moves extremities Lab data as noted below. ASSESSMENT & PLAN: This is a 37-year-old female who has metastatic stage IV appendical cancer, is on hospice care, presents with fall and lethargy. 1. Fall and lethargy. The patient has metastatic stage IV appendiceal cancer, currently on hospice care, on Dilaudid pump. As per her , since she was discharged last time and was started on pain medication, she is mostly foggy, on and off she can talk and she is eating a regular food, but today she fell and thought patient had facial droop and thought patient may having stoke and brought patient to ER. Currently could not do complete neuro exam as patient oriented to name only and not obeying commands. Initially, refused CAT scan of the head as we are not going to treat it anyway because of her low counts, but right now he is okay getting CT of the head and neck to see what is going on. We will admit to medical floor. The patient will be DNR. 07/21/17 mental status improved appetite improved appreciate heme/onco and palliative care inputs to decide about going back to hospice on discharge 07/22/17 alert and awake and talking plan for hospice care 07/23/17 plan for inpatient hospice care patient and wants to transfusions if needed- [facility] may stop checking labs but says they want the patient o be in hospital to get transfusions as needed. 07/24/17 plan for inpatient hospice care appreciate heme/onco and palliative care inputs 07/25/17 patient now wants to go home to decide about home vs in [facility] 2. Profound anemia and thrombocytopenia from metastatic cancer. The patient has no obvious signs of bleeding . Mostlikely anemia to be the cause of the fall today. is agreeable for blood transfusions, signed a consent. We will give 3 units of PRBCs and monitor the labs. Consult hematology/oncology for further recommendations.hb 2.8 and platelets 11 on presentation 07/21/17 s/p 3units prbc. hb 8.0 today. platelets 6 today and having epistaxis and hematuria. Transfusing one platelet pheresis today as per heme/onco recommendations. 07/22/18 hb 6.9 and platelets 14. heme/onco transfusing one more ubnit of prbc. to discuss about the futility of transfusions plan for in [facility] care. 07/23/17 hb 8.4 platelets 9 today d/w no transfusions today unless any signs of obvious bleeding f/u labs in am 07/24/17 hb 8.0 platelets 8.0 07/25/17 hb 6.9 platelets 12 3.Aspiration last night cxr LLL infiltrate on clindamycin- continue same for now. patient likes to advance diet patient and family ok for comfort feeding. stable 4. Chronic pain from her cancer. 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 seems to be controlled 5. History of high blood pressure. Continue Coreg. 6. History of hematuria, history of obstructive uropathy, status post stents. Eliquis was stopped last admission and no further interventions planned. having hematuria. will monitor. 7. Malignant cachexia. Currently eating regular diet . 8. History of depression and adjustment reaction, on Cymbalta. 9. Deep venous thrombosis prophylaxis. SCDs as the patient has thrombocytopenia and anemia. Code status DNR. 10. Disposition: Monitor on medical floor. Overall progress is very poor. social service for d/c planning plan for home vs inpatient hospice Vital Signs: Date Time Temp Pulse Resp B/P (MAP) Pulse Ox O2 Delivery O2 Flow Rate FiO2 07/25/17 15:45 Room Air 07/25/17 11:58 36.7 67 18 106/66 (79) 94 Room Air 07/25/17 07:45 Room Air 07/25/17 07:38 36.5 80 18 104/67 (79) 96 Room Air 07/25/17 00:50 Room Air 07/24/17 23:58 36.3 75 18 106/65 (79) 96 Room Air 07/24/17 20:00 Room Air 3/30/18 19:34 36.8 67 18 111/72 (85) 96 Room Air Lab Results: Results Past 24 Hours Test 07/25/17 05:26 Range/Units White Blood Count 9.74 4.8-10.8 K/uL Red Blood Count 2.34 4.2-5.4 M/uL Hemoglobin 6.9 12.0-16.0 g/dL Hematocrit 20.6 37-47 % Mean Corpuscular Volume 88.0 80-100 fL Mean Corpuscular Hemoglobin 29.5 25-34 pg Mean Corpuscular Hemoglobin Concent 33.5 32-36 g/dl Platelet Count 12 130-400 K/uL RDW Standard Deviation 49.6 36.4-46.3 fL RDW Coefficient of Variation 15.8 11.5-14.5 % Nucleated RBC Absolute Count (auto) 1.99 0-0 K/uL Neutrophils % (Manual) 93.7 % Lymphocytes % (Manual) 0.9 % Monocytes % (Manual) 3.6 % Metamyelocytes % 0.9 % Myelocytes % 0.9 % Nucleated Red Blood Cells % 20.5 % Neutrophils # (Manual) 9.13 1.4-6.5 K/uL Total Absolute Neutrophils 9.13 1.4-6.5 K/uL Lymphocytes # (Manual) 0.09 1.2-3.4 K/uL Total Absolute Lymphocytes 0.09 1.2-3.4 K/uL Monocytes # (Manual) 0.35 0.11-0.59 K/uL Metamyelocytes # 0.09 0-0 K/uL Myelocytes # 0.09 0-0 K/uL Toxic Granulation OCCASIONAL Toxic Vacuolation OCCASIONAL Dohle Bodies OCCASIONAL Platelet Estimate SIGNIFIC DECREASED Large Platelets 1+ Poikilocytosis PRESENT Pappenheimer Bodies 1+ Bynum-Pump Back Bodies OCCASIONAL Sodium Level 135 136-145 mmol/L Potassium Level 4.2 3.5-5.1 mmol/L Chloride Level 107 98-107 mmol/L Carbon Dioxide Level 20 21-32 mmol/L Anion Gap 8.0 3-11 mmol/L Blood Urea Nitrogen 19 7-18 mg/dl Creatinine 0.49 0.60-1.20 mg/dl Est Creatinine Clear Calc Drug Dose 127.3 ml/min Estimated GFR () 143.2 Estimated GFR (Non- 123.6 BUN/Creatinine Ratio 38.8 10-20 Random Glucose 81 70-99 mg/dl Calcium Level 7.5 8.5-10.1 mg/dl Magnesium Level 2.2 1.8-2.4 mg/dl
[2017-07-25 16:24] VITALS: BP 101/59; PULSE 78; TEMP 36.7; O2SAT 93
[2017-07-25] MEDS: SIMETHICONE 80 MG CHEW PO PRN (18:06)
[2017-07-25 19:34] VITALS: BP 109/73; PULSE 80; TEMP 36.6; O2SAT 95
[2017-07-25] MEDS: DULOXETINE (CYMBALTA) 30 MG CAP PO SCH (21:08)
[2017-07-25] MEDS: OXYBUTYNIN CHLORIDE 5 MG TAB PO PRN (21:09)
[2017-07-25 23:40] VITALS: BP 118/87; PULSE 83; TEMP 36.6; O2SAT 93
[2017-07-26] MEDS: CHECK FENTANYL PATCH PLACEMENT SCH ×3 (00:22→16:42)
[2017-07-26] MEDS: CLINDAMYCIN IV 600 MG in DEXTROSE 5% 50ML 50 ML IV SCH ×2 (00:22→05:41)
[2017-07-26] MEDS: OXYBUTYNIN CHLORIDE 5 MG TAB PO PRN (05:43)
[2017-07-26 06:06] LABS: HEMATOCRIT 21.9 % (37-47); HEMOGLOBIN 7.5 g/dL (12.0-16.0); MEAN CELL VOLUME 88.7 fL (80-100); MEAN CORPUSCULAR HEMOGLOBIN 30.4 pg (25-34); MEAN CORPUSCULAR HGB CONC 34.2 g/dl (32-36); NUCLEATED RED BLOOD CELL ABS 1.91 K/uL (0-0); PLATELET COUNT 8 K/uL (130-400); RED CELL DISTRIBUTION WIDTH CV 15.7 % (11.5-14.5); WHITE BLOOD COUNT 12.15 K/uL (4.8-10.8)
[2017-07-26 06:13] LABS: CREATININE 0.55 mg/dl (0.60-1.20)
[2017-07-26 06:14] LABS: CALCIUM 7.7 mg/dl (8.5-10.1); POTASSIUM 4.4 mmol/L (3.5-5.1)
[2017-07-26 08:00] VITALS: BP 103/71; PULSE 74; TEMP 36.5; O2SAT 95
[2017-07-26] MEDS: FENTANYL 25 MCG/HR TDSY TD SCH (09:30)
[2017-07-26] MEDS: CARVEDILOL 6.25 MG TAB PO SCH ×2 (09:31→20:00)
[2017-07-26] MEDS: PANTOprazole SOD 40 MG TAB PO SCH (09:31)
[2017-07-26] MEDS: DOCUSATE SODIUM/SENNA 50/8.6MG TAB PO SCH ×2 (09:31→20:14)
[2017-07-26] MEDS: DEXAMETHASONE 4 MG TAB PO SCH ×2 (09:31→20:13)
[2017-07-26] MEDS: LACTOBACILLUS ACIDOPHILUS (FLORANEX) TAB PO SCH ×3 (09:32→17:36)
[2017-07-26] MEDS: POTASSIUM CHLORIDE 10 MEQ TABCR PO SCH ×2 (09:33→20:14)
[2017-07-26] MEDS: FENTANYL PATCH REMOVE & WASTE SCH (10:00)
[2017-07-26 11:52] VITALS: BP 123/76; PULSE 78; TEMP 36.4; O2SAT 94
[2017-07-26] MEDS: SODIUM CHLORIDE 0.9% 1000ML 1,000 ML IV SCH (13:43)
[2017-07-26] MEDS: CLINDAMYCIN HCL 150 MG CAP PO SCH ×2 (13:44→20:13)
[2017-07-26 16:10] VITALS: BP 104/64; PULSE 70; TEMP 36.6; O2SAT 91
--- NOTE | 2017-07-26 17:51 | Progress Note ---
Internal Med Progress Note Date of Service: Jul 26, 2017. Provider Documentation: SUBJECTIVE: resting comfortably today is first marriage anniversary and patient and are happy about eating fine last night had some cough afebrile no other complaints OBJECTIVE: Vital Signs-as noted below Exam: General-alert and awake. frail. not in distress ENT-epistaxis Neck-no neck masses Lungs-cta b/l no wheezing or crackles Heart-s1 and s2 heard tachycardia no murmurs Abdomen-soft bowel sounds present mild diffuse discomfort Extremities-no edema no erythema Neuro-alert and awake moves extremities Lab data as noted below. ASSESSMENT & PLAN: This is a 37-year-old female who has metastatic stage IV appendical cancer, is on hospice care, presents with fall and lethargy. AND FAMILY REFUSED ANY IMAGING STUDIES. hB ON PRESENTATION 2.8. HAS CHRONIC HEMATURIA. WAS OK FOR TRANSFUSION. AFTER PRBC TRANSFUSION MENTAL STATUS BACK TO BASELINE. HAD AN EPISODE OF ASPIRATION AND WAS STARTED ON CLINDAMYCIN. PATIENT AND FAMILY OK FOR COMFORT FEEDING.HEME/ONCO AND PALLIATIVE CARE FOLLOWING. AND PATIENT STILL WANT TRANSFUSION IF NEEDED. PLAN FOR IN PATIENT VS HOME HOSPICE 1. Fall and lethargy. The patient has metastatic stage IV appendiceal cancer, currently on hospice care, on Dilaudid pump. As per her , since she was discharged last time and was started on pain medication, she is mostly foggy, on and off she can talk and she is eating a regular food, on day of admission patient fell and thought patient had facial droop and thought patient may having stoke and brought patient to ER. . Family and did not wanted any imaging studies as we are not going to treat anyway. Patient hb 2.8 and after prbc transfusion patients mental status improved much and back to her baseline To decide about inpatient vs home hospice care appreciate palliative care and heme/onco help 2. Profound anemia and thrombocytopenia from metastatic cancer. The patient has chronic hematuria . Presented with hb 2.8 Mostlikely anemia to be the cause of the fall . is agreeable for blood transfusions, signed a consent. received total of 4units prbc and one unit of platelet pheresis hb 7.5 today and platelets 8 today heme/onco on board patient and likes to have transfusions D/w patient in patient hospice we may not do transfusions and may not check labs 3.Aspiration cxr LLL infiltrate on clindamycin- continue same for now. patient likes to advance diet patient and family ok for comfort feeding. stable 4. Chronic pain from her cancer. 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 seems to be controlled 5. History of high blood pressure. Continue Coreg. 6. History of hematuria, history of obstructive uropathy, status post stents. Eliquis was stopped last admission and no further interventions planned. having hematuria. will monitor. 7. Malignant cachexia. Currently eating regular diet . 8. History of depression and adjustment reaction, on Cymbalta. 9. Deep venous thrombosis prophylaxis. SCDs as the patient has thrombocytopenia and anemia. Code status DNR. 10. Disposition: Monitor on medical floor. Overall progress is very poor. social service for d/c planning plan for home vs inpatient hospice Vital Signs: Date Time Temp Pulse Resp B/P (MAP) Pulse Ox O2 Delivery O2 Flow Rate FiO2 07/26/17 16:10 36.6 70 20 104/64 (77) 91 Room Air 07/26/17 15:13 Room Air 07/26/17 11:52 36.4 78 22 123/76 (92) 94 Room Air 07/26/17 09:30 Room Air 07/26/17 08:00 36.5 74 18 103/71 (82) 95 Room Air 07/26/17 00:15 Room Air 07/25/17 23:40 36.6 83 18 118/87 (97) 93 Room Air 07/25/17 19:35 Room Air 07/25/17 19:34 36.6 80 18 109/73 (85) 95 Room Air Lab Results: Results Past 24 Hours Test 07/26/17 05:23 Range/Units White Blood Count 12.15 4.8-10.8 K/uL Red Blood Count 2.47 4.2-5.4 M/uL Hemoglobin 7.5 12.0-16.0 g/dL Hematocrit 21.9 37-47 % Mean Corpuscular Volume 88.7 80-100 fL Mean Corpuscular Hemoglobin 30.4 25-34 pg Mean Corpuscular Hemoglobin Concent 34.2 32-36 g/dl Platelet Count 8 130-400 K/uL RDW Standard Deviation 49.0 36.4-46.3 fL RDW Coefficient of Variation 15.7 11.5-14.5 % Nucleated RBC Absolute Count (auto) 1.91 0-0 K/uL Neutrophils % (Manual) 87.2 % Lymphocytes % (Manual) 0.9 % Monocytes % (Manual) 1.8 % Metamyelocytes % 4.6 % Myelocytes % 5.5 % Nucleated Red Blood Cells % 15.7 % Neutrophils # (Manual) 10.59 1.4-6.5 K/uL Total Absolute Neutrophils 10.59 1.4-6.5 K/uL Lymphocytes # (Manual) 0.11 1.2-3.4 K/uL Total Absolute Lymphocytes 0.11 1.2-3.4 K/uL Monocytes # (Manual) 0.22 0.11-0.59 K/uL Metamyelocytes # 0.56 0-0 K/uL Myelocytes # 0.67 0-0 K/uL Toxic Vacuolation 1+ Dohle Bodies 1+ Platelet Estimate SIGNIFIC DECREASED Large Platelets 1+ Pappenheimer Bodies 1+ Bynum-Florissant Bodies 1+ Schistocytes 1+ Sodium Level 135 136-145 mmol/L Potassium Level 4.4 3.5-5.1 mmol/L Chloride Level 107 98-107 mmol/L Carbon Dioxide Level 22 21-32 mmol/L Anion Gap 6.0 3-11 mmol/L Blood Urea Nitrogen 22 7-18 mg/dl Creatinine 0.55 0.60-1.20 mg/dl Est Creatinine Clear Calc Drug Dose 113.4 ml/min Estimated GFR () 137.9 Estimated GFR (Non- 119.0 BUN/Creatinine Ratio 39.3 10-20 Random Glucose 91 70-99 mg/dl Calcium Level 7.7 8.5-10.1 mg/dl Magnesium Level 2.2 1.8-2.4 mg/dl
[2017-07-26] MEDS: SIMETHICONE 80 MG CHEW PO PRN ×2 (18:07→20:11)
[2017-07-26 19:53] VITALS: BP 100/62; PULSE 74; TEMP 36.8; O2SAT 95
[2017-07-26] MEDS: DULOXETINE (CYMBALTA) 30 MG CAP PO SCH (20:13)
[2017-07-27] MEDS: CHECK FENTANYL PATCH PLACEMENT SCH ×3 (00:22→15:32)
[2017-07-27] MEDS: HYDROmorphone HCL 0.5MG/ML 50 ML CASSETTE IV PRN (05:50)
[2017-07-27 06:15] VITALS: BMI 19.7
[2017-07-27 08:20] VITALS: BP 107/69; PULSE 77; TEMP 36.5; O2SAT 96
[2017-07-27] MEDS: PANTOprazole SOD 40 MG TAB PO SCH (09:42)
[2017-07-27] MEDS: CLINDAMYCIN HCL 150 MG CAP PO SCH ×3 (09:43→20:14)
[2017-07-27] MEDS: DEXAMETHASONE 4 MG TAB PO SCH ×2 (09:43→20:14)
[2017-07-27] MEDS: LACTOBACILLUS ACIDOPHILUS (FLORANEX) TAB PO SCH ×3 (09:43→16:47)
[2017-07-27] MEDS: DOCUSATE SODIUM/SENNA 50/8.6MG TAB PO SCH ×2 (09:44→20:15)
[2017-07-27] MEDS: POTASSIUM CHLORIDE 10 MEQ TABCR PO SCH ×2 (09:44→20:15)
[2017-07-27] MEDS: CARVEDILOL 6.25 MG TAB PO SCH ×2 (09:44→20:15)
[2017-07-27 11:34] VITALS: BP 105/66; PULSE 76; TEMP 36.7; O2SAT 95
[2017-07-27] MEDS: OXYBUTYNIN CHLORIDE 5 MG TAB PO PRN (12:11)
[2017-07-27] MEDS: SODIUM CHLORIDE 0.9% 1000ML 1,000 ML IV SCH (12:12)
[2017-07-27] MEDS ORDERED: SIMETHICONE 80 MG CHEW PO PRN (14:30)
[2017-07-27] MEDS ORDERED: LIDODERM (LIDOCAINE) PATCH 5% TD ONE (14:55)
[2017-07-27 15:38] VITALS: BP 105/64; PULSE 66; TEMP 36.5; O2SAT 97
[2017-07-27] MEDS: PHENAZOPYRIDINE HCL 200 MG TAB PO PRN (15:39)
--- NOTE | 2017-07-27 16:03 | Palliative Care Progress Note ---
Palliative Care Progress Note Date of Service Jul 27, 2017. Subjective Pt evaluation today including: conversation w/ patient, conversation w/ family , physical exam, chart review, lab review, conversation w/ therapeutic consultant Pain: Well-controlled on Dilaudid INSTRUMENT/CONTROL TECHNICIAN PO Intake: Poor Voiding: osorio catheter in place (Gross hematuria, no clots) Review of Systems Constitutional: No fever Eyes: No worsening of vision ENT: No hearing loss Respiratory: No cough Cardiac: No chest pain Abdomen: + pain (Well-controlled) Female : + hematuria Neurologic: + weakness Psychiatric: No anxiety Endo: + fatigue Skin: + problem reported (Pale) Objective Vital Signs Date Time Temp Pulse Resp B/P (MAP) Pulse Ox O2 Delivery O2 Flow Rate FiO2 07/27/17 15:38 36.5 66 18 105/64 (78) 97 07/27/17 11:34 36.7 76 18 105/66 (79) 95 07/27/17 08:20 36.5 77 18 107/69 (82) 96 07/27/17 08:00 Room Air 07/27/17 00:20 Room Air 07/26/17 19:53 36.8 74 20 100/62 (75) 95 Room Air 07/26/17 19:30 Room Air 07/26/17 16:10 36.6 70 20 104/64 (77) 91 Room Air Physical Exam General Appearance: no apparent distress Eyes: EOMI ENT: hearing grossly normal Neck: + pertinent finding (Patient having difficulty holding head up due to weakness) Respiratory/Chest: no respiratory distress (At rest) Cardiovascular: regular rate, rhythm Abdomen: + distended Extremities: non-tender Neurologic/Psychiatric: + pertinent finding (Less alert, drowsy, increased weakness) Skin: + pallor Assessment and Plan (1) Palliative care encounter Assessment & Plan: Spoke with outside of the room regarding further transfusions and platelets. Discussed how these would not be beneficial for her given the short half-life of the platelets and that she has no likelihood of improvement. Patient continues to have gross hematuria and continuing transfusions will not be beneficial. Pain is well controlled, patient is comfortable, enjoying visits from friends and families. Patient is having increased weakness, having more difficulty holding her phone, increased difficulty keeping her head upright. Patient declining to end-of-life, is grieving appropriately. (2) Weakness Status: Acute Assessment & Plan: Increasing with continued hematuria and progression of her appendiceal cancer (3) Anemia Status: Acute Assessment & Plan: Continued anemia, would not recommend continuing to follow H &H's as further transfusions are not planned. (4) Cancer related pain Status: Acute Assessment & Plan: Patient with extensive spinal metastases, patient's pain well controlled on current Dilaudid INSTRUMENT/CONTROL TECHNICIAN and fentanyl patch Patient is a 37-year-old female with end-stage appendiceal cancer with metastases to spine. Pain is well controlled with current medications, no adjustment recommended. Patient continues to have gross hematuria, transfusions may be futile given her thrombocytopenia. Wish to have a discussion with the however he is not present today at bedside. In past discussions with , he wanted to continue transfusions and platelets , will continue to provide support to him regarding further care. Palliative Performance Scale: 30 % Continued [facility] stay due to: inadequate po fluid intake, inadequate oral pain control, ambulation difficulties, multiple IV medications needed Discharge planning: uncertain Counseling and Coordination Total time spent 35 minutes with greater than 50% of the time spent with patient and at bedside as well as speaking with privately.
--- NOTE | 2017-07-27 16:32 | Progress Note ---
Medicine Progress Note Date & Time of Visit: Jul 27, 2017 at 16:25. Subjective Seen resting in bed with spine and in laws at the bedside States she has neck pain worse with movement Also has some bladder discomfort intermittently Minimal epistaxis intermittently No other symptoms Objective Last 8 Hrs Date Time Temp Pulse Resp B/P (MAP) Pulse Ox O2 Delivery O2 Flow Rate FiO2 07/27/17 15:38 36.5 66 18 105/64 (78) 97 07/27/17 11:34 36.7 76 18 105/66 (79) 95 Physical Exam: General-oriented 3 not in distress cachectic speaking sentences no effort Head- atraumatic Eyes- PERRL, EOMI, anicteric ENT- oropharynx clear Some dried blood in the nostrils Neck- supple, no JVD, no adenopathy, no thyromegaly Flex posturing Lungs- clear to auscultation bilaterally Heart- regular rhythm; no murmur, normal rate Abdomen- normal bowel sounds, soft, nontender, nondistended Extremities- no pretibial edema, no calf tenderness; peripheral pulses intact Neuro- alert, oriented x 3; no gross focal motor or neurologic deficits Skin- warm & dry Assessment & Plan 1. Fall and lethargy. The patient has metastatic stage IV appendiceal cancer, currently on hospice care, on Dilaudid pump. He presented with increasing weakness and altered mental status Likely from underlying metastatic cancer, Dilaudid, steroids Palliative care consulted Recommend to continue focusing on comfort Continue care as inpatient at this time 2. Profound anemia and thrombocytopenia from metastatic cancer. The patient has chronic hematuria . Presented with hb 2.8 Most likely anemia to be the cause of the fall . is agreeable for blood transfusions, signed a consent. received total of 4units prbc and one unit of platelet pheresis hb 7.5 today and platelets 8 today 07/27/2017 palliative care service discussed case with patient and her Agreeable for discontinuing monitoring of CBCs and transfusions Agreeable to focus on maintaining comfort 3.Aspiration cxr LLL infiltrate patient and family ok for comfort feeding. Diet as tolerated on clindamycin- continue same for now. 4. Chronic pain from her cancer. 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 seems to be controlled 07/27/2017 we will add Lidoderm patch, Flexeril as needed, warm compresses to the neck . As needed for bladder discomfort 5. History of high blood pressure. Continue Coreg. 6. History of hematuria, history of obstructive uropathy, status post stents. Eliquis was stopped last admission and no further interventions planned. Monitor 7. Malignant cachexia. Currently eating regular diet . 8. History of depression and adjustment reaction, on Cymbalta. 9. Deep venous thrombosis prophylaxis. SCDs as the patient has thrombocytopenia and anemia. Code status DNR. 10. Disposition: Per discussion with Dr. Azar today, she recommends to continue inpatient palliative care Overall prognosis is very poor Continued [facility] stay due to: inadequate po fluid intake, inadequate oral pain control, ambulation difficulties, multiple IV medications needed Discharge planning: uncertain Current Inpatient Medications: Current Inpatient Medications Medications (Trade) Dose Ordered Sig/Shani Route Start Time Stop Time Status Last Admin Dose Admin Acetaminophen (Tylenol Tab) 650 mg Q4H PRN PO 07/20/17 08:30 08/19/17 08:29 07/21/17 12:01 650 MG Al Hydrox/Mg Hydrox/Simethicone (Maalox Max Susp) 15 ml Q4H PRN PO 07/20/17 08:30 08/19/17 08:29 Polyethylene (Miralax Powder Packet) 17 gm DAILY PRN PO 07/20/17 08:30 08/19/17 08:29 Ondansetron HCl (Zofran Inj) 4 mg Q6H PRN IV 07/20/17 08:30 08/19/17 08:29 Alprazolam (Xanax Tab) 0.25 mg Q4 PRN PO 07/20/17 08:30 08/19/17 08:29 07/23/17 22:00 0.25 MG Carvedilol (Coreg Tab) 6.25 mg BID PO 07/20/17 10:00 08/19/17 09:59 07/27/17 09:44 6.25 MG Cyclobenzaprine HCl (Flexeril Tab) 10 mg TID PRN PO 07/20/17 08:30 08/19/17 08:29 07/27/17 15:09 10 MG Diphenoxylate HCl/ Atropine (Lomotil Tab) 1 tab DAILY PRN PO 07/20/17 08:30 08/19/17 08:29 Duloxetine HCl (Cymbalta Cap) 60 mg HS PO 07/20/17 21:00 08/19/17 20:59 07/26/17 20:13 60 MG Fentanyl (Duragesic Patch) 25 mcg Q72H TD 07/20/17 10:00 08/03/17 09:59 07/26/17 09:30 25 MCG Loperamide HCl (Imodium Cap) 2 mg TID PRN PO 07/20/17 08:30 08/19/17 08:29 Oxybutynin Chloride (Ditropan Tab) 5 mg Q8H PRN PO 07/20/17 08:30 08/19/17 08:29 07/27/17 12:11 5 MG Pantoprazole Sodium (Protonix Tab) 40 mg QAM PO 07/20/17 10:00 08/19/17 09:59 07/27/17 09:42 40 MG Potassium Chloride (Klor-Con M10) 10 meq BID PO 07/20/17 10:00 08/19/17 09:59 07/27/17 09:44 10 MEQ Dexamethasone (Decadron Tab) 4 mg BID PO 07/20/17 10:00 08/19/17 09:59 07/27/17 09:43 4 MG Lorazepam (Ativan Tab) 0.5 mg TID PRN PO 07/20/17 21:00 08/19/17 20:59 Morphine Sulfate (Roxanol Oral Soln) 10 mg Q4 PRN PO 07/20/17 08:45 08/19/17 08:44 Miscellaneous (Fentanyl Patch Remove & Waste) 1 ea Q3D N/A 07/23/17 09:59 08/22/17 09:58 07/26/17 10:00 1 EA Miscellaneous Information (Check Fentanyl Patch Placement) 1 ea QS N/A 07/20/17 16:00 08/19/17 15:59 07/27/17 15:32 1 EA Hydromorphone HCl (Dilaudid Regulatory Submissions Associate) PT RECEIVES 0.2MG... PRN PRN IV 07/20/17 11:30 08/03/17 11:29 07/27/17 05:50 25 MG Naloxone HCl (Narcan Inj) 0.1 mg Q5M PRN IV 07/20/17 11:30 08/19/17 11:29 Simethicone (Mylicon Chew Tab) 80 mg Q6H PRN PO 07/21/17 20:45 08/20/17 20:44 07/26/17 20:11 80 MG Sodium Chloride 1,000 ml @ 15 mls/hr Q24H IV 07/22/17 11:45 08/21/17 11:44 07/27/17 12:12 15 MLS/HR Ipratropium [place] (Atrovent 0.02% 0.5MG/2.5ML Neb) 0.5 mg Q4H PRN INH 07/23/17 04:15 08/22/17 04:14 Levalbuterol (Xopenex 1.25MG/ 0.5ML Neb) 1.25 mg Q4H PRN INH 07/23/17 04:15 08/22/17 04:14 Senna/Docusate Sodium (Senokot S Tab) 1 tab BID PO 07/24/17 08:00 08/23/17 07:59 07/27/17 09:44 1 TAB Lactobacillus Acidophilus (Floranex Tab) 4 tab TIDM PO 07/23/17 08:00 08/22/17 07:59 07/27/17 12:12 4 TAB Clindamycin HCl (Cleocin Cap) 450 mg TID PO 07/26/17 14:00 07/30/17 13:59 07/27/17 14:15 450 MG Phenazopyridine HCl (Pyridium Tab) 200 mg TID PRN PO 07/27/17 14:15 07/29/17 14:14 07/27/17 15:39 200 MG Lidocaine (Lidoderm Patch 5%) 1 patch QAM TD 07/28/17 08:00 08/27/17 07:59 Miscellaneous (Remove Lidoderm Patch) 1 ea DAILY@21 N/A 07/27/17 21:00 08/26/17 20:59
[2017-07-27] MEDS: MoRPHine SULFATE 5 MG/0.25 ML UDP PO PRN (17:01)
[2017-07-27 18:06] VITALS: BP 112/61
[2017-07-27 19:43] VITALS: BP 110/71; PULSE 70; TEMP 36.2; O2SAT 94
[2017-07-27] MEDS: DULOXETINE (CYMBALTA) 30 MG CAP PO SCH (21:50)
[2017-07-28 06:05] VITALS: BMI 19.3
[2017-07-28] MEDS: PANTOprazole SOD 40 MG TAB PO SCH (08:10)
[2017-07-28] MEDS: LACTOBACILLUS ACIDOPHILUS (FLORANEX) TAB PO SCH ×3 (08:10→17:47)
[2017-07-28] MEDS: POTASSIUM CHLORIDE 10 MEQ TABCR PO SCH ×2 (08:10→21:09)
[2017-07-28] MEDS: DOCUSATE SODIUM/SENNA 50/8.6MG TAB PO SCH ×2 (08:10→21:08)
[2017-07-28 08:11] VITALS: BP 104/63; PULSE 68; TEMP 36.7; O2SAT 92
[2017-07-28] MEDS: CARVEDILOL 6.25 MG TAB PO SCH ×2 (08:11→21:09)
[2017-07-28] MEDS: DEXAMETHASONE 4 MG TAB PO SCH (08:11)
[2017-07-28] MEDS: CLINDAMYCIN HCL 150 MG CAP PO SCH ×3 (08:11→21:09)
[2017-07-28] MEDS: LIDODERM (LIDOCAINE) PATCH 5% TD SCH (08:36)
[2017-07-28] MEDS: CHECK FENTANYL PATCH PLACEMENT SCH ×4 (08:56→23:53)
[2017-07-28] MEDS: PHENAZOPYRIDINE HCL 200 MG TAB PO PRN (09:23)
--- NOTE | 2017-07-28 11:29 | Palliative Care Progress Note ---
Palliative Care Progress Note Date of Service Jul 28, 2017. Subjective Pt evaluation today including: conversation w/ patient, conversation w/ family , physical exam, chart review, conversation w/ desktop support consultant Voiding: osorio catheter in place (Gross hematuria, now having clots) Patient with appendiceal CA and extensive metastases to spine, she continues to have gross hematuria this a.m. there were clots visible in the Osorio tubing. Pain is adequately controlled with her fentanyl patches and Dilaudid LAND ACQUISITION ANALYST. Patient's LAND ACQUISITION ANALYST is at a rate of 0.2 with a bolus of 0.4 mg every 10 minutes as needed patient required 11.56 mg on 07/27. Patient continues to complain of bladder irritation, she only received 1 dose of Pyridium, perhaps if it is scheduled ,rather than as needed, she will have more relief. is agreeable to no further lab work, no further blood or platelet transfusions. Review of Systems Constitutional: No fever Eyes: No worsening of vision ENT: No hearing loss Respiratory: No cough Cardiac: No chest pain Abdomen: + pain (Controlled with fentanyl patch and Dilaudid LAND ACQUISITION ANALYST) Musculoskeletal: + muscle pain (Right-sided neck and upper shoulder) Female : + hematuria (Clots present today on exam) Neurologic: + memory loss, + weakness Psychiatric: No anxiety Heme: + abnormal bleeding/bruising (Hematuria) Endo: + fatigue Skin: No rash Objective Vital Signs Date Time Temp Pulse Resp B/P (MAP) Pulse Ox O2 Delivery O2 Flow Rate FiO2 07/28/17 08:20 Room Air 07/28/17 08:11 36.7 68 18 104/63 (77) 92 07/28/17 01:00 Room Air 07/27/17 20:00 Room Air 07/27/17 19:43 36.2 70 16 110/71 (84) 94 Room Air 07/27/17 18:06 112/61 (78) 07/27/17 16:00 Room Air 07/27/17 15:38 36.5 66 18 105/64 (78) 97 07/27/17 11:34 36.7 76 18 105/66 (79) 95 Physical Exam General Appearance: no apparent distress Eyes: EOMI ENT: hearing grossly normal Neck: + pertinent finding (Patient keeps had return to the left, too weak to keep head upright) Respiratory/Chest: no respiratory distress Cardiovascular: regular rate, rhythm Abdomen: + distended (Increased on exam today), + tenderness (To light palpation) Extremities: non-tender, no pedal edema Neurologic/Psychiatric: alert Skin: + pallor Assessment and Plan (1) Palliative care encounter Assessment & Plan: Continue to provide support to and family as patient approaches end-of-life (2) Weakness Status: Acute Assessment & Plan: Increasing (3) Anemia Status: Acute Assessment & Plan: No further lab draws, no further transfusions of blood or platelets. Hematuria continues, no blood clots seen today in Osorio tubing. (4) Cancer related pain Status: Acute Patient is a 37-year-old female with end-stage appendiceal cancer with metastases to spine. Pain is well controlled with current medications, no adjustment recommended. Patient continues to have gross hematuria, transfusions may be futile given her thrombocytopenia. Wish to have a discussion with the however he is not present today at bedside. In past discussions with , he wanted to continue transfusions and platelets , will continue to provide support to him regarding further care. Palliative Performance Scale: 30 % Continued [facility] stay due to: inadequate po fluid intake, inadequate oral pain control, ambulation difficulties, multiple IV medications needed Discharge planning: uncertain Counseling and Coordination Total time 35 minutes with greater than 50% of time spent at bedside discussing plan of care with patient and .
[2017-07-28] MEDS: SODIUM CHLORIDE 0.9% 1000ML 1,000 ML IV SCH (12:01)
[2017-07-28] MEDS: OXYBUTYNIN CHLORIDE 5 MG TAB PO PRN (12:04)
[2017-07-28 15:35] VITALS: BP 112/63; PULSE 65; TEMP 36.7; O2SAT 95
--- NOTE | 2017-07-28 16:14 | Progress Note ---
Medicine Progress Note Date & Time of Visit: Jul 28, 2017 at 16:10. Subjective resting in bed, appears comfortable at bedside states she has neck pain again today has not tried flexeril today otherwise pain under good control denies other symptoms Objective Last 8 Hrs Date Time Temp Pulse Resp B/P (MAP) Pulse Ox O2 Delivery O2 Flow Rate FiO2 07/28/17 15:35 36.7 65 16 112/63 (79) 95 Room Air 07/28/17 08:20 Room Air 07/28/17 08:11 36.7 68 18 104/63 (77) 92 Physical Exam: General-oriented 3 not in distress cachectic speaking sentences no effort Eyes- anicteric ENT- oropharynx clear Some dried blood in the nostrils Neck- supple, no JVD Flexed posturing Lungs- clear to BS bilaterally Heart- regular rhythm; no murmur, normal rate Abdomen- normal bowel sounds, soft, nontender, nondistended Extremities- no pretibial edema, no calf tenderness; peripheral pulses intact Neuro- alert, oriented x 3; no gross focal motor or neurologic deficits Skin- warm & dry Assessment & Plan 1. Fall and lethargy. The patient has metastatic stage IV appendiceal cancer, currently on hospice care, on Dilaudid pump. He presented with increasing weakness and altered mental status Likely from underlying metastatic cancer, Dilaudid, steroids Palliative care consulted -- continue present management change Pyridium to TID scheduled change Flexeril to BID scheduled -- appreciate Dr. Azar's recommendations 2. Profound anemia and thrombocytopenia from metastatic cancer. The patient has chronic hematuria . Presented with hb 2.8 Most likely anemia to be the cause of the fall . is agreeable for blood transfusions, signed a consent. received total of 4units prbc and one unit of platelet pheresis hb 7.5 today and platelets 8 today 07/27/2017 palliative care service discussed case with patient and her Agreeable for discontinuing monitoring of CBCs and transfusions Agreeable to focus on maintaining comfort 3.Aspiration cxr LLL infiltrate patient and family ok for comfort feeding. Diet as tolerated on clindamycin- continue same for now. 4. Chronic pain from her cancer. Continue her home pain medications and Dilaudid NARCOTICS DETECTIVE pump and morphine p.r.n.continue same. seems to be controlled 07/27/2017 change Pyridium to TID scheduled change Flexeril to BID scheduled 5. History of high blood pressure. Continue Coreg. 6. History of hematuria, history of obstructive uropathy, status post stents. Eliquis was stopped last admission and no further interventions planned. -- Monitor 7. Malignant cachexia. Currently eating regular diet . 8. History of depression and adjustment reaction, on Cymbalta. 9. Deep venous thrombosis prophylaxis. SCDs as the patient has thrombocytopenia and anemia. Code status DNR. 10. Disposition: continue inpatient palliative care Overall prognosis is very poor Continued [facility] stay due to: inadequate po fluid intake, inadequate oral pain control, ambulation difficulties, multiple IV medications needed Discharge planning: uncertain Current Inpatient Medications: Current Inpatient Medications Medications (Trade) Dose Ordered Sig/Shani Route Start Time Stop Time Status Last Admin Dose Admin Acetaminophen (Tylenol Tab) 650 mg Q4H PRN PO 07/20/17 08:30 08/19/17 08:29 07/21/17 12:01 650 MG Al Hydrox/Mg Hydrox/Simethicone (Maalox Max Susp) 15 ml Q4H PRN PO 07/20/17 08:30 08/19/17 08:29 Polyethylene (Miralax Powder Packet) 17 gm DAILY PRN PO 07/20/17 08:30 08/19/17 08:29 Ondansetron HCl (Zofran Inj) 4 mg Q6H PRN IV 07/20/17 08:30 08/19/17 08:29 Alprazolam (Xanax Tab) 0.25 mg Q4 PRN PO 07/20/17 08:30 08/19/17 08:29 07/23/17 22:00 0.25 MG Carvedilol (Coreg Tab) 6.25 mg BID PO 07/20/17 10:00 08/19/17 09:59 07/28/17 08:11 6.25 MG Cyclobenzaprine HCl (Flexeril Tab) 10 mg TID PRN PO 07/20/17 08:30 08/19/17 08:29 07/27/17 15:09 10 MG Diphenoxylate HCl/ Atropine (Lomotil Tab) 1 tab DAILY PRN PO 07/20/17 08:30 08/19/17 08:29 Duloxetine HCl (Cymbalta Cap) 60 mg HS PO 07/20/17 21:00 08/19/17 20:59 07/27/17 21:50 60 MG Fentanyl (Duragesic Patch) 25 mcg Q72H TD 07/20/17 10:00 08/03/17 09:59 07/26/17 09:30 25 MCG Loperamide HCl (Imodium Cap) 2 mg TID PRN PO 07/20/17 08:30 08/19/17 08:29 Oxybutynin Chloride (Ditropan Tab) 5 mg Q8H PRN PO 07/20/17 08:30 08/19/17 08:29 07/28/17 12:04 5 MG Pantoprazole Sodium (Protonix Tab) 40 mg QAM PO 07/20/17 10:00 08/19/17 09:59 07/28/17 08:10 40 MG Potassium Chloride (Klor-Con M10) 10 meq BID PO 07/20/17 10:00 08/19/17 09:59 07/28/17 08:10 10 MEQ Lorazepam (Ativan Tab) 0.5 mg TID PRN PO 07/20/17 21:00 08/19/17 20:59 Morphine Sulfate (Roxanol Oral Soln) 10 mg Q4 PRN PO 07/20/17 08:45 08/19/17 08:44 07/27/17 17:01 10 MG Miscellaneous (Fentanyl Patch Remove & Waste) 1 ea Q3D N/A 07/23/17 09:59 08/22/17 09:58 07/26/17 10:00 1 EA Miscellaneous Information (Check Fentanyl Patch Placement) 1 ea QS N/A 07/20/17 16:00 08/19/17 15:59 07/28/17 08:56 1 EA Hydromorphone HCl (Dilaudid Orthopaedic Technologist) PT RECEIVES 0.2MG... PRN PRN IV 07/20/17 11:30 08/03/17 11:29 07/27/17 05:50 25 MG Naloxone HCl (Narcan Inj) 0.1 mg Q5M PRN IV 07/20/17 11:30 08/19/17 11:29 Simethicone (Mylicon Chew Tab) 80 mg Q6H PRN PO 07/21/17 20:45 08/20/17 20:44 07/26/17 20:11 80 MG Sodium Chloride 1,000 ml @ 15 mls/hr Q24H IV 07/22/17 11:45 08/21/17 11:44 07/28/17 12:01 15 MLS/HR Ipratropium [place] (Atrovent 0.02% 0.5MG/2.5ML Neb) 0.5 mg Q4H PRN INH 07/23/17 04:15 08/22/17 04:14 Levalbuterol (Xopenex 1.25MG/ 0.5ML Neb) 1.25 mg Q4H PRN INH 07/23/17 04:15 08/22/17 04:14 Senna/Docusate Sodium (Senokot S Tab) 1 tab BID PO 07/24/17 08:00 08/23/17 07:59 07/28/17 08:10 1 TAB Lactobacillus Acidophilus (Floranex Tab) 4 tab TIDM PO 07/23/17 08:00 08/22/17 07:59 07/28/17 12:01 4 TAB Clindamycin HCl (Cleocin Cap) 450 mg TID PO 07/26/17 14:00 07/30/17 13:59 07/28/17 08:11 450 MG Lidocaine (Lidoderm Patch 5%) 1 patch QAM TD 07/28/17 08:00 08/27/17 07:59 07/28/17 08:36 1 PATCH Miscellaneous (Remove Lidoderm Patch) 1 ea DAILY@21 N/A 07/27/17 21:00 08/26/17 20:59 07/27/17 21:00 1 EA Dexamethasone (Decadron Tab) 4 mg DAILY PO 07/29/17 08:00 08/19/17 09:59 Phenazopyridine HCl (Pyridium Tab) 200 mg TID PO 07/28/17 14:00 07/30/17 13:59 Cyclobenzaprine HCl (Flexeril Tab) 5 mg ONE PO 07/28/17 16:15 08/27/17 16:14 UNV
[2017-07-28] MEDS ORDERED: CYCLOBENZAPRINE HCL 5 MG TAB PO SCH (16:15)
[2017-07-28] MEDS ORDERED: CYCLOBENZAPRINE HCL 10 MG TAB PO ONE (16:20)
[2017-07-28] MEDS: PHENAZOPYRIDINE HCL 200 MG TAB PO SCH ×2 (16:52→21:10)
[2017-07-28 19:35] VITALS: BP 109/66; PULSE 70; TEMP 36.4; O2SAT 97
[2017-07-28] MEDS: ALPRAZOLAM 0.25 MG TAB PO PRN (21:08)
[2017-07-28] MEDS: DULOXETINE (CYMBALTA) 30 MG CAP PO SCH (21:09)
[2017-07-28 23:07] VITALS: BP 112/72; PULSE 77; TEMP 36.7; O2SAT 97
[2017-07-29] MEDS: MoRPHine SULFATE 5 MG/0.25 ML UDP PO PRN ×2 (03:33→08:59)
[2017-07-29 06:23] VITALS: Ht 167.6 cm; Wt 55.0 kg
[2017-07-29] MEDS ORDERED: DEXAMETHASONE 4 MG TAB PO SCH (08:00)
[2017-07-29] MEDS: CLINDAMYCIN HCL 150 MG CAP PO SCH (08:12)
[2017-07-29] MEDS: LACTOBACILLUS ACIDOPHILUS (FLORANEX) TAB PO SCH ×2 (08:12→08:33)
[2017-07-29] MEDS: PHENAZOPYRIDINE HCL 200 MG TAB PO SCH (08:12)
[2017-07-29] MEDS: POTASSIUM CHLORIDE 10 MEQ TABCR PO SCH (08:30)
[2017-07-29] MEDS: PANTOprazole SOD 40 MG TAB PO SCH (08:30)
[2017-07-29] MEDS: CARVEDILOL 6.25 MG TAB PO SCH (08:30)
[2017-07-29] MEDS: CHECK FENTANYL PATCH PLACEMENT SCH (08:33)
[2017-07-29] MEDS: LIDODERM (LIDOCAINE) PATCH 5% TD SCH (08:55)
[2017-07-29] MEDS ORDERED: CYCLOBENZAPRINE HCL 10 MG TAB PO SCH (09:00)
[2017-07-29] MEDS: DOCUSATE SODIUM/SENNA 50/8.6MG TAB PO SCH (09:47)
[2017-07-29] MEDS: FENTANYL 25 MCG/HR TDSY TD SCH (10:01)
[2017-07-29] MEDS: FENTANYL PATCH REMOVE & WASTE SCH (10:02)
[2017-07-29] MEDS: HYDROmorphone HCL 0.5MG/ML 50 ML CASSETTE IV PRN (10:07)
== END 2017-07-29 10:20 | disposition hospice, inpatient (51) | DRG 542 ==
LOC: EDBD 05:07 → C.EDB 05:08 → C.4E 08:44 → ENRESERV 09:15
PROVIDERS: ADMIT Internal Medicine; ATTEND Internal Medicine
DX: C79.51 Secondary malignant neoplasm of bone (principal); J69.0 Pneumonitis due to inhalation of food and vomit; J96.01 Acute respiratory failure with hypoxia; R64 Cachexia; Z68.1 Body mass index [BMI] 19.9 or less, adult; D63.0 Anemia in neoplastic disease; G89.3 Neoplasm related pain (acute) (chronic); Z51.5 Encounter for palliative care; D69.59 Other secondary thrombocytopenia; R31.0 Gross hematuria; R04.0 Epistaxis; E86.0 Dehydration; R29.810 Facial weakness; K59.00 Constipation, unspecified; S10.93XA Contusion of unspecified part of neck, initial encounter; Z85.038 Personal history of other malignant neoplasm of large intestine; F43.21 Adjustment disorder with depressed mood; R03.0 Elevated blood-pressure reading, without diagnosis of hypertension; Z79.899 Other long term (current) drug therapy; Z79.891 Long term (current) use of opiate analgesic; Z79.52 Long term (current) use of systemic steroids; Z66 Do not resuscitate; Z90.49 Acquired absence of other specified parts of digestive tract; Z90.710 Acquired absence of both cervix and uterus; Z86.718 Personal history of other venous thrombosis and embolism; Z92.21 Personal history of antineoplastic chemotherapy; Z88.0 Allergy status to penicillin; Z91.048 Other nonmedicinal substance allergy status; Z80.0 Family history of malignant neoplasm of digestive organs; Z82.49 Family history of ischemic heart disease and other diseases of the circulatory system; W18.30XA Fall on same level, unspecified, initial encounter; Y93.E8 Activity, other personal hygiene; Y92.002 Bathroom of unspecified non-institutional (private) residence as the place of occurrence of the external cause; Y99.8 Other external cause status

== ENCOUNTER 2017-07-29 10:20 | Inpatient (IN) | payer OTHER ==
[~2017-07-29] VITALS: Ht 167.6 cm; Wt 51.0 kg
[~2017-07-29 10:20] MED LIST changes: +ALPR0.25 PO; +APIX1TAB PO; +APIX1TAB3 PO; +CEPH500C PO; +CIPR-304 PO; +CYCL10TA6 PO; +DOCU100C31 PO; +DXM/4 PO; +HYDR1INJ48 IV; +IBUP600T44 PO; +LORA2CON5 PO; +METH5TAB2 PO; +METO-157 PO; +MORP10SO PO; +OXGN; +PHEN-876 PO; +PROC1TAB5 PO; +SIME1CAP11 PO
[2017-07-29 10:51] VITALS: Ht 167.6 cm; Wt 51.0 kg
[2017-07-29] MEDS ORDERED: ONDANSETRON INJ 2 MG/ML 2 ML VIAL IV PRN (11:45)
[2017-07-29] MEDS ORDERED: ACETAMINOPHEN 325 MG TAB PO PRN (11:45)
[2017-07-29] MEDS ORDERED: LORAZEPAM 2 MG/ML 1 ML VIAL IV PRN (11:45)
[2017-07-29] MEDS ORDERED: HYDROmorphone HCL 0.5MG/ML 50 ML CASSETTE IV PRN (11:45)
[2017-07-29] MEDS ORDERED: FENTANYL 25 MCG/HR TDSY TD SCH (12:00)
[2017-07-29] MEDS ORDERED: OXYBUTYNIN CHLORIDE 5 MG TAB PO PRN (12:30)
[2017-07-29] MEDS ORDERED: NALOXONE HCL 0.4 MG/1 ML VIAL/CARP IV PRN (13:15)
[2017-07-29] MEDS: PHENAZOPYRIDINE HCL 200 MG TAB PO SCH ×2 (14:00→20:00)
[2017-07-29] MEDS: SODIUM CHLORIDE 0.9% 1000ML 1,000 ML IV SCH (14:02)
[2017-07-29] MEDS: HYDROmorphone HCL 0.5MG/ML 50 ML CASSETTE IV PRN ×2 (14:03→22:52)
[2017-07-29] MEDS: CHECK FENTANYL PATCH PLACEMENT SCH ×2 (16:03→23:29)
[2017-07-29] MEDS: LACTOBACILLUS ACIDOPHILUS (FLORANEX) TAB PO SCH (17:00)
--- NOTE | 2017-07-29 17:40 | Progress Note ---
Medicine Progress Note Date & Time of Visit: Jul 29, 2017 at 17:39. Subjective Seen earlier in the morning Patient was sleeping but arousable Per RN patient just received Roxanol earlier States neck pain is better Denies other pain No shortness of breath No other symptoms Objective Last 8 Hrs Date Time Temp Pulse Resp B/P (MAP) Pulse Ox O2 Delivery O2 Flow Rate FiO2 07/29/17 10:51 Room Air Physical Exam: General-drowsy not in distress no accessory muscle use Eyes- anicteric ENT- Some dried blood in the nostrils Neck- no JVD Flexed posturing Lungs-clear breath sounds bilaterally Heart- regular rhythm; no murmur, normal rate Abdomen- normal bowel sounds, soft, nontender, nondistended Extremities- no pretibial edema, no calf tenderness Neuro-drowsy today Skin- warm & dry Assessment & Plan 1. Fall and lethargy. The patient has metastatic stage IV appendiceal cancer, currently on hospice care, on Dilaudid pump. He presented with increasing weakness and altered mental status Likely from underlying metastatic cancer, Dilaudid, steroids Palliative care consulted -- continue present management Changed Pyridium to TID scheduled Changed Flexeril to BID scheduled -- appreciate Dr. Azar's recommendations 2. Profound anemia and thrombocytopenia from metastatic cancer. The patient has chronic hematuria . Presented with hb 2.8 Most likely anemia to be the cause of the fall . is agreeable for blood transfusions, signed a consent. received total of 4units prbc and one unit of platelet pheresis hb 7.5 today and platelets 8 today 07/27/2017 palliative care service discussed case with patient and her Agreeable for discontinuing monitoring of CBCs and transfusions Agreeable to focus on maintaining comfort 3.Aspiration cxr LLL infiltrate patient and family ok for comfort feeding. Diet as tolerated Completed 3 days of clindamycin therapy 4. Chronic pain from her cancer. Continue her home pain medications and Dilaudid TRACTOR OPERATOR BATTERY pump and morphine p.r.n.continue same. seems to be controlled 07/27/2017 change Pyridium to TID scheduled change Flexeril to BID scheduled 07/29/2017 Comfortable Neck pain improved Continue to monitor 5. History of high blood pressure. Continue Coreg. 6. History of hematuria, history of obstructive uropathy, status post stents. Eliquis was stopped last admission and no further interventions planned. -- Monitor 7. Malignant cachexia. Currently eating regular diet . 8. History of depression and adjustment reaction, on Cymbalta. 9. Deep venous thrombosis prophylaxis. SCDs as the patient has thrombocytopenia and anemia. Code status DNR. 10. Disposition: Transitioned to inpatient hospice care Overall prognosis is very poor Current Inpatient Medications: Current Inpatient Medications Medications (Trade) Dose Ordered Sig/Shani Route Start Time Stop Time Status Last Admin Dose Admin Morphine Sulfate (Roxanol Oral Soln) 10 mg Q4H PRN PO 07/29/17 11:45 08/12/17 11:44 Miscellaneous Information (Check Fentanyl Patch Placement) 1 ea QS N/A 07/29/17 16:00 08/28/17 15:59 07/29/17 16:03 1 EA Lorazepam (Ativan Inj) 0.5 mg Q6H PRN IV 07/29/17 11:45 08/28/17 11:44 07/29/17 15:58 0.5 MG Acetaminophen (Tylenol Tab) 650 mg Q4H PRN PO 07/29/17 11:45 08/28/17 11:44 Ondansetron HCl (Zofran Inj) 4 mg Q6H PRN IV 07/29/17 11:45 08/28/17 11:44 Lorazepam 0.5 mg/ Syringe 1 ml @ 1 mls/min Q6H PRN IV 07/29/17 12:00 08/28/17 11:59 Carvedilol (Coreg Tab) 6.25 mg BID PO 07/29/17 20:00 08/28/17 19:59 Cyclobenzaprine HCl (Flexeril Tab) 10 mg BID PO 07/29/17 20:00 08/28/17 19:59 Dexamethasone (Decadron Tab) 4 mg DAILY PO 07/30/17 08:00 08/29/17 07:59 Senna/Docusate Sodium (Senokot S Tab) 1 tab QAM PO 07/30/17 08:00 08/29/17 07:59 Duloxetine HCl (Cymbalta Cap) 60 mg HS PO 07/29/17 21:00 08/28/17 20:59 Lactobacillus Acidophilus (Floranex Tab) 4 tab TIDM PO 07/29/17 17:00 08/28/17 16:59 Lidocaine (Lidoderm Patch 5%) 1 patch QAM TD 07/30/17 08:00 08/29/17 07:59 Miscellaneous (Remove Lidoderm Patch) 1 ea DAILY@21 N/A 07/29/17 21:00 08/28/17 20:59 Oxybutynin Chloride (Ditropan Tab) 5 mg Q8H PRN PO 07/29/17 12:30 08/28/17 12:29 Pantoprazole Sodium (Protonix Tab) 40 mg QAM PO 07/30/17 08:00 08/29/17 07:59 Phenazopyridine HCl (Pyridium Tab) 200 mg TID PO 07/29/17 14:00 08/28/17 13:59 Potassium Chloride (Klor-Con M10) 10 meq BID PO 07/29/17 20:00 08/28/17 19:59 Fentanyl (Duragesic Patch) 25 mcg Q72H TD 08/01/17 12:00 08/15/17 11:59 Miscellaneous (Fentanyl Patch Remove & Waste) 1 ea Q3D N/A 08/01/17 11:59 08/31/17 11:58 Naloxone HCl (Narcan Inj) 0.1 mg Q5M PRN IV 07/29/17 13:15 08/28/17 13:14 Hydromorphone HCl (Dilaudid Bakery Assistant) 25 mg PRN PRN IV 07/29/17 13:15 08/12/17 13:14 07/29/17 14:03 25 MG Sodium Chloride 1,000 ml @ 15 mls/hr Q24H IV 07/29/17 13:13 08/28/17 13:12 07/29/17 14:02 15 MLS/HR
[2017-07-29 19:03] VITALS: BP 106/67; PULSE 92; O2SAT 93
[2017-07-29 19:54] VITALS: BP 118/78; PULSE 110; TEMP 36.6; O2SAT 94
[2017-07-29] MEDS: POTASSIUM CHLORIDE 10 MEQ TABCR PO SCH (20:00)
[2017-07-29] MEDS: CYCLOBENZAPRINE HCL 10 MG TAB PO SCH (20:00)
[2017-07-29] MEDS: CARVEDILOL 6.25 MG TAB PO SCH (20:00)
[2017-07-29] MEDS ORDERED: DULOXETINE HCL 60 MG CAP PO SCH (21:00)
[2017-07-29] MEDS: LORAZEPAM INJ 0.5 MG in SYRINGE 0.75 ML IV PRN (23:29)
[2017-07-30] MEDS ORDERED: DEXAMETHASONE 4 MG TAB PO SCH (08:00)
[2017-07-30] MEDS ORDERED: DOCUSATE SODIUM/SENNA 50/8.6MG TAB PO SCH (08:00)
[2017-07-30] MEDS ORDERED: PANTOprazole SOD 40 MG TAB PO SCH (08:00)
[2017-07-30] MEDS: CHECK FENTANYL PATCH PLACEMENT SCH ×3 (09:36→23:33)
[2017-07-30] MEDS: PHENAZOPYRIDINE HCL 200 MG TAB PO SCH ×2 (09:40→13:28)
[2017-07-30] MEDS: POTASSIUM CHLORIDE 10 MEQ TABCR PO SCH (09:40)
[2017-07-30] MEDS: LACTOBACILLUS ACIDOPHILUS (FLORANEX) TAB PO SCH ×2 (09:41→11:27)
[2017-07-30] MEDS: CARVEDILOL 6.25 MG TAB PO SCH (09:41)
[2017-07-30] MEDS: CYCLOBENZAPRINE HCL 10 MG TAB PO SCH (09:41)
[2017-07-30] MEDS: LIDODERM (LIDOCAINE) PATCH 5% TD SCH (09:42)
[2017-07-30] MEDS: SODIUM CHLORIDE 0.9% 1000ML 1,000 ML IV SCH (13:16)
--- NOTE | 2017-07-30 14:20 | Progress Note ---
Medicine Progress Note Date & Time of Visit: Jul 30, 2017 at 14:20. Subjective Seen with and 2 other family members at the bedside Patient was sleeping, arousable with tactile and verbal stimuli Seems to be drowsy and confused, disoriented today Pain well controlled with MANAGER COMMERCIAL REAL ESTATE Barely eating/drinking as per family medical staff physician noted patient is pocketing/not swallowing pills No other symptoms Objective Last 8 Hrs Date Time Temp Pulse Resp B/P (MAP) Pulse Ox O2 Delivery O2 Flow Rate FiO2 07/30/17 08:40 Room Air Physical Exam: General-drowsy not in distress no accessory muscle use, disoriented, confused but not in distress Eyes- anicteric ENT- Some dried blood in the nostrils Neck- no JVD Flexed posturing Lungs-clear breath sounds bilaterally no rales no wheezes Heart- regular rhythm; no murmur, normal rate Abdomen- normal bowel sounds, soft, nontender, nondistended Extremities- no pretibial edema, no calf tenderness Neuro-drowsy today Skin- warm & dry Assessment & Plan 1. Fall and lethargy. The patient has metastatic stage IV appendiceal cancer, currently on hospice care, on Dilaudid pump. presented with increasing weakness and altered mental status Likely from underlying metastatic cancer, Dilaudid, steroids Palliative care consulted -- appreciate Dr. Azar's recommendations --Currently under inpatient hospice status -- Maintenance of comfort primary goal at this time Discontinue all oral medications, discussed at length with family, they are agreeable at this time Continue MANAGER COMMERCIAL REAL ESTATE Dilaudid, as needed Ativan 2. Profound anemia and thrombocytopenia from metastatic cancer. The patient has chronic hematuria . Presented with hb 2.8 Most likely anemia to be the cause of the fall . is agreeable for blood transfusions, signed a consent. received total of 4units prbc and one unit of platelet pheresis hb 7.5 today and platelets 8 today 07/27/2017 palliative care service discussed case with patient and her CBC transfusions has been discontinued 3.Aspiration cxr LLL infiltrate patient and family ok for comfort feeding. Diet as tolerated Completed 3 days of clindamycin therapy 4. Chronic pain from her cancer. Continue her home pain medications and Dilaudid MANAGER COMMERCIAL REAL ESTATE pump and morphine p.r.n.continue same --Pain is well controlled Has as needed Ativan for anxiety 5. History of high blood pressure --BP on the left side 6. History of hematuria, history of obstructive uropathy, status post stents. Eliquis was stopped last admission and no further interventions planned. --Improving 7. Malignant cachexia. --Appetite very poor 8. History of depression and adjustment reaction, on Cymbalta. 9. Deep venous thrombosis prophylaxis. SCDs as the patient has thrombocytopenia and anemia. Code status DNR. 10. Disposition: Transitioned to inpatient hospice care Overall prognosis is very poor Medical condition and plan of care discussed at length with patient's and family members All questions answered They are agreeable and understanding with plan of care They confirm that the patient is comfortable at this time Current Inpatient Medications: Current Inpatient Medications Medications (Trade) Dose Ordered Sig/Shani Route Start Time Stop Time Status Last Admin Dose Admin Morphine Sulfate (Roxanol Oral Soln) 10 mg Q4H PRN PO 07/29/17 11:45 08/12/17 11:44 Miscellaneous Information (Check Fentanyl Patch Placement) 1 ea QS N/A 07/29/17 16:00 08/28/17 15:59 07/30/17 09:36 1 EA Lorazepam (Ativan Inj) 0.5 mg Q6H PRN IV 07/29/17 11:45 08/28/17 11:44 07/29/17 15:58 0.5 MG Acetaminophen (Tylenol Tab) 650 mg Q4H PRN PO 07/29/17 11:45 08/28/17 11:44 Ondansetron HCl (Zofran Inj) 4 mg Q6H PRN IV 07/29/17 11:45 08/28/17 11:44 Lorazepam 0.5 mg/ Syringe 1 ml @ 1 mls/min Q6H PRN IV 07/29/17 12:00 08/28/17 11:59 07/29/17 23:29 1 MLS/MIN Carvedilol (Coreg Tab) 6.25 mg BID PO 07/29/17 20:00 08/28/17 19:59 Cyclobenzaprine HCl (Flexeril Tab) 10 mg BID PO 07/29/17 20:00 08/28/17 19:59 Dexamethasone (Decadron Tab) 4 mg DAILY PO 07/30/17 08:00 08/29/17 07:59 Senna/Docusate Sodium (Senokot S Tab) 1 tab QAM PO 07/30/17 08:00 08/29/17 07:59 Duloxetine HCl (Cymbalta Cap) 60 mg HS PO 07/29/17 21:00 08/28/17 20:59 Lactobacillus Acidophilus (Floranex Tab) 4 tab TIDM PO 07/29/17 17:00 08/28/17 16:59 Lidocaine (Lidoderm Patch 5%) 1 patch QAM TD 07/30/17 08:00 08/29/17 07:59 07/30/17 09:42 1 PATCH Miscellaneous (Remove Lidoderm Patch) 1 ea DAILY@21 N/A 07/29/17 21:00 08/28/17 20:59 07/29/17 21:00 1 EA Oxybutynin Chloride (Ditropan Tab) 5 mg Q8H PRN PO 07/29/17 12:30 08/28/17 12:29 Pantoprazole Sodium (Protonix Tab) 40 mg QAM PO 07/30/17 08:00 08/29/17 07:59 07/30/17 09:40 40 MG Phenazopyridine HCl (Pyridium Tab) 200 mg TID PO 07/29/17 14:00 08/28/17 13:59 07/30/17 09:40 200 MG Potassium Chloride (Klor-Con M10) 10 meq BID PO 07/29/17 20:00 08/28/17 19:59 Fentanyl (Duragesic Patch) 25 mcg Q72H TD 08/01/17 12:00 08/15/17 11:59 Miscellaneous (Fentanyl Patch Remove & Waste) 1 ea Q3D N/A 08/01/17 11:59 08/31/17 11:58 Naloxone HCl (Narcan Inj) 0.1 mg Q5M PRN IV 07/29/17 13:15 08/28/17 13:14 Hydromorphone HCl (Dilaudid Facility Mechanic) 25 mg PRN PRN IV 07/29/17 13:15 08/12/17 13:14 07/29/17 22:52 25 MG Sodium Chloride 1,000 ml @ 15 mls/hr Q24H IV 07/29/17 13:13 08/28/17 13:12 07/30/17 13:16 15 MLS/HR
[2017-07-30 14:27] VITALS: BP 121/76; PULSE 112; TEMP 36.5; O2SAT 94
[2017-07-30 14:34] VITALS: BP 121/76; PULSE 112; TEMP 36.5; O2SAT 94
[2017-07-30] MEDS: MoRPHine SULFATE 10 MG/0.5 ML UDP PO PRN (21:58)
[2017-07-30] MEDS: LORAZEPAM INJ 0.5 MG in SYRINGE 0.75 ML IV PRN (23:23)
[2017-07-31] MEDS: MoRPHine SULFATE 10 MG/0.5 ML UDP PO PRN ×3 (03:02→22:06)
[2017-07-31] MEDS ORDERED: NURSING VERBAL MED ORDER ONE (05:45)
[2017-07-31] MEDS ORDERED: LORAZEPAM INJ 0.5 MG in SYRINGE 0.75 ML IV PRN (06:00)
[2017-07-31] MEDS ORDERED: LORAZEPAM 2 MG/ML 1 ML VIAL IV PRN ×3 (06:15→14:15)
[2017-07-31] MEDS: LIDODERM (LIDOCAINE) PATCH 5% TD SCH (07:58)
[2017-07-31] MEDS: CHECK FENTANYL PATCH PLACEMENT SCH ×3 (08:02→23:31)
[2017-07-31] MEDS ORDERED: LORAZEPAM INJ 1 MG in SYRINGE 0.5 ML IV PRN ×2 (11:00→14:30)
[2017-07-31] MEDS: HYDROmorphone HCL 0.5MG/ML 50 ML CASSETTE IV PRN (11:22)
[2017-07-31] MEDS: SODIUM CHLORIDE 0.9% 1000ML 1,000 ML IV SCH (13:09)
--- NOTE | 2017-07-31 14:30 | Palliative Care Progress Note ---
Palliative Care Progress Note Date of Service Jul 31, 2017. Subjective Continuing to follow patient peripherally. Patient is now [facility] hospice. Providing emotional support to and family. Patient's and on at bedside, patient appears comfortable with obvious signs of significant decline. Patient is minimally responsive, does not open her eyes though she attempts to. Moving her right upper extremity periodically. Patient continues to have gross hematuria. Reports that patient took a few sips of water earlier today, urine output continues to decline. Patient appears comfortable, is receiving as needed Ativan for anxiety and restlessness. Patient with new mottling of toes with coolness, also new left lower extremity edema. Family grieving appropriately, aware patient is nearing end-of-life. Objective Vital Signs Date Time Temp Pulse Resp B/P (MAP) Pulse Ox O2 Delivery O2 Flow Rate FiO2 07/31/17 11:47 Room Air 07/31/17 00:01 Room Air 07/30/17 16:00 Room Air 07/30/17 14:34 36.5 112 20 121/76 (91) 94 Room Air
[2017-07-31] MEDS: LORAZEPAM INJ 1 MG in SYRINGE 0.5 ML IV SCH ×2 (17:40→21:57)
--- NOTE | 2017-07-31 17:57 | Progress Note ---
Medicine Progress Note Date & Time of Visit: Jul 31, 2017 at 17:55. Subjective Noted to be somewhat more restless overnight Ativan dose increased frequency Seen resting in bed comfortable Patient is drowsy Opens eyes to verbal stimuli occasionally Not in distress no signs of discomfort Objective Last 8 Hrs Date Time Temp Pulse Resp B/P (MAP) Pulse Ox O2 Delivery O2 Flow Rate FiO2 07/31/17 16:00 Room Air 07/31/17 11:47 Room Air Physical Exam: General-drowsy not in distress no accessory muscle use Eyes- anicteric Neck- no JVD Flexed posturing Lungs-clear breath sounds bilaterally Heart- regular rhythm; no murmur, normal rate Abdomen- normal bowel sounds, soft, nontender, nondistended Extremities- no pretibial edema, no calf tenderness Neuro-drowsy today Skin- warm & dry Assessment & Plan 1. Fall and lethargy. The patient has metastatic stage IV appendiceal cancer, currently on hospice care, on Dilaudid pump. presented with increasing weakness and altered mental status Likely from underlying metastatic cancer, Dilaudid, steroids Palliative care consulted -- appreciate Dr. Azar's recommendations --Currently under inpatient hospice status -- Maintenance of comfort primary goal at this time Discontinue all oral medications, discussed at length with family, they are agreeable at this time Continue AIRPLANE DISPATCH CLERK Dilaudid Increase Ativan to 1 mg every 4 hours and 1 mg every 2 hours Continue to monitor 2. Profound anemia and thrombocytopenia from metastatic cancer. The patient has chronic hematuria . Presented with hb 2.8 Most likely anemia to be the cause of the fall . is agreeable for blood transfusions, signed a consent. received total of 4units prbc and one unit of platelet pheresis hb 7.5 today and platelets 8 t 07/27/2017 palliative care service discussed case with patient and her CBC transfusions has been discontinued 3.Aspiration cxr LLL infiltrate patient and family ok for comfort feeding. Diet as tolerated Completed 3 days of clindamycin therapy 4. Chronic pain from her cancer. Continue her home pain medications and Dilaudid AIRPLANE DISPATCH CLERK pump and morphine p.r.n.continue same --Pain well controlled 5. History of high blood pressure --BP on the left side 6. History of hematuria, history of obstructive uropathy, status post stents. Eliquis was stopped last admission and no further interventions planned. --Improving 7. Malignant cachexia. --Appetite very poor 8. History of depression and adjustment reaction, on Cymbalta. 9. Deep venous thrombosis prophylaxis. SCDs as the patient has thrombocytopenia and anemia. Code status DNR. 10. Disposition: Transitioned to inpatient hospice care Overall prognosis is very poor Current Inpatient Medications: Current Inpatient Medications Medications (Trade) Dose Ordered Sig/Shani Route Start Time Stop Time Status Last Admin Dose Admin Morphine Sulfate (Roxanol Oral Soln) 10 mg Q4H PRN PO 07/29/17 11:45 08/12/17 11:44 07/31/17 14:04 10 MG Miscellaneous Information (Check Fentanyl Patch Placement) 1 ea QS N/A 07/29/17 16:00 08/28/17 15:59 07/31/17 16:00 1 EA Acetaminophen (Tylenol Tab) 650 mg Q4H PRN PO 07/29/17 11:45 08/28/17 11:44 Ondansetron HCl (Zofran Inj) 4 mg Q6H PRN IV 07/29/17 11:45 08/28/17 11:44 Lidocaine (Lidoderm Patch 5%) 1 patch QAM TD 07/30/17 08:00 08/29/17 07:59 07/30/17 09:42 1 PATCH Miscellaneous (Remove Lidoderm Patch) 1 ea DAILY@21 N/A 07/29/17 21:00 08/28/17 20:59 07/30/17 21:29 1 EA Fentanyl (Duragesic Patch) 25 mcg Q72H TD 08/01/17 12:00 08/15/17 11:59 Miscellaneous (Fentanyl Patch Remove & Waste) 1 ea Q3D N/A 08/01/17 11:59 08/31/17 11:58 Naloxone HCl (Narcan Inj) 0.1 mg Q5M PRN IV 07/29/17 13:15 08/28/17 13:14 Hydromorphone HCl (Dilaudid Electric Tripper Machine Operator) 25 mg PRN PRN IV 07/29/17 13:15 08/12/17 13:14 07/31/17 11:22 25 MG Sodium Chloride 1,000 ml @ 15 mls/hr Q24H IV 07/29/17 13:13 08/28/17 13:12 07/30/17 13:16 15 MLS/HR Lorazepam (Ativan Inj) 1 mg Q2H PRN IV 07/31/17 14:15 08/30/17 14:14 Lorazepam 1 mg/ Syringe 1 ml @ 1 mls/min Q2H PRN IV 07/31/17 14:30 08/30/17 14:29 Lorazepam 1 mg/ Syringe 1 ml @ 1 mls/min Q4H IV 07/31/17 18:00 08/30/17 17:59 07/31/17 17:40 1 MLS/MIN
[2017-07-31] MEDS ORDERED: LORAZEPAM 2 MG/ML 1 ML VIAL IV SCH (18:00)
[2017-08-01] VITALS: O2SAT 94
[2017-08-01] MEDS: LORAZEPAM INJ 1 MG in SYRINGE 0.5 ML IV SCH ×6 (01:44→22:03)
[2017-08-01] MEDS ORDERED: NURSING VERBAL MED ORDER ONE (02:15)
[2017-08-01] MEDS: LIDODERM (LIDOCAINE) PATCH 5% TD SCH (07:17)
[2017-08-01] MEDS: CHECK FENTANYL PATCH PLACEMENT SCH ×2 (08:54→16:08)
[2017-08-01] MEDS: MoRPHine SULFATE 10 MG/0.5 ML UDP PO PRN ×3 (09:50→21:07)
[2017-08-01] MEDS ORDERED: ATROPINE SULFATE 1% OP SOLN 2 ML BTL ONE (11:55)
[2017-08-01] MEDS ORDERED: FENTANYL PATCH REMOVE & WASTE SCH ×2 (11:59→12:00)
[2017-08-01] MEDS ORDERED: FENTANYL 25 MCG/HR TDSY TD SCH (12:00)
[2017-08-01] MEDS ORDERED: SCOPOLAMINE 1.5 MG TDSY TD PRN (12:00)
[2017-08-01] MEDS: SODIUM CHLORIDE 0.9% 1000ML 1,000 ML IV SCH (12:23)
[2017-08-01 16:00] VITALS: O2SAT 94
[2017-08-01] MEDS: CHECK SCOPOLAMINE PATCH PLACEMENT SCH (16:09)
[2017-08-01] MEDS: HYDROmorphone HCL 0.5MG/ML 50 ML CASSETTE IV PRN (16:50)
--- NOTE | 2017-08-01 17:25 | Progress Note ---
Medicine Progress Note Date & Time of Visit: Aug 01, 2017 at 17:23. Subjective Seen resting in bed comfortable sleeping Her was at the bedside States patient is overall comfortable, peaceful Noted to have some increased secretions today, atropine is complaining patch started No other signs/symptoms Objective Last 8 Hrs Date Time Temp Pulse Resp B/P (MAP) Pulse Ox O2 Delivery O2 Flow Rate FiO2 08/01/17 16:00 94 Room Air 08/01/17 11:12 Room Air Physical Exam: General-lethargic, not in distress, no accessory muscle use Eyes- anicteric Neck- no JVD Flexed posturing Lungs-clear breath sounds bilaterally, no rales wheezes Heart- regular rhythm; no murmur Abdomen- normal bowel sounds, soft, nontender, nondistended Extremities- no pretibial edema, no calf tenderness Neuro-lethargic Skin- warm & dry Assessment & Plan 1. Fall and lethargy. The patient has metastatic stage IV appendiceal cancer, currently on hospice care, on Dilaudid pump. presented with increasing weakness and altered mental status Likely from underlying metastatic cancer, Dilaudid, steroids Palliative care consulted -- appreciate Dr. Azar's recommendations --Currently under inpatient hospice status -- Maintenance of comfort primary goal at this time Continue Dilaudid IV Continue Ativan 1 mg every 4 hours and 1 mg every 2 hours --Comfortable overall 2. Profound anemia and thrombocytopenia from metastatic cancer. The patient has chronic hematuria . Presented with hb 2.8 Most likely anemia to be the cause of the fall . is agreeable for blood transfusions, signed a consent. received total of 4units prbc and one unit of platelet pheresis hb 7.5 today and platelets 8 t 07/27/2017 palliative care service discussed case with patient and her CBC transfusions has been discontinued 3.Aspiration cxr LLL infiltrate patient and family ok for comfort feeding. Diet as tolerated Completed 3 days of clindamycin therapy 4. Chronic pain from her cancer. 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 History of high blood pressure BP on the lower side 6. History of hematuria, history of obstructive uropathy, status post stents. Eliquis was stopped last admission and no further interventions planned. --Improving 7. Malignant cachexia. --Appetite very poor 8. History of depression and adjustment reaction, on Cymbalta. 9. Deep venous thrombosis prophylaxis. SCDs as the patient has thrombocytopenia and anemia. Code status DNR. 10. Disposition: Transitioned to inpatient hospice care Overall prognosis is very poor Current Inpatient Medications: Current Inpatient Medications Medications (Trade) Dose Ordered Sig/Shani Route Start Time Stop Time Status Last Admin Dose Admin Morphine Sulfate (Roxanol Oral Soln) 10 mg Q4H PRN PO 07/29/17 11:45 08/12/17 11:44 08/01/17 14:11 10 MG Miscellaneous Information (Check Fentanyl Patch Placement) 1 ea QS N/A 07/29/17 16:00 08/28/17 15:59 08/01/17 16:08 1 EA Acetaminophen (Tylenol Tab) 650 mg Q4H PRN PO 07/29/17 11:45 08/28/17 11:44 Ondansetron HCl (Zofran Inj) 4 mg Q6H PRN IV 07/29/17 11:45 08/28/17 11:44 Lidocaine (Lidoderm Patch 5%) 1 patch QAM TD 07/30/17 08:00 08/29/17 07:59 07/30/17 09:42 1 PATCH Miscellaneous (Remove Lidoderm Patch) 1 ea DAILY@21 N/A 07/29/17 21:00 08/28/17 20:59 07/30/17 21:29 1 EA Fentanyl (Duragesic Patch) 25 mcg Q72H TD 08/01/17 12:00 08/15/17 11:59 08/01/17 12:06 25 MCG Miscellaneous (Fentanyl Patch Remove & Waste) 1 ea Q3D N/A 08/01/17 11:59 08/31/17 11:58 08/01/17 12:23 1 EA Naloxone HCl (Narcan Inj) 0.1 mg Q5M PRN IV 07/29/17 13:15 08/28/17 13:14 Hydromorphone HCl (Dilaudid Aoc Airspace Control Officer) 25 mg PRN PRN IV 07/29/17 13:15 08/12/17 13:14 08/01/17 16:50 25 MG Sodium Chloride 1,000 ml @ 15 mls/hr Q24H IV 07/29/17 13:13 08/28/17 13:12 07/30/17 13:16 15 MLS/HR Lorazepam (Ativan Inj) 1 mg Q2H PRN IV 07/31/17 14:15 08/30/17 14:14 Lorazepam 1 mg/ Syringe 1 ml @ 1 mls/min Q2H PRN IV 07/31/17 14:30 08/30/17 14:29 Lorazepam 1 mg/ Syringe 1 ml @ 1 mls/min Q4H IV 07/31/17 18:00 08/30/17 17:59 08/01/17 14:10 1 MLS/MIN Atropine Sulfate (Atropine Sulfate 1% Oph Soln) 2 drops Q2H PRN SL 08/01/17 12:00 08/31/17 11:59 Scopolamine (Transderm-Scop Patch) 1.5 mg Q72H PRN TD 08/01/17 12:00 08/31/17 11:59 08/01/17 12:06 1.5 MG Miscellaneous Information (Check Scopolamine Patch Placement) 1 ea QS N/A 08/01/17 16:00 08/31/17 15:59 08/01/17 16:09 1 EA Miscellaneous (Remove Transderm-Scop Patch) 1 ea Q72H N/A 08/04/17 12:00 09/03/17 11:59
[2017-08-01] MEDS: ATROPINE SULFATE 1% OP SOLN 5 ML BTL SL PRN (21:07)
[2017-08-02] MEDS: CHECK SCOPOLAMINE PATCH PLACEMENT SCH ×3 (00:04→15:29)
[2017-08-02] MEDS: CHECK FENTANYL PATCH PLACEMENT SCH ×3 (00:04→15:28)
[2017-08-02] MEDS: LORAZEPAM INJ 1 MG in SYRINGE 0.5 ML IV SCH ×5 (02:06→18:03)
[2017-08-02 08:00] VITALS: O2SAT 94
[2017-08-02] MEDS: LIDODERM (LIDOCAINE) PATCH 5% TD SCH (08:00)
[2017-08-02] MEDS: SODIUM CHLORIDE 0.9% 1000ML 1,000 ML IV SCH (09:09)
[2017-08-02] MEDS: ATROPINE SULFATE 1% OP SOLN 5 ML BTL SL PRN ×2 (15:32→18:03)
[2017-08-02] MEDS: HYDROmorphone HCL 0.5MG/ML 50 ML CASSETTE IV PRN (17:58)
[2017-08-02] MEDS: MoRPHine SULFATE 10 MG/0.5 ML UDP PO PRN (18:43)
--- NOTE | 2017-08-02 19:15 | Progress Note ---
Medicine Progress Note Date & Time of Visit: Aug 02, 2017 at 19:05. Subjective Seen with and family at the bedside states that the patient has been sleeping mostly Has not had any p.o. intake since yesterday She remains comfortable, peaceful as per No other new signs/symptoms noted Objective Last 8 Hrs Date Time Temp Pulse Resp B/P (MAP) Pulse Ox O2 Delivery O2 Flow Rate FiO2 08/02/17 15:50 Room Air Physical Exam: General-lethargic, not in distress, no accessory muscle use Eyes- anicteric Neck- no JVD Flexed posturing Lungs-clear breath sounds bilaterally Heart-regular rhythm, no murmur Abdomen- normal bowel sounds, soft, nontender, nondistended Extremities- no pretibial edema, no calf tenderness Neuro-lethargic Skin- warm & dry Assessment & Plan 1. Fall and lethargy. The patient has metastatic stage IV appendiceal cancer, currently on hospice care, on Dilaudid pump. presented with increasing weakness and altered mental status Likely from underlying metastatic cancer, Dilaudid, steroids Palliative care consulted -- appreciate Dr. Azar's recommendations --Currently under inpatient hospice status -- Maintenance of comfort primary goal at this time Continue Dilaudid IV Continue Ativan 1 mg every 4 hours and 1 mg every 2 hours --Remains comfortable, peaceful Continue present management 2. Profound anemia and thrombocytopenia from metastatic cancer. The patient has chronic hematuria . Presented with hb 2.8 Most likely anemia to be the cause of the fall . is agreeable for blood transfusions, signed a consent. received total of 4units prbc and one unit of platelet pheresis -- hb 7.5 today and platelets 8 07/27/2017 palliative care service discussed case with patient and her CBC transfusions has been discontinued 3.Aspiration cxr LLL infiltrate patient and family ok for comfort feeding. Diet as tolerated Completed 3 days of clindamycin therapy 4. Chronic pain from her cancer. 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 History of high blood pressure BP on the lower side 6. History of hematuria, history of obstructive uropathy, status post stents. Eliquis was stopped last admission and no further interventions planned. --Improving 7. Malignant cachexia. --Appetite very poor 8. History of depression and adjustment reaction, on Cymbalta. 9. Deep venous thrombosis prophylaxis. SCDs as the patient has thrombocytopenia and anemia. Code status DNR. 10. Disposition: Transitioned to inpatient hospice care Overall prognosis is very poor Current Inpatient Medications: Current Inpatient Medications Medications (Trade) Dose Ordered Sig/Shani Route Start Time Stop Time Status Last Admin Dose Admin Morphine Sulfate (Roxanol Oral Soln) 10 mg Q4H PRN PO 07/29/17 11:45 08/12/17 11:44 08/02/17 18:43 10 MG Miscellaneous Information (Check Fentanyl Patch Placement) 1 ea QS N/A 07/29/17 16:00 08/28/17 15:59 08/02/17 15:28 1 EA Acetaminophen (Tylenol Tab) 650 mg Q4H PRN PO 07/29/17 11:45 08/28/17 11:44 Ondansetron HCl (Zofran Inj) 4 mg Q6H PRN IV 07/29/17 11:45 08/28/17 11:44 Lidocaine (Lidoderm Patch 5%) 1 patch QAM TD 07/30/17 08:00 08/29/17 07:59 07/30/17 09:42 1 PATCH Miscellaneous (Remove Lidoderm Patch) 1 ea DAILY@21 N/A 07/29/17 21:00 08/28/17 20:59 07/30/17 21:29 1 EA Fentanyl (Duragesic Patch) 25 mcg Q72H TD 08/01/17 12:00 08/15/17 11:59 08/01/17 12:06 25 MCG Miscellaneous (Fentanyl Patch Remove & Waste) 1 ea Q3D N/A 08/01/17 11:59 08/31/17 11:58 08/01/17 12:23 1 EA Naloxone HCl (Narcan Inj) 0.1 mg Q5M PRN IV 07/29/17 13:15 08/28/17 13:14 Hydromorphone HCl (Dilaudid Long Distance Operator) 25 mg PRN PRN IV 07/29/17 13:15 08/12/17 13:14 08/02/17 17:58 25 MG Sodium Chloride 1,000 ml @ 15 mls/hr Q24H IV 07/29/17 13:13 08/28/17 13:12 08/02/17 09:09 15 MLS/HR Lorazepam (Ativan Inj) 1 mg Q2H PRN IV 07/31/17 14:15 08/30/17 14:14 Lorazepam 1 mg/ Syringe 1 ml @ 1 mls/min Q2H PRN IV 07/31/17 14:30 08/30/17 14:29 08/02/17 10:02 1 MLS/MIN Lorazepam 1 mg/ Syringe 1 ml @ 1 mls/min Q4H IV 07/31/17 18:00 08/30/17 17:59 08/02/17 18:03 1 MLS/MIN Atropine Sulfate (Atropine Sulfate 1% Oph Soln) 2 drops Q2H PRN SL 08/01/17 12:00 08/31/17 11:59 08/02/17 18:03 2 DROPS Scopolamine (Transderm-Scop Patch) 1.5 mg Q72H PRN TD 08/01/17 12:00 08/31/17 11:59 08/01/17 12:06 1.5 MG Miscellaneous Information (Check Scopolamine Patch Placement) 1 ea QS N/A 08/01/17 16:00 08/31/17 15:59 08/02/17 15:29 1 EA Miscellaneous (Remove Transderm-Scop Patch) 1 ea Q72H N/A 08/04/17 12:00 09/03/17 11:59
--- NOTE | 2017-08-03 21:29 | Discharge Summary ---
Discharge Summary Date of Service Aug 03, 2017. Discharge Summary Admission Date: Jul 29, 2017 at 10:20 Discharge Date: Aug 04, 2017 Discharge Disposition: Principal Diagnosis: Fall and lethargy; Metastatic stage IV appendiceal cancer. Secondary Diagnoses/Problems: Please refer to hospital course below. Procedures: Blood Transfusion Consultations: Hematology/Oncology, Palliative Care Admission Information HPI (per Admitting provider): DATE OF ADMISSION: 07/20/2017 CHIEF COMPLAINT: Status post fall. 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 The patient is status post appendectomy, hysterectomy, oophorectomy, splenectomy and colon resection, underwent HIPEC procedure in 08/2006, had chemotherapy and then immunotherapy trial ending 03/2017. After that, PET scan done showed diffuse metastatic disease to spine. Has severe back pain, used to follow up with Dr. Horton at [facility] in [place] and the patient was here in the hospital in the last week of May and first week of June. At that time, she was converted to hospice care. She also had ureteral stents in April and she has chronic hematuria from that but no plans for any further intervention. The patient's lives with her and hospice case nurse checks on her.Since last admission as patient was started on Dilaudid pump for pain control, says she is mostly foggy, on and off she can talk.As per she is eating okay and she can go to bathroom on her own but feeling very weak lately. Denies any blood in the stools or black stools. As per , today morning when she got up from the bed to go to the bathroom, she became stiff and she fell and he helped her back to the bed and he thought that she may have some facial droop on the left side and some weakness and he called the hospice nurse and at that time it was decided to come to the ER. In the ER, initially refused to have a CT of the head because it is no point doing it as we are not going to treat anyway. Her hemoglobin was found to be 2.8. The is agreeable for blood transfusion at this time. The patient can tell her name but could not answer any other questions. Blood pressure is okay. Some small bruise on the left side of the neck. The patient was DNI before but right now the do not want any CPR, so the patient will be DNR. Hospice is revoked at this time as the patient is getting admitted. Physical Exam (per Admitting): GENERAL: The patient is weak and frail, somewhat lethargic, oriented to name only. VITAL SIGNS: Temperature 36.4, pulse 117, respiratory rate 12, blood pressure 115/73, oxygen 90% on 4 liters. HEENT: Pallor present, no icterus. Pupils equal, round, react to light. NECK: No JVD, no carotid bruit. Some slight bluish discoloration on the right side of the neck. No obvious swelling seen. CARDIOVASCULAR: S1, S2 heard. Tachycardia. No murmurs. RESPIRATORY: Normal AP diameter. No accessory muscle use. No wheezing, no crackles. ABDOMEN: Soft. Bowel sounds present. Nontender. No distention. CENTRAL NERVOUS SYSTEM: Drowsy and lethargic, oriented to name only, does not obey commands. EXTREMITIES: No edema, no erythema. Hospital Course 1. Fall and lethargy. The patient has metastatic stage IV appendiceal cancer, currently on hospice care, on Dilaudid pump. presented with increasing weakness and altered mental status Likely from underlying metastatic cancer, Dilaudid, steroids Palliative care consulted -- Maintenance of comfort primary goal given Dilaudid IV , Ativan 1 mg every 4 hours and 1 mg every 2 hours --Remained comfortable, peaceful --Patient was pronounced on 08/02/17 2. Profound anemia and thrombocytopenia from metastatic cancer. The patient has chronic hematuria . Presented with hb 2.8 Most likely anemia to be the cause of the fall . is agreeable for blood transfusions, signed a consent. received total of 4units prbc and one unit of platelet pheresis 07/27/2017 palliative care service discussed case with patient and her CBC transfusions has been discontinued 3.Aspiration cxr LLL infiltrate Completed 3 days of clindamycin therapy 4. Chronic pain from her cancer. --Pain remains well controlled 5. History of high blood pressure 6. History of hematuria, history of obstructive uropathy, status post stents. -- monitored 7. Malignant cachexia. 8. History of depression and adjustment reaction, on Cymbalta. Total time spent on discharge = This includes examination of the patient, discharge planning, medication reconciliation, and communication with other providers. Discharge Instructions Patient .
== END 2017-08-02 19:55 | disposition expired | DRG 951 ==
LOC: C.4E 10:20 → UNDOADMIN 10:41
PROVIDERS: ADMIT Internal Medicine; ATTEND Internal Medicine
DX: Z51.5 Encounter for palliative care (principal); C79.51 Secondary malignant neoplasm of bone; R64 Cachexia; Z68.1 Body mass index [BMI] 19.9 or less, adult; D63.0 Anemia in neoplastic disease; G89.3 Neoplasm related pain (acute) (chronic); D69.59 Other secondary thrombocytopenia; R53.83 Other fatigue; R53.1 Weakness; F43.21 Adjustment disorder with depressed mood; R31.0 Gross hematuria; F41.9 Anxiety disorder, unspecified; R45.1 Restlessness and agitation; R03.0 Elevated blood-pressure reading, without diagnosis of hypertension; R91.8 Other nonspecific abnormal finding of lung field; Z66 Do not resuscitate; Z85.09 Personal history of malignant neoplasm of other digestive organs; Z90.49 Acquired absence of other specified parts of digestive tract; Z79.899 Other long term (current) drug therapy